=== PATIENT | male | born 2000 | race Caucasian/White ===

== ENCOUNTER 2019-11-21 21:40 | Emergency (ER) | payer OTHER ==
[~2019-11-21] VITALS: Ht 175.3 cm; Wt 68.5 kg
[~2019-11-21 21:40] MED LIST: ACET1TAB15 PO; VIVANCE PO; VYVA30CA5 PO
[2019-11-21] MEDS ORDERED: NALOXONE INJ 0.4MG/1ML VIAL (J2310 PER 1MG) IV STA (21:48)
[2019-11-21] MEDS ORDERED: NS 1,000 ML IV ONE (22:00)
[2019-11-21 22:07] LABS: BASO # 0.1 10^3/uL (0.0-0.2); BASO % 0.5 % (0.0-1.0); EOS # 0.2 10^3/uL (0.0-0.5); EOS % 1.4 % (0.0-3.0); HEMOGLOBIN 14.2 g/dl (13.5-17.5); LYMPH # 2.6 10^3/uL (1.5-5.0); LYMPH % 25.4 % (24.0-44.0); MEAN CORPUSCULAR HEMOGLOBIN 31.5 pg (27.0-33.0); MEAN CORPUSCULAR HGB CONC 34.6 g/dl (32.0-36.5); MEAN CORPUSCULAR VOLUME 90.9 fl (80.0-96.0); MONO # 0.8 10^3/uL (0.0-0.8); MONO % 8.1 % (0.0-5.0); NEUTROPHILS # 6.7 10^3/uL (1.5-8.5); NEUTROPHILS % 64.2 % (36.0-66.0); PLATELET COUNT, AUTOMATED 245 10^3/uL (150-450); RED BLOOD COUNT 4.51 10^6/uL (4.30-6.10); WHITE BLOOD COUNT 10.4 10^3/uL (4.0-10.0)
--- NOTE | 2019-11-21 22:08 | REPVR ---
PROCEDURE INFORMATION: Exam: CT Head Without Contrast Exam date and time: 11/21/2019 10:03 PM Age: 19 years old Clinical indication: Altered mental status/memory loss; Confusion or disorientation; Additional info: AMS TECHNIQUE: Imaging protocol: Computed tomography of the head without contrast. Radiation optimization: All CT scans at this facility use at least one of these dose optimization techniques: automated exposure control; mA and/or kV adjustment per patient size (includes targeted exams where dose is matched to clinical indication); or iterative reconstruction. COMPARISON: No relevant prior studies available. FINDINGS: Brain: No intracranial hemorrhage or extra-axial fluid collection. No evidence of mass effect or midline shift. Lawson-white matter differentiation is intact. Ventricles: No ventriculomegaly. Bones/joints: No acute osseus lesion or fracture. Sinuses: Unremarkable as visualized. Mastoid air cells: Unremarkable. Soft tissues: Unremarkable. IMPRESSION: No acute intracranial pathology. Electronically signed by: Max Biswas On 11/21/2019 22:08:18 PM
[2019-11-21] MEDS ORDERED: LORazepam 2 MG/ML VIAL IV STA (22:28)
[2019-11-21 22:45] LABS: ACETAMINOPHEN LEVEL < 2.0 UG/ML (10.0-30.0); ETHYL ALCOHOL (ETHANOL) < 0.003 % (0.000-0.010); FREE T4 1.02 NG/DL (0.76-1.46); SALICYLATE LEVEL < 1.7 MG/DL (5.0-30.0)
[2019-11-21 23:19] LABS: AMPHETAMINES LEVEL URINE NEGATIVE (NEGATIVE); BARBITURATES URINE NEGATIVE (NEGATIVE); BENZODIAZEPINES URINE NEGATIVE (NEGATIVE); CANNABINOIDS URINE POSITIVE (NEGATIVE); COCAINE METABOLITE URINE NEGATIVE (NEGATIVE); METHADONE URINE NEGATIVE (NEGATIVE); OPIATES URINE NEGATIVE (NEGATIVE); PHENCYCLIDINE URINE NEGATIVE (NEGATIVE)
[2019-11-22 04:15] VITALS: BP 109/57
--- NOTE | 2019-11-22 08:25 | REP ---
REASON: Altered mental status. FINDINGS: The technique utilized in obtaining the radiograph has magnified the cardiac silhouette and accentuated the interstitial markings. The superior mediastinal structures are midline. The cardiac silhouette is unremarkable in size, shape, and position. The diaphragmatic surfaces of the lungs are regular, and the costophrenic angles are clear. The pulmonary stewart are clear. The imaged osseous structures are intact. IMPRESSION: There is no acute cardiopulmonary disease. Electronically Signed by Margarito Adorno DO 11/22/2019 09:18 A
== END 2019-11-22 04:47 | disposition home or self-care (01) ==
LOC: M ED 21:40
DX: F12.121 Cannabis abuse with intoxication delirium (principal); E02 Subclinical iodine-deficiency hypothyroidism; F90.9 Attention-deficit hyperactivity disorder, unspecified type; F17.200 Nicotine dependence, unspecified, uncomplicated; Z78.1 Physical restraint status
CPT/HCPCS: 51701; 70450; 71045; 80047; 80307; 83605; 84439; 84443; 85025; 87040; 93041; 94760; 96374; 99285; G0480; J2310

== ENCOUNTER 2020-02-13 11:04 | Inpatient (IN) | payer OTHER ==
[~2020-02-13] VITALS: Ht 185.4 cm; Wt 67.0 kg
[2020-02-13] MEDS: NICOTINE 21MG/24HR 1 EA TRANSDERMAL TD SCH (09:00)
[2020-02-13 11:59] LABS: HEMATOCRIT 40.7 % (42.0-52.0); HEMOGLOBIN 13.6 g/dl (13.5-17.5); MEAN CORPUSCULAR HEMOGLOBIN 30.7 pg (27.0-33.0); MEAN CORPUSCULAR HGB CONC 33.4 g/dl (32.0-36.5); MEAN CORPUSCULAR VOLUME 91.9 fl (80.0-96.0); PLATELET COUNT, AUTOMATED 236 10^3/uL (150-450); RED BLOOD COUNT 4.43 10^6/uL (4.30-6.10); WHITE BLOOD COUNT 5.8 10^3/uL (4.0-10.0)
[2020-02-13 12:39] LABS: ACETAMINOPHEN LEVEL < 2.0 UG/ML (10.0-30.0); ALBUMIN 4.1 GM/DL (3.2-5.2); ALT/SGPT 16 U/L (12-78); BILIRUBIN,DIRECT 0.2 MG/DL (0.0-0.2); BLOOD UREA NITROGEN 11 MG/DL (7-18); CALCIUM LEVEL 9.1 MG/DL (8.5-10.1); CARBON DIOXIDE LEVEL 30 MEQ/L (21-32); CHLORIDE LEVEL 108 MEQ/L (98-107); CREATININE FOR GFR 0.78 MG/DL (0.70-1.30); ETHYL ALCOHOL (ETHANOL) 0.004 % (0.000-0.010); GLOMERULAR FILTRATION RATE > 60.0 (>60); GLUCOSE, FASTING 88 MG/DL (70-100); POTASSIUM SERUM 3.9 MEQ/L (3.5-5.1); SALICYLATE LEVEL < 1.7 MG/DL (5.0-30.0); SODIUM LEVEL 141 MEQ/L (136-145); TOTAL PROTEIN 7.2 GM/DL (6.4-8.2)
[2020-02-13] MEDS ORDERED: LORazepam 2 MG TAB PO STA (15:32)
[2020-02-13] MEDS ORDERED: haloperidoL 5 MG TAB PO STA (15:32)
[2020-02-13 17:35] LABS: AMPHETAMINES LEVEL URINE NEGATIVE (NEGATIVE); BARBITURATES URINE NEGATIVE (NEGATIVE); BENZODIAZEPINES URINE NEGATIVE (NEGATIVE); CANNABINOIDS URINE POSITIVE (NEGATIVE); COCAINE METABOLITE URINE NEGATIVE (NEGATIVE); METHADONE URINE NEGATIVE (NEGATIVE); OPIATES URINE NEGATIVE (NEGATIVE); PHENCYCLIDINE URINE NEGATIVE (NEGATIVE)
[2020-02-13] MEDS ORDERED: MAALOX 30 ML SUSP *UDC PO PRN (19:00)
[2020-02-13] MEDS ORDERED: MOM 30ML SUSPENSION UDC PO PRN (19:00)
[2020-02-13] MEDS ORDERED: ACETAMINOPHEN TAB 650MG DOSE (2X325MG) PO PRN (19:00)
[2020-02-13 20:45] VITALS: BP 133/69
[2020-02-13] MEDS: PALIPERIDONE 3 MG ER TAB (INVEGA) PO SCH (21:18)
[2020-02-13] MEDS: traZODone 50 MG TAB PO PRN (21:18)
[2020-02-13] MEDS: OLANZapine ORAL DISINTEGRATING TAB 5MG PO PRN (21:18)
[2020-02-14 06:54] VITALS: BP 108/54
[2020-02-14] MEDS ORDERED: INFLUENZA QUADRIVALENT PF VACCINE 0.5ML SYRINGE IM ONE (09:00)
[2020-02-14] MEDS: NICOTINE 21MG/24HR 1 EA TRANSDERMAL TD SCH ×2 (09:00→10:07)
[2020-02-14] MEDS: OLANZapine ORAL DISINTEGRATING TAB 5MG PO PRN (10:05)
--- NOTE | 2020-02-14 12:24 | MHHPEPDOC ---
General Date Of Admission: Feb 13, 2020 Legal Status: 9.39 Chief Complaint Patient is a 19 year old Single, Disabled, Domiciled, male who self- presented to [facility] ED with complaints of auditory and visual hallucinations "They won't leave me alone - I'm seeing shit and hearing shit". History of Present Illness HISTORY OF THE PRESENT ILLNESS: Patient is a 19 -year-old Single, Disabled, Domiciled, , male, who self-presented to [facility] with complaints of auditory and visual hallucinations. Per collateral report (mother) patient resides in a hotel and reported to his mother that he is going into other guests' rooms to warn them about "bad people." Mother reports that he has not been himself since September. Patient states that he is living at the [facility] and when he walks by a mirror he sees a person standing behind his reflection. "It's someone who is wearing my skin and I don't like it" The voices tell him "to give up, not give up, move forward, not move forward, that things don't make sense or that they do make sense. They don't leave me alone." He reports these voices since September or October. They are at times command silvestre ucinations telling him to hang himself. It was reported by the Emergency Department that the patient has been transient and settled down at the [facility] and has been living there for several months. Psychiatric Review of Systems Depression (2 or more weeks): depressed mood, anhedonia Gris (4 or more days of): denies Psychosis: auditory hallucination, visual hallucination, delusions, paranoia, disorganization PTSD: denies Anxiety: denies Past Psychiatric History Previous Psychiatric Diagnosis: According to chart history; ADHD, Bipolar, Suicidal Ideation, Psychosis, Suicide Attempts, Non-compliance Previous Psychiatric Admissions: This is the first admission, according to patient Suicide Attempts: History of 3, patient will not elaborate Psychiatric Follow-up: History of services at [facility] in 2018 Psychiatric medications: None Past Medical History Medical Problems History of Appendicitis Hyperthyroid Surgeries - denies Allergies - denies any allergies Head Injury: No Seizures: No Hospitalizations: No Surgeries: No Family Medical/Psychiatric HX Medical Problems Reports his father had cardiac history and ETOH Grandfather with ETOH history No reported completed suicides Psychiatric Disorders: No Addiction: Yes Suicide Attemps/Completions: No Addiction History nicotine, other (cannabis) Social History Childhood: Patient reports living with mom until he was an adult, has 2 step sisters, 2 brothers and 2 step brothers Abuse/Trauma: Denies Current Living Situation: Get SSI, lives at the [facility] Education: Went to the 12th grade but did not graduate Employment: Unemployed, is getting SSI Social Support: Mother Legal: Denies Marital: Single Mental Status Examination General Appearance: disheveled, hospital scubs/clothing Build: average Demeanor: mistrustful, withdrawn, preoccupied, guarded Eye Contact: avoidant Activity: slowed Behavior: withdrawn Speech: slow, low in volume, impoverished Mood: anxious, other (paranoid, suspicious) Affect: flat Thought Process: loose, slow Thought Content (Delusions): paranoia, delusions Thought Content (Other): preoccupied, guarded, internal-stimuli, appears paranoid Thought Content (Aggressive): none reported Perception (Hallucinations): auditory, visual Perception (Other): illusions Cognition (Impairment of): attention/concentration, ability to abstract Cognition(Intelligence Est.): borderline Oriented: Awake, Alert Insight: poor Judgment: Poor Psychosis: Psychotic Perceptions Diagnoses Unspecified Schizophrenia and Other Psychotic Disorders A-FIB/CHADSVASC A-FIB History Current/History of A-Fib/PAF?: No Current PO Anticoag Therapy: No Age/Risk Factor Scoring CHADSVASC: CHADSVASC Response (Comments) Value Age Risk Factor Age < 65 years old 0 Gender Risk Factor Male 0 Hx of CHF No 0 Hx of HTN No 0 Hx of Stroke/TIA/or VTE No 0 Hx of Diabetes No 0 Hx of Vascular Disease No 0 Total 0 Treatment Treatment ordered: NONE Assessment Patient is a 19 year old Single, Disabled Male well-developed, and under nourished young man, appearing to be his stated age. He is dressed in the hospital scrub pants and t-shirt and is calm and cooperative in the interview. He has left sided Ptosis. He displays psychomotor retardation in the interview. He avoided eye contact throughout the interview. Patient's speech was slow in daria, low in volume and was impoverished. He answered questions but had difficulty answering and there was a lag in time when he answered. It was difficult to engage the patient in answering questions. He reports auditory and visual hallucinations that started a few months ago, he denies any triggers. It was again difficult to determine thought content and process as he was limited in his answers and was quite guarded throughout. It is difficult to determine his insight and judgment as he was resistive to questions. we will treat patient for psychotic symptoms and determine if there are any complaints beyond his auditory and visual hallucinations. Initial Treatment Plan 1. Patient was admitted on a [9.39] status. 2. Complete history was obtained. 3. With patients permission, family will be contacted and database will be expanded. 4. Patients medication regimen will be reviewed and changed accordingly. 5. Patient will be provided with protected environment. 6. Patient will be treated with individual, group, and milieu therapies. 7. Patient will receive supportive psych-education. 8. Discharge planning will commence immediately. 9. Outpatient follow-up treatment will be strongly recommended. 10. The initial treatment plan will focus initially on: * Depression. * Risk for suicide. ESTIMATED LENGTH OF STAY: 5-7 DAYS. TIME SPENT COUNSELING AND COORDINATING INITIAL CARE: 30 minutes. Vital Signs Vital Signs Date Time Temp Pulse Resp B/P (MAP) Pulse Ox O2 Delivery O2 Flow Rate FiO2 02/14/20 06:54 97.3 57 16 108/54 (72) 98 Room Air Medications No Active Prescriptions or Reported Meds Allergies Coded Allergies: No Known Drug Allergies (Verified Allergy, Unknown, 11/21/19) ASHER REYNOLDS NP Feb 14, 2020 12:24
--- NOTE | 2020-02-14 15:02 | HPEPDOC ---
[facility] Medical History & Physical Date of Admission Feb 14, 2020 Date of Service: Feb 14, 2020 Attending Physician: AVRIL OJEDA MD History and Physical CHIEF COMPLAINT: Auditory and visual hallucinations. HISTORY OF PRESENT ILLNESS: Mr. Quiroz is a 19-year-old male with a history of hypothyroidism, ADHD, psychosis?, presents to [facility] behavioral health unit complaining of visual and artery hallucinations. States that he often sees people wearing his skin standing behind him. He can see them the reflection in the mirror. During the examination. She states several people in the room with us including people he knowns and people who are strangers. He states that he has a history of hyperthyroidism, but he has not taken medication for a long time. He states that he smokes a pack cigarettes daily but that he does not drink alcohol regularly. Last drink was over a month ago. He denies history of alcohol withdrawal. Reports a history of alcoholism in the family. At this time. Denies chest pain, sugars of breath, palpitations, nausea, vomiting, diarrhea or subjective chills. PAST MEDICAL HISTORY: Hypothyroidism ADHD Psychosis PAST SURGICAL HISTORY: Appendectomy SOCIAL HISTORY: regular smoker 1ppd, 5 pack year hx Last drink 1 mo ago, states infrequent use Patient denies illicit drug use FAMILY HISTORY: father- [place] age 45. DM2. Brother - seizure ALLERGIES: Please see below. REVIEW OF SYSTEMS: CONSTITUTIONAL: patient denies fevers, chills HEENT: patient denies blurred vision, loss of vision, headache,. CARDIOVASCULAR: patient denies chest pain, palpitations. RESPIRATORY: patient denies shortness of breath, cough, hemoptysis. GASTROINTESTINAL: patient denies abdominal pain, n/v/d, blood in stool. GENITOURINARY: patient denies dysuria, discharge. SKIN: patient denies rashes. MUSCULOSKELETAL: patient denies joint pain, neck pain. NEUROLOGICAL: patient denies focal weakness, numbness, seizures. PSYCHIATRIC: patient denies active suicidal ideation, reports low mood, anhedonia, reports visual and auditory hallucination ENDOCRINE: patient denies polyuria, heat intolerance, cold intolerance. HEMATOLOGIC/LYMPHATIC: patient denies easy bruising. HOME MEDICATIONS: Please see below. PHYSICAL EXAMINATION: VITAL SIGNS: please see below General: NAD, comfortable HEENT: PERRLA, EOMI, sclerae clear. L eyelid droop, states present since . Neck: supple, normal ROM, no JVD Respiratory: lungs CTAB, no wheeze, no rales, no crackles CVS: RRR, normal S1, S2, no murmurs Abdo: soft, no masses, no hepatosplenomegaly, BS+, no rebound tenderness Extremities: no edema, pulses 2+ MSK: no joint deformities, normal ROM Neuro: no focal neuro deficits, moving all 4 extremities, CN2-12 intact. Strength 5/5 in all 4 extremities. No nystagmus. Psych: calm, cooperative, AAO x 3 LABORATORY DATA: See below. MICROBIOLOGY: Please see below. ASSESSMENT: 19 year-old male with a history of hypothyroidism, admitted to [facility] for auditory and visual hallucinations, systems with psychosis. Hospitalist has been consulted for management of medical issues. . PLAN: #Psychosis: management per psychiatry. UDS positive for cannabinoids #Hypothyroidism: Vitals wnl, stable. TSH 11.3. Check FT4. Start low dose levothyroxine 25 mcg. F/o with PCP for repeat TFTs in 4-6 weeks. Thank you for involving me in the care of this patient. Please re-consult as needed. Vital Signs Vital Signs Date Time Temp Pulse Resp B/P (MAP) Pulse Ox O2 Delivery O2 Flow Rate FiO2 02/14/20 06:54 97.3 57 16 108/54 (72) 98 Room Air Home Medications No Active Prescriptions or Reported Meds Allergies Coded Allergies: No Known Drug Allergies (Verified Allergy, Unknown, 11/21/19) A-FIB/CHADSVASC A-FIB History Current/History of A-Fib/PAF?: No Current PO Anticoag Therapy: No AVRIL OJEDA MD Feb 14, 2020 15:02
[2020-02-14 15:28] LABS: FREE T4 0.88 NG/DL (0.76-1.46)
[2020-02-14 16:20] VITALS: BP 110/58
[2020-02-14] MEDS: LEVOTHYROXINE 25MCG TABLET (0.025MG) PO SCH (16:40)
[2020-02-14] MEDS: PALIPERIDONE 3 MG ER TAB (INVEGA) PO SCH (21:37)
[2020-02-14] MEDS: traZODone 50 MG TAB PO PRN (21:37)
[2020-02-15] MEDS: LEVOTHYROXINE 25MCG TABLET (0.025MG) PO SCH (06:12)
[2020-02-15 06:18] VITALS: BP 122/58
[2020-02-15] MEDS: NICOTINE 21MG/24HR 1 EA TRANSDERMAL TD SCH (09:00)
[2020-02-15 16:16] VITALS: BP 128/82
[2020-02-15] MEDS: OLANZapine ORAL DISINTEGRATING TAB 5MG PO PRN (16:52)
[2020-02-15] MEDS: traZODone 50 MG TAB PO PRN (20:17)
[2020-02-15] MEDS: PALIPERIDONE 3 MG ER TAB (INVEGA) PO SCH (20:17)
[2020-02-16] MEDS: LEVOTHYROXINE 25MCG TABLET (0.025MG) PO SCH (06:08)
[2020-02-16 06:28] VITALS: BP_SYST 120; BP_SYST 127; BP_DIAS 62; BP_DIAS 69
[2020-02-16] MEDS: NICOTINE 21MG/24HR 1 EA TRANSDERMAL TD SCH (09:26)
[2020-02-16] MEDS: OLANZapine ORAL DISINTEGRATING TAB 5MG PO PRN (09:26)
--- NOTE | 2020-02-16 10:30 | MHIPNPDOC ---
[facility] Progress Note Progress Note DATE OF SERVICE: 02/16/20 Subjective HPI: Patient is met with today. Reports that he is doing much better and that he's feeling much improved. He reports otherwise that he has been doing well and asked about leaving. Objective Affect: Somewhat flat. Thought Form: Linear and goal directed. Thought Content: No thoughts of self harm. No evidence of suicidal ideation. No evidence of aggressive or homicidal ideation. No evidence of delusions. Judgement: Improved. Insight: Improved. Assessment F42.9 Obsessive-compulsive disorder, unspecified Plan Discussed with him about meeting with his provider tomorrow. No acute complaints. Continue medication Vital Signs Vital Signs Date Time Temp Pulse Resp B/P (MAP) Pulse Ox O2 Delivery O2 Flow Rate FiO2 02/16/20 06:28 97.8 62 16 120/69 (86) Room Air 02/14/20 06:54 98 Current Medications Current Medications Medications (Trade) Dose Ordered Sig/Eris Route PRN Reason Start Time Stop Time Status Last Admin Dose Admin Acetaminophen (Tylenol Tab) 650 mg Q6HP PRN PO HEADACHE or DISCOMFORT 02/13/20 19:00 Al Hydrox/Mg Hydrox/Simethicone (Mylanta) 30 ml Q4HP PRN PO HEARTBURN/INDIGESTION 02/13/20 19:00 Haloperidol (Haldol) 5 mg STAT STAT PO 02/13/20 15:32 02/13/20 15:33 DC Home Med (Med Rec Complete!) ASDIRECTED XX 02/13/20 16:30 02/13/20 16:24 DC Levothyroxine Sodium (Synthroid) 25 mcg DAILY@06 PO 02/14/20 06:00 02/16/20 06:08 Lorazepam (Ativan) 2 mg STAT STAT PO 02/13/20 15:32 02/13/20 15:33 DC Magnesium Hydroxide (Milk Of Magnesia) 30 ml DAILYPRN PRN PO CONSTIPATION 02/13/20 19:00 Nicotine (Nicoderm Cq 21mg) 1 patch DAILY TD 02/13/20 09:00 02/16/20 09:26 Olanzapine (ZyPREXA ZYDIS) 5 mg Q6HP PRN PO ANXIETY/AGITATION 02/13/20 19:00 02/16/20 09:26 Paliperidone (Invega) 3 mg QHS PO 02/13/20 21:00 02/15/20 20:17 Trazodone HCl (Desyrel) 50 mg QHSP PRN PO INSOMNIA 02/13/20 19:00 02/15/20 20:17 Allergies Coded Allergies: No Known Drug Allergies (Verified Allergy, Unknown, 11/21/19) HEDY MOSER DO Feb 16, 2020 10:30
--- NOTE | 2020-02-16 10:30 | MHIPNPDOC ---
[facility] Progress Note Progress Note DATE OF SERVICE: 02/15/20 Subjective HPI: Matthew presents today for a follow upThe patient states that he is no longer having suicidal thoughts. He denies hearing voices and reports that hes feeling better. Objective Appearance: Appears to be stated age. Hygiene is fair. Affect: Flat. Little reactivity. Speech: Normal volume. Monotone. Normal rate. Spontaneous and Fluid. Thought Form: Focused on the discharge. Associations appear intact. Linear and goal directed. Judgement: Pure. Insight: Pure. Assessment F42.8 Other obsessive-compulsive disorder Plan Continue current medications. Defer to regular provider during the week. Vital Signs Vital Signs Date Time Temp Pulse Resp B/P (MAP) Pulse Ox O2 Delivery O2 Flow Rate FiO2 02/16/20 06:28 97.8 62 16 120/69 (86) Room Air 02/14/20 06:54 98 Current Medications Current Medications Medications (Trade) Dose Ordered Sig/Eris Route PRN Reason Start Time Stop Time Status Last Admin Dose Admin Acetaminophen (Tylenol Tab) 650 mg Q6HP PRN PO HEADACHE or DISCOMFORT 02/13/20 19:00 Al Hydrox/Mg Hydrox/Simethicone (Mylanta) 30 ml Q4HP PRN PO HEARTBURN/INDIGESTION 02/13/20 19:00 Haloperidol (Haldol) 5 mg STAT STAT PO 02/13/20 15:32 02/13/20 15:33 DC Home Med (Med Rec Complete!) ASDIRECTED XX 02/13/20 16:30 02/13/20 16:24 DC Levothyroxine Sodium (Synthroid) 25 mcg DAILY@06 PO 02/14/20 06:00 02/16/20 06:08 Lorazepam (Ativan) 2 mg STAT STAT PO 02/13/20 15:32 02/13/20 15:33 DC Magnesium Hydroxide (Milk Of Magnesia) 30 ml DAILYPRN PRN PO CONSTIPATION 02/13/20 19:00 Nicotine (Nicoderm Cq 21mg) 1 patch DAILY TD 02/13/20 09:00 02/16/20 09:26 Olanzapine (ZyPREXA ZYDIS) 5 mg Q6HP PRN PO ANXIETY/AGITATION 02/13/20 19:00 02/16/20 09:26 Paliperidone (Invega) 3 mg QHS PO 02/13/20 21:00 02/15/20 20:17 Trazodone HCl (Desyrel) 50 mg QHSP PRN PO INSOMNIA 02/13/20 19:00 02/15/20 20:17 Allergies Coded Allergies: No Known Drug Allergies (Verified Allergy, Unknown, 11/21/19) HEDY MOSER DO Feb 16, 2020 10:30
[2020-02-16 16:18] VITALS: BP 136/73
[2020-02-16] MEDS: traZODone 50 MG TAB PO PRN (20:36)
[2020-02-16] MEDS: PALIPERIDONE 3 MG ER TAB (INVEGA) PO SCH (20:36)
[2020-02-17] MEDS: LEVOTHYROXINE 25MCG TABLET (0.025MG) PO SCH (05:57)
[2020-02-17 06:36] VITALS: BP 116/56
[2020-02-17] MEDS: NICOTINE 21MG/24HR 1 EA TRANSDERMAL TD SCH (09:20)
[2020-02-17] MEDS ORDERED: LEVO25TA5 PO (11:16)
[2020-02-17] MEDS ORDERED: INVE234I IM (11:16)
[2020-02-17] MEDS ORDERED: BENZ0.5T23 PO (11:16)
[2020-02-17] MEDS ORDERED: PALI1TAB2 PO (11:16)
[2020-02-17] MEDS ORDERED: NICO21PAT TD (11:16)
--- NOTE | 2020-02-17 11:24 | MHDSPDOC ---
[facility] Discharge Summary Discharge Summary DATE OF ADMISSION: Feb 13, 2020 at 18:49 DATE OF DISCHARGE: February 17, 2020 at 1122 DISCHARGE DIAGNOSES: 1. Unspecified Schizophrenia and Other Psychotic Disorders REASON FOR ADMISSION: Patient self presented to the ED for reports of auditory and visual hallucinations. CONSULTANTS INVOLVED: See Medical H + P by Restaurant Shift Supervisor TREATMENT AND PROGRESS ON THE UNIT : Patient admitted to [facility] and afforded 1) Individual Therapy, 2) Group Therapy, 3) Medication Management, 4) Milieu Therapy, and 5) Safe Environment HOSPITAL COURSE: Patient was started on his antipsychotic medications Paliperidone 3 mg, in today's interview patient was requesting discharge. I reviewed with the patient that he started on Paliperidone and he was a candidate for a long acting injectable. I reviewed with patient indication, dose, time, route and frequency. Patient was agreeable to the Invega Sustenna 234 mg IM injection today with 12 day coverage of Paliperidone. DISCHARGE ASSESSMENT: Patient was evaluated today, he presents with brighter mood and affect, denying auditory and visual hallucinations. Per staff patient had a good weekend and was engaged with staff. He was close to his room, not s ocial with peers but was calm and cooperative on the unit. MENTAL STATUS EXAMINATION ON DISCHARGE: Patient is a 19-year old male, who is being discharged today. He was admitted for reports of auditory and visual hallucinations. He appears to be his stated age. His hygiene and grooming is fair. Eye contact is goo. Speech is spontaneous, fluid. Normal rate, tone and volume Language skills are fair Thought processes including: linear and goal oriented Thought content: denies phobia, psychosis, lex, depression, anxiety, delusions or a/v/t hallucinations Abstract reasoning, and computation: fair Description of associations: none noted Description of abnormal or psychotic thoughts: none voiced Judgment: fair Insight: fair Orientation to person, place, situation and time, Recent and remote memory: intact Attention span and concentration: fair Language: expansive Fund of knowledge: good Mood: bright "I feel better" Affect: congruent MEDICATIONS ON DISCHARGE: See Medication Reconciliation PLAN/FOLLOWUP ARRANGEMENTS: See Discharge Planners notes on patient's follow up appointments. Patient to follow up with PCP for repeat TFTs in 4-6 weeks. The amount of time spent in the coordination of care for this patient was approximately 20 minutes. Vital Signs/I&Os Vital Signs Date Time Temp Pulse Resp B/P (MAP) Pulse Ox O2 Delivery O2 Flow Rate FiO2 02/17/20 06:36 97.8 57 16 116/56 (76) 100 Room Air Medications Scheduled Levothyroxine Sodium (Levothyroxine Sodium) 25 Mcg Tablet, 25 MCG PO DAILY@06 for Thyroid, #7 Nicotine (Nicotine Patch) 21 Mg Patch.td24, 1 PATCH TD DAILY for Nicotine wirhdrawal , #7 Paliperidone (Paliperidone ER) 3 Mg Tab.er.24, 3 MG PO QHS for Antipsychotic, #12 Paliperidone Palmitate (Invega Sustenna) 234 Mg/1.5 Ml Syringe, 234 MG IM ONCE for Antipsychotic, #1 Scheduled PRN Benztropine Mesylate (Benztropine Mesylate) 0.5 Mg Tablet, 0.5 MG PO BID PRN for Extrapyrimidal Symptoms for 30 Days, #14 Allergies Coded Allergies: No Known Drug Allergies (Verified Allergy, Unknown, 11/21/19) ASHER REYNOLDS NP Feb 17, 2020 11:24
[2020-02-17] MEDS ORDERED: PALIPERIDONE PALMITATE 234MG/1.5ML INJ (INVEGA)(FREE PSY INPT ONLY) IM ONE (12:00)
== END 2020-02-17 15:05 | disposition home or self-care (01) | DRG 750 ==
LOC: M ED 11:04 → M ED INP 18:49 → M PSY 20:38
PROVIDERS: ADMIT Psychiatry & Neurology Psychiatry; ATTEND Psychiatry & Neurology Psychiatry
DX: F20.9 Schizophrenia, unspecified (principal); E03.9 Hypothyroidism, unspecified; F90.9 Attention-deficit hyperactivity disorder, unspecified type; F17.210 Nicotine dependence, cigarettes, uncomplicated; Z81.1 Family history of alcohol abuse and dependence; F42.8 Other obsessive-compulsive disorder

== ENCOUNTER 2020-03-10 17:28 | Inpatient (IN) | payer OTHER ==
[~2020-03-10] VITALS: Ht 188 cm; Wt 69.8 kg
[~2020-03-10 17:28] MED LIST changes: +BENZ0.5T23 PO; +INVE234I IM; +LEVO25TA5 PO; +NICO21PAT TD; +PALI1TAB2 PO
[2020-03-10 18:25] LABS: HEMATOCRIT 45.3 % (42.0-52.0); MEAN CORPUSCULAR HEMOGLOBIN 30.3 pg (27.0-33.0); MEAN CORPUSCULAR HGB CONC 33.1 g/dl (32.0-36.5); MEAN CORPUSCULAR VOLUME 91.5 fl (80.0-96.0); PLATELET COUNT, AUTOMATED 308 10^3/uL (150-450); RED BLOOD COUNT 4.95 10^6/uL (4.30-6.10); WHITE BLOOD COUNT 9.6 10^3/uL (4.0-10.0)
[2020-03-10 19:02] LABS: ACETAMINOPHEN LEVEL < 2.0 UG/ML (10.0-30.0); ALBUMIN 4.5 GM/DL (3.2-5.2); ALT/SGPT 14 U/L (12-78); BILIRUBIN,DIRECT 0.2 MG/DL (0.0-0.2); BILIRUBIN,TOTAL 0.8 MG/DL (0.2-1.0); BLOOD UREA NITROGEN 17 MG/DL (7-18); CARBON DIOXIDE LEVEL 27 MEQ/L (21-32); CHLORIDE LEVEL 106 MEQ/L (98-107); CREATININE FOR GFR 0.87 MG/DL (0.70-1.30); ETHYL ALCOHOL (ETHANOL) < 0.003 % (0.000-0.010); GLOMERULAR FILTRATION RATE > 60.0 (>60); GLUCOSE, FASTING 101 MG/DL (70-100); SALICYLATE LEVEL < 1.7 MG/DL (5.0-30.0); SODIUM LEVEL 139 MEQ/L (136-145); TOTAL PROTEIN 7.8 GM/DL (6.4-8.2)
[2020-03-10] MEDS ORDERED: NICO21DI31 TD (21:41)
[2020-03-10] MEDS ORDERED: INVE234I IM (21:41)
[2020-03-10] MEDS ORDERED: BENZ0.5T23 PO (21:41)
[2020-03-10] MEDS ORDERED: PALI1TAB2 PO (21:41)
[2020-03-10] MEDS ORDERED: SYNT50TA PO (21:41)
[2020-03-10 23:30] LABS: AMPHETAMINES LEVEL URINE NEGATIVE (NEGATIVE); BARBITURATES URINE NEGATIVE (NEGATIVE); BENZODIAZEPINES URINE NEGATIVE (NEGATIVE); CANNABINOIDS URINE POSITIVE (NEGATIVE); COCAINE METABOLITE URINE NEGATIVE (NEGATIVE); METHADONE URINE NEGATIVE (NEGATIVE); OPIATES URINE NEGATIVE (NEGATIVE); PHENCYCLIDINE URINE NEGATIVE (NEGATIVE)
[2020-03-11 05:03] LABS: CK-MB VALUE MASS < 1.0 NG/ML (<3.6); CPK CREATINE PHOSPHOKINASE 120 U/L (39-308); MB/CK RELATIVE INDEX 0.83 (< OR =4); TROPONIN I < 0.02 NG/ML (< 0.10)
[2020-03-11] MEDS ORDERED: NICOTINE 21MG/24HR 1 EA TRANSDERMAL TD ONE (07:30)
[2020-03-11] MEDS: LEVOTHYROXINE 50MCG TABLET (0.05MG) PO SCH (07:57)
[2020-03-11] MEDS: NICOTINE 21MG/24HR 1 EA TRANSDERMAL TD SCH (09:00)
[2020-03-11] MEDS ORDERED: MOM 30ML SUSPENSION UDC PO PRN (14:45)
[2020-03-11] MEDS ORDERED: OLANZapine ORAL DISINTEGRATING TAB 5MG PO PRN (14:45)
[2020-03-11] MEDS ORDERED: ACETAMINOPHEN TAB 650MG DOSE (2X325MG) PO PRN (14:45)
[2020-03-11] MEDS ORDERED: BENZTROPINE 0.5 MG TAB PO PRN (14:45)
[2020-03-11] MEDS ORDERED: MAALOX 30 ML SUSP *UDC PO PRN (14:45)
[2020-03-11 15:37] VITALS: BP 110/64
[2020-03-11] MEDS: traZODone 50 MG TAB PO PRN (21:22)
[2020-03-11] MEDS: PALIPERIDONE 3 MG ER TAB (INVEGA) PO SCH (21:22)
[2020-03-12] MEDS ORDERED: LEVOTHYROXINE 50MCG TABLET (0.05MG) PO SCH (06:00)
[2020-03-12 06:32] VITALS: BP 136/65
--- NOTE | 2020-03-12 07:57 | ECGEPIP ---
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
[2020-03-12] MEDS: NICOTINE 21MG/24HR 1 EA TRANSDERMAL TD SCH (09:13)
[2020-03-12] MEDS: PALIPERIDONE 3 MG ER TAB (INVEGA) PO SCH ×2 (09:13→21:32)
[2020-03-12 10:54] LABS: CHOLESTEROL RISK RATIO 3.45 (<5); FREE THYROXINE INDEX 2.4 % (1.4-3.8); THYROID STIMULATING HORMONE 15.3 uIU/ML (0.358-3.740); THYROXINE (T4) 7.6 UG/DL (4.5-12.0)
[2020-03-12 10:55] LABS: HEMOGLOBIN A1c 4.9 %
--- NOTE | 2020-03-12 11:12 | MHHPEPDOC ---
[facility] History & Physical History and Physical DATE OF ADMISSION: Mar 11, 2020 at 14:45 Subjective HPI: Matthew presents today for hearing voices and sees ghosts. He is very guarded about discussing. Patient appears to report that he has bipolar disorder and that he requested to go to long-term treatment. Matthew vaguely reports seeing ghosts but is unable to describe anything specific. He does not appear to be responding to internal stimuli nor demonstrating signs of acute psychosis. He claims to not have any previous admissions. MEDICATIONS: He reports that he has not taken any medication since he was last at the office and has not followed up since his last admission. Patient was placed on antipsychotic paliperidone injection. It appears that he did not get his second injection. MEDICAL HISTORY: He was admitted February 13, 2020 and was diagnosed with schizophrenia for which he has treated for some time. Matthew has a history of being treated in [facility] in 2018, diagnoses from ADHD to bipolar disorder. Allergies and surgical history were reviewed. FAMILY HISTORY: Patient reports having a family history of alcohol addiction. SOCIAL HISTORY - OCCUPATION: Matthew is unemployed at this time and is supported by mother primarily. SOCIAL HISTORY - LIVING SITUATION: Patient reports living with his mother until he is an adult; he has 2 stepsisters and 2 brothers. Currently, Patient lives in a hotel and is not . SOCIAL HISTORY - SUBSTANCE USE: He notes of having addiction to primarily alcohol. SOCIAL HISTORY - SMOKING: Matthew reports cannabis and nicotine use. Objective Behavior: Poor eye contact. Speech: Patient reports his bipolar needs to go to [place], otherwise does not scribe much. Pressured. Judgement: Poor. Insight: Poor. Assessment F29 Unspecified psychosis not due to a substance or known physiological condition Plan Diagnosis associations are unclear at this time. Treatment parameters are 1) altered thoughts; 2) non-compliance. Continue current 3 mg Invega BID. Stay 1-5 days for care at facility. Vital Signs Vital Signs Date Time Temp Pulse Resp B/P (MAP) Pulse Ox O2 Delivery O2 Flow Rate FiO2 03/12/20 06:32 98.3 72 14 136/65 (88) 97 Room Air Laboratory Data 24H Labs Laboratory Tests 2 03/12/20 09:49: Estimated Mean Plasma Glucose 94, Hemoglobin A1c 4.9, Triglycerides Level 84, Total Cholesterol 138, LDL Cholesterol 81, Non-HDL Cholesterol (LDL + VLDL) 98, Total HDL Cholesterol 40, Cholesterol/HDL Ratio 3.450, Thyroid Stimulating Hormone (TSH) 15.300H, Free Thyroxine Index 2.4, Thyroxine (T4) 7.6, Triiodothyronine (T3) Uptake 32L Medications Scheduled Levothyroxine Sodium (Synthroid) 50 Mcg Tablet, 50 MCG PO DAILY, (Reported) Nicotine (Nicotine Patch) 21 Mg Patch.td24, 21 MG TD DAILY, (Reported) Paliperidone (Paliperidone ER) 3 Mg Tab.er.24, 3 MG PO QHS, (Reported) Paliperidone Palmitate (Invega Sustenna) 234 Mg/1.5 Ml Syringe, 234 MG IM QMONTH, (Reported) Scheduled PRN Benztropine Mesylate (Benztropine Mesylate) 0.5 Mg Tablet, 0.5 MG PO BID PRN for EXTRAPYRIMIDAL SYMPTOMS, (Reported) Allergies Coded Allergies: No Known Drug Allergies (Verified Allergy, Unknown, 11/21/19) HEDY MOSER DO Mar 12, 2020 11:12
--- NOTE | 2020-03-12 14:31 | HPEPDOC ---
[facility] Medical History & Physical Date of Admission Mar 12, 2020 Date of Service: Mar 12, 2020 History and Physical CHIEF COMPLAINT: Routine Medical Exam. HISTORY OF PRESENT ILLNESS: 19-year-old male with hypothyroidism, chronic marijuana use, tobacco abuse 1 pack/day ADHD, psychosis, chronic left eye ptosis admitted to [facility] for psychosis. He denies fevers, chills, blurred vision, loss of vision, diplopia ,headache,chest pain, palpitations,shortness of breath, cough,dysphagia, odynophagia,hematemesis, brbpr, melena, hemoptysis,abdominal pain, n/v/d, blood in stool,dysuria, discharge,rashes,joint pain, neck pain,focal weakness, numbness, seizures,active suicidal ideation, reports low mood, anhedonia, reports visual and auditory hallucination,polyuria, heat intolerance, cold intolerance, easy bruising. Despite having high TSH, pt denies any constipation, increased fatigue, sleepiness, weight gain, and is compliant with his synthroid. 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 DM2. mother- age 40 with memory issues Brother - seizure ALLERGIES: Please see below. REVIEW OF SYSTEMS:per HPI , but 10point system otherwise negative HOME MEDICATIONS: Please see below. PHYSICAL EXAMINATION: VITAL SIGNS: please see below General: NAD, AAOx3 cooperative no distress HEENT: PERRLA, EOMI, sclerae clear. L upper eyelid ptosis, chronic Neck: supple,no rigidity normal ROM, no JVD Respiratory: AEBE lungs CTAB, no wheeze, no rales, no crackles CVS: RRR, normal S1, S2, no murmurs Abdo: soft,ND o bruits no masses, no hepatosplenomegaly, BS+, no rebound tenderness Extremities: no cyanosis, clubbing, or pitting edema, pulses 2+ LABORATORY DATA: See below. MICROBIOLOGY: Please see below. ASSESSMENT: 19 year-old male admitted to [facility] for psychosis PROBLEMS: Psychosis Hypothyroidism Cigarette and Marijuana abuse ADHD PLAN: repeat tsh in 1month, adjust meds if needed. psych meds per primary team. tobacco cessation counselling and nicotine replacement. outpt pcp fu within 1 wk of psychiatric discharge. Hospitalist will sign off. pls reconsult for any new medical issues. Vital Signs Vital Signs Date Time Temp Pulse Resp B/P (MAP) Pulse Ox O2 Delivery O2 Flow Rate FiO2 03/12/20 06:32 98.3 72 14 136/65 (88) 97 Room Air Laboratory Data Labs 24H Laboratory Tests 2 03/12/20 09:49: Estimated Mean Plasma Glucose 94, Hemoglobin A1c 4.9, Triglycerides Level 84, Total Cholesterol 138, LDL Cholesterol 81, Non-HDL Cholesterol (LDL + VLDL) 98, Total HDL Cholesterol 40, Cholesterol/HDL Ratio 3.450, Thyroid Stimulating Hormone (TSH) 15.300H, Free Thyroxine Index 2.4, Thyroxine (T4) 7.6, Tr iiodothyronine (T3) Uptake 32L Home Medications Scheduled Levothyroxine Sodium (Synthroid) 50 Mcg Tablet, 50 MCG PO DAILY Nicotine (Nicotine Patch) 21 Mg Patch.td24, 21 MG TD DAILY Paliperidone (Paliperidone ER) 3 Mg Tab.er.24, 3 MG PO QHS Paliperidone Palmitate (Invega Sustenna) 234 Mg/1.5 Ml Syringe, 234 MG IM QMONTH Scheduled PRN Benztropine Mesylate (Benztropine Mesylate) 0.5 Mg Tablet, 0.5 MG PO BID PRN for EXTRAPYRIMIDAL SYMPTOMS Allergies Coded Allergies: No Known Drug Allergies (Verified Allergy, Unknown, 11/21/19) A-FIB/CHADSVASC A-FIB History Current/History of A-Fib/PAF?: No Current PO Anticoag Therapy: No Age/Risk Factor Scoring CHADSVASC: CHADSVASC Response (Comments) Value Age Risk Factor Age < 65 years old 0 Gender Risk Factor Male 0 Hx of CHF No 0 Hx of HTN No 0 Hx of Stroke/TIA/or VTE No 0 Hx of Diabetes No 0 Hx of Vascular Disease No 0 Total 0 Treatment Treatment ordered: NONE Reason Anticoagulant not given: Not indicated/[id number] RASHARD MASON MD Mar 12, 2020 14:31
[2020-03-12 16:43] VITALS: BP 132/72
[2020-03-12] MEDS: traZODone 50 MG TAB PO PRN (21:32)
--- NOTE | 2020-03-12 22:54 | ECGEPIP ---
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 Electronically Signed on 03-12-2020 22:54:17 EDT by Ollie Khan
[2020-03-13] MEDS: LEVOTHYROXINE 75MCG TABLET (0.075MG) PO SCH (06:07)
[2020-03-13 06:51] VITALS: BP 132/75
[2020-03-13] MEDS: NICOTINE 21MG/24HR 1 EA TRANSDERMAL TD SCH (08:54)
[2020-03-13] MEDS: PALIPERIDONE 3 MG ER TAB (INVEGA) PO SCH (08:54)
--- NOTE | 2020-03-13 11:02 | MHIPNPDOC ---
[facility] Progress Note Progress Note DATE OF SERVICE: 03/13/20 Subjective HPI/Interval Hx: The patient is met with today, reports that he wants to go home, he's unusual and a little bit bizarre, he reports that he's feeling much better suddenly. He reports paliperidone is not as helpful. Otherwise he's perseverative on discharge. Objective General: fair hygiene Speech: fluid Thought processes: linear Thought content: perseverative Abstract reasoning, and computation: mildly impaired Description of associations: mildly impaired Description of abnormal or psychotic thoughts:. Denies SI Judgment: poor Insight: poor Orientation: [Alert and orientated 3] Recent and remote memory: [Intact] Attention span and concentration: [Intact] Fund of knowledge: [Adequate] Mood: ["okay"] Affect: flat Assessment unspecified psychotic disorder Plan Switch paliperidone to Zyprexa 5 mg BID will observe over weekend Vital Signs Vital Signs Date Time Temp Pulse Resp B/P (MAP) Pulse Ox O2 Delivery O2 Flow Rate FiO2 03/13/20 06:51 96.7 80 18 132/75 (94) 99 Room Air Current Medications Current Medications Medications (Trade) Dose Ordered Sig/Eris Route PRN Reason Start Time Stop Time Status Last Admin Dose Admin Acetaminophen (Tylenol Tab) 650 mg Q6HP PRN PO HEADACHE or DISCOMFORT 03/11/20 14:45 Al Hydrox/Mg Hydrox/Simethicone (Mylanta) 30 ml Q4HP PRN PO HEARTBURN/INDIGESTION 03/11/20 14:45 Benztropine Mesylate (Cogentin) 0.5 mg BID PRN PO EXTRAPYRIMIDAL SYMPTOMS 03/11/20 14:45 Home Med (Med Rec Complete!) ASDIRECTED XX 03/10/20 21:45 03/10/20 21:43 DC Levothyroxine Sodium (Synthroid) 50 mcg DAILY@06 PO 03/11/20 06:00 03/11/20 14:57 DC 03/11/20 07:57 Levothyroxine Sodium (Synthroid) 50 mcg DAILY@0600 PO 03/12/20 06:00 03/12/20 14:32 DC 03/12/20 06:22 Levothyroxine Sodium (Synthroid) 75 mcg DAILY@06 PO 03/13/20 06:00 03/13/20 06:07 Magnesium Hydroxide (Milk Of Magnesia) 30 ml DAILYPRN PRN PO CONSTIPATION 03/11/20 14:45 Nicotine (Nicoderm Cq 21mg) 1 patch DAILY TD 03/11/20 09:00 03/13/20 08:54 Olanzapine (ZyPREXA ZYDIS) 5 mg Q6HP PRN PO ANXIETY/AGITATION 03/11/20 14:45 Paliperidone (Invega) 3 mg BID PO 03/11/20 21:00 03/13/20 08:54 Trazodone HCl (Desyrel) 50 mg QHSP PRN PO INSOMNIA 03/11/20 14:45 03/12/20 21:32 Allergies Coded Allergies: No Known Drug Allergies (Verified Allergy, Unknown, 11/21/19) HEDY MOSER DO Mar 13, 2020 11:02
[2020-03-13 16:00] VITALS: BP 121/65
[2020-03-13] MEDS: traZODone 50 MG TAB PO PRN (21:03)
[2020-03-13] MEDS: OLANZapine ORAL DISINTEGRATING TAB 5MG PO SCH (21:03)
[2020-03-14] MEDS: LEVOTHYROXINE 75MCG TABLET (0.075MG) PO SCH (06:01)
[2020-03-14 06:41] VITALS: BP 126/62
[2020-03-14] MEDS: OLANZapine ORAL DISINTEGRATING TAB 5MG PO SCH ×2 (08:53→21:07)
[2020-03-14] MEDS: NICOTINE 21MG/24HR 1 EA TRANSDERMAL TD SCH (08:53)
--- NOTE | 2020-03-14 12:53 | MHIPNPDOC ---
[facility] Progress Note Progress Note DATE OF SERVICE: 03/14/20 Subjective HPI: Matthew presents today for a mental health examine. He is a little scattered in terms of thought process. However, he has been notably more active today. MEDICATIONS: He reports that he feels somewhat better on the Zyprexa. Objective Appearance: Appears to be stated age. Well nourished. Fair hygiene. Affect: Less flat. Thought Form: Associations better intact. More linear. More logical. Judgement: Mildly improved. Insight: Mildly improved. Assessment F28 Other psychotic disorder not due to a substance or known physiological condition Plan Continue Zyprexa, 5 mg BID. Appears to be helping patient more than Invega. Will observe, with potential discharge on Monday if he makes good improvement. Vital Signs Vital Signs Date Time Temp Pulse Resp B/P (MAP) Pulse Ox O2 Delivery O2 Flow Rate FiO2 03/14/20 06:41 97.7 54 14 126/62 (83) 95 Room Air Current Medications Current Medications Medications (Trade) Dose Ordered Sig/Eris Route PRN Reason Start Time Stop Time Status Last Admin Dose Admin Acetaminophen (Tylenol Tab) 650 mg Q6HP PRN PO HEADACHE or DISCOMFORT 03/11/20 14:45 Al Hydrox/Mg Hydrox/Simethicone (Mylanta) 30 ml Q4HP PRN PO HEARTBURN/INDIGESTION 03/11/20 14:45 Benztropine Mesylate (Cogentin) 0.5 mg BID PRN PO EXTRAPYRIMIDAL SYMPTOMS 03/11/20 14:45 Home Med (Med Rec Complete!) ASDIRECTED XX 03/10/20 21:45 03/10/20 21:43 DC Levothyroxine Sodium (Synthroid) 50 mcg DAILY@06 PO 03/11/20 06:00 03/11/20 14:57 DC 03/11/20 07:57 Levothyroxine Sodium (Synthroid) 50 mcg DAILY@0600 PO 03/12/20 06:00 03/12/20 14:32 DC 03/12/20 06:22 Levothyroxine Sodium (Synthroid) 75 mcg DAILY@06 PO 03/13/20 06:00 03/14/20 06:01 Magnesium Hydroxide (Milk Of Magnesia) 30 ml DAILYPRN PRN PO CONSTIPATION 03/11/20 14:45 Nicotine (Nicoderm Cq 21mg) 1 patch DAILY TD 03/11/20 09:00 03/14/20 08:53 Olanzapine (ZyPREXA ZYDIS) 5 mg BID PO 03/13/20 21:00 03/14/20 08:53 Olanzapine (ZyPREXA ZYDIS) 5 mg Q6HP PRN PO ANXIETY/AGITATION 03/11/20 14:45 Paliperidone (Invega) 3 mg BID PO 03/11/20 21:00 03/13/20 15:26 DC 03/13/20 08:54 Trazodone HCl (Desyrel) 50 mg QHSP PRN PO INSOMNIA 03/11/20 14:45 03/13/20 21:03 Allergies Coded Allergies: No Known Drug Allergies (Verified Allergy, Unknown, 11/21/19) HEDY MOSER DO Mar 14, 2020 12:52
[2020-03-14 16:20] VITALS: BP 126/64
[2020-03-14] MEDS: traZODone 50 MG TAB PO PRN (21:07)
[2020-03-15] MEDS: LEVOTHYROXINE 75MCG TABLET (0.075MG) PO SCH (06:07)
[2020-03-15 06:40] VITALS: BP 110/59
[2020-03-15] MEDS: OLANZapine ORAL DISINTEGRATING TAB 5MG PO SCH ×2 (09:29→21:00)
[2020-03-15] MEDS: NICOTINE 21MG/24HR 1 EA TRANSDERMAL TD SCH (09:29)
--- NOTE | 2020-03-15 15:00 | MHIPNPDOC ---
[facility] Progress Note Progress Note DATE OF SERVICE: 03/15/20 HPI: Matthew presents today for a mental health examine. He reports he is doing quite well. On observation, he is notably improved with a normal mental status exam. He is engaged and generally social with many others. Patient reports he is a little jittery as he really wants to smoke cigarettes and notes that the nicotine patches are not as helpful. MEDICATIONS: He reports otherwise that he feels like the Zyprexa was a great treatment option for him. Objective Appearance: Appears to be stated age. Well groomed. Well nourished. Behavior: Cooperative with good eye contact. Engaged. Pleasant. Affect: Full range. Appropriate to context. Mood: Generally good. Appropriately reactive. Euthymic. Speech: Normal rate. Spontaneous and Fluid. Normal volume. Motor: No gross motor abnormalities. Cognition: Alert, Attentive, and Oriented to person, place, time. Memory: No gross abnormalities of short or ferry terminal agent memory noted during interview. No formal testing. Thought Form: Linear and goal directed. Thought Content: No evidence of delusions. No thoughts of self harm. No evidence of aggressive or homicidal ideation. No evidence of suicidal ideation. Perception: No perceptual abnormalities noted. Judgement: Intact as evidenced by decision making in the recent past. Insight: Good insight into symptoms and treatment options. Assessment F29 Unspecified psychosis not due to a substance or known physiological condition Plan Continue Zyprexa five milligrams BID. Reminded patient that he has nicotine gum, which can help hold him over. Will likely be discharged tomorrow if he continues with improvement. He reports he has reconciled with his mother and can return home, which could create a safe discharge for him. Vital Signs Vital Signs Date Time Temp Pulse Resp B/P (MAP) Pulse Ox O2 Delivery O2 Flow Rate FiO2 03/15/20 06:40 99.3 72 18 110/59 (76) 97 Room Air Current Medications Current Medications Medications (Trade) Dose Ordered Sig/Eris Route PRN Reason Start Time Stop Time Status Last Admin Dose Admin Acetaminophen (Tylenol Tab) 650 mg Q6HP PRN PO HEADACHE or DISCOMFORT 03/11/20 14:45 Al Hydrox/Mg Hydrox/Simethicone (Mylanta) 30 ml Q4HP PRN PO HEARTBURN/INDIGESTION 03/11/20 14:45 Benztropine Mesylate (Cogentin) 0.5 mg BID PRN PO EXTRAPYRIMIDAL SYMPTOMS 03/11/20 14:45 Home Med (Med Rec Complete!) ASDIRECTED XX 03/10/20 21:45 03/10/20 21:43 DC Levothyroxine Sodium (Synthroid) 50 mcg DAILY@06 PO 03/11/20 06:00 03/11/20 14:57 DC 03/11/20 07:57 Levothyroxine Sodium (Synthroid) 50 mcg DAILY@0600 PO 03/12/20 06:00 03/12/20 14:32 DC 03/12/20 06:22 Levothyroxine Sodium (Synthroid) 75 mcg DAILY@06 PO 03/13/20 06:00 03/15/20 06:07 Magnesium Hydroxide (Milk Of Magnesia) 30 ml DAILYPRN PRN PO CONSTIPATION 03/11/20 14:45 Nicotine (Nicoderm Cq 21mg) 1 patch DAILY TD 03/11/20 09:00 03/15/20 09:29 Nicotine (Nicorette) 4 mg Q2HP PRN PO NICOTINE WITHDRAWAL 03/14/20 15:00 Olanzapine (ZyPREXA ZYDIS) 5 mg BID PO 03/13/20 21:00 03/15/20 09:29 Olanzapine (ZyPREXA ZYDIS) 5 mg Q6HP PRN PO ANXIETY/AGITATION 03/11/20 14:45 Paliperidone (Invega) 3 mg BID PO 03/11/20 21:00 03/13/20 15:26 DC 03/13/20 08:54 Trazodone HCl (Desyrel) 50 mg QHSP PRN PO INSOMNIA 03/11/20 14:45 03/14/20 21:07 Allergies Coded Allergies: No Known Drug Allergies (Verified Allergy, Unknown, 11/21/19) HEDY MOSER DO Mar 15, 2020 15:00
[2020-03-15 16:25] VITALS: BP 124/60
[2020-03-16] MEDS: LEVOTHYROXINE 75MCG TABLET (0.075MG) PO SCH (06:22)
[2020-03-16 06:39] VITALS: BP 123/71
[2020-03-16] MEDS: OLANZapine ORAL DISINTEGRATING TAB 5MG PO SCH ×2 (08:57→21:00)
[2020-03-16] MEDS: NICOTINE 21MG/24HR 1 EA TRANSDERMAL TD SCH (08:58)
--- NOTE | 2020-03-16 10:09 | MHDSPDOC ---
[facility] Discharge Summary Discharge Summary DATE OF ADMISSION: Mar 11, 2020 at 14:45 DATE OF DISCHARGE: DISCHARGE DIAGNOSES: 1. . 2. . REASON FOR ADMISSION: CONSULTANTS INVOLVED: TREATMENT AND PROGRESS ON THE UNIT : . HOSPITAL COURSE: DISCHARGE ASSESSMENT: MENTAL STATUS EXAMINATION ON DISCHARGE: Patient is a -year old male, who is . Speech is . Language skills are . Thought processes including: . Thought content: . Abstract reasoning, and computation: . Description of associations: . Description of abnormal or psychotic thoughts: . Judgment: . Insight: . Orientation to . Recent and remote memory: . Attention span and concentration: . Language: . Fund of knowledge: . Mood: . Affect: . MEDICATIONS ON DISCHARGE: - for . - for . - for . PLAN/FOLLOWUP ARRANGEMENTS: . The amount of time spent in the coordination of care for this patient was approximately minutes. Vital Signs/I&Os Vital Signs Date Time Temp Pulse Resp B/P (MAP) Pulse Ox O2 Delivery O2 Flow Rate FiO2 03/16/20 06:39 97.4 69 12 123/71 (88) Room Air 03/15/20 06:40 97 Medications Scheduled Levothyroxine Sodium (Synthroid) 50 Mcg Tablet, 50 MCG PO DAILY, (Reported) Nicotine (Nicotine Patch) 21 Mg Patch.td24, 21 MG TD DAILY, (Reported) Olanzapine (Olanzapine) 5 Mg Tablet, 1 TAB PO BID for thoughts for 7 Days, #14 Scheduled PRN Benztropine Mesylate (Benztropine Mesylate) 0.5 Mg Tablet, 0.5 MG PO BID PRN for EXTRAPYRIMIDAL SYMPTOMS, (Reported) Allergies Coded Allergies: No Known Drug Allergies (Verified Allergy, Unknown, 11/21/19) HEDY MOSER DO Mar 16, 2020 10:09
[2020-03-16] MEDS ORDERED: OLAN5TAB PO (10:28)
--- NOTE | 2020-03-16 11:53 | MHIPNPDOC ---
[facility] Progress Note Progress Note DATE OF SERVICE: 03/16/20 Subjective HPI: Matthew presents today for a checkup as his discharge did not occur today. He told the nurse the previous evening that his voices were worse and that these were causing him problems. When confronted about this, he denied it and had appeared somewhat unusual as he said he wanted to work in the . Objective Appearance: Well nourished. Well groomed. Appears to be stated age. Behavior: Circumstantial. Mildly strange. Linear at times. Affect: Somewhat flat. Thought Content: No evidence of aggressive or homicidal ideation. No evidence of suicidal ideation. No evidence of delusions. No thoughts of self harm. Judgement: Poor to fair. Insight: Poor to fair. Assessment F29 Unspecified psychosis not due to a substance or known physiological condition Plan Continue Zyprexa 5 mg. Observe overnight to determine if hell need an extended stay or whether it is more related to some mild disorganization. Vital Signs Vital Signs Date Time Temp Pulse Resp B/P (MAP) Pulse Ox O2 Delivery O2 Flow Rate FiO2 03/16/20 06:39 97.4 69 12 123/71 (88) Room Air 03/15/20 06:40 97 Current Medications Current Medications Medications (Trade) Dose Ordered Sig/Eris Route PRN Reason Start Time Stop Time Status Last Admin Dose Admin Acetaminophen (Tylenol Tab) 650 mg Q6HP PRN PO HEADACHE or DISCOMFORT 03/11/20 14:45 Al Hydrox/Mg Hydrox/Simethicone (Mylanta) 30 ml Q4HP PRN PO HEARTBURN/INDIGESTION 03/11/20 14:45 Benztropine Mesylate (Cogentin) 0.5 mg BID PRN PO EXTRAPYRIMIDAL SYMPTOMS 03/11/20 14:45 Home Med (Med Rec Complete!) ASDIRECTED XX 03/10/20 21:45 03/10/20 21:43 DC Levothyroxine Sodium (Synthroid) 50 mcg DAILY@06 PO 03/11/20 06:00 03/11/20 14:57 DC 03/11/20 07:57 Levothyroxine Sodium (Synthroid) 50 mcg DAILY@0600 PO 03/12/20 06:00 03/12/20 14:32 DC 03/12/20 06:22 Levothyroxine Sodium (Synthroid) 75 mcg DAILY@06 PO 03/13/20 06:00 03/16/20 06:22 Magnesium Hydroxide (Milk Of Magnesia) 30 ml DAILYPRN PRN PO CONSTIPATION 03/11/20 14:45 Nicotine (Nicoderm Cq 21mg) 1 patch DAILY TD 03/11/20 09:00 03/16/20 08:58 Nicotine (Nicorette) 4 mg Q2HP PRN PO NICOTINE WITHDRAWAL 03/14/20 15:00 Olanzapine (ZyPREXA ZYDIS) 5 mg BID PO 03/13/20 21:00 03/16/20 08:57 Olanzapine (ZyPREXA ZYDIS) 5 mg Q6HP PRN PO ANXIETY/AGITATION 03/11/20 14:45 Paliperidone (Invega) 3 mg BID PO 03/11/20 21:00 03/13/20 15:26 DC 03/13/20 08:54 Trazodone HCl (Desyrel) 50 mg QHSP PRN PO INSOMNIA 03/11/20 14:45 03/14/20 21:07 Allergies Coded Allergies: No Known Drug Allergies (Verified Allergy, Unknown, 11/21/19) HEDY MOSER DO Mar 16, 2020 11:53
[2020-03-16] MEDS: NICOTINE POLACRILEX 2 MG GUM PO PRN (16:27)
[2020-03-16 18:00] VITALS: BP 131/71
[2020-03-17] MEDS: LEVOTHYROXINE 75MCG TABLET (0.075MG) PO SCH (06:00)
[2020-03-17 06:46] VITALS: BP 132/74
[2020-03-17] MEDS: NICOTINE 21MG/24HR 1 EA TRANSDERMAL TD SCH (08:23)
[2020-03-17] MEDS: OLANZapine ORAL DISINTEGRATING TAB 5MG PO SCH ×2 (08:23→22:32)
[2020-03-17] MEDS: NICOTINE POLACRILEX 2 MG GUM PO PRN (08:25)
--- NOTE | 2020-03-17 10:22 | MHIPNPDOC ---
[facility] Progress Note Progress Note DATE OF SERVICE: 03/17/20 Subjective HPI: The patient has been met with today. He reports that he doesn't have any voices and even if he did he wouldn't listen to them. He generally reports that he is taking his medications and feels better. Still somewhat unusual on ideation, but generally engaged. He has been very interested in going home. He did not take his medications last night, but he described it as because he was too sleepy in order to do so. He reported that his sleeping has got the better of him and that he was not able to take his medications. He reports he will take his medications tonight. Objective Appearance: Well nourished. Well groomed. Appears to be stated age. Behavior: Circumstantial. Mildly strange. Linear at times. Affect: Somewhat flat. Thought Content: No evidence of aggressive or homicidal ideation. No evidence of suicidal ideation. No evidence of delusions. No thoughts of self harm. Judgement: Poor to fair. Insight: Poor to fair. Assessment F29 Unspecified psychosis not due to a substance or known physiological condition Plan Discuss with patient that he would need to take his medications in order to be discharged. Will continue to work on patients compliance. Vital Signs Vital Signs Date Time Temp Pulse Resp B/P (MAP) Pulse Ox O2 Delivery O2 Flow Rate FiO2 03/17/20 06:46 97.4 70 12 132/74 (93) Room Air 03/15/20 06:40 97 Current Medications Current Medications Medications (Trade) Dose Ordered Sig/Eris Route PRN Reason Start Time Stop Time Status Last Admin Dose Admin Acetaminophen (Tylenol Tab) 650 mg Q6HP PRN PO HEADACHE or DISCOMFORT 03/11/20 14:45 Al Hydrox/Mg Hydrox/Simethicone (Mylanta) 30 ml Q4HP PRN PO HEARTBURN/INDIGESTION 03/11/20 14:45 Benztropine Mesylate (Cogentin) 0.5 mg BID PRN PO EXTRAPYRIMIDAL SYMPTOMS 03/11/20 14:45 Home Med (Med Rec Complete!) ASDIRECTED XX 03/10/20 21:45 03/10/20 21:43 DC Levothyroxine Sodium (Synthroid) 50 mcg DAILY@06 PO 03/11/20 06:00 03/11/20 14:57 DC 03/11/20 07:57 Levothyroxine Sodium (Synthroid) 50 mcg DAILY@0600 PO 03/12/20 06:00 03/12/20 14:32 DC 03/12/20 06:22 Levothyroxine Sodium (Synthroid) 75 mcg DAILY@06 PO 03/13/20 06:00 03/16/20 06:22 Magnesium Hydroxide (Milk Of Magnesia) 30 ml DAILYPRN PRN PO CONSTIPATION 03/11/20 14:45 Nicotine (Nicoderm Cq 21mg) 1 patch DAILY TD 03/11/20 09:00 03/17/20 08:23 Nicotine (Nicorette) 4 mg Q2HP PRN PO NICOTINE WITHDRAWAL 03/14/20 15:00 03/17/20 08:25 Olanzapine (ZyPREXA ZYDIS) 5 mg BID PO 03/13/20 21:00 03/17/20 08:23 Olanzapine (ZyPREXA ZYDIS) 5 mg Q6HP PRN PO ANXIETY/AGITATION 03/11/20 14:45 Paliperidone (Invega) 3 mg BID PO 03/11/20 21:00 03/13/20 15:26 DC 03/13/20 08:54 Trazodone HCl (Desyrel) 50 mg QHSP PRN PO INSOMNIA 03/11/20 14:45 03/14/20 21:07 Allergies Coded Allergies: No Known Drug Allergies (Verified Allergy, Unknown, 11/21/19) HEDY MOSER DO Mar 17, 2020 10:22
[2020-03-17 17:52] VITALS: BP 140/73
[2020-03-18] MEDS: LEVOTHYROXINE 75MCG TABLET (0.075MG) PO SCH (06:27)
[2020-03-18 06:50] VITALS: BP 105/57
[2020-03-18] MEDS: NICOTINE 21MG/24HR 1 EA TRANSDERMAL TD SCH (09:26)
[2020-03-18] MEDS: OLANZapine ORAL DISINTEGRATING TAB 5MG PO SCH (09:26)
--- NOTE | 2020-03-18 10:40 | MHDSPDOC ---
[facility] Discharge Summary Discharge Summary DATE OF ADMISSION: Mar 11, 2020 at 14:45 DATE OF DISCHARGE: Mar 18, 2020 at 14:20 DISCHARGE DIAGNOSES: F29 Unspecified psychosis not due to a substance or known physiological condition CONSULTANTS INVOLVED:[ None (basic hospitalist screening)] REASON FOR ADMISSION & TREATMENT AND PROGRESS ON THE UNIT : Osmani presented to the inpatient mental health unit after having some unusual behaviors. There was an attempted discharge. However, his voices had come back. Patient had no major behavior problems, but was isolative throughout the report that his mother was open to taking him back.After some time of observation, he did make some improvements and returned to a reasonable mental status. MEDICATIONS: He has tried on Invega, which was ineffective. He was then tried on Zyprexa, increased to 5 mg with positive results. DISCHARGE ASSESSMENT[improved] Legal status considerations: The patient at the time of discharge did not meet criteria for involuntary admission/extension due to having a improved mental status exam, improved insight into the situation, They are engaged in the discharge process, as well as being friendly and amenable in behavioral control and havent been engaging in any observed concerning behavior or ideation recently. They decline voluntary extension/admission at this time and must be discharged in good cynthia, as Im unable to make a case for holding the patient against their will. They may have historical risk factors of admissions and other interactions with psychiatry however, those are not modifiable from a clinical perspective. The patient will need to be discharged in good cynthia. MENTAL STATUS EXAMINATION ON DISCHARGE: Affect: Full range. Mildly flat but improved. Speech: Spontaneous and Fluid. Normal rate. Normal volume. Thought Form: Linear and goal directed. Judgement: Intact as evidenced by decision making in the recent past. Improved. Insight: Good insight into symptoms and treatment options. Improved. PLAN/FOLLOWUP ARRANGEMENTS: Follow up appointments made (PCP and MH in 5 days of D/C date) and safety plan completed. Safety Planning aspects completed prior to discharge [Medication supplies limited to 7 days with 4 refills to prevent accumulation to OD] [RN reviewed crisis hotline information and other aspects to empower patient to access care in interim before next appointment.] The amount of time spent in the coordination of care for this patient was approximately 30 minutes. Vital Signs/I&Os Vital Signs Date Time Temp Pulse Resp B/P (MAP) Pulse Ox O2 Delivery O2 Flow Rate FiO2 03/18/20 06:50 99.3 66 14 105/57 (73) 96 Room Air Medications Scheduled Levothyroxine Sodium (Synthroid) 50 Mcg Tablet, 50 MCG PO DAILY, (Reported) Nicotine (Nicotine Patch) 21 Mg Patch.td24, 21 MG TD DAILY, (Reported) Olanzapine (Olanzapine) 5 Mg Tablet, 1 TAB PO BID for thoughts for 7 Days, #14 Scheduled PRN Benztropine Mesylate (Benztropine Mesylate) 0.5 Mg Tablet, 0.5 MG PO BID PRN for EXTRAPYRIMIDAL SYMPTOMS, (Reported) Allergies Coded Allergies: No Known Drug Allergies (Verified Allergy, Unknown, 11/21/19) HEDY MOSER DO Mar 18, 2020 10:40
== END 2020-03-18 14:20 | disposition home or self-care (01) | DRG 751 ==
LOC: M ED 17:28 → M ED INP 03-11 14:45 → M PSY 03-11 15:40
PROVIDERS: ADMIT Psychiatry & Neurology Psychiatry; ATTEND Psychiatry & Neurology Addiction Medicine
DX: F29 Unspecified psychosis not due to a substance or known physiological condition (principal); E03.9 Hypothyroidism, unspecified; F90.9 Attention-deficit hyperactivity disorder, unspecified type; H02.402 Unspecified ptosis of left eyelid; F17.210 Nicotine dependence, cigarettes, uncomplicated; F12.10 Cannabis abuse, uncomplicated; Z79.899 Other long term (current) drug therapy

== ENCOUNTER 2020-04-19 14:36 | Emergency (ER) | payer OTHER ==
[~2020-04-19] VITALS: Ht 180.3 cm; Wt 72.7 kg
[~2020-04-19 14:36] MED LIST changes: +NICO1DIS12 TD; +OLAN5TAB PO; +SYNT50TA PO
[2020-04-19 15:32] LABS: HEMOGLOBIN 15.5 g/dl (13.5-17.5); MEAN CORPUSCULAR HEMOGLOBIN 30.3 pg (27.0-33.0); MEAN CORPUSCULAR HGB CONC 33.7 g/dl (32.0-36.5); MEAN CORPUSCULAR VOLUME 89.8 fl (80.0-96.0); PLATELET COUNT, AUTOMATED 263 10^3/uL (150-450); RED BLOOD COUNT 5.12 10^6/uL (4.30-6.10); WHITE BLOOD COUNT 10.9 10^3/uL (4.0-10.0)
[2020-04-19 16:00] LABS: ACETAMINOPHEN LEVEL < 2.0 UG/ML (10.0-30.0); ALBUMIN 4.5 GM/DL (3.2-5.2); ALT/SGPT 15 U/L (12-78); BILIRUBIN,DIRECT 0.2 MG/DL (0.0-0.2); BILIRUBIN,TOTAL 0.9 MG/DL (0.2-1.0); BLOOD UREA NITROGEN 17 MG/DL (7-18); CALCIUM LEVEL 9.4 MG/DL (8.5-10.1); CARBON DIOXIDE LEVEL 26 MEQ/L (21-32); CHLORIDE LEVEL 107 MEQ/L (98-107); CREATININE FOR GFR 0.98 MG/DL (0.70-1.30); ETHYL ALCOHOL (ETHANOL) < 0.003 % (0.000-0.010); GLOMERULAR FILTRATION RATE > 60.0 (>60); GLUCOSE, FASTING 92 MG/DL (70-100); SALICYLATE LEVEL < 1.7 MG/DL (5.0-30.0); SODIUM LEVEL 139 MEQ/L (136-145); TOTAL PROTEIN 8.1 GM/DL (6.4-8.2)
[2020-04-19 16:31] LABS: AMPHETAMINES LEVEL URINE NEGATIVE (NEGATIVE); BARBITURATES URINE NEGATIVE (NEGATIVE); BENZODIAZEPINES URINE NEGATIVE (NEGATIVE); CANNABINOIDS URINE POSITIVE (NEGATIVE); COCAINE METABOLITE URINE NEGATIVE (NEGATIVE); METHADONE URINE NEGATIVE (NEGATIVE); OPIATES URINE NEGATIVE (NEGATIVE); PHENCYCLIDINE URINE NEGATIVE (NEGATIVE)
[2020-04-19 16:41] LABS: FREE T4 0.84 NG/DL (0.76-1.46)
--- NOTE | 2020-04-19 19:44 | ECGEPIP ---
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
[2020-04-19 20:44] VITALS: BP 124/71
== END 2020-04-19 20:48 ==
LOC: M ED 14:36
DX: F23 Brief psychotic disorder (principal); F90.9 Attention-deficit hyperactivity disorder, unspecified type; E07.9 Disorder of thyroid, unspecified; H02.402 Unspecified ptosis of left eyelid; F12.10 Cannabis abuse, uncomplicated; F17.200 Nicotine dependence, unspecified, uncomplicated; Z79.899 Other long term (current) drug therapy
CPT/HCPCS: 36415; 80048; 80076; 80307; 84439; 84443; 85027; 87631; 93005; 99285; G0480

== ENCOUNTER 2020-04-23 14:08 | Inpatient (IN) | payer OTHER ==
[~2020-04-23] VITALS: Ht 175.3 cm; Wt 74.6 kg
[2020-04-23] MEDS ORDERED: RISP-8 PO (14:16)
[2020-04-23] MEDS ORDERED: MIRTAZAPINE (14:16)
[2020-04-23 15:07] LABS: HEMATOCRIT 46.1 % (42.0-52.0); MEAN CORPUSCULAR HEMOGLOBIN 29.9 pg (27.0-33.0); MEAN CORPUSCULAR HGB CONC 32.5 g/dl (32.0-36.5); PLATELET COUNT, AUTOMATED 230 10^3/uL (150-450); RED BLOOD COUNT 5.01 10^6/uL (4.30-6.10); WHITE BLOOD COUNT 9.4 10^3/uL (4.0-10.0)
[2020-04-23 15:29] LABS: AMPHETAMINES LEVEL URINE NEGATIVE (NEGATIVE); BARBITURATES URINE NEGATIVE (NEGATIVE); BENZODIAZEPINES URINE NEGATIVE (NEGATIVE); CANNABINOIDS URINE NEGATIVE (NEGATIVE); COCAINE METABOLITE URINE NEGATIVE (NEGATIVE); METHADONE URINE NEGATIVE (NEGATIVE); OPIATES URINE NEGATIVE (NEGATIVE); PHENCYCLIDINE URINE NEGATIVE (NEGATIVE)
[2020-04-23 15:39] LABS: ALBUMIN 4.2 GM/DL (3.2-5.2); ALT/SGPT 21 U/L (12-78); BILIRUBIN,DIRECT 0.2 MG/DL (0.0-0.2); BLOOD UREA NITROGEN 12 MG/DL (7-18); CARBON DIOXIDE LEVEL 33 MEQ/L (21-32); CHLORIDE LEVEL 103 MEQ/L (98-107); CREATININE FOR GFR 0.94 MG/DL (0.70-1.30); ETHYL ALCOHOL (ETHANOL) < 0.003 % (0.000-0.010); GLOMERULAR FILTRATION RATE > 60.0 (>60); GLUCOSE, FASTING 93 MG/DL (70-100); POTASSIUM SERUM 3.7 MEQ/L (3.5-5.1); SALICYLATE LEVEL < 1.7 MG/DL (5.0-30.0); SODIUM LEVEL 139 MEQ/L (136-145); TOTAL PROTEIN 7.7 GM/DL (6.4-8.2)
[2020-04-23 15:40] LABS: ACETAMINOPHEN LEVEL < 2.0 UG/ML (10.0-30.0)
[2020-04-23] MEDS ORDERED: LEVO25TA5 PO (16:40)
[2020-04-23] MEDS ORDERED: OLAN5TAB PO (16:40)
[2020-04-23] MEDS ORDERED: MIRT-62 PO (16:40)
[2020-04-23 17:41] LABS: RSV AMPLIFICATION NEGATIVE (NEGATIVE)
[2020-04-23] MEDS ORDERED: ACETAMINOPHEN TAB 650MG DOSE (2X325MG) PO PRN (18:45)
[2020-04-23] MEDS ORDERED: OLANZapine ORAL DISINTEGRATING TAB 5MG PO PRN (18:45)
[2020-04-23] MEDS ORDERED: MOM 30ML SUSPENSION UDC PO PRN (18:45)
[2020-04-23] MEDS ORDERED: MAALOX 30 ML SUSP *UDC PO PRN (18:45)
[2020-04-23] MEDS: PALIPERIDONE 3 MG ER TAB (INVEGA) PO SCH (22:50)
[2020-04-23 23:08] VITALS: BP 141/67
[2020-04-24 06:31] VITALS: BP 115/55
[2020-04-24] MEDS: NICOTINE 14 MG/24 HR TRANSDERMAL TD SCH (09:00)
[2020-04-24] MEDS: PALIPERIDONE 3 MG ER TAB (INVEGA) PO SCH ×2 (09:09→22:36)
[2020-04-24 17:04] VITALS: BP 128/72
--- NOTE | 2020-04-24 20:06 | HPEPDOC ---
[facility] Medical History & Physical Date of Admission Apr 24, 2020 Date of Service: Apr 24, 2020 History and Physical CHIEF COMPLAINT: Auditory and visual hallucinations HISTORY OF PRESENT ILLNESS: 22-year-old male with history as described below, admitted for psychiatric disturbance, which included visual and auditory hallucinations. Patient history of psychosis. Had gone to his mother's house starting to kill himself. At this time he denies suicidal ideation. He denies chest pain, seizures of breath, fevers, chills, nausea, vomiting, diarrhea. Hospital services consulted for medicals screening. Of her history taking. He mentions that he was born "". PAST MEDICAL HISTORY: Hypothyroidism ADHD Psychosis Marijuana and tobacco use Chronic left eye ptosis PAST SURGICAL HISTORY: Appendectomy SOCIAL HISTORY: regular smoker 1ppd, 5 pack year hx Last drink 1 mo ago, states infrequent use Patient denies illicit drug use FAMILY HISTORY: father- [place] age 45. DM2. Brother - seizure ALLERGIES: Please see below. REVIEW OF SYSTEMS: CONSTITUTIONAL: patient denies fevers, chills HEENT: patient denies blurred vision, loss of vision, headache,. CARDIOVASCULAR: patient denies chest pain, palpitations. RESPIRATORY: patient denies shortness of breath, cough, hemoptysis. GASTROINTESTINAL: patient denies abdominal pain, n/v/d, blood in stool. GENITOURINARY: patient denies dysuria, discharge. SKIN: patient denies rashes. MUSCULOSKELETAL: patient denies joint pain, neck pain. NEUROLOGICAL: patient denies focal weakness, numbness, seizures. PSYCHIATRIC: patient denies active suicidal ideation, reports low mood, anhedonia, reports visual and auditory hallucination ENDOCRINE: patient denies polyuria, heat intolerance, cold intolerance. HEMATOLOGIC/LYMPHATIC: patient denies easy bruising. HOME MEDICATIONS: Please see below. PHYSICAL EXAMINATION: VITAL SIGNS: please see below General: NAD, comfortable HEENT: PERRLA, EOMI, sclerae clear. L eyelid droop, states present since . Neck: supple, normal ROM, no JVD Respiratory: lungs CTAB, no wheeze, no rales, no crackles CVS: RRR, normal S1, S2, no murmurs Abdo: soft, no masses, no hepatosplenomegaly, BS+, no rebound tenderness Extremities: no edema, pulses 2+ MSK: no joint deformities, normal ROM Neuro: no focal neuro deficits, moving all 4 extremities, CN2-12 intact. Strength 5/5 in all 4 extremities. No nystagmus. Psych: calm, cooperative, AAO x 3 LABORATORY DATA: See below. MICROBIOLOGY: Please see below. ASSESSMENT: 19 year-old male with a history of hypothyroidism, admitted to [facility] for auditory and visual hallucinations, systems with psychosis. Hospitalist has been consulted for management of medical issues. PLAN: #Psychosis: management per psychiatry. UDS positive for cannabinoids. Ensure outpatient psychiatric follow-up within 2 weeks of discharge #Hypothyroidism: Vitals wnl, stable. TSH 20. Resume levothyroxine 25 mcg. F/o with PCP for repeat TFTs in 4-6 weeks. #Smoker: Nicotine patch. Smoking cessation counseled provided Thank you for involving me in the care of this patient. Please re-consult as needed. Vital Signs Vital Signs Date Time Temp Pulse Resp B/P (MAP) Pulse Ox O2 Delivery O2 Flow Rate FiO2 04/24/20 17:04 98.8 74 16 128/72 (90) 98 Room Air Home Medications Scheduled Levothyroxine Sodium (Levothyroxine Sodium) 25 Mcg Tablet, 25 MCG PO QAM HAS NOT TAKEN SINCE FEBRUARY PER PT Mirtazapine (Remeron) 15 Mg Tablet, 15 MG PO QHS NEW MED, NOT PICKED UP FROM [facility] Olanzapine (Olanzapine) 5 Mg Tablet, 5 MG PO BID NEW MED, NOT PICKED UP FROM [facility] Risperidone (Risperidone) 1 Mg Tablet, 1 MG PO BID NEW MED, NOT PICKED UP FROM [facility] Allergies Coded Allergies: No Known Drug Allergies (Verified Allergy, Unknown, 11/21/19) A-FIB/CHADSVASC A-FIB History Current/History of A-Fib/PAF?: No Current PO Anticoag Therapy: No AVRIL OJEDA MD Apr 24, 2020 20:05
[2020-04-25 06:00] VITALS: BP 109/57
[2020-04-25] MEDS: LEVOTHYROXINE 25MCG TABLET (0.025MG) PO SCH (06:20)
[2020-04-25] MEDS: PALIPERIDONE 3 MG ER TAB (INVEGA) PO SCH ×2 (09:34→21:13)
[2020-04-25] MEDS: NICOTINE 14 MG/24 HR TRANSDERMAL TD SCH (09:34)
[2020-04-25 16:27] VITALS: BP 122/65
[2020-04-26 06:00] VITALS: BP 112/55
[2020-04-26] MEDS: LEVOTHYROXINE 25MCG TABLET (0.025MG) PO SCH (06:19)
[2020-04-26] MEDS: PALIPERIDONE 3 MG ER TAB (INVEGA) PO SCH ×2 (08:28→20:33)
[2020-04-26] MEDS: NICOTINE 14 MG/24 HR TRANSDERMAL TD SCH (08:29)
[2020-04-26 16:47] VITALS: BP 131/61
[2020-04-27] MEDS: LEVOTHYROXINE 25MCG TABLET (0.025MG) PO SCH (05:34)
[2020-04-27 06:30] VITALS: BP 110/55
--- NOTE | 2020-04-27 07:53 | MHIPN ---
[facility], LAT[facility] PROGRESS NOTE DATE: 04/25/2020 The patient today states "I am doing good." He says that he is hearing people, actually seeing people, but he is not able to describe them, but in the emergency room records it said that the patient was talking about the fact that the talk to him and they put bad thoughts in his head and that he has to act out. He says that he also hears voices and when I asked him what the voices were saying, he said "we aren't doing anything to you Osmani." The patient apparently was brought in by his mother who found the patient with a knife to his throat, but the patient denies this. MENTAL STATUS EXAMINATION: This patient is alert and oriented times three. Eye contact is fair. Psychomotor activity is normal. There is no formal thought disorder noted. He says his mood is "good." His affect is flat. He appears to be having hallucinations. He is denying being suicidal or homicidal today. Concentration is fair. Insight and judgment is poor. DIAGNOSES: Unspecified psychotic disorder. Rule out schizophrenia. TREATMENT PLAN: We will continue to monitor the patient for his ongoing psychotic symptoms and titrate the medications as indicated.
--- NOTE | 2020-04-27 08:08 | MHIPNPDOC ---
[facility] Progress Note Progress Note DATE OF SERVICE: 04/27/20 HISTORY: The patient is met with today, he reports that he wants to know if he has a psychotic disorder, he still started and appears to been readmitted mult iple times with bizarre ideation. 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 VITAL SIGNS: See below. NEW TEST RESULTS: None. CURRENT MEDICATIONS: See below. MENTAL STATUS EXAMINATION: General: Fair Speech: Answers questions Thought processes: Circumstantial Thought content: Reports paranoid ideation Abstract reasoning, and computation: Impaired Description of associations: Impaired Description of abnormal or psychotic thoughts: Reports auditory and visual hallucinations, but is vague Judgment: Poor Insight: poor Orientation: [Alert and orientated 3] Recent and remote memory: [Intact] Attention span and concentration: [Intact] Fund of knowledge: [Adequate] Mood: "Okay" Affect: Flat with a constricted range DIAGNOSES: 1. Schizophrenia. 2. Cannabis use disorder unspecified. ASSESSMENT: The patient's likely readmission appears to be in the pattern of fairly uncontrolled psychotic symptoms, he does appear that his long use of cannabis Raps provokes multiple psychotic episodes however even on previous admissions his psychosis doesn't usually fully resolve and it appears compliance is quite the issue for him. We'll try a new agent as he is tried Zyprexa, Abilify Haldol and most recently paliperidone MANAGEMENT PLAN: Start cariprazine 1.5 mg daily, discussed with patient various options, will continue to observe but he may even need long-term treatment as his multiple readmissions cannot cosmo well for his prognosis. TIME SPENT: 15 minutes. Vital Signs Vital Signs Date Time Temp Pulse Resp B/P (MAP) Pulse Ox O2 Delivery O2 Flow Rate FiO2 04/27/20 06:30 98.1 72 14 110/55 (73) 98 Room Air Current Medications Current Medications Medications (Trade) Dose Ordered Sig/Eris Route PRN Reason Start Time Stop Time Status Last Admin Dose Admin Acetaminophen (Tylenol Tab) 650 mg Q6HP PRN PO HEADACHE or DISCOMFORT 04/23/20 18:45 Al Hydrox/Mg Hydrox/Simethicone (Mylanta) 30 ml Q4HP PRN PO HEARTBURN/INDIGESTION 04/23/20 18:45 Home Med (Med Rec Complete!) ASDIRECTED XX 04/23/20 16:45 04/23/20 16:42 DC Levothyroxine Sodium (Synthroid) 25 mcg QAM@0600 PO 04/25/20 06:00 04/27/20 05:34 Magnesium Hydroxide (Milk Of Magnesia) 30 ml DAILYPRN PRN PO CONSTIPATION 04/23/20 18:45 Nicotine (Nicoderm Cq 14mg) 1 patch DAILY TD 04/24/20 09:00 04/26/20 08:29 Olanzapine (ZyPREXA ZYDIS) 5 mg Q6HP PRN PO ANXIETY/AGITATION 04/23/20 18:45 Paliperidone (Invega) 3 mg BID PO 04/23/20 21:00 04/26/20 20:33 Trazodone HCl (Desyrel) 50 mg QHSP PRN PO INSOMNIA 04/23/20 18:45 Allergies Coded Allergies: No Known Drug Allergies (Verified Allergy, Unknown, 11/21/19) HEDY MOSER DO Apr 27, 2020 08:08
--- NOTE | 2020-04-27 08:36 | MHIPN ---
[facility] PROGRESS NOTE DATE: 04/26/2020 The patient today states, "I am doing good," but when I asked him if he was still having visual and auditory hallucinations he tells me, "I think that they are getting worse." MENTAL STATUS EXAMINATION: This patient is alert and oriented times three. He is verbally spontaneous. Eye contact is fairly good. There is no formal thought disorder noted. His mood is "good." Affect appears to be appropriate to his mood. He continues to have auditory and visual hallucinations and he actually says that they are really irritating him today. He denies suicidal or homicidal ideation. Concentration is fair. Memory intact. Insight and judgment poor. DIAGNOSES: Unspecified psychotic disorder. Rule out schizophrenia. TREATMENT PLAN: At this point, the patient will continue to be monitored for his psychotic symptoms and we will titrate the medications as indicated.
[2020-04-27] MEDS: PALIPERIDONE 3 MG ER TAB (INVEGA) PO SCH (09:17)
[2020-04-27] MEDS: NICOTINE 14 MG/24 HR TRANSDERMAL TD SCH (09:18)
[2020-04-27] MEDS ORDERED: CARIPRAZINE 3MG CAPSULE (VRAYLAR) PO ONE (10:30)
[2020-04-27] MEDS ORDERED: CARIPRAZINE 1.5MG CAPSULE (VRAYLAR) PO ONE (13:00)
[2020-04-27 17:56] VITALS: BP 130/73
[2020-04-27] MEDS: NICOTINE POLACRILEX 2 MG GUM PO PRN (18:29)
[2020-04-27] MEDS: traZODone 50 MG TAB PO PRN (20:23)
[2020-04-28] MEDS: LEVOTHYROXINE 25MCG TABLET (0.025MG) PO SCH (05:52)
[2020-04-28 06:31] VITALS: BP 164/72
[2020-04-28] MEDS: CARIPRAZINE 1.5MG CAPSULE (VRAYLAR) PO SCH (08:35)
[2020-04-28] MEDS: NICOTINE 14 MG/24 HR TRANSDERMAL TD SCH (08:36)
--- NOTE | 2020-04-28 09:13 | MHIPNPDOC ---
[facility] Progress Note Progress Note DATE OF SERVICE: 04/28/20 HISTORY: The patient is met with today, he reports that he wants to go, he still somewhat bizarre and tangential from time to time, he does not engage much du ring the conversation stating that Vraylar is "ultra helpful" and appears to want to leave quite quickly. He does not describe anything specific as to what brought him in and appears very guarded about discussing anything in depth with me. VITAL SIGNS: See below. NEW TEST RESULTS: None. CURRENT MEDICATIONS: See below. MENTAL STATUS EXAMINATION: General: Fair Speech: Answers questions Thought processes: Circumstantial Thought content: Reports paranoid ideation Abstract reasoning, and computation: Impaired Description of associations: Impaired Description of abnormal or psychotic thoughts: Reports auditory and visual hallucinations, but is vague Judgment: Poor Insight: poor Orientation: [Alert and orientated 3] Recent and remote memory: [Intact] Attention span and concentration: [Intact] Fund of knowledge: [Adequate] Mood: "Okay" Affect: Flat with a constricted range DIAGNOSES: 1. Schizophrenia. 2. Cannabis use disorder unspecified. ASSESSMENT: Patient is still likely psychotic, will need to continue to titrate medications, his multiple readmissions suggest that his threshold for discharge should be higher and better resolution of his symptoms, as he does appear to have quite a bit of residual symptoms and is quite guarded about speaking about them MANAGEMENT PLAN: Continue Vraylar 1.5 mg daily TIME SPENT: 15 minutes. Vital Signs Vital Signs Date Time Temp Pulse Resp B/P (MAP) Pulse Ox O2 Delivery O2 Flow Rate FiO2 04/28/20 06:31 98.1 51 14 164/72 (102) 98 Room Air Current Medications Current Medications Medications (Trade) Dose Ordered Sig/Eris Route PRN Reason Start Time Stop Time Status Last Admin Dose Admin Acetaminophen (Tylenol Tab) 650 mg Q6HP PRN PO HEADACHE or DISCOMFORT 04/23/20 18:45 Al Hydrox/Mg Hydrox/Simethicone (Mylanta) 30 ml Q4HP PRN PO HEARTBURN/INDIGESTION 04/23/20 18:45 Cariprazine (Vraylar) 1.5 mg DAILY PO 04/28/20 09:00 04/28/20 08:35 Home Med (Med Rec Complete!) ASDIRECTED XX 04/23/20 16:45 04/23/20 16:42 DC Levothyroxine Sodium (Synthroid) 25 mcg QAM@0600 PO 04/25/20 06:00 04/28/20 05:52 Magnesium Hydroxide (Milk Of Magnesia) 30 ml DAILYPRN PRN PO CONSTIPATION 04/23/20 18:45 Nicotine (Nicoderm Cq 14mg) 1 patch DAILY TD 04/24/20 09:00 04/28/20 08:36 Nicotine (Nicorette) 4 mg Q4HP PRN PO NICOTINE WITHDRAWAL 04/27/20 15:15 04/27/20 18:29 Olanzapine (ZyPREXA ZYDIS) 5 mg Q6HP PRN PO ANXIETY/AGITATION 04/23/20 18:45 Paliperidone (Invega) 3 mg BID PO 04/23/20 21:00 04/27/20 10:27 DC 04/27/20 09:17 Trazodone HCl (Desyrel) 50 mg QHSP PRN PO INSOMNIA 04/23/20 18:45 04/27/20 20:23 Allergies Coded Allergies: No Known Drug Allergies (Verified Allergy, Unknown, 11/21/19) HEDY MOSER DO Apr 28, 2020 09:13
[2020-04-28 16:00] VITALS: BP 133/68
[2020-04-28] MEDS: NICOTINE POLACRILEX 2 MG GUM PO PRN (17:54)
[2020-04-28] MEDS: traZODone 50 MG TAB PO PRN (20:27)
[2020-04-29] MEDS: LEVOTHYROXINE 25MCG TABLET (0.025MG) PO SCH (05:44)
[2020-04-29 06:32] VITALS: BP 129/59
[2020-04-29] MEDS: NICOTINE 14 MG/24 HR TRANSDERMAL TD SCH (09:00)
[2020-04-29] MEDS: CARIPRAZINE 1.5MG CAPSULE (VRAYLAR) PO SCH (09:46)
[2020-04-29] MEDS: NICOTINE POLACRILEX 2 MG GUM PO PRN (09:47)
--- NOTE | 2020-04-29 11:13 | MHIPNPDOC ---
[facility] Progress Note Progress Note DATE OF SERVICE: 04/29/20 HISTORY: The patient has met with, he still somewhat bizarre and nursing staff report that he makes unusual comments from time to time, however he reports that the very large some "fine", he is laying his bed without much interaction. He remains isolative to his room, without much group attendance. He does discuss some things but otherwise is quite guarded VITAL SIGNS: See below. NEW TEST RESULTS: None. CURRENT MEDICATIONS: See below. MENTAL STATUS EXAMINATION: General: Fair Speech: Answers questions Thought processes: Circumstantial Thought content: Reports paranoid ideation Abstract reasoning, and computation: Impaired Description of associations: Impaired Description of abnormal or psychotic thoughts: Reports auditory and visual hallucinations, but is vague Judgment: Poor Insight: poor Orientation: [Alert and orientated 3] Recent and remote memory: [Intact] Attention span and concentration: [Intact] Fund of knowledge: [Adequate] Mood: "Okay" Affect: Flat with a constricted range DIAGNOSES: 1. Schizophrenia. 2. Cannabis use disorder unspecified. ASSESSMENT: We will continue to monitor, patient will need a longer period of time for treatment of his psychosis multiple readmissions suggest that his psychosis may be much more ingrained in in-depth than previously thought MANAGEMENT PLAN: Continue Vraylar 1.5 mg daily TIME SPENT: 15 minutes. Vital Signs Vital Signs Date Time Temp Pulse Resp B/P (MAP) Pulse Ox O2 Delivery O2 Flow Rate FiO2 04/29/20 06:32 98.8 57 16 129/59 (82) 96 Room Air Current Medications Current Medications Medications (Trade) Dose Ordered Sig/Eris Route PRN Reason Start Time Stop Time Status Last Admin Dose Admin Acetaminophen (Tylenol Tab) 650 mg Q6HP PRN PO HEADACHE or DISCOMFORT 04/23/20 18:45 Al Hydrox/Mg Hydrox/Simethicone (Mylanta) 30 ml Q4HP PRN PO HEARTBURN/INDIGESTION 04/23/20 18:45 Cariprazine (Vraylar) 1.5 mg DAILY PO 04/28/20 09:00 04/29/20 09:46 Home Med (Med Rec Complete!) ASDIRECTED XX 04/23/20 16:45 04/23/20 16:42 DC Levothyroxine Sodium (Synthroid) 25 mcg QAM@0600 PO 04/25/20 06:00 04/29/20 05:44 Magnesium Hydroxide (Milk Of Magnesia) 30 ml DAILYPRN PRN PO CONSTIPATION 04/23/20 18:45 Nicotine (Nicoderm Cq 14mg) 1 patch DAILY TD 04/24/20 09:00 04/28/20 08:36 Nicotine (Nicorette) 4 mg Q4HP PRN PO NICOTINE WITHDRAWAL 04/27/20 15:15 04/29/20 09:47 Olanzapine (ZyPREXA ZYDIS) 5 mg Q6HP PRN PO ANXIETY/AGITATION 04/23/20 18:45 Paliperidone (Invega) 3 mg BID PO 04/23/20 21:00 04/27/20 10:27 DC 04/27/20 09:17 Trazodone HCl (Desyrel) 50 mg QHSP PRN PO INSOMNIA 04/23/20 18:45 04/28/20 20:27 Allergies Coded Allergies: No Known Drug Allergies (Verified Allergy, Unknown, 11/21/19) HEDY MOSER DO Apr 29, 2020 11:13
[2020-04-29] MEDS: traZODone 50 MG TAB PO PRN (20:18)
[2020-04-30] MEDS: LEVOTHYROXINE 25MCG TABLET (0.025MG) PO SCH (06:24)
[2020-04-30 06:32] VITALS: BP 111/54
[2020-04-30] MEDS: CARIPRAZINE 1.5MG CAPSULE (VRAYLAR) PO SCH (08:49)
[2020-04-30] MEDS: NICOTINE 14 MG/24 HR TRANSDERMAL TD SCH (08:49)
[2020-04-30] MEDS ORDERED: CARIPRAZINE 1.5MG CAPSULE (VRAYLAR) PO ONE (12:00)
--- NOTE | 2020-04-30 14:26 | MHIPNPDOC ---
[facility] Progress Note Progress Note DATE OF SERVICE: 04/30/20 HISTORY: The patient is met with today, he reports that he is doing better and feeling that the voices are improved on the , he reports that it makes him feel improved on the cariprazine but otherwise does not elaborate much. He reports that he's gone to some groups and is interested in discharge, however he has still been quite guarded about his presentation, reporting an unclear discharge plan and reports that he otherwise doesn't have any other goals. The patient is somewhat bizarre and unusual during the discussion still quite guarded. VITAL SIGNS: See below. NEW TEST RESULTS: None. CURRENT MEDICATIONS: See below. MENTAL STATUS EXAMINATION: General: Fair Speech: Answers questions Thought processes: Circumstantial Thought content: Denies any paranoid ideation Abstract reasoning, and computation: Impaired Description of associations: Impaired Description of abnormal or psychotic thoughts: Denies SI HI and AVH Judgment: Poor Insight: poor Orientation: [Alert and orientated 3] Recent and remote memory: [Intact] Attention span and concentration: [Intact] Fund of knowledge: [Adequate] Mood: "Okay" Affect: More euthymic DIAGNOSES: 1. Schizophrenia. 2. Cannabis use disorder unspecified. ASSESSMENT: The patient appears to be improving, however he does not appear to be close to ready for discharge will likely increase medications to see if this might produce a better response, his multiple readmissions make me more apt to continue treatment rather than early truncation which could produce a readmission MANAGEMENT PLAN: Increase to Vraylar 3 mg daily TIME SPENT: 15 minutes. Vital Signs Vital Signs Date Time Temp Pulse Resp B/P (MAP) Pulse Ox O2 Delivery O2 Flow Rate FiO2 04/30/20 06:32 98.4 60 16 111/54 (73) 96 Room Air Current Medications Current Medications Medications (Trade) Dose Ordered Sig/Eris Route PRN Reason Start Time Stop Time Status Last Admin Dose Admin Acetaminophen (Tylenol Tab) 650 mg Q6HP PRN PO HEADACHE or DISCOMFORT 04/23/20 18:45 Al Hydrox/Mg Hydrox/Simethicone (Mylanta) 30 ml Q4HP PRN PO HEARTBURN/INDIGESTION 04/23/20 18:45 Cariprazine (Vraylar) 1.5 mg DAILY PO 04/28/20 09:00 04/30/20 11:56 DC 04/30/20 08:49 Cariprazine (Vraylar) 3 mg DAILY PO 05/01/20 09:00 Home Med (Med Rec Complete!) ASDIRECTED XX 04/23/20 16:45 04/23/20 16:42 DC Levothyroxine Sodium (Synthroid) 25 mcg QAM@0600 PO 04/25/20 06:00 04/30/20 06:24 Magnesium Hydroxide (Milk Of Magnesia) 30 ml DAILYPRN PRN PO CONSTIPATION 04/23/20 18:45 Nicotine (Nicoderm Cq 14mg) 1 patch DAILY TD 04/24/20 09:00 04/30/20 08:49 Nicotine (Nicorette) 4 mg Q4HP PRN PO NICOTINE WITHDRAWAL 04/27/20 15:15 04/29/20 09:47 Olanzapine (ZyPREXA ZYDIS) 5 mg Q6HP PRN PO ANXIETY/AGITATION 04/23/20 18:45 Paliperidone (Invega) 3 mg BID PO 04/23/20 21:00 04/27/20 10:27 DC 04/27/20 09:17 Trazodone HCl (Desyrel) 50 mg QHSP PRN PO INSOMNIA 04/23/20 18:45 04/29/20 20:18 Allergies Coded Allergies: No Known Drug Allergies (Verified Allergy, Unknown, 11/21/19) HEDY MOSER DO Apr 30, 2020 14:26
[2020-04-30 16:41] VITALS: BP_SYST 111; BP_SYST 130; BP_DIAS 54; BP_DIAS 73
[2020-04-30] MEDS: traZODone 50 MG TAB PO PRN (20:09)
[2020-05-01] MEDS: LEVOTHYROXINE 25MCG TABLET (0.025MG) PO SCH (06:29)
[2020-05-01 07:01] VITALS: BP 109/55
[2020-05-01] MEDS: NICOTINE POLACRILEX 2 MG GUM PO PRN (08:25)
[2020-05-01] MEDS: CARIPRAZINE 1.5MG CAPSULE (VRAYLAR) PO SCH (08:25)
[2020-05-01] MEDS: NICOTINE 14 MG/24 HR TRANSDERMAL TD SCH (08:27)
--- NOTE | 2020-05-01 12:15 | MHIPNPDOC ---
[facility] Progress Note Progress Note DATE OF SERVICE: 05/01/20 HISTORY: The patient is met with, he reports he is doing much better on the medication and much improved overall. He describes he has not had any of the auditory hallucinations and no suicidal thoughts. He describes no side effects and wants to know whether he would be able to go home Monday, he is generally amenable without any significant issues at this time VITAL SIGNS: See below. NEW TEST RESULTS: None. CURRENT MEDICATIONS: See below. MENTAL STATUS EXAMINATION: General: Fair Speech: Answers questions Thought processes: More focused Thought content: Denies any paranoid ideation Abstract reasoning, and computation: Improved Description of associations: Improved Description of abnormal or psychotic thoughts: Denies SI HI and AVH Judgment: Poor Insight: poor Orientation: Alert and orientated 3 Recent and remote memory: Intact Attention span and concentration: [Intact] Fund of knowledge: [Adequate] Mood: "Okay" Affect: More euthymic DIAGNOSES: 1. Schizophrenia. 2. Cannabis use disorder unspecified. ASSESSMENT: Observe over the weekend to determine if appropriate for discharge on Monday MANAGEMENT PLAN: continue at Vraylar 3 mg daily TIME SPENT: 15 minutes. Vital Signs Vital Signs Date Time Temp Pulse Resp B/P (MAP) Pulse Ox O2 Delivery O2 Flow Rate FiO2 05/01/20 07:01 98.4 58 14 109/55 (73) 96 Room Air Current Medications Current Medications Medications (Trade) Dose Ordered Sig/Eris Route PRN Reason Start Time Stop Time Status Last Admin Dose Admin Acetaminophen (Tylenol Tab) 650 mg Q6HP PRN PO HEADACHE or DISCOMFORT 04/23/20 18:45 Al Hydrox/Mg Hydrox/Simethicone (Mylanta) 30 ml Q4HP PRN PO HEARTBURN/INDIGESTION 04/23/20 18:45 Cariprazine (Vraylar) 1.5 mg DAILY PO 04/28/20 09:00 04/30/20 11:56 DC 04/30/20 08:49 Cariprazine (Vraylar) 3 mg DAILY PO 05/01/20 09:00 05/01/20 08:25 Home Med (Med Rec Complete!) ASDIRECTED XX 04/23/20 16:45 04/23/20 16:42 DC Levothyroxine Sodium (Synthroid) 25 mcg QAM@0600 PO 04/25/20 06:00 05/01/20 06:29 Magnesium Hydroxide (Milk Of Magnesia) 30 ml DAILYPRN PRN PO CONSTIPATION 04/23/20 18:45 Nicotine (Nicoderm Cq 14mg) 1 patch DAILY TD 04/24/20 09:00 04/30/20 08:49 Nicotine (Nicorette) 4 mg Q4HP PRN PO NICOTINE WITHDRAWAL 04/27/20 15:15 05/01/20 08:25 Olanzapine (ZyPREXA ZYDIS) 5 mg Q6HP PRN PO ANXIETY/AGITATION 04/23/20 18:45 Paliperidone (Invega) 3 mg BID PO 04/23/20 21:00 04/27/20 10:27 DC 04/27/20 09:17 Trazodone HCl (Desyrel) 50 mg QHSP PRN PO INSOMNIA 04/23/20 18:45 04/30/20 20:09 Allergies Coded Allergies: No Known Drug Allergies (Verified Allergy, Unknown, 11/21/19) HEDY MOSER DO May 01, 2020 12:15
[2020-05-01 18:00] VITALS: BP 150/72
[2020-05-01] MEDS: traZODone 50 MG TAB PO PRN (19:59)
[2020-05-02] MEDS: LEVOTHYROXINE 25MCG TABLET (0.025MG) PO SCH (05:57)
[2020-05-02 06:35] VITALS: BP 115/54
[2020-05-02] MEDS: NICOTINE 14 MG/24 HR TRANSDERMAL TD SCH (09:00)
[2020-05-02] MEDS: CARIPRAZINE 1.5MG CAPSULE (VRAYLAR) PO SCH (09:19)
[2020-05-03] MEDS: LEVOTHYROXINE 25MCG TABLET (0.025MG) PO SCH (06:12)
[2020-05-03 06:39] VITALS: BP 117/66
[2020-05-03] MEDS: NICOTINE 14 MG/24 HR TRANSDERMAL TD SCH (08:04)
[2020-05-03] MEDS: CARIPRAZINE 1.5MG CAPSULE (VRAYLAR) PO SCH (08:29)
[2020-05-03] MEDS: NICOTINE POLACRILEX 2 MG GUM PO PRN (08:30)
[2020-05-03 19:53] VITALS: BP 140/76
[2020-05-04] MEDS: LEVOTHYROXINE 25MCG TABLET (0.025MG) PO SCH (06:19)
[2020-05-04 06:24] VITALS: BP 118/53
[2020-05-04] MEDS: CARIPRAZINE 1.5MG CAPSULE (VRAYLAR) PO SCH (08:11)
[2020-05-04] MEDS: NICOTINE 14 MG/24 HR TRANSDERMAL TD SCH (08:11)
--- NOTE | 2020-05-04 10:01 | MHDSPDOC ---
[facility] Discharge Summary Discharge Summary DATE OF ADMISSION: Apr 23, 2020 at 18:32 DATE OF DISCHARGE: May 04, 2020 at 13:50 DISCHARGE DIAGNOSES: Schizophrenia Cannabis use disorder CONSULTANTS INVOLVED:[ None (basic hospitalist screening)] REASON FOR ADMISSION & TREATMENT AND PROGRESS ON THE UNIT : The patient was admitted to the inpatient mental health unit with some paranoid thoughts and he had made a unusual threat to cut his throat when his mom was present, he was discontinued on his Invega as it was not helpful. He was subsequently started on Vraylar increased to 3 mg he did very well improved greatly and generally engaged with treatment well. He was much more amenable and bizarre ideation appeared to resolve fairly well to the point that it was not present. He became social in the unit and engaged and improved better than we had seen him on even previous admissions. He reported that he liked the medications and it helped him improve and that he plan to continue it, he appeared to have much better insight than he had had on previous admissions and treatment planning was undertaken to refer him to [facility] as he was very much open and interested in going to [facility]. DISCHARGE ASSESSMENT[improved] Legal status considerations: The patient at the time of discharge did not meet criteria for involuntary admission/extension due to having a [normal] mental status exam, [fair] insight into the situation, They are engaged in the discharge process, as well as being friendly and amenable in behavioral control and havent been engaging in any observed concerning behavior or ideation recently. They decline voluntary extension/admission at this time and must be discharged in good cynthia, as Im unable to make a case for holding the patient against their will. They may have historical risk factors of admissions and other interactions with psychiatry however, those are not modifiable from a clinical perspective. The patient will need to be discharged in good cynthia. MENTAL STATUS EXAMINATION ON DISCHARGE: [General: Well dressed with good hygiene Speech: Spontaneous and fluid Thought processes: Linear and logical Thought content: Future orientated Abstract reasoning, and computation: Intact Description of associations: Intact Description of abnormal or psychotic thoughts:Denies any suicidal or homicidal ideation. Denies any auditory or visual hallucinations. Does not appear to be responding to internal stimuli. Does not appear to be endorsing any bizarre or paranoid ideation. Judgment: fair Insight: fair Orientation: Alert and orientated 3 Recent and remote memory: Intact Attention span and concentration: Intact Fund of knowledge: Adequate Mood: "okay" Affect: Euthymic with a full range] PLAN/FOLLOWUP ARRANGEMENTS: Follow up appointments made (PCP and MH in 5 days of D/C date) and safety plan completed. Safety Planning aspects completed prior to discharge [Medication supplies limited to 7 days with 4 refills to prevent accumulation to OD] [Family contact completed, educated on safe practices, instructed on removal and mitigation of dangerous means] [RN reviewed crisis hotline information and other aspects to empower patient to access care in interim before next appointment.] The amount of time spent in the coordination of care for this patient was approximately 30 minutes. Vital Signs/I&Os Vital Signs Date Time Temp Pulse Resp B/P (MAP) Pulse Ox O2 Delivery O2 Flow Rate FiO2 05/04/20 06:24 98.1 56 12 118/53 (74) Room Air 05/03/20 06:39 97 Medications Scheduled Cariprazine HCl (Vraylar) 3 Mg Capsule, 1 CAP PO DAILY for thoughts for 7 Days, #14 Levothyroxine Sodium (Levothyroxine Sodium) 25 Mcg Tablet, 25 MCG PO QAM, (Reported) HAS NOT TAKEN SINCE FEBRUARY PER PT Scheduled PRN Nicotine Polacrilex (Nicotine Gum) 2 Mg Gum, 4 MG PO Q4HP PRN for NICOTINE WITHDRAWAL for 30 Days, #30 Allergies Coded Allergies: No Known Drug Allergies (Verified Allergy, Unknown, 11/21/19) HEDY MOSER DO May 04, 2020 10:01
[2020-05-04] MEDS ORDERED: VRAY3CAP PO (11:25)
[2020-05-04] MEDS ORDERED: NICO2GUM PO (11:25)
== END 2020-05-04 13:50 | disposition home or self-care (01) | DRG 750 ==
LOC: M ED 14:08 → M ED INP 18:32 → M PSY 23:07
PROVIDERS: ADMIT Psychiatry & Neurology Psychiatry; ATTEND Psychiatry & Neurology Addiction Medicine
DX: F20.0 Paranoid schizophrenia (principal); E03.9 Hypothyroidism, unspecified; F12.90 Cannabis use, unspecified, uncomplicated; H02.402 Unspecified ptosis of left eyelid; F17.200 Nicotine dependence, unspecified, uncomplicated; Z79.899 Other long term (current) drug therapy

== ENCOUNTER 2020-05-16 16:08 | Emergency (ER) | payer OTHER ==
[~2020-05-16] VITALS: Ht 182.9 cm; Wt 71.4 kg
[~2020-05-16 16:08] MED LIST changes: +MIRT-62 PO; +MIRTAZAPINE; +NICO2GUM PO; +RISP-8 PO; +VRAY3CAP PO
[2020-05-16] MEDS ORDERED: NICOTINE 21MG/24HR 1 EA TRANSDERMAL TD ONE (16:45)
[2020-05-16] MEDS ORDERED: NICO4GUM41 PO (17:12)
[2020-05-16] MEDS ORDERED: VRAY3CAP PO (17:12)
[2020-05-16] MEDS ORDERED: RISP-8 PO (17:14)
[2020-05-16 17:56] LABS: AMPHETAMINES LEVEL URINE NEGATIVE (NEGATIVE); BARBITURATES URINE NEGATIVE (NEGATIVE); BENZODIAZEPINES URINE NEGATIVE (NEGATIVE); CANNABINOIDS URINE NEGATIVE (NEGATIVE); COCAINE METABOLITE URINE NEGATIVE (NEGATIVE); HEMATOCRIT 43.2 % (42.0-52.0); MEAN CORPUSCULAR HEMOGLOBIN 29.9 pg (27.0-33.0); MEAN CORPUSCULAR HGB CONC 32.4 g/dl (32.0-36.5); MEAN CORPUSCULAR VOLUME 92.3 fl (80.0-96.0); METHADONE URINE NEGATIVE (NEGATIVE); OPIATES URINE NEGATIVE (NEGATIVE); PHENCYCLIDINE URINE NEGATIVE (NEGATIVE); PLATELET COUNT, AUTOMATED 257 10^3/uL (150-450); RED BLOOD COUNT 4.68 10^6/uL (4.30-6.10); WHITE BLOOD COUNT 7.8 10^3/uL (4.0-10.0)
[2020-05-16 18:37] LABS: ACETAMINOPHEN LEVEL < 2.0 UG/ML (10.0-30.0); ALBUMIN 3.7 GM/DL (3.2-5.2); ALT/SGPT 17 U/L (12-78); BILIRUBIN,DIRECT 0.2 MG/DL (0.0-0.2); BILIRUBIN,TOTAL 0.8 MG/DL (0.2-1.0); BLOOD UREA NITROGEN 11 MG/DL (7-18); CALCIUM LEVEL 8.7 MG/DL (8.5-10.1); CARBON DIOXIDE LEVEL 29 MEQ/L (21-32); CHLORIDE LEVEL 105 MEQ/L (98-107); CREATININE FOR GFR 0.92 MG/DL (0.70-1.30); ETHYL ALCOHOL (ETHANOL) < 0.003 % (0.000-0.010); GLOMERULAR FILTRATION RATE > 60.0 (>60); GLUCOSE, FASTING 89 MG/DL (70-100); POTASSIUM SERUM 3.9 MEQ/L (3.5-5.1); SALICYLATE LEVEL < 1.7 MG/DL (5.0-30.0); SODIUM LEVEL 139 MEQ/L (136-145); TOTAL PROTEIN 6.9 GM/DL (6.4-8.2)
[2020-05-16 19:26] LABS: RSV AMPLIFICATION NEGATIVE (NEGATIVE)
[2020-05-17 01:53] VITALS: BP 134/69
--- NOTE | 2020-05-17 13:47 | ECGEPIP ---
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
== END 2020-05-17 01:57 | disposition short-term general hospital (02) ==
LOC: M ED 16:08
DX: F20.9 Schizophrenia, unspecified (principal); F90.9 Attention-deficit hyperactivity disorder, unspecified type; F17.200 Nicotine dependence, unspecified, uncomplicated; Z79.899 Other long term (current) drug therapy
CPT/HCPCS: 36415; 80048; 80076; 80307; 84443; 85027; 87631; 93005; 99284; G0480

== ENCOUNTER 2020-06-02 07:16 | Emergency (ER) | payer OTHER ==
[~2020-06-02] VITALS: Ht 182.9 cm; Wt 78.0 kg
[2020-06-02 07:16] VITALS: BP 139/73
[~2020-06-02 07:16] MED LIST changes: +NICO4GUM41 PO
--- OUTSIDE RECORDS SUMMARY | 2020-06-02 07:32 | CCD ---
Author Author [facility] Address Unknown Phone Unavailable Care Team Providers Care Emergency Room Specialist Name Role Phone DEREK RODRIGUEZ DOITOPE Unavailable Unavailable TURRIN, JOHN Unavailable Unavailable TURRIN, JOHN Unavailable Unavailable TURRIN, JOHN Unavailable Unavailable TURRIN, JOHN Unavailable Unavailable KT LOWERY MD Unavailable Unavailable KT LOWERY MD Unavailable Unavailable KT LOWERY MD Unavailable Unavailable KT LOWERY MD Unavailable Unavailable KT LOWERY MD Unavailable Unavailable KT LOWERY MD Unavailable Unavailable KT LOWERY MD Unavailable Unavailable KT LOWERY MD Unavailable Unavailable KT LOWERY MD Unavailable Unavailable KT LOWERY MD Unavailable Unavailable KT LOWERY MD Unavailable Unavailable KT LOWERY MD Unavailable Unavailable KT LOWERY MD Unavailable Unavailable KT LOWERY MD Unavailable Unavailable KT LOWERY MD Unavailable Unavailable TK LOWERY MD Unavailable Unavailable RAYANCHA, KT MD Unavailable Unavailable RAYANCHA, KT MD Unavailable Unavailable RAYANCHA, KT MD Unavailable Unavailable RAYANCHA, KT MD Unavailable Unavailable RAYANCHA, KT MD Unavailable Unavailable RAYANCHA, KT MD Unavailable Unavailable RAYANCHA, KT MD Unavailable Unavailable NO, PCP Unavailable Unavailable [place], Isrrael Solomon MD Unavailable Unavaila ble Sujatha, Isrrael Hoytuel MD Unavailable Unavaila ble Sujatha, Isrrael Juanito MD Unavailable Unavaila ble Sujatha, Isrrael Juanito MD Unavailable Unavaila ble [place], Isrrael Juanito MD Unavailable Unavaila ble Sujatha, Isrrael Juanito MD Unavailable Unavaila ble Sujatha, Isrrael Hoytuel MD Unavailable Unavaila ble [place], Isrrael Hoytuel MD Unavailable Unavaila ble [place], Isrrael Hoytuel MD Unavailable Unavaila ble Sujatha, Isrrael Hoytuel MD Unavailable Unavaila ble [place], Isrrael Solomon MD Unavailable Unavaila ble Re-disclosure Warning The records that you are about to access may contain information from federally-assisted alcohol or drug abuse programs. If such information is present, then the following federally mandated warning applies: This information has been disclosed to you from records protected by federal confidentiality rules (42 CFR part 2). The federal rules prohibit you from making any further disclosure of this information unless further disclosure is expressly permitted by the written consent of the person to whom it pertains or as otherwise permitted by 42 CFR part 2. A general authorization for the release of medical or other information is NOT sufficient for this purpose. The Federal rules restrict any use of the information to criminally investigate or prosecute any alcohol or drug abuse patient.The records that you are about to access may contain highly sensitive health information, the redisclosure of which is protected by Article 27-F of the [facility] Public Health law. If you continue you may have access to information: Regarding HIV / AIDS; Provided by facilities licensed or operated by the [facility] Office of Mental Health; or Provided by the [facility] Office for People With Developmental Disabilities. If such information is present, then the following [facility] mandated warning applies: This information has been disclosed to you from confidential records which are protected by state law. State law prohibits you from making any further disclosure of this information without the specific written consent of the person to whom it pertains, or as otherwise permitted by law. Any unauthorized further disclosure in violation of state law may result in a fine or skilled nursing sentence or both. A general authorization for the release of medical or other information is NOT sufficient authorization for further disc losure. Allergies and Adverse Reactions Type Description Substance Reaction Status Data Source(s ) Drug Class NO KNOWN ALLERGIES NO KNOWN ALLERGIES [facility] SYSTEMIC NO KNOWN ALLERGIES NO KNOWN ALLERGIES [facility] SYSTEMIC NO ALLERGIES ON FILE NO ALLERGIES ON FILE [facility] Encounters Encounter Providers Location Date Indications Data Source(s ) Outpatient 05/16/2020 07:55:00 PM EST Psychosis [facility] Psychosis IP PSYCH Attender: Juanito zaidi MDAttender: NASH JENNIFER DOAdmitter: KT LOWERY MD [id number] 04/19/2020 10:55:00 PM EST - 04/21/2020 12:17:00 PM EST [facility] Patient discharged. Outpatient 04/19/2020 05:05:00 PM EST [facility] schzophrenia Emergency Attender: JOHN Rodriguezsultant: PCP NO 12/09/2019 11:42:00 AM EDT - 12/09/2019 01:45:00 PM EDT [facility] Patient discharged. Medications Medication Brand Name Start Date Product Form Dose Route Admi nistrative Instructions Pharmacy Instructions Status Indications Reaction Description Data Source(s) 4 mg 05/04/2020 12:00:00 AM EST gum 110 CHEW ONE PIECE OF GUM EVERY 4 HOURS NEEDED FOR NICOTINE WITHDRAWAL CHEW ONE PIECE OF GUM EVERY 4 HOURS N EEDED FOR NICOTINE WITHDRAWAL SOLD: 05/05/2020 [facility] 15 mg 04/21/2020 12:00:00 AM EST tablet 30 TAKE 1 TABLET [15MG TOTAL] BY MOUTH EVERY NIGHT TAKE 1 TABLET [15MG TOTAL] BY MOUTH EVERY NIGHT SOLD: 05/05/2020 [facility] 1 mg 04/21/2020 12:00:00 AM EST tablet 60 TAKE 1 TABLET [1MG TOTAL] BY MOUTH TWO TIMES A DAY TAKE 1 TABLET [1MG TOTAL] BY MOUTH TWO TIMES A DAY [facility] Insurance Providers Payer name Policy type / Coverage type Policy ID Covered libertarian ID Covered libertarian's relationship to reyna Policy Reyna Plan Information DEV [id number] [facility] I [id number] Self [id number] DEV [id number] Self [id number] DEV [id number] SP [id number] PRIVATE [place]Y PO[place] LIND 18 COY LIND DEV [id number] SP [id number] UNHC COMMUNITY PLAN MCDHMO [id number] SP [id number] UNHC COMMUNITY PLAN MCDHMO [id number] SP [id number] Managed Care - Community Plan [facility] P [id number] S [id number] Medicaid S [id number] S [id number] UNHC COMMUNITY PLAN MCDO [id number] SP [id number] Managed Care - Community Plan [facility] P [id number] S [id number] Managed Care BCBS O [id number] S [id number] D Managed Care [facility] O [id number] S [id number] Medicaid S [id number] S [id number] [facility](MCAID) P [id number] C [id number] EXCELLUS BCBS P [id number] S [id number] Medicaid Dental O [id number] S [id number] BLUE CROSS PHILLIPS PLAN [id number] SP [id number] BLUE CROSS PHILLIPS PLAN [id number] SP [id number] MEDICAID [id number] SP [id number] Problems, Conditions, and Diagnoses Code Display Name Description Problem Type Effective Dates Data Source(s) Psychosis Psychosis Diagnosis 05/16/2020 07:55:00 PM [facility] R44.3 Hallucinations, unspecified Hallucinations, unspecifie d Diagnosis 04/19/2020 10:55:00 PM [facility] F29 Unspecified psychosis not du e to a substance or known physiological condition Unspecified psychosis not due to a subst ance or known physiological condition Diagnosis 04/19/2020 10:55:00 PM [facility] F32.9 Major depressive disorder, single episod e, unspecified Major depressive disorder, single episode, unspecified Diagnosis 04/19/2020 10:55:00 PM [facility] Psych Transfer Psych Transfer Diagnosis 04/19/2020 10:55: 00 PM [facility] ems other ems other Diagnosis 04/19/2020 10:55:00 PM [facility] schzophrenia schzophrenia Diagnosis 04/19/2020 05:05:00 P M [facility] [id number] Nicotine dependence, unspecified, uncomp licated Nicotine dependence, unspecified, uncomplicated Diagnosis 12/09/2019 11:42:00 AM EDT [facility] M940 Chondrocostal junction syndrome [Tietze] Chondrocostal junction syndrome [Tietze] Diagnosis 12/09/2019 11:42:00 AM EDT [facility] R079 Chest pain, unspecified Chest pain, unspecified Diagno sis 12/09/2019 11:42:00 AM EDT [facility] Results ID Date Data Source [id number] 05/16/2020 06:38:00 PM EST [facility] Name Value Range Interpretation Code Description Data Migdalia rce(s) Supporting Document(s) SARS coronavirus 2 RNA [Presence] in Res piratory specimen by HAYLEY with probe detection [facility] This lab was ordered by [facility] a nd reported by [facility]. ID Date Data Source [id number] 04/24/2020 11:45:31 AM EST [facility] Name Value Range Interpretation Code Description Data Migdalia rce(s) Supporting Document(s) Progress Notes [facility] HUMNWx6sKnSNPsIw56/RXBngYNZtd3UkHOzeAUu7ARqyYIWyX6KlWFA5eY8jAZT1WYjBEsNyRkMmAiJc lbm [file] ICAgICAgICAgICAgICAgICAgICAgICAgICAgICAgIC AgICAgICAgICAgICAgICAgICAgICAgICAgICAgICAgICANCiAgICAgICAgICAgICAgICAgICAgICAgIC AgICAgICAgICAgICAgICAgICAgICAgICAgICAgICAgICAgICAgICAgICAgICAgICAgICAgICAgICAgIC AgICAgICAgICAgICAgICANCiAgICAgICAgICAgICAg ICAgICAgICAgICAgICAgICAgICAgICAgICAgICAgICAgICAgICAgICAgICAgICAgICAgICAgICAgICAg ICAgICAgICAgICAgICAgICAgICAgICAgICANCiAgICAgICAgICAgICAgICAgICAgICAgICAgICAgICAg ICAgICAgICAgICAgICAgICAgICAgICAgICAgICAgIC AgICAgICAgICAgICAgICAgICAgICAgICAgICAgICAgICAgICANCiAgICAgICAgICAgICAgICAgICAgIC AgICAgICAgICAgICAgICAgICAgICAgICAgICAgICAgICAgICAgICAgICAgICAgICAgICAgICAgICAgIC AgICAgICAgICAgICAgICAgICANCiAgICAgICAgICAg ICAgICAgICAgICAgICAgICAgICAgICAgICAgICAgICAgICAgICAgICAgICAgICAgICAgICAgICAgICAg ICAgICAgICAgICAgICAgICAgICAgICAgICAgICANCiAgICAgICAgICAgICAgICAgICAgICAgICAgICAg ICAgICAgICAgICAgICAgICAgICAgICAgICAgICAgIC AgICAgICAgICAgICAgICAgICAgICAgICAgICAgICAgICAgICAgICANCiAgICAgICAgICAgICAgICAgIC AgICAgICAgICAgICAgICAgICAgICAgICAgICAgICAgICAgICAgICAgICAgICAgICAgICAgICAgICAgIC AgICAgICAgICAgICAgICAgICAgICANCiAgICAgICAg ICAgICAgICAgICAgICAgICAgICAgICAgICAgICAgICAgICAgICAgICAgICAgICAgICAgICAgICAgICAg ICAgICAgICAgICAgICAgICAgICAgICAgICAgICAgICANCiAgICAgICAgICAgICAgICAgICAgICAgICAg ICAgICAgICAgICAgICAgICAgICAgICAgICAgICAgIC AgICAgICAgICAgICAgICAgICAgICAgICAgICAgICAgICAgICAgICAgICANCjw/gOBgL1lxxJFkwtK8G6 exWs8TSt9XLA0rp6FuBAXpEQwurqSqSjjSAtNuLOTzXmhSXmj5KKqkUH4MhVOnI5NpE9YbSQviLV3USU PbEZEjrGKaKLYxBIZcEiX3TKNqCAleMX3BlBBpLHsg SMEvGQTaML5YRSNaO945tqGoDE8AQx3BDjXdGI2jpi0DRvHuJWXqJcgOBvz6FMrfDZ5JnNAxcMLmFzRn ZIFQJfJpW1hkh7KhKtMtFRIHRTphSE6Uu5JkeQCbAId+Kk3OEK4il1CaVNqzXhXtKL5xvb9ZQMvSJhUr D1EteFvpRIQlp5rbFVTnHG4pyHYvSCK3US7vxpufW8 jvlyMpOQVnYKQfLE6mBFPtSDRtXuL5COXIOW8RRYWkVJNuhRBhCROuKKSBVF2UPCstKOR1BaigwmDxiG WjGTyuDR3QIGSxnpWaKbLtYRISCWm+Uy5EYU8fb9WiXJhgNmLtOQ7jnr1OTLiBYiBtK4A7fIJzZ8J4XM ksFj5TEMEkOPVuOhWjCZBEMWevQZ8LXX0rkdY8LX9S iRIaMTLfGOZmmCSpIMh7V72mxZCkKXdzFP4FZUY+Emmanuelle+Fo7JSNQdMSVoAZCyQiKmNLXXSqWcG2MjW4KO w9OjF9FnXC84pHjmqhPpZQxpWJ6YKO2oCTJsGNNJEA9CqNObmR9gieUhVRFiXPEOEqFsR61klTEeSXFl HXQ8KOYfTh6TBUXuT8LxoaByoFpvkoYnZSKbHRUTXY 6CDCrtjkAtlEKexFhhZE90tNixOK3NUn1QKmUcWR2qmx1KdKVyEh4TNCLrYN1PBUNpWCUdVYWzLVB6DM ZnPeRmXLnbFBScKTEhJCC1NHYiXOHmFY2JIdYuJVScMtO6YXugPFKnFTNnqk6ECBQcADVkJaT0GxDnGH KuXAOaOIhcEZUoZNPqLHO7WUGrMKDkHK1LJfSkGZSy DFI7XwmpLKVnGVNohs5QGKXpASOjSxMmVGSgSNIlBCXqLWawAVQvIPOiMZz3ZPYdBZMtGR1OOkRsIEDb RZSbDBZmRWZcRHDtus1TCQSsBSEgJsR8QTKaXZQhLEEvDYjpYTNhSVX0KkK8SVZxEFMjGF5TQaTnLQJm DBS1CeRiQYGeCEDndp2XIVYdIXOuCWnmOnBeCJScWA BhCRphKVDcIIW2KFGlQBGsPNHcTY6EVzOoJJMeSLaaOuyrPBNgXPBzyb4RYLPeRWDbJqL5JaGeVCIvJS KzTAvmCXVwOMW6SCS0HTTxOFLbGZ5IReQhTONrJGe9OvDrNIBhRGJmhe9HCYMfPJBdXYlmEkNfEDSrPJ IgAWqvIKSiAHP1IVI4QOUbOAFwNP8MXgCxEEEiZFsc NIXaJYLoPHXqgu9OLCDmBIWnEVRnPoRyOGFuWMWaEYzlPZCqZLKwNSZfPCFtGCChPA9SXvOaJWPuMiT8 HJOcUCYmWVIscq2HDNEdUBMfGGZsLtEdBTMaPELaGUbiLVNcKYXiDOI1KPWcMFGiFG1GLmPuBDFrEwF3 KlOyFGGmKDImql8PBQPaZWCfZiF9CyGkNVLkPEZhDO e7tkHvhQGdVFu8BB1MC6LcmuOnMvjZJo7Ku665WMC2OFTvCl8LD9irQj2pDUWdRDDOCq2WDZq8H9I7Fq K2LJX4AOSfCFD4HuQ0AcI4SpN8EKXvXJI9HUH+URjyUKVgAnw9LNV5ObL7FpqoRvZ2KIVnVXXtMiZ0QE SeBg7nWICOPa3+BZjemGWdlHuxXFTNHpEbGXYzMHziANBSLv3Q ID Date Data Source [id number] 04/23/2020 04:33:00 PM EST [facility] Name Value Range Interpretation Code Description Data Migdalia rce(s) Supporting Document(s) SARS coronavirus 2 RNA [Presence] in Res piratory specimen by HAYLEY with probe detection [facility] This lab was ordered by [facility] a nd reported by [facility]. ID Date Data Source [id number] 04/22/2020 08:20:26 AM EST [facility] Name Value Range Interpretation Code Description Data Migdalia rce(s) Supporting Document(s) Progress Notes [facility] RBTKOv7mAySMSdUe38/EVXovAITsm9DuJEwxDQj4ZRtvQSAgW9IkOBC2tT0gWZJ3UCmELrNbHvLuEhC3 lbm [file] BuLOQtMRXhWMa8SancHQi2JEJ+PP0wRNu+Zc4Jy3PjhbY4tcFlYVotSoslQf0ZCPNSM0UMFz== ID Date Data Source [id number] 04/21/2020 11:59:48 AM EST [facility] Name Value Range Interpretation Code Description Data Migdalia rce(s) Supporting Document(s) Progress Notes [facility] XGIMDr3fIwDQMqCc57/WFRamEYZfw7OwVLjyPMs1SAmfNPMhI6NlBSK7jS5fPTG2GFtHJxIlBwUwEfK9 lbm [file] ZrfBVQZr+vsH48/Gog8zSb1azTBeBpvY/zI8/p [file] ICAgICAgICAgICAgICAgICAgICAgICAgICAgICAgIC AgICAgICAgICAgICAgICAgICAgICAgICAgICAgICAgICAgICAgICAgICAgICAgICAgICAgICAgICAgIC LdGNWlRD8GZWZaXDOkFSWpMLBiGEPpJSMgYXCpPOZkAANtEKPdWJWhUXZvDENoZGAnSSPwNYAdDKGwTX AgICAgICAgICAgICAgICAgICAgICAgICAgICAgICAg THAoPCXeYYScMSDwFYVqXC9OBXVnFCAfABYsMJTwFKHpSHGcJTEpMBZuWCTmLHHvGRRyZROjLOEkGYGv PCZqAAXmPHPkEXMpXQCpSWKsDHWiAVMnAQLaCJIiHTUrLBVbQFWzYXNcSCEoCXAgLTUlNGRvYZXvDI9R ICAgICAgICAgICAgICAgICAgICAgICAgICAgICAgIC AgICAgICAgICAgICAgICAgICAgICAgICAgICAgICAgICAgICAgICAgICAgICAgICAgICAgICAgICAgIC MgYNSyVBGnAA8WUCTsKYLsAYOnEMHbMJEdCOOjERTrSTMdTIPlMFNeTYAmFXWxFPKzDCNbIZTeBGEeDS AgICAgICAgICAgICAgICAgICAgICAgICAgICAgICAg SWNzZLJgUGLlWYExIILxQUJuAP9TNSDcZMQsCGLjECOyIHQfFIMkEDRlVOIeRSYjXBUhMIRwKIUpRPKx ICAgICAgICAgICAgICAgICAgICAgICAgICAgICAgICAgICAgICAgICAgICAgICAgICAgICAgICAgICAg UV0WROLyOCCzQFXgZPSwEBOjNGJzYWTrHWIvFKKlXD AgICAgICAgICAgICAgICAgICAgICAgICAgICAgICAgICAgICAgICAgICAgICAgICAgICAgICAgICAgIC KkJTNxOIKbIIFdNT6NMCPcAQNgQKAqASLaEMSrIHRfJBMtXBMuUYRsQHOgHBCwHSBqAJVgTTLhHTNxCD AgICAgICAgICAgICAgICAgICAgICAgICAgICAgICAg DBYhNHCuGZLfQDQlZKRgEKIxADEhNV6VRZZiACFmHYCmLSVwTTNkHFKlPOOsYRTpYRXgCAWxVVRgWSEo ICAgICAgICAgICAgICAgICAgICAgICAgICAgICAgICAgICAgICAgICAgICAgICAgICAgICAgICAgICAg FJXjGV3BPK80cMHmm3F4OESqXS3xfjp/Uo8KKAzmhv DzlLYsEK7OZhWyVQ1ueo3XSpKpPN3skm5QTFgURbNwE9L5mSVkCQDkZGFOFmYkV02sRBjvIk46ETztNY MpQaPzKId5Ts0WVgRyX1gxTDCiHeL2ALLyUxT7CHSgGhBoWRtlVE2Zr1VkdGIiHNo+Cd4HUK1lh9MwJK mgBxLqIE7wjg6BHYfSQmKvE7GnplB7OYA6ILRiYp9O JJSwWDYkqXReBACkBGKIFnTfH3GciQ76MYCSOv9+WZzhtlGaQkbAGoP2ARUee3OvGIk9RH2NJSLtQAf7 zSUqAVNsV5Ooh8WlUt60FKTrXtbwAzQoMRWnSJRKc5PsbC3gLXYcNLXwQT2cDFPaKYInCcZ7XTGENG9M STCoMWDeaBHcPLLpQBVUYH3LLNvnEHG4QwexpvBgmG ThZIgoWO7XWXAzokGfAumxWAYZMQp+Tj6BPF2zs2WlHDwrRMDeAH3qmw4YRWhEQsXqZ1T5qXNjA4J2BR gxLf5NEFXzWXIyIoCtGJEDQWpfNW4YMO1elbZ6XB0SpDFeGRQeKXXvlKUfDFo3C11fhNNsQObgCK1QJJ A+Emmanuelle+Yy6WATAhMPToXHYxXyEuUVAMGpWlT0GtZ0TU e7DeD0VuKH19qXhwydMlGSclQP3VXE5eVQRhIRJPDR6QbBXybE0mksJwYlMjRMHQDzYuX07jhUHpDNAe ZTD6GSHoZd4MZLRpC9NixeIsfBmbtbDsWVYuSTBJBS9DHUkzbmSobBQbrYlpYD35jPoyPG4XMg8HIgNu VO7pth2SsKZhCd1RNIVqDW8YFVNwFUBtFBLtFCX1FE OiAwGfMOtyHEVxVBHcQID4UOUkGSMuNE5JXuPrVPMzVnP0HOdkFLCkSCDigd9LXTLcQQTdMbE8JZSiZH EoVJEeNTinNDCiIVEgABN0CNDcOXRaHI6XWqJtOCXoAUNvVZMuGJWuQDVhhs1EPGMtTFHvJpYeBGOfJP KyYTLpLUkvWZNoKPVsGZN4VRNnCEIiWY6CPiPeTHGd LQWaTwgjTCYbOJZppj3ZWREtJRXgWFRtYkLrVWVxXHVlGYzsWELmNAK4YzI8GYFgRCLgBM0VDdBjTWEd KOB5JNTnCPTdSMNajb7MIJKkOBZvRPK5BUGaUWXyXRSgEPnzHXOvMIF2MizrHEAbXAIoCI3EUhJaNYRt EGI1JQMmMPLyOBFvwa8QIAWkJVDbESEoRiQxTJGiXK GgIWceGWGjZFG1KAY1BACcFNJbHY1HZfJxHZMsICm7EfdcSVSnFREcsl3QVJYeZVZdLYr8YNXpTMXyRP OtNRlpCAGuIDC6PVN5PSQrWVExEN9ZFtHgDDFgJmEcZFdlWJGbVNGftr0XWMUcQXObBOD2GGSyQMArPO YoYEybAYAcNFLxJSA5OTQsDNSiET7YZzSxBVVuInMe LzvhMNOsKQDyyc2IPMMcNRYiURI4JhRuUZVtRGFoCIdhRUGpLRPzFaB1QWLsCSNpOJ9NDcBwIICpVrLd MDgwHOWeRTFdtk9FZWLeRJPdVeKuPsTgZSGkIBObHRfmLGHkETBhKkq1PWKgNHPbQC2AQvNyMUPuLkD8 RJveIDBvMUMaex3JcVOtgLlpkk3UQLmQNx7QeOiiAQ QtAVwjVy0bbKKiRCDfWHUBHf5TziOsNYPtAXZOGKneAVIxKXD6PLwdYux9IVtcMfOiTfB9QLDpWdP2EC MyJAM0HiFkQeS6UKv8LlOtUDxxHYXvZSE5TVU4XIG7UFP8E6SoPSccOVL+RZ7hAWw+Yr9Cp8UjpkV6xi GmQFybBGE2Ma1AYCWOY5ASCv== ID Date Data Source [id number] 04/21/2020 11:58:58 AM EST [facility] Name Value Range Interpretation Code Description Data Migdalia rce(s) Supporting Document(s) Care Plan [facility] SNWJOb3yHjVEMdVd45/ESLfaPRRjf0MjDGybKMw4QMkaNYCbC3XhLMW6rY8oITC3CRsWNeIwJeYaOzW7 lbm [file] ICAgICAgICAgICAgICAgICAgICAgICAgICAgICAgIC AgICAgICAgICAgICAgICAgICAgICAgICAgICAgICAgICAgICAgICAgICAgICAgICAgICAgICAgICAgIC RiFU1JLYOgBNMuXYTbDLAgUBTsOXFiVEEsHMXqQIKoMFBjFBWmQOCfYOAuYULnBILtYJNpAXExIELdEN AgICAgICAgICAgICAgICAgICAgICAgICAgICAgICAg CHJzTVLoAEAuRVJiLZ8HGPHmUEHvHKEqVLVhVCSoVRXbIRHpVLDaVVYxHLRdMEIwMFYlJSTwWWKjBRPk MLEqQZFyFJNiCCIgPCFbDJAiAJQhXAMhAZDrYACySOUqBPVaYFMqDRCrPJRgFLFhDZKwBKCoKK3MKDNq ICAgICAgICAgICAgICAgICAgICAgICAgICAgICAgIC AgICAgICAgICAgICAgICAgICAgICAgICAgICAgICAgICAgICAgICAgICAgICAgICAgICAgICAgICAgIC NyCPDbES7UHEQkMPSnSRFcJJOjXMVxKAWkUNVbDUTuPTOoGWDjKLBpJJGfYGUjKQCbTDVcDEUjUSIlXL AgICAgICAgICAgICAgICAgICAgICAgICAgICAgICAg CTOgMJSoPRTwKMLjGDRbAC7KHJSlNJTbLGDpUCUxHESxARLjMJMbXAFaVQNkYZNxYAYzRIOwMCQpCGEg CZClDHCcWMKvXOOdQWTmWKDeISNyBDMbZTYlYWVnLDZfCCCrIMRpEEMnLCGqMNOgQHPkGEIhZWPkZK6F ICAgICAgICAgICAgICAgICAgICAgICAgICAgICAgIC AgICAgICAgICAgICAgICAgICAgICAgICAgICAgICAgICAgICAgICAgICAgICAgICAgICAgICAgICAgIC IlDULkWMSlGP2CDWHtKJEnMNDwARQpJMJnTYIrAQLuKOEaIHZiGPQnKHEpEAPqVUVpRYSaDBQgGEIaMW AgICAgICAgICAgICAgICAgICAgICAgICAgICAgICAg DJGgIQNfNWBwWGZoLEAwAHXqYT8MKNZvHIXlIZAhECGiCYSeXNIfNBYyDENdWRSuYFZvTYJvJZHtDYVx ICAgICAgICAgICAgICAgICAgICAgICAgICAgICAgICAgICAgICAgICAgICAgICAgICAgICAgICAgICAg HU2UIS33yXEsm4I7RMYcTD3oobm/Wu0YMIfkluIwgK VwKL9POuFnBO5vkt4PIaVwSU3vkw3YBOdZYpIlY6D6cNSiQEDwKVWVVbXkI44jMCbrDy13UAwjVHTrYy JaOWb8Un5UXrLnS6beZJQoDfR5IFBhEgY9YEMgFbMrZXozFH2Mw9AbzCCsJDu+Am8CTV7bg6AgXKweGr PtUR3wbi7BBYoHDdOkY2SqeqW5GLA6LWTlVl9GEJMo PXLbmYBdAKQzAMANOrWnX1JrdC97THKNMf4+LXdktqKjBkhJUhA3NXKcr3ChHSv0JF3PDINeVPn2jDUr T2OoOAIHdDDvYQE7BHZhONkvTMPqe9xdSTBPTuBblBCxFv69LbPjNlCrQJP9HWfcDM8eZOniVG1NVRG2 ZZaySGXmTXLyD4xBZiLfMXivFULcfPvdZL9JRwGdD3 BhcmVudCAyNyAwIFINCj4+UKoshdPwSzoPZwS2OFIif4TfOLf7EH7YJCCiXBasGF9NVUZfnY3uMNowKM 0BBeRnBJJgGNSSYdDbD76ldJKrEDp6U2FvSzZaVEIwIuliZBLgTNgeRsJtULHwMiMmRLdaJM0+ID4+DQ waXP8HGPdenrPhLWRfZo5PWIKyUIMrJI8wIWTdWCIv O2N9xUgnGPIFGrAoO3eucviuVR9uMWHbG361aYpiimDoUWC7KWCfFe5ABLGtELF2ZGAvxEKhItZoGPNC FQnbOB4YiFGnRBQ0vL3iUBxkAOXhFJKmX8dDYoFubPhxLV94yUcqwoJuuHPpOYb+Qw4XBK6qh1IbFGs9 teNgLPdbODLaNYwoOREaJBMzONYcAJY6GMJ8HENRZs PvJBJnSGOqNCanPQDuRFCtxv1JKGDvGNVcTdZ4TWEvQITcRFDbHPibGUKzVVI9BOQ6HGFxISMiFA7UWj FoGFAjWOMaLWbvATIiFJLjit5BHHNfBZAsNhZuKWQpFTRzTGHsTIdnQCToAJMqMvF6KYKaOUEiWO7PLd GmCVIkRNC4ETauDXDdUJKvft3TYEFlZEVkDAD4OEKg VSNkNYBqIMroICZxBMN3VMP7NLFfNGYvGD2YQsNiXQAvONHbYvGvRPXqPFNmpd6SXYWtZIRbSHKwAcYc PHFcXVQtXQcnPFZmNFD5MwJ9TIQxAVBjPR2KGjIgLXDgUKA3MsMdPSQuSLXkgl0PBBYbVPSpPyg5HzLi VGIyKSFiKKgsYKFvEAZ9UCt2QNOwDKGxWK2PXgEfLV BpMLw7LUUmVMSePEXbic2QOJSdCSMuGATeOROeQNDgFPWaCTifFYJnCQE5XTLvTALzGTCuQQ9ANyLaIE OtVtRoDWDlFANrYLAalv9GRCAkRQQjTYa6ERHgCIHsXCFoGZiwBLAcMZYiOWZ1QNBvFPQgPO4HVbLoWJ RmGvLkDpTcRDLbRZNibq5AEINmQHQhFfF8EZMmLFAc NRSoOZysPCKvIXFyKYO4NDFmSMYwXZ9UThZqLDQoXmW8SxUpZVIwYEQvle3UBGSkEGOfFnY2ETZiLOFp ABUtECuoDMSvICM6RFK2QUQwRXYgZT9GIqEgWNMgFlE1FLMgLGOjYKKfcp0KXEWuKZXrOAozKPEqNLNn XCUzIXi2kdNlmJEfZUk2TI6GT7WjbsBcJuJFXw4Or9 02KDZ0JFAfQf9ME7ozPu2qLJEgIOLQDa2RUFh0OaLeMkR6UYRdSUH6PiB0BDYbJHakAGY7XLtvZmP1DD M+ZYvoQ7Y6UQl1YAGnGuNdDmH3PeGlYKCeExEoVCK6KFVaUo3zXEQVVv6+CWdpeONfoWujYLVSTmS4HV M1QWwuAXMIOe5U ID Date Data Source [id number] 04/21/2020 10:54:51 AM EST [facility] Name Value Range Interpretation Code Description Data Migdalia rce(s) Supporting Document(s) Progress Notes [facility] GRXWPr7hDaRJZgFo15/TANuiACLvx5FeOYhdXOu4BDomKWHpP8UsWYP9rZ5tBWE0PFhTApBgQcWrXjP7 lbm [file] ICAgICAgICAgICAgICAgICAgICAgICAgICAgICAgIC AgICAgICAgICAgICAgICAgICAgICAgDQogICAgICAgICAgICAgICAgICAgICAgICAgICAgICAgICAgIC AgICAgICAgICAgICAgICAgICAgICAgICAgICAgICAgICAgICAgICAgICAgICAgICAgICAgICAgICAgIC AgICAgDQogICAgICAgICAgICAgICAgICAgICAgICAg ICAgICAgICAgICAgICAgICAgICAgICAgICAgICAgICAgICAgICAgICAgICAgICAgICAgICAgICAgICAg ICAgICAgICAgICAgICAgDQogICAgICAgICAgICAgICAgICAgICAgICAgICAgICAgICAgICAgICAgICAg ICAgICAgICAgICAgICAgICAgICAgICAgICAgICAgIC AgICAgICAgICAgICAgICAgICAgICAgICAgDQogICAgICAgICAgICAgICAgICAgICAgICAgICAgICAgIC AgICAgICAgICAgICAgICAgICAgICAgICAgICAgICAgICAgICAgICAgICAgICAgICAgICAgICAgICAgIC AgICAgICAgDQogICAgICAgICAgICAgICAgICAgICAg ICAgICAgICAgICAgICAgICAgICAgICAgICAgICAgICAgICAgICAgICAgICAgICAgICAgICAgICAgICAg ICAgICAgICAgICAgICAgICAgDQogICAgICAgICAgICAgICAgICAgICAgICAgICAgICAgICAgICAgICAg ICAgICAgICAgICAgICAgICAgICAgICAgICAgICAgIC AgICAgICAgICAgICAgICAgICAgICAgICAgICAgDQogICAgICAgICAgICAgICAgICAgICAgICAgICAgIC AgICAgICAgICAgICAgICAgICAgICAgICAgICAgICAgICAgICAgICAgICAgICAgICAgICAgICAgICAgIC AgICAgICAgICAgDQogICAgICAgICAgICAgICAgICAg ICAgICAgICAgICAgICAgICAgICAgICAgICAgICAgICAgICAgICAgICAgICAgICAgICAgICAgICAgICAg ICAgICAgICAgICAgICAgICAgICAgDQogICAgICAgICAgICAgICAgICAgICAgICAgICAgICAgICAgICAg ICAgICAgICAgICAgICAgICAgICAgICAgICAgICAgIC QrAYCnXLNjQGRnQHUoSTIpZXMzXQKjXOYqKADxQEClUNg2E5bqYWSeUXRiXW6vABs8Gc5+DQoNCmVuZH F2ufYenA1MAR1oh2ZyCRoqZDMhu4WyYIp5QI1AWNSrQWpvKZ7MQXvctj4TYVTiMLWgjLKRo0kpQqVgPL L3YKCuVwrqFW7TFSNhK4xoxnCqLZKrUNPSTZvfZYED MWucVOGXXU1BIfUzF1GjjQ60FFKZNq6+TDijjsVnNzoYGpX7ZSArp2FyLAf7WZ5GGXCkKiolb4QaAzxh JMYITVwmGR5IVYD0LFM0YUWiOi6XUWThL456kwSgSK3BYj0XLjIeHV2vub7ZWxviTMUpJumSDeq5OFli VO5NuAShZPfTpq1ftuPebtUJo1ZimkTezBXAr14xN9 DwZRD3LWJ6hcbciZMuvBclS3LcLGFoLVHoOS9fYUNsNIIgTqK2IUJSGV9MDACwECQsnKQwHRBjSEVVFA 9VGWhqSEB9YlsheyVcmVGdMMfeVO7PBOSqasFlNhOxUDNSBRt+Nc2MJZ9bw9QhXZwoZRQhCD2jvn2CVG xRXyOaU7R3wDPwD0I2FRidJp4ZJPQkKQNdZzRyUEVM KRmdQZ7BKY8txzI4XG2RnAIiJJTdXLJbyZCsCHn1M79txRVmVKyiQI8OJEN+Emmanuelle+Qm9IUBSfAEShDQVj XzYsFGDMBfUyG7OsD6TEu9HjY3KaPE32jXwebzJyOPvqBM2YPN9uTORlUJLCEJ9HyVBmfR6wnkYaSmFr NQSICkGtI20uxNUwPGKhZKE8UKSlSy3FXJNhU7Ltvn XssRouazIrQGToPRCWPB0TIWwutuMywWIfiMreVI60oLyxDV9VNh4XKeSdJL7cji1TfYRbBv6IGANkLJ 8QKXJhMBZpAFQvNSV4KTZbIsHmZLrzKLPfMKPzKUS4QTQtTQHaXT4YNcAcEUIvWoR1TlOjBTSzSSDrnj 7DONZrVEJvELWlAeHfIUQmPOAqTSmeKWUzDXXrQZQ8 QAVdNWPvRU9JJbKfMKCsTBSgBBIjOWAmNXQvwz2WMJRdNPWaRuPiZDRaKKNvTXPxEPqzXEAyYJA5Fsks RSIhYOLvYJ2BAlRoACBaQIN8UCYmJTTrVPXkzi6EYRQiBGWoGWK3ZeVlXAZaOKJpGWjhZNSqXTY1Heio DLSdRYBtZH8QXcZjGPXjDKPuZPxwARJcKHOshk4UEP HgIZLhWHW7MKWfXCOhPOVqLPasCXBhPNJfUgG0HBBxFBLfIL3ZOtIkJJSjWKC2KEbhYAXvCWGogp9WYH BkHSUqHGt7MfZxPSFnTLAqTXsqCJQuENHtBTs0DEKiRZVdTN9ZMtXkXRVgGwH5PlpfTVQzOEPhkh9YAL LtLPXrCSu2EANjHKVzSUPtJYysMYSiHOW0IRTuZYMg PJNzGP3ZLzPeFTHdAnDlIMZcIUCtBOIofe2GNDTsBUOtQJIpASAgHOPgFMAaBMxhGYJmKIQ9RnjkAKYg BVUnGN3ZWxViBAMdDxN0NcMqLLEuJULveq7LORByZPPmRbJ0MIMdKXYiYYOwDYrcEKEmIYU4BTR5JPZl VREjYN9OPtPfDJZhFze7FQBrYQNqWBZsya0UJTUzCN TvYAD5WvDkWWRmBYYkZPnhNKRoBGY1SgMlSVOyGISzEG5KAmVoKKsvNTQJCam8QTztB3e0IQDoBX2AS8 Dwa7QqQgrtJYYTWQjzUB0ehlXdQLVvQd5KV6tCYnxiHEZwFlDsRuYcRtV4BMKuGiK5R5P6ImF7S3OcRX DqVn1sXUSvEDN2QXOuFJN5BXtpCeV5SVw6Nes0Usqc MMJeLSAfJaTsWU5FLg5SMlD3KXP8dNLbZz9XDmf5VLWUVkAkDR0JJFf= ID Date Data Source [id number] 04/21/2020 10:03:34 AM EST [facility] Name Value Range Interpretation Code Description Data Migdalia rce(s) Supporting Document(s) Discharge Summary [facility] UMJOVn6cZqZRDrEy07/OIKuuVCTca7EoPSbgZVk5SFcbMXRoO3WpRTU0fV4oZPM3LPjTGqByQoPdBeQ0 lbm [file] 9GDQo= ID Date Data Source [id number] 04/21/2020 05:49:18 AM EST [facility] Name Value Range Interpretation Code Description Data Migdalia rce(s) Supporting Document(s) Nursing Note [facility] RDCURm3uLnCXQeNq34/EGPfhPYRwg3ZoVBweGVq4CMyiQLCpF8PqCUM8jB8dVWR2UFeBTmKrYqTrDxU2 lbm [file] Z9YNUsNRxkPlSzWCm2CBPzENS+ZT1zPEh+Lh8Yg7JacuD7paUnBNrmJXx7Fk2IMUYWR0ODQq== ID Date Data Source [id number] 04/21/2020 05:18:36 AM EST [facility] Name Value Range Interpretation Code Description Data Migdalia rce(s) Supporting Document(s) ED Provider Notes [facility] YASMMy8oVzQZVfXi87/FKXsmTRUnx2JaHTooDJz9IBxgECPbN6CiWKP6uS3iLVT8DUfHEcCdIuIeXvX7 lbm [file] db3pNhm468r7JNc1Vyz165WjxVZze6APsWF79XzZc8y8mxpq8nw+Cm4tC9F9+sole layer+ip+oI2wx6scpY/TP [file] IUP7FhluI4T+nstr9KVd/wsysr293aI7doXX2pQwP3f3biJ9AnSOe1Wx+Dk04SSNquv28G1uPjxg/dental mechanic [file] WhRuBcBGIgECIeBbEzYK1ZOr8DApT2SOT1iIBaOf6ZVyXaZyTAPhEdIQ8LPFq= ID Date Data Source [id number] 04/20/2020 10:36:26 PM EST [facility] Name Value Range Interpretation Code Description Data Migdalia rce(s) Supporting Document(s) Care Plan [facility] JLDXCs9vNwXXGoBc66/IVKzmGTTts8ZeLRcwMNf6BVgcQXXeM7XxBMM7uF0rKLS0PSlVLyMcBeSxAjE9 lbm [file] 5IMye48+3iG9njBFPvRn8a784RnMm8I9+f8FC03A0H OQ+op24e/P6ojrskJBqNg9p0a+exYdpNnP5Abd5LQO+e4bF7mCc1OZ9f3SI2Gx0d/D4QqWzNUzbi9S8x V3gYW4880vUYbiv2lrhqGhiaPPW8zQ34pb9I7iyZIJgflObMyliWg9PyU9iCuPbB3knKzJzrRricyusl I19pnxvuxIBSrrQfJE0uPA4njRNw8HICgRUajp0YYL z+dPxcF7RJRrEi0rX/d/gfCTur+rES8ue1l+0M0m1J6vNpcLj0CR5sP1J/4VqG6gEqmLoNB/5IejvoTN door maker+3EyJDcwMRWdB8bDQj2+33/9KYDmiZDCga9W313srMjjgD9gPKuE/cpJ0ysSd78+r0PN592wKc1sS [file] Cg== ID Date Data Source [id number] 04/20/2020 04:50:21 PM EST [facility] Name Value Range Interpretation Code Description Data Migdalia rce(s) Supporting Document(s) Progress Notes [facility] WBNNKq5gZjYGGyXi37/QXJpdBAJmf2XkAWpbCZq7BHpuUMBwO9VeJQP4mW4kJQM8URqUVyScGgElFwL8 lbm XpUsuBQhHtMZRyZuuHBiIyYDglQcdlnOYxFT3HoKR4SKVdR14sNCBhUDWhQ8ZlAIX6DVS+Wt3CMIAsbB HiKI0UVytN1U9rlbCZLW4vjz8e6U+A1CS7e+6V3KoJhSTAmpMAYWW+oTmNcmnQ1JaL1i43beqfZ9lddI 9fW9CSUbro8tsu2Xrm0LAW+edvdRgFWms1/7h6USql 5a6ww31Zd5qfSYyx/somkQVWxzoqF+S/pxloJRxPS2xZ/LnCOPl96pBcQltblTKEHDOOJW3Yn50Rg78o 8tsDi5GrgNUJkybTb8L29lT90Lqt0I7uxzOLell2r5iIPRwRUFvdz4XAf7DewpwNjEsexNwx1NPur0DB uChDFTcuXhvR8vw5vRg9hIrgnMKO3hYI3Y6QIQ/Erma [file] 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/1hLivqYYXfxt9Yl+ZnBMzqaMpFM5gfXKGNw4VzdagY+2KOXqvHGRdWiBdWJxgrwcW1XRzQCL9HoT [file] ID Date Data Source [id number] 04/20/2020 03:20:41 PM EST [facility] Name Value Range Interpretation Code Description Data Migdalia rce(s) Supporting Document(s) Progress Notes [facility] JWIVDo4rFpBGKeEa35/NKFyoDAFmv2NjKLtpLUg7TNeyNEDcJ7YsNXQ3vN5tISQ6BDxWQjNnZjTaAoM0 lbm [file] ID Date Data Source [id number] 04/20/2020 03:19:25 PM EST [facility] Name Value Range Interpretation Code Description Data Migdalia rce(s) Supporting Document(s) Progress Notes [facility] JDDFVz6fSwKRUxRw41/JPOahLPJlh0KqALhlXHl2SGyoGGLfP7AxPBT4jB4nTHO6YToPObXlPvNkJxF8 lbm [file] ICAgICAgICAgICAgICAgICAgICAgICAgICAgICAgICAgICAgICAgICAgICAgICAgICAgICAgICAgICAg ICAgICAgICAgICAgICAgICAgICAgICAgICAgICAgICAgICAgICAgDQogICAgICAgICAgICAgICAgICAg ICAgICAgICAgICAgICAgICAgICAgICAgICAgICAgIC AgICAgICAgICAgICAgICAgICAgICAgICAgICAgICAgICAgICAgICAgICAgICAgICAgDQogICAgICAgIC AgICAgICAgICAgICAgICAgICAgICAgICAgICAgICAgICAgICAgICAgICAgICAgICAgICAgICAgICAgIC AgICAgICAgICAgICAgICAgICAgICAgICAgICAgICAg DQogICAgICAgICAgICAgICAgICAgICAgICAgICAgICAgICAgICAgICAgICAgICAgICAgICAgICAgICAg ICAgICAgICAgICAgICAgICAgICAgICAgICAgICAgICAgICAgICAgICAgDQogICAgICAgICAgICAgICAg ICAgICAgICAgICAgICAgICAgICAgICAgICAgICAgIC AgICAgICAgICAgICAgICAgICAgICAgICAgICAgICAgICAgICAgICAgICAgICAgICAgICAgDQogICAgIC AgICAgICAgICAgICAgICAgICAgICAgICAgICAgICAgICAgICAgICAgICAgICAgICAgICAgICAgICAgIC AgICAgICAgICAgICAgICAgICAgICAgICAgICAgICAg ICAgDQogICAgICAgICAgICAgICAgICAgICAgICAgICAgICAgICAgICAgICAgICAgICAgICAgICAgICAg ICAgICAgICAgICAgICAgICAgICAgICAgICAgICAgICAgICAgICAgICAgICAgDQogICAgICAgICAgICAg ICAgICAgICAgICAgICAgICAgICAgICAgICAgICAgIC AgICAgICAgICAgICAgICAgICAgICAgICAgICAgICAgICAgICAgICAgICAgICAgICAgICAgICAgDQogIC AgICAgICAgICAgICAgICAgICAgICAgICAgICAgICAgICAgICAgICAgICAgICAgICAgICAgICAgICAgIC AgICAgICAgICAgICAgICAgICAgICAgICAgICAgICAg ICAgICAgDQogICAgICAgICAgICAgICAgICAgICAgICAgICAgICAgICAgICAgICAgICAgICAgICAgICAg EZQeWQCoLHDeCGOjIAVfEQVeZXUmHRGaTLRzMXBkSZYxHAPtZGZvRKRjSNOwGVWwTHu6A2ysMRDhBLTg BQ1qRZm7Zl4+GGmCCvWnUPA1wcWxhW0OYL0cw7WfTL jnVSPvi2IbOXd3OO0JUNDbYFwbIH3TJHknva3CXSKwKJKvaIHQw2fsMqRqPQE4ZIMpJcmrYV9RTAFoP9 ltdhFvUXKeRNNAGS0FRlWlX6RyxX42RZGBJz9+BBslytCgXdfIZiX0ECEun8EoIVs2HA9YUZBwEbidf7 PfJhVnMDIOMJdbUK4MARI1OWVzNFRgDh7CRODiN581 psYcFB0CNc2GChZrUV6dbs7IIhQsHTCoSybNQdz7LYujEC6YrGXiGRzGll1mdgGvllAVw2CnphGonWDF k83qH2YdSPQ4ASX6qfuceTGffFqrG7AtWYFvMCYmIv9vBNGtKTKuNsZ9BNSIBK9GIUChUOAudHVgBCPq NLKQYJ7OIRscWVA5WcdmvsQytFShMYnmIO6CBEFrvv QgMTkgMCBSDQo+Sb5SFP3pi4XyOGcjVMVgUC2dby3ZOWuCSlNdY8Q3mFOgB6B9XNyvIq8SQGSuZDOmHB kfBEKBVJidKO2FZU2freO8AU2EqRWlEYKvKJWgbBDoHKk5N36vpHIwSQlzPK7XVJF+Emmanuelle+Mr8HSAIdPV FbHFHnZdUsBHSIAdCfT1XcY7RDg9HeG2TbFD03sIlx zsYvCEspHC2XUF8gLCMvIUCBUM9KyDQayO8fuvSiHENoTTRYWvFoC91exACjHVJnTXH9VOMqAe4VCQVm O4EazvDnpIfprxTlYSLgQJVJQU8SXZtptgXsmKWioCldPF83sQpkYH7BGx8RRnVkVE6xna9MpDMgBf0M DBDxTf2PUGLkVSVcYKMfAOK7VKFkTwBrYEfsRNUqQF CtXVQ5FMNrDOXlPK8CNsTyTYVmJTa6FlInOLHlQLEvkk1KWZAuYYLpQQH9QANzMEXdSWIoMVsyAUZpDY XaCTG7SIFwSOZtXM6VStHrGJYoVTVkETZvIKNsULBgfw2VJTJzMZFwINB2FHBcKXDdAEEdJRsrSTJlHE OjTOX1BRWmBDHzSL5YUbCzAIEgJUO5OQaeLAXxUDAb cw3QTGCjJNKoEdueAiXdBQNeXOZeNOnyDFUqGJMxIORhWALtYEMtLO3OCaGkPKAmNOTvOWbuHDFdIVWy gj9CRANdRFDlGWP9RUWzPRDkPLTyLCsuVBQsCZH9OPcbUAQkAFNhOK2VCcAyGZTrNLH2MCIeUSIwGJUl gh6NAJYdRIElSwFpAOJpPQHaYZJfAXanESBgSKC2Pi E6KIIgQCLjMC6OJmUrROAqZIt0LEKcGEDuNSIvtu1HVAJvOPXtXvgdVZOnWDLrSCYbMTfdIVUkOCW4Aw Z9SRJaXOFsLN8LYjMxMGUeSXq0PPNqHDVyJSBxyo5DTOPkUPPzRSZ0UXZsGKRxVBCeUDj4ndVaxVVaSZ n8RX2OM8DttiBgUiMGTj9Oc811PYKyBGUaAk9KS7ho Ij0kUKDbBGVKSh9AQQu6QLhtAzzoZon0XzTaZFR3GYV1DNntFWidALCoRNOeVdJ+HSq9ImNaV2Q9JjEx WGB2LDc5EKslCzJ8DFT1J2XcUeQvFI8nURQKMb6+PXnzfWIffFxkWJGHRpI5PSB2SUuaLWQKXn1R ID Date Data Source [id number] 04/20/2020 01:09:52 PM EST [facility] Name Value Range Interpretation Code Description Data Migdalia rce(s) Supporting Document(s) Progress Notes [facility] IXWFSd0sBxCSMzNs75/IHAcoUVLyp1RhSRboTNa5YNhcFQYuD0KqPEM5dW4yJTR6PYyAHjBtAbExTpJ8 lbm [file] PVNqQqNfTK8RTo8NLoH5LLX2rCLgJr5OFKb6OSYLAvAdJU7XLMy= ID Date Data Source [id number] 04/20/2020 12:43:00 PM EST [facility] Name Value Range Interpretation Code Description Data Migdalia rce(s) Supporting Document(s) TSH 27.40 uIU/ml 0.36-3.74 Above high normal [facility] Concentrations of Biotin above 100 ng/mL can potentially result ininterference.The above 1 analytes [address] performed [address] [facility] [email or web address], ,[place] [address] ID Date Data Source [id number] 04/20/2020 12:43:00 PM EST [facility] Name Value Range Interpretation Code Description Data Migdalia rce(s) Supporting Document(s) T4, Free 0.84 ng/dl 0.59-1.61 Normal (applies to non-numeric resul ts) [facility] The above 1 analytes were performed by [facility] [email or web address] [facility], ,[place] [address] ID Date Data Source [id number] 04/20/2020 10:54:04 AM EST [facility] Name Value Range Interpretation Code Description Data Migdalia rce(s) Supporting Document(s) Progress Notes [facility] IYLDBk3bGvVMMbHa30/AWTnrPAJnx7WcHYhiMRb6BGpvCRUdW6VbSUY0yL5hFNP0KSzICwAhXdYbKiW1 [facility] ItOriKHwVoTPVaIahEFhRnDAhqKoqrwVLmOC9XiCW7PLMeK31yVZDsKDKfH6RaIBNgDDU+Bg6UGKUfzV JmOQ2CWscV0O7wundUEC1MfF3x8pJYecx9q3d1TQRd6JYqw+lPHt9mBwzTB9OoTiVJSFkr8ML0d2em92 HsJICgPF6GOMEM11TdTsGsUN6on/c64haLrXLYQ/1t DaTYIqIT50f/LU6fCqAU4vuJQCjtQCHC20C93raqM3eQ0JK05Tp+70SB5/lHKeHENaK6O2Un3Xyc03cl xI+zxoAMRR0f8VgLpKhagXYAW8ZF4cEnLSXvfYdZP2CbiI27+cGZ/LKX7b7qKuAUWsfEAhR2yURvLNJu 48QcjVTAV6H2rIrQpesocsfsd1+BUrAqr56x0ptI8T SFKvl7fHEi9t3oH4aIFQCWo5ZYnPKYrGo/7lAlp1TbTYLOrkPuYMtItjCoAdIHoqoI29JrIeMmdG5NKE M2qgOiwePmbOhLT0GCvdOYERdn5jKxVXfOb8uI1mCJQ8CWI4UWruDxs9Db4l5L+t5l4h1C7BKXful9oq wvUgZlDZOhG+yW5Mn8br5f5eCxxWyH5rO9963L2IqH uGEGR1jzr/Z93mXlmC5dYxE0RERDxJ1hW4ZFhhIu9l4sLw+VwnM0x8MDOE7RrBxsdDYApHz3oc35rMmg Ag8MgeD3//67EB/PAINT STRIPPER/8cRD7Xz3+gJJWYy5t9tCLVFNe7Rcyh/YMw2cFWlnuRmoJHhLO30Wi7dOwnOPwj [file] DQo= ID Date Data Source [id number] 04/20/2020 10:50:52 AM EST [facility] Name Value Range Interpretation Code Description Data Migdalia rce(s) Supporting Document(s) H&P [facility] MJRUEn3cBjROKqEw42/YVWthFPWpe3CgJUopZZw9MRekBCGkO0KkUJV5zT8qJEO6NGtEEyBpZpIzLtE9 lbm [file] AgICAgICAgICAgICAgICAgICAgICAgICAgICAgICAg ICAgICAgICAgICAgICAgICAgICAgICAgICAgICAgICAgICAgICAgICAgICAgDQogICAgICAgICAgICAg ICAgICAgICAgICAgICAgICAgICAgICAgICAgICAgICAgICAgICAgICAgICAgICAgICAgICAgICAgICAg ICAgICAgICAgICAgICAgICAgICAgICAgICAgDQogIC AgICAgICAgICAgICAgICAgICAgICAgICAgICAgICAgICAgICAgICAgICAgICAgICAgICAgICAgICAgIC AgICAgICAgICAgICAgICAgICAgICAgICAgICAgICAgICAgICAgDQogICAgICAgICAgICAgICAgICAgIC AgICAgICAgICAgICAgICAgICAgICAgICAgICAgICAg ICAgICAgICAgICAgICAgICAgICAgICAgICAgICAgICAgICAgICAgICAgICAgICAgDQogICAgICAgICAg ICAgICAgICAgICAgICAgICAgICAgICAgICAgICAgICAgICAgICAgICAgICAgICAgICAgICAgICAgICAg ICAgICAgICAgICAgICAgICAgICAgICAgICAgICAgDQ ogICAgICAgICAgICAgICAgICAgICAgICAgICAgICAgICAgICAgICAgICAgICAgICAgICAgICAgICAgIC AgICAgICAgICAgICAgICAgICAgICAgICAgICAgICAgICAgICAgICAgDQogICAgICAgICAgICAgICAgIC AgICAgICAgICAgICAgICAgICAgICAgICAgICAgICAg ICAgICAgICAgICAgICAgICAgICAgICAgICAgICAgICAgICAgICAgICAgICAgICAgICAgDQogICAgICAg ICAgICAgICAgICAgICAgICAgICAgICAgICAgICAgICAgICAgICAgICAgICAgICAgICAgICAgICAgICAg ICAgICAgICAgICAgICAgICAgICAgICAgICAgICAgIC AgDQogICAgICAgICAgICAgICAgICAgICAgICAgICAgICAgICAgICAgICAgICAgICAgICAgICAgICAgIC AgICAgICAgICAgICAgICAgICAgICAgICAgICAgICAgICAgICAgICAgICAgDQogICAgICAgICAgICAgIC AgICAgICAgICAgICAgICAgICAgICAgICAgICAgICAg SXJnBYZlLHAfYYAzCBZtHREoVXGyUUUkYSDyWPVlEBCwOJUuPBYrYPGiAVLzNEGwJTStSLAaVBs8T8ut USAtEKHiGC6xDFz6Ei7+ZJnJSpApNCR3uwPfoE2EDN9oo0NtQNmxDHKgh5GlJIb2HI9TCVYzPLzlJL6A VRcccf0XLPOfRZFmiIIBv7yyHlVhZXL3OECiZnwrSV 7HWYQvK6spyqDcFZTvEBFZPQ7BTmIvF8PrwR49RALRXy2+PEyvlfXeXnyZYdV5XZUht2UbPHs2DP9UKF CiEqlba3XkDUmbUIWQZHdmES9KANM5HYH0HLBcCg1JRFYeI193toItNA9ACb4FSqYoZM0evz2RIUbeLX FtBkvQLuv9YXokPW3DrLYjXBwUQbSmTaqgP8BtwBKw LHwic3Sfw3ShtFFcZXlkYQKpFFYbKQFhWh3iVQSgVPPkDoI0TBCTCH3JMTZmWFSaoKGjHEFpWPTYMR2N ACswBBA9UwegnhMuvMFcWErhYO9NZJDupxAsSJopAZTXOGa+Wb6ORD2zr9YsIVlxKHRpOW9bti9NIKkB EmGpH8Y1kAHkN6W9SMeuMw9GUQRhJZMwXEPnORPDBP ywFG7ZQX7uewL7ZV4DbJYdVFEnIYIenDLxDEn0D00veXJwRYayIC2XTRD+Emmanuelle+Im8HSPYrUASfAHYcCt SzDJGTOxYgM8UtQ5TXd0EyZ9VxWS91aEjgiePzDDgxEM8MGN8vYZLqDSFSAJ6YxLCyoK4uzoIcFuSpBO IKYbCmT31jmRLaVYPhZCL1USTbHv9TYMRiS1ZoxnNk kRrmzlXrFOXhEYWDAT2GSCestoEadLMcfNjxAE81sIyzWS1XPy6DHjDuUG9tyg3MvSXyGa5AVKAvTY9Y VNKuYQYdOMJkZNK4UDEeIdSgIVaoLPYiPJPxKSD4RZGfJFKbNT7PCiJyBRAsJIi6ELMoIVMiYBIusq9F TXLyBPGgJSM7KBHcCGKiZNXrFGfuHNDxLESsJUX6YJ DbVJMeMQ9ZZbPnJUAzFORyUMEqSYUiMAFcbe9VSNDvGEBxBuJdSUZbSORjFMWtGQakVZCqPBZ3KwY7XJ AcXIHlCY4KTwGmWJJcRPH5AKkkTXZoWZSfen6QGHPcFZCrZMx0CHPnQAIqZLPbLNfkYTWzBYU8MpLqWO TqGLJqQM1PDqLfENNkIZH1ZHHuCKKxGDBgus6BRDAo SCXdFhO0SdGkZZVoAWHaSRtjBCIwJUB4YAFoNXYwMFKfTN7YPgNsMPFjSSseVDMcUTNbSDKvol9QKCQr FLEjTlHfNpPiIRKqSUZrNFziYIGzUSO9FZS9VBZuSEFoRO0UYdBpKVDkKJnnRPZlQBNlJIMdhr8HGCHi NVGeXYI7QrDqKMTkOHLiPAprOUEhUDY0ONXrSBAqNG EeQF4CLmMiRMuyPIQLRpt6BWgyV7h7SXDsLV0XI8Tlk6IcCEnhTWJYBTuyVR8tfyXkUFGkHo9UK6zXEe dlRwEwMVIiZVA1BTvtQBIoKpJ5CIU7VVZqSDo3YvO9HK4oXTGzOqN9CFM3YVrxV8X1NgY0KND5AjM8UR G4OvQyALf8GtGlKU3AMh1GUjN1QDY5qXMoRt3GJOb3ZS9NQMDTH4GMFk== ID Date Data Source [id number] 04/20/2020 08:35:41 AM EST [facility] Name Value Range Interpretation Code Description Data Migdalia rce(s) Supporting Document(s) Care Plan [facility] DINERx5tZgOJZzOf71/RQQtmFRDke5SwJUhgKKg0PBypNAGxH6BuENJ1oR2vSJY6XCmRHiSoCbXoFtQ1 lbm [file] AgICAgICAgICAgICAgICAgICAgICAgICAgICAgICAg ICAgICAgICAgICAgICAgICAgICAgICAgICAgICAgICANCiAgICAgICAgICAgICAgICAgICAgICAgICAg ICAgICAgICAgICAgICAgICAgICAgICAgICAgICAgICAgICAgICAgICAgICAgICAgICAgICAgICAgICAg ICAgICAgICAgICAgICANCiAgICAgICAgICAgICAgIC AgICAgICAgICAgICAgICAgICAgICAgICAgICAgICAgICAgICAgICAgICAgICAgICAgICAgICAgICAgIC AgICAgICAgICAgICAgICAgICAgICAgICANCiAgICAgICAgICAgICAgICAgICAgICAgICAgICAgICAgIC AgICAgICAgICAgICAgICAgICAgICAgICAgICAgICAg ICAgICAgICAgICAgICAgICAgICAgICAgICAgICAgICAgICANCiAgICAgICAgICAgICAgICAgICAgICAg ICAgICAgICAgICAgICAgICAgICAgICAgICAgICAgICAgICAgICAgICAgICAgICAgICAgICAgICAgICAg ICAgICAgICAgICAgICAgICANCiAgICAgICAgICAgIC AgICAgICAgICAgICAgICAgICAgICAgICAgICAgICAgICAgICAgICAgICAgICAgICAgICAgICAgICAgIC AgICAgICAgICAgICAgICAgICAgICAgICAgICANCiAgICAgICAgICAgICAgICAgICAgICAgICAgICAgIC AgICAgICAgICAgICAgICAgICAgICAgICAgICAgICAg ICAgICAgICAgICAgICAgICAgICAgICAgICAgICAgICAgICAgICANCiAgICAgICAgICAgICAgICAgICAg ICAgICAgICAgICAgICAgICAgICAgICAgICAgICAgICAgICAgICAgICAgICAgICAgICAgICAgICAgICAg ICAgICAgICAgICAgICAgICAgICANCiAgICAgICAgIC AgICAgICAgICAgICAgICAgICAgICAgICAgICAgICAgICAgICAgICAgICAgICAgICAgICAgICAgICAgIC AgICAgICAgICAgICAgICAgICAgICAgICAgICAgICANCiAgICAgICAgICAgICAgICAgICAgICAgICAgIC AgICAgICAgICAgICAgICAgICAgICAgICAgICAgICAg ICAgICAgICAgICAgICAgICAgICAgICAgICAgICAgICAgICAgICAgICANCjw/tPXnR9wqjMVgdhO7R5gl Uc1DNj0HCN2pp9PlUOAlNAthieScGehZXkAwRYCkUtpNRmk9JCqdVR7WfOHqM9ZrV1BnBOinHL4DGEPy YMYnzSHrPVThBYVcHoY1SKMgRIxgZN1LeBLdARamOT SiLARdTY2CSGVlE710pwOpWE8OVi2GScQaQT0qix4UUzCxRDDzJvtTXfq7YQwuIV2MyPUhbSWlKtTpDN FKWkEoR1gmd6HtGoEgZTLIOCyoML1Te8XhrOJeJAq+Cn1LXZ4vc1LlEXzlWgNsDD5dxs6LSMrXWsEcP9 PsdGlrTQRnsySgEFwnhrXkaSROlH3oYFRfZuy5phrz pjOtITpaKs7hPWCaXMTiVf4oGQFqWFK6MxTwFWJHWU3SGLCfLQXijJGhBBIlISCKFM8LYIvvRWH9Udsm naEvmLJjSHuhIU3BRXZoqmTuAcFgLHWIEQf+Xz4ZKZ0id7ZxYIihRSWpYT7ikt7DCQjDAuLbV5U4vYYy J1W1EAsyOc2IRIYkEEIfIqAeNPRHKWomLB7LGI9kdb J2NY1PaTJoWZNyXUMqiOWiOEs7B83skBUoTQspMD0WXVL+Emmanuelle+Af0DLPOlPNCfFVCaLqXxGUYTYfAvD3 NsQ1DMf2RjE9CmUD27nXtigpDkGLokME5ZLR1kJCLhRZJDXX8HoOQulV1njvYiPpFfEWQUEzQvD05hpG XdFLWhXBCkLXJyIq6EXTUgT8EhyyGdwLfzkjUhYOSu VNABYE5XSXyvplXjiJPzkDrsBC15mWhsUL6OGq5DNjZhST7yih0WwIYqXw3UKZAgQI3XMARlWAOrHWYn MND0TBImYbLeWXyoSUEvQQNjVVD8RAHjEQWtFZ3JCgXwYINcHTi5AJHdLKHcOXCzcb9AKROhTSJmODB6 FOZqZMQrAZLpSZmyVDIoKMIkFNG0FCDeQAZqOJ1XXv GnOBAfKTG8CMdxVCVnDPObfo6LENVhDLOfBMR6OIAiJBCgFUUoWQatEYHxLCHbJjG4TZHqTVSnBE6RMa XuDVIiKBH3OALyOTOgVCPaas9ZSPRqOLUnIvZyAQOaOYLrWWAeUBhaVHIvOQIdIPf6RGPdQKUnTM3LEz QrRFYzWUAhRCXsQLWlRNMmhu0LAQYiXVHuAFM9OsLj BEJuSDWsIPoeOAImCVG7WeSmYNTwNDRmUE5LXmXmKIUcTBeeCthjKAKkYABqta7TRPUmXFVvKqY6FaNo CGBqBXGcSOqgBLRvLOH9CSr3BBRyHRPtPU6YDbCbEEMfOOz6QpCqCAMjAZCiak6IGYYzPUZaPOS7LREf TGQuZYBnVRvyWFPaNOD7OqQaOBQcENPnBY5VHgKjLM MwZQw3OfSjECFvUJEyuw4VNBBvZMVvYRK6NXOvNALbPUDrXObrOAZeYXTpBrf5MCRfCOCiKW5OQaHdJG JjLzM5XEbdVBTsGQStit0UYLKaWIKkBRXrPYKsIRKzLMZgZGm9fsYuvADcRLh5FF3PM5CmujBpPtSDKi 3Fr822KXX4HQUwCd8DT3azEx5qWIIuREEOZm7CRNq5 TMtpT2PbJWLqAOQpWHToWLueTGB2FEItFOX1ToSbRJE+BUh7ZQXoNKD4YCTlPmBgSND5R0TwMoO1OXTy NqynE3P3Ai9yGLWLSf5+LNxzyJZsuWuiHFEOVgDuEbP8IXqkPMTNYr9N ID Date Data Source [id number] 04/20/2020 09:45:00 AM EST [facility] Name Value Range Interpretation Code Description Data Migdalia rce(s) Supporting Document(s) AST 14 IU/L 15-37 Below low normal [facility] Sulfasalazine and sulfapyridine have the potential to falsely depressAspartate Aminotransferase results. Baseline values before medication administration are recommended. ALT 14 IU/L 16-61 Below low normal [facility] Sulfasalazine and sulfapyridine have the potential to falsely depressAlanine Aminotransferase results. Baseline values before medication administration are recommended. Alkaline Phosphatase 81 mIU/ml 50-136 Normal (applies to non-num ruth results) [facility] Total Bilirubin 0.90 mg/dl 0.20-1.00 Normal (applies to non-numeric results) [facility] Blood Urea Nitrogen 14 mg/dl 7-18 Normal (applies to non-nume stacey results) [facility] Creatinine 0.98 mg/dl 0.67-1.17 Normal (applies to non-numeric resul ts) [facility] N-Acetylcysteine (NAC) and Metamizole st ve the potential to falselydepress Creatinine results. Baseline values before medication adminstration are recommended. Patients undergoing treatment with phenindione will have falselydepressed results. Patients on phenindione therapy should be tested with an alternativeCREA method.Toxic levels of acetaminophen may lead to falsely depressed results forpatient samples. Glomerular Filtration Rate >90.00 mL/min/1.73m2 [facility] GFR Reference Ranges:Normal Function or Mild Renal Disease,if clinically at risk:>or= 60Moderately decreased:30 - 59Severely decreased:15 - 29Renal Failure:<15 Please note that the MDRD equation requires an additional adjustment forAfrican-Americans (multiply the GFR result by 1.210).Glomarular Filtration Rate (GFR) is estimated based on the MDRDequation, which assumes a steady state for creatinine (Anya Int Med 139/2 137-149, 2003), as recommended by the NationalKidney Disease Education Program in conjunction with the National Institutes of Health and the National KidneyFoundation. The Novi method used in calculating this result is traceable to IDMS standards. Glucose 86 mg/dl 70-110 Normal (applies to non-numeric resul ts) [facility] Sulfasalazine has the potential to false ly depress Glucose results. Sulfapyridine has the potential to falsely elevate Glucose results. Baseline values before medication administration are recommended. Calcium 9.4 mg/dl 8.5-10.1 Normal (applies to non-numeric resul ts) [facility] Total Protein 7.4 g/dl 6.4-8.2 Normal (applies to non-numeric re sults) [facility] Albumin 4.1 g/dl 3.4-5.0 Normal (applies to non-numeric resul ts) [facility] Sodium 141 mEq/L 136-145 Normal (applies to non-numeric resul ts) [facility] Potassium 4.5 mEq/L 3.5-5.1 Normal (applies to non-numeric resul ts) [facility] Chloride 106.0 mEq/L 98.0-107.0 Normal (applies to non-numeric resu lts) [facility] Anion Gap 12.5 [facility] Carbon Dioxide 27.0 mMol/L 21.0-32.0 Normal (applies to non-numeric results) [facility] The above 16 analytes were performed by [facility] [id number], ,[place] [address] ID Date Data Source [id number] 04/20/2020 09:25:00 AM EST [facility] Name Value Range Interpretation Code Description Data Migdalia rce(s) Supporting Document(s) Triglycerides 69 mg/dl 30-200 Normal (applies to non-numeric re sults) [facility] N-Acetylcysteine (NAC) and Metamizole st ve the potential to falselydepress Triglyceride results. Baseline values before medication adminstration are recommended. Cholesterol 145 mg/dl 0-200 Normal (applies to non-numeric resu lts) [facility] HDL Cholesterol 42 mg/dl 30-70 Normal (applies to non-numeric results) [facility] N-Acetylcysteine (NAC) and Metamizole st ve the potential to falselydepress HDL Cholesterol results. Baseline values before medication adminstration are recommended. LDL Cholesterol 89.2 mg/dl 0.0-100.0 Normal (applies to non-numeric results) [facility] Cholesterol/ HDL Ratio 3.5 0.0-5.0 Normal (applies to non-n umeric results) [facility] LDL/HDL Ratio 2.1 [facility] The above 6 analytes were performed by [facility] [id number], ,[place] [address] ID Date Data Source [id number] 04/20/2020 05:03:22 AM EST [facility] Name Value Range Interpretation Code Description Data Migdalia rce(s) Supporting Document(s) Nursing Note [facility] PZABMu8tQdSJQvQd60/YTKhaJEZup8UdDJlsGQl7NFinXQTvB5GoYKZ1yR0yWFB7MNxZMtRhRqQnNqZ2 lbm [file] 4Mm4DxtjK7jpGkVFiiKCb2WW4VYECMH5ORNa== ID Date Data Source [id number] 04/20/2020 01:35:30 AM EST [facility] Name Value Range Interpretation Code Description Data Migdalia rce(s) Supporting Document(s) Nursing Note [facility] IRJQIx5bQpAOLeXx37/NZSxqEBBpq0TdDZgxADn6JAscDZHoV7LqDVD6vE8zAOT4QLhTPfSrMnGsUzA1 lbm [file] hmIs3nK9LTzfDCWNezz/H6c1k3K8cQQlhz7WQ9fJflu+lFtdjox4lBMUpsCcLgyv0RGQDAdRUIGC/Josué ir7zlOnk76QimRfSR96GA3VE3MstFc+mSG1clFi1QN fxEh1Cru6pOjb6z1vG/CjP9xsj8peD2E1yEi1PLl9mOG3H76hUI/FQbls7PgyVT+VGt5uFiPAhp2GIOJ Ej3gn5ANGzomv/1bnWaPllUIW95dzAWLptqcqxMM88ZfDjmevtOglSXn1g2Yj74mKO2wcSDj+/8emK8H hb6FvY7VGlJ9zSj8pHREZrfr4n6oAgm0eUI8bPYqhx l00KWnJ8JtmFl1Sh5hyJ94rZG6dl3mz6NhlaCiyQ5hvCShGfLWRNN/Upd5kFCFtJ7RQ3oXc938yKI4jT FA0MjfeFRnG5tTyffrRjIm7lFQEU6fA4xOkyYfXjWhhFG94C6tVUyCt/3yB8vUcA3aErq4klRZlKRmv+ QWjGPWw6/LMBimt0ioXgA+1Zk22EI76sNJAhVcG49b 2mScqsmzFcI9OqAKY0XrZbXazECTriNdykuIUjpcEgtnqALW9rj68K7dy61iM9Q4WmFYX1Tti6qPQ+h3 5ZZw3eHeFtM7ZthlkJkgagLYqU7daNDSvoaDbbDccL2xKhW3qgqB7P33S26PH7hl0b4pLY5bq2el4WVU FwV7J7UO4qEfOGVRed3q24JjI5PE0jNf4qqqX7mUqn +4mBo781QcGzKH/SHwxFM0+JbwYheTo4jbgXv3lDBQBs4M6qQNklQW84qaZqOyZMj74nmluyZOBxMlcT 5PQJ01Az/danny/sZxQJNyLU0lrahIbAEsk7nPzQTM3DpkBpA2E7Jzp3sCMf0jzq4Jyh1Fvtqr4r49t6Hb [file] 0gDQo+Lm9Yc8RsnvD4dqAvPRwiDSp3ZM2MBTNQA0HUFn== ID Date Data Source [id number] 04/20/2020 12:47:44 AM EST [facility] Name Value Range Interpretation Code Description Data Migdalia rce(s) Supporting Document(s) Care Plan [facility] ZEBEVj5vLgLNGvBr97/XFXsfXPBhw4MaSYbrMBm4MDzyKVXvZ5MdKHP2yN5iBKQ5XOjSGiFiYuLlBkH2 lbm [file] TAAhSAM3YGblBQcrDsSfStXsZuZzVO5JEu3QHgU8YAD4mABfEd5PRfI7DPFXUhUmTI8VXWe= ID Date Data Source [id number] 04/19/2020 11:09:55 PM EST [facility] Name Value Range Interpretation Code Description Data Migdalia rce(s) Supporting Document(s) ED Triage Notes [facility] ZROTJi0aPbQJEnMf71/JHStnPNYry0SzUFunIKi8YWqfPDSsA0RpSZB5gG9tIYM4WLvCVvEpZbZpPcL9 lbm [file] YTU+SH2yTPf+Rk5Ok3IgkjB8pkNsEQe9UTDhCInwQPWAVe2H ID Date Data Source [id number] 04/19/2020 04:44:00 PM EST [facility] Name Value Range Interpretation Code Description Data Migdalia rce(s) Supporting Document(s) SARS coronavirus 2 RNA [Presence] in Res piratory specimen by HAYLEY with probe detection [facility] This lab was ordered by [facility] a nd reported by [facility]. ID Date Data Source [id number] 12/10/2019 08:56:00 [place] [address] PHONE: [phone] FAX: [phone] Name .................. : LELO Morales Acct Number.................. : [id number] ROOM. ................. : TR-03 Number ................... : [id number] Stay type ............. : E/R Discharge Date......... ... : 12/09/19 Admit Date ......... : 12/09/19 Admit Phys .................... : SUZY FRENCH Date of ....... : 2000 Family Phys ................... : NO PCP Phone .................. : [phone] Age ................................ : 19 Film# .................. .:[id number] Sex ................................. : M Unsigned transcriptions are preliminary reports and do not represent a medical or legal document CHEST PORTABLE [id number] COMPLETE:12/09/19 14:01 BEM 57590 Reason(s): Chest Pain PORTABLE CHEST X-RAY: COMPARISON: No prior examination available for comparison. INDICATION: Chest pain. FINDINGS: The cardiac and mediastinal silhouettes appear normal and the lungs are clear. The bones and soft tissues are normal. The upper abdomen is unremarkable. IMPRESSION: No acute disease identifiable. Examination dictated by MARIANA Funez. Examination was reviewed with Lexii Bermeo MD, radiologist at the time of this dictation. Electronically Reviewed and Signed By LEXII BERMEO MD , 12/10/19 08:56, [facility] Transcribe Initials: DONAL , Transcribe Date: 12/10/19 00:19, Dictation Date: Copy for: [place]ERGENC[place] DEPT via [facility] [place] Copy for: 710 MED REC DISCHARGED Page 1 of 1 Name Value Range Interpretation Code Description Data Migdalia rce(s) Supporting Document(s) ID Date Data Source [id number] 12/10/2019 01:46:[address] [facility] [address] [place] [address] RESPIRATORY CARE REPORT ==== ---------NAME------- NUMBER SEX AGE ADMIT DISC. XRAY# F/C VEENA Morales [id number] M 19 12/09/19 12/09/19 [id number] P E/R DATE OF : 2000 M/R# [id number] PH#: [phone] TR-03 LOCATION: EMERGENCY DEPT EKG [id number] COMP LETE:12/09/19 13:50 EWW [id number] PHYSICIAN: SUZY FRENCH Name Value Range Interpretation Code Description Data Migdalia rce(s) Supporting Document(s) ID Date Data Source [id number] 12/09/2019 11:42:00 AM EDT [facility] 1 OrderSheet [facility] Emergency Department [address] [place] [address] Phone #: ext- [phone] 12/09/2019 11:32 Patient: POLLY LIND Sex: M : 2000 Age: 19yWEIGHT:78.4 kg HEIGHT:74 inches BMI:22.2ALLERGIES: No Known Drug AllergyCHIEF COMPLAINT: chest painDIAGNOSIS: Chest wall pain, Costal chondritisLAB ORDERSOrder Description Priority Entered Acknowledged InitialedCBC w Diff STAT 12:12/09/2019 12:03 Suzy Rizzo Riccardo Amber M.D.;CMP STAT 12:12/09/2019 12:03 Suzy Rizzo Riccardo Amber M.D.;Lipase STAT 12:12/09/2019 12:03 Suzy Rizzo Riccardo Amber M.D.;PT/PTT STAT 12:12/09/2019 12:03 Suzy Rizzo Riccardo Amber M.D.;Troponin-T STAT 12:12/09/2019 12:03 Suzy Rizzo Riccardo Amber M.D.;DIAGNOSTIC STUDY ORDERSOrder Description Priority Entered Acknowledged InitialedChest Portable 1 STAT 12:00 12/09/2019 Ack'd: 12:03 12:11 So,View John Larson Amber Amber(Oxygen?(No)) Fito; Reason for Study: Chest Tristen nMEDICATION/IV/DRIP/FLUID ORDERSOrder Description Priority Entered Acknowledged InitialedToradol 15 mg IVP 12:01 12/09/2019 Ack'd: 12:03 12:12 So,X1 dose: 15 mg John Larson Amber Amber(NOW x1) Fito;Ativan PO 1 mg 12:12/09/2019 Ack'd: 12:03 12:11 Suzy Rizzo Riccardo Weaver, Amber Amber M.D.; 2 OrderSheet [facility] Emergency Department [address] [place] [address] Phone #: ext- [phone] 12/09/2019 11:32 Patient: POLLY LIND Sex: M : 2000 Age: 19yGENERAL ORDERSOrder Description Priority Entered Acknowledged InitialedBlood Pressure 12:00 12/09/2019 12:03 So,Monitor John Larson M.D.;Family Consultant 12:12/09/2019 12:03 So(continuous) John Larson M.D.;EKG 12:00 12/09/2019 12:03 Suzy Rizzo Riccardo Amber M.D.;NPO 12:00 12/09/2019 12:03 Suzy Rizzo Riccardo Amber M.D.;Obtain Old EKG 12:00 12/09/2019 Ack'd: 12:03 John Larson Amber M.D.;Obtain Old Records 12:00 12/09/2019 Ack'd: 12:03 John Larson Amber M.D.;Oxygen titrate to 12:00 12/09/2019 Ack'd: 12:03 12:50 So,92% John Larson Amber Amber M.D.;Pulse oximeter 12:00 12/09/2019 12:03 So,(Continuous) John Larson M.D.;Saline Lock 12:00 12/09/2019 12:03 Suzy Rizzo Riccardo Amber M.D.;Vitals 12:12/09/2019 12:03 Suzy Rizzo Riccardo Amber M.D.;[Electronically signed by Tamie Rizzo (13:49 12/09/2019)][Electronically signed by John Larson M.D. (14:58 12/09/2019)][Electronically locked by Tamie Rizzo (13:49 12/09/2019)] Name Value Range Interpretation Code Description Data Migdalia rce(s) Supporting Document(s) ID Date Data Source [id number] 12/09/2019 11:42:00 AM EDT [facility] 1 Medication Reconciliation Report [facility] Emergency Department [address] [place] [address] Phone #: ext- [phone] 12/09/2019 11:32 Patient: POLLY LIND Sex: M : 2000 Age: 19yWeight: 78.4 kgHeight/Length: 74 in.BMI: 22.2ALLERGIES: No Known Drug AllergyThe patient's Home Medications are listed below:NONE.The source(s) of the original Home Medication information:patientThe following Medications were given to the patient in the Emergency Department:Ativan [PO] PO 1 mg, administered: 12/09/2019 12:11:00 PMToradol [IVP] IVP 15 mg, administered: 12/09/2019 12:12:00 PMThe following Medications were prescribed to the patient:ibuprofen 600 mg tablet Take 1 tablet four times a day as needed for pain for 7 days -- Dispense 28tablet. Refills: 0. Substitution permitted.Pharmacy - [id number] - [id number] [place] [address]. FaxNumber: . -- John Larson M.D. Name Value Range Interpretation Code Description Data Migdalia e(s) Supporting Document(s) ID Date Data Source [id number] 12/09/2019 11:42:00 AM EDT [place] [address] Medication Administration Record [facility] Emergency Department [address] [place] [address] Phone #: [phone] ext- [phone] 12/09/2019 11:32 Patient: POLLY LIND Sex: M : 2000 Age: 19yWeight: 78.4 kgHeight/Length: 74 inBMI: 22.2ALLERGIES: No Known Drug Allergy Date/Time Medication Administered Medication OrderedGiven TORADOL [IVP] (KETOROLAC Toradol 15 mg IVP X1 dose: 15 mg12:12 12/09/2019 TROMETHAMINE) (NOW x1)Tamie Rizzo, Dose: 15 mg IVP Site: #1 left ACGiven ATIVAN [PO] (LORAZEPAM) Ativan PO 1 mg12:11 12/09/2019 Dose: 1 mg Tablets Tamie La, Name Value Range Interpretation Code Description Data Migdalia rce(s) Supporting Document(s) ID Date Data Source [id number] 12/09/2019 11:42:00 AM EDT [place] [address] General Instructions [facility] Emergency Department [address] [place] [address] Phone #: ext- [phone] 12/09/2019 11:32 Patient: POLLY LIND Sex: M : 2000 Age: 19yChest wall painCostochondritisINSTRUCTIONSAvoid stimulants (such as cigarettes, coffee, cold medicines, sinus medicines, street drugs). Follow a lowsalt diet. Do not smoke. No alcohol.Warnings: Further evaluation is necessary. It is very important to follow up with a healthcare provider.GENERAL WARNINGS: Return or contact your physician immediately if your condition worsens orchanges unexpectedly, if not improving as expected, or if other problems arise. SPECIFICALLY, return ifyou develop chest, neck, jaw, shoulder, arm, or back pain, difficulty breathing, a fluttering sensation in yourchest, lightheadedness, fainting, excessive fatigue, or sudden sweating.Your Current Medications: .No home medication.Prescription Medications:ibuprofen 600 mg tablet Take 1 tablet four times a day as needed for pain for 7 days -- Dispense 28tablet. Refills: 0. Substitution permitted.Pharmacy - [facility][id number] - [id number] [facility] ; [place] [address]. Phone: FaxNumber: .Follow-up:Return to the emergency department as needed. Follow up with your healthcare provider in two dayseven if well. Call for an appointment. Reason for referral: evaluation and treatment. Summary of careprovided to patient via paper.Understanding of the discharge instructions verbalized by patient. Expected course of illness, dischargeinstructions, activity level, diet, follow-up appointment and risks and benefits of treatment reviewed withpatient and understanding verbalized. Agrees to plan of care. ADDITIONAL INFORMATIONChest Wall Pain: Costochondritis 2 General Instructions [facility] Emergency Department [address] [place] [address] Phone #: ext- [phone] 12/09/2019 11:32 Patient: POLLY LIND Sex: M : 2000 Age: 19yThe chest pain that you have had today is caused by costochondritis. This condition is caused by aninflammation of the cartilage joining your ribs to your breastbone. It is not caused by heart or lungproblems. Your healthcare team has made sure that the chest pain you feel is not from a lifethreatening cause of chest pain such as heart attack, collapsed lung, blood clot in the lung, tear in theaorta, or esophageal rupture. The inflammation may have been brought on by a blow to the chest,lifting heavy objects, intense exercise, or an illness that made you cough and sneeze a lot. It oftenoccurs during times of emotional stress. It can be painful, but it is not dangerous. It usually goes awayin 1 to 2 weeks. But it may happen again. Rarely, a more serious condition may cause symptomssimilar to costochondritis. That's why it's important to watch for the warning signs listed below.Home careFollow these guidelines when caring for yourself at home: If you feel that emotional stress is a cause of your condition, try to figure out the sources of that stress. It may not be obvious. Learn ways to deal with the stress in your life. This can include regular exercise, muscle relaxation, meditation, or simply taking time out for yourself. You may use acetaminophen, ibuprofen, or naproxen to control pain, unless another pain medicine was prescribed. If you have liver or kidney disease or ever had a stomach ulcer, talk with your healthcare provider before using these medicines. You can also help ease pain by using a hot, wet compress or heating pad. Use this with or without a medicated skin cream that helps relieves pain. Do stretching exercise as advised by your provider. Take any prescribed medicines as directed. 3 General Instructions [facility] Emergency Department [address] [place] [address] Phone #: [phone] urp- [phone] 12/09/2019 11:32 Patient: POLLY LIND Sex: M : 2000 Age: 19yFollow-up careFollow up with your healthcare provider, or as advised, if you do not start to get better in the next 2days.When to seek medical adviceCall your healthcare provider right away if any of these occur: A change in the type of pain. Call if it feels different, becomes more serious, lasts longer, or spreads into your shoulder, arm, neck, jaw, or back. Shortness of breath or pain gets worse when you breathe Weakness, dizziness, or fainting Cough with dark-colored sputum (phlegm) or blood Abdominal pain Dark red or black stools Fever of 100.4F (38C) or higher, or as directed by your healthcare provider [phone] [employer] [place] [address]. All rights reserved. This information is not intended as asubstitute for professional medical care. Always follow your healthcare professional's instructions.Chest Wall Pain: Costochondritis 4 General Instructions [facility] Emergency Department [address] [place] [address] Phone #: ext- [phone] 12/09/2019 11:32 Patient: POLLY LIND Sex: M : 2000 Age: 19yThe chest pain that you have had today is caused by costochondritis. This condition is caused by aninflammation of the cartilage joining your ribs to your breastbone. It is not caused by heart or lungproblems. Your healthcare team has made sure that the chest pain you feel is not from a lifethreatening cause of chest pain such as heart attack, collapsed lung, blood clot in the lung, tear in theaorta, or esophageal rupture. The inflammation may have been brought on by a blow to the chest,lifting heavy objects, intense exercise, or an illness that made you cough and sneeze a lot. It oftenoccurs during times of emotional stress. It can be painful, but it is not dangerous. It usually goes awayin 1 to 2 weeks. But it may happen again. Rarely, a more serious condition may cause symptomssimilar to costochondritis. That's why it's important to watch for the warning signs listed below.Home careFollow these guidelines when caring for yourself at home: If you feel that emotional stress is a cause of your condition, try to figure out the sources of that stress. It may not be obvious. Learn ways to deal with the stress in your life. This can include regular exercise, muscle relaxation, meditation, or simply taking time out for yourself. You may use acetaminophen, ibuprofen, or naproxen to control pain, unless another pain medicine was prescribed. If you have liver or kidney disease or ever had a stomach ulcer, talk with your healthcare provider before using these medicines. You can also help ease pain by using a hot, wet compress or heating pad. Use this with or without a medicated skin cream that helps relieves pain. Do stretching exercise as advised by your provider. Take any prescribed medicines as directed.Follow-up careFollow up with your healthcare provider, or as advised, if you do not start to get better in the next 2days.When to seek medical adviceCall your healthcare provider right away if any of these occur: A change in the type of pain. Call if it feels different, becomes more serious, lasts longer, or spreads into your shoulder, arm, neck, jaw, or back. Shortness of breath or pain gets worse when you breathe Weakness, dizziness, or fainting Cough with dark-colored sputum (phlegm) or blood 5 General Instructions [facility] Emergency Department [address] [place] [address] Phone #: ext- [phone] 12/09/2019 11:32 Patient: POLLY LIND Sex: M : 2000 Age: 19y Abdominal pain Dark red or black stools Fever of 100.4F (38C) or higher, or as directed by your healthcare provider [phone] [employer]. [address] [place] [address]. All rights reserved. This information is not intended as asubstitute for professional medical care. Always follow your healthcare professional's instructions. You have been given the following additional information: Chest W all Pain, Costochondritis Chest Wall Pain, Costochondritis(Electronically signed by John Larson M.D. 12/09/2019 14:58) Name Value Range Interpretation Code Description Data Migdalia rce(s) Supporting Document(s) ID Date Data Source [id number] 12/09/2019 11:42:00 AM EDT [facility] 1 Clinical Report - Nurses [facility] Emergency Department [address] [place] [address] Phone #: ext- [phone] 12/09/2019 11:32 Patient: POLLY LIND Sex: M : 2000 Age: 19yTRIAGEArrived by EMS. Historian: patient. ( pt arrives via EMS with reports of chest pain. Pt appears anxious.Pt does not maintain eye contact. pt denies this has ever happened before. Pt reports he was working outand felt sudden onset left sided chest pain that started about 45 min ago. Pt reports SOB and that nothingimproves his discomfort in his chest.).Triage time: 11:33 12/09/2019. Acuity: LEVEL 2.Chief Complaint: CHEST PAIN and DISCOMFORT.Alert.This started just prior to arrival. ( pt refused IV from EMS but educated about POC and need forintravenous access. Pt agreeable with POC. Tech to bedside to start EKG. Pt placed on monitor.). Thepatient has had difficulty breathing. Reports experiencing sweating episodes. ( pt shaking all overintermittently and clenching muscles tightly. Pt has to be redirected throughout triage to answerquestions.). --11:39 12/09/19 Yana Leon R.N.11:33 12/09/19. BP: 130/81. HR: 73. RR: 16. O2 saturation: 100%. Temp: 97.6 F. Pain level now 09/21.--11:39 12/09/19 Yana Leon R.N.Weight: 78.4 kg. Height/Length: 74 inches. BMI: 22.2. --11:32 12/09/19 Yana Leon R.N.MedicationsNone. --11:36 12/09/19 Yana Leon R.N.AllergiesNo Known Drug Allergy. --11:36 12/09/19 Yana Leon R.N.PROBLEMS:Thyroid Disease.ADHD - Attention Deficit Hyperactivity Disorder. --11:37 12/09/19 Yana Leon R.N.Medication/allergy information source: the patient. --11:39 12/09/19 Yana Leon R.N.ADDITIONAL SURGERIES:no known surgeries.HistoryPAST MEDICAL HX: Immunizations: status is unknown. Last oral intake by patient was (last night).SOCIAL HX: Current every day smoker. No alcohol use or drug use. The patient was offered HIV testingbut declined and hepatitis C testing but declined. The patient has not traveled outside the [place]Infectious disease exposure: No infectious disease exposure. 2 Clinical Report - Nurses [facility] Emergency Department [address] [place] [address] Phone #: ext- [phone] 12/09/2019 11:32 Patient: POLLY LIND [facility]#: [id number] Sex: M : 2000 Age: 19y SELF HARM ASSESSMENT: Self harm assessment was performed. The patient answered "no" to the question(s) "Have you recently felt down, depressed, or hopeless?", "Do you have thoughts of harming or killing yourself?", "Do you have a plan for harming or killing yourself?", "Have you recently had thoughts about harming or killing others?", "Do you have any dangerous items in your possession?", "Have you noticed less interest or pleasu re in doing things?", "Are you here because you tried to hurt yourself?" and "Have you ever tried to hurt yourself before today?". ABUSE ASSESSMENT: Abuse assessment. No suspicion of abuse. No report of abuse. NUTRITIONAL RISK ASSESSMENT: The nutritional risk assessment revealed no deficiencies. FUNCTIONAL ASSESSMENT: Functional assessment: no impairments noted. LEARNING NEEDS ASSESSMENT: The learning needs assessment revealed no barriers. FALL RISK ASSESSMENT: Fall risk assessment completed per protocol. SKIN INTEGRITY ASSESSMENT: Skin integrity risk assessment completed. No skin integrity risk identified. --11:39 12/09/19 Yana Leon R.N. FAMILY HX: Negative. --12:05 12/09/19 John Larson M.D.PHYSICAL ASSESSMENTTo room via stretcher.GENERAL / NEURO / PSYCH: Alert. Oriented X 4. Appears in no acute distress.RESPIRATORY: Respirations not labored. Chest pain reproducible. Chest wall tenderness. Breathsounds within normal limits. No wheezes or crackles.GI / : No nausea noted. --11:48 12/09/19 Tamie Rizzo.NURSING PROGRESS NOTESThe plan of care for this patient has been created. Monitoring of patient in place. Patient gowned. Headof bed elevated. Reassurance given. Side rails up x 1. Bed placed in lowest position. Brakes of bedon. Patient ready for evaluation. --11:40 12/09/19 Lessley, Yana, R.N. Cardiac rhythm: sinus bradycardia; (59 ventricular rate). ( pt intermittently becoming bradycardic with HR in upper 50's). --11:41 12/09/19 Yana Leon R.N. 11:47 12/09/2019 Site #1 started via IV in the left antecubital space with an 20g angiocath, with aseptic technique and good blood return; one attempt. Blood drawn: blood bank tube. Labeled in the presence of the patient and sent to the lab. Saline lock flushed with 10 mL saline. --12:12 12/09/19 Tamie Rizzo 12:11 12/09/2019 Ativan (LORazepam) PO Tablets 1 mg given. Allergies verified and confirmed 5 rights. Information reviewed with patient including reason for taking this medication, signs of allergic reaction, 3 Clinical Report - Nurses [facility] Emergency Department [address] [place] [address] Phone #: ext- [phone] 12/09/2019 11:32 Patient: POLLY LIND Sex: M : 2000 Age: 19y precautions and sedative warning. Verbalizes understanding. --12:11 12/09/19 Tamie Rizzo 12:12/09/2019 Toradol (Ketorolac Tromethamine) IVP 15 mg given over 3 minute(s) via site #1. Allergies verified and confirmed 5 rights. IV pat ency established. IV site checked: no pain, redness, or swelling. IV flushed thoroughly pre- and post-medication administration. IVP given by RN. Information reviewed with patient including reason for taking this medication, signs of allergic reaction and precautions. Verbalizes understanding. --12:12 12/09/19 Tamie Rizzo 12:25 12/09/2019 Ativan PO Response: no adverse reaction. --12:25 12/09/19 Tamie Rizzo 12:26 12/09/2019 Toradol IVP Response: no adverse reaction. --12:26 12/09/19 Tamie Rizzo late entry - 12:40 12/09/19. The patient reports no complaints and he is calm and resting quietly. Overall patient status is improved- he states feels better. RESPIRATORY: No respiratory distress. CVS: Normal sinus rhythm noted. --13:08 12/09/19 Tamie Rizzo The patient reports no complaints and he is calm and resting quietly. RESPIRATORY: No respiratory distress. CVS: Denies chest pain. Patient waiting for disposition. --13:27 12/09/19 Tamie Rizzo.DISPOSITION / DISCHARGE 13:44 12/09/19. BP: 127/67. MAP: 87. HR: 70. RR: 14. O2 saturation: 100% on room air. Temp: 97.5 F (oral). Pain level now: 06/24. --13:46 12/09/19 Tamie Rizzo 13:44 12/09/2019 Site #1 removed upon discharge. Catheter intact. Bandaid applied. --13:49 12/09/19 Tamie Rizzo late entry - 13:45 12/09/19. Departure time: late entry - 13:45 12/09/2019. Condition at departure: improved. No learning barriers present. Discharge instructions provided and reviewed with the patient. Reviewed warnings. Reviewed medication(s) (IBUPROFEN). Reviewed referral to a primary care physician for followup. Patient verbalized understanding. Written instructions provided in Faroese. The patient was discharged by the physician. He was discharged home and unaccompanied at time of discharge. He left ambulatory and via private vehicle. --13:46 12/09/19 Tamie Rizzo.Locked/Released at 12/09/2019 13:49 by Tamie Rizzo, Name Value Range Interpretation Code Description Data Migdalia rce(s) Supporting Document(s) ID Date Data Source [id number] 12/09/2019 11:42:00 AM EDT [facility] 1 Clinical Report - Physicians/Mid Levels [facility] Emergency Department [address] [place] [address] Phone #: ext- [phone] 12/09/2019 11:32 Patient: POLLY LIND Sex: An : 2000 Age: 19y Time Seen: 11:35 12/09/2019; initial patient contact. Arrived- By ambulance. Historian- patient. Disposition decision: 13:28 12/09/2019.HISTORY OF PRESENT ILLNESS Chief Complaint: CHEST PAIN. It is described as located in the central chest area. No radiation. This started just prior to arrival and is still present but is improving. It was abrupt in onset and has been constant (while doing push ups). Onset during moderate exertion; doing push ups. At its maximum, severity described as severe. When seen in the E.D., severity described as moderate. Modifying factors- worsened by movement. Relieved by rest. No nausea, vomiting or diaphoresis. He has had mild difficulty breathing. Similar symptoms previously. None. Recent medical care: Not recently seen/assessed.REVIEW OF SYSTEMSNo fever, chills, cough, pedal edema or calf pain. No fainting episodes, headache, sore throat, blurredvision or abdominal pain. No black stools, difficulty with urination, skin rash, enlarged lymph nodes or jointpain. No bloody stools. All other systems reviewed and are negative.PAST HISTORYSee nurses notes. Problems: Thyroid Disease. ADHD - Attention Deficit Hyperactivity Disorder. Additional Surgeries: no known surgeries. Medications: None. Allergies: No Known Drug Allergy.SOCIAL HISTORYCurrent every day smoker. No alcohol use or drug use.FAMILY HISTORYNegative. 2 Clinical Report - Physicians/Mid Levels [facility] Emergency Department [address] [place] [address] Phone #: ext- [phone] 12/09/2019 11:32 Patient: POLLY LIND Sex: M : 2000 Age: 19yADDITIONAL NOTESThe nursing notes have been reviewed with agreement regarding the chief complaint, HPI, ROS, PMH andpatient medications and allergies.P HYSICAL EXAMVital Signs: 12/09/2019 11:33 BP: 130/81. MAP: 97. HR: 73. RR: 16. O2 saturation: 100%. Temp: 97.6 F.Have been reviewed. Oxygen saturation normal.Appearance: Alert. Oriented X3. No acute distress. Anxious.Eyes: Pupils equal, round and reactive to light. Eyes normal inspection.ENT: Ears normal. Nose normal. Pharynx normal.Neck: Normal inspection. Neck supple.CVS: Normal heart rhythm and rate. Heart sounds normal. Pulses normal.Respiratory: No respiratory distress. Chest pain reproducible with palpation of the sternum. Painlessinspiration. Breath sounds normal.Abdomen: Soft and nontender. Bowel sounds normal. No organomegaly. No mass. Femoral pulsesequal.Back: Normal external inspection.Skin: Skin warm and dry. Normal skin color. No rash. Normal skin turgor.Extremities: Extremities exhibit normal ROM. No lower extremity edema.Neuro: Oriented X 3. No motor deficit. No sensory deficit. Reflexes normal.LABS, X-RAYS, AND EKGEKG: No acute process. No acute ischemia. Normal EKG. Normal sinus rhythm. Rate: 66/min. PriorEKG unavailable. The study has been interpreted contemporaneously by me. The EKG appears to be agood tracing. Interpretation time: 11:41 12/09/2019.Chest X-ray: No acute disease. Views: AP (portable). The X-rays were interpreted by the radiologist.Interpretation time: 12:18 12/09/2019.Laboratory Tests: Laboratory tests have been ordered, with results reviewed and considered in themedical decision making process. CBC w Diff: (SHEA: 12/09/2019 11:43) ( MsgRcvd 12/09/2019 12:18) Final results Test Result Flag Units (Reference) CBC W/AUTOMATED DIFF COMPLETE BLOOD COUNT WBC 8.1 10/uL (4.2 - 11.0) RBC 4.79 10/uL (4.50 - 6.30) HEMOGLOBIN 14.9 g/dL (14.0 - 16.0) HEMATOCRIT 43.9 % (41.0 - 51.0) MCV 91.6 fL (80.0 - 94.0) MCH 31.1 pg (27.0 - 34.0) MCHC 33.9 g/dL (31.0 - 36.0) RDW 12.8 % (11.5 - 14.8) PLATELETS 272 10/uL (150 - 450) MPV 9.6 fL (7.4 - 10.4) NEUT 66.7 % (37.0 - 80.0) LYMPH 22.2 L % (25.0 - 40.0) MONO 9.0 H % (3.0 - 8.0) EOS 1.2 % (0.0 - 7.0) BASO 0.7 % (0.0 - 2.0) 3 Clinical Report - Physicians/Mid Levels [facility] Emergency Department [address] [place] [address] Phone #: ext- [phone] 12/09/2019 11:32 Patient: POLLY LIND Sex: M : 2000 Age: 19y %IG 0.2 H % (0.0 - 0.0) %NRBC 0.0 % (0.0 - 0.0) #NEUT 5.38 10/uL (2.00 - 6.90) #LYMPH 1.79 10/uL (0.60 - 3.40) #MONO 0.73 10/uL (0.00 - 0.90) #EOS 0.10 10/uL (0.00 - 0.70) #BASO 0.06 10/uL (0.00 - 0.20) #IG 0.02 10/uL (0.00 - 0.10) #NRBC 0.00 10/uL (0.00 - 0.00) MANUAL DIFF NOT INDICATED RBC MORPH NOT INDICATEDCMP: (SHEA: 12/09/2019 11:43) ( MsgRcvd 12/09/2019 12:27) Final results Test Result Flag Units (Reference) COMPREHENSIVE METABOLIC PANEL COMPREHENSIVE METABOLIC PANEL SODIUM 139 mEq/L (134 - 153) POTASSIUM 3.8 mEq/L (3.6 - 5.0) CHLORIDE 103 mEq/L (98 - 107) CO2 25 MEQ/L (22 - 30) GLUCOSE 109 MG/DL (65 - 110) BUN 13 MG/DL (7 - 21) CREATININE 0.7 MG/DL (0.7 - 1.5) BUN/CREAT 19 (8 - 27) TOTAL PROTEIN 7.4 G/DL (6.3 - 8.2) ALBUMIN 4.9 G/DL (3.9 - 5.0) GLOBULIN 2. 5 GM/DL (2.4 - 3.2) A/G RATIO 2.0 (0.8 - 2.0) CALCIUM 9.1 MG/DL (8.4 - 10.2) TOTAL BILI 1.0 MG/DL (0.2 - 1.3) ALKALINE PHOS 81 U/L (38 - 126) SGOT/AST 14 U/L (5 - 40) SGPT/ALT 8 U/L (7 - 56) ANION GAP 11.0 mmol/L (8.0 - 16.0) AGE 19 yrs NON-AA GFR >60 mL/min AFR AMER GFR > 60 mL/min Male GFR Interprentation 20-49 yrs >60 mL/min Uppbtl82-11 yrs >56 mL/min Normal 60-69 yrs >49 mL/min Normal 70-79yrs>42 mL/min Normal 80 and above >35 mL/min Normal Female GFRInterpretation 20-39 yrs >60 mL/min Normal 40-49 yrs >58 mL/minNormal 50-59 yrs >51 mL/min Normal 60-69 yrs >45 mL/min Emklzs55-21 yrs >39 mL/min Normal 80 and above >32 mL/min NormalLipase: (SHEA: 12/09/2019 11:43) ( MsgRcvd 12/09/2019 12:27) Final results Test Result Flag Units (Reference) LIPASE 27 U/L (13 - 60)PT/PTT: (SHEA: 12/09/2019 11:43) ( MsgRcvd 12/09/2019 12:26) Final results Test Result Flag Units (Reference) PROTIME 13.9 SECONDS (11.0 - 15.5) INR 1.06 (0.93 - 1.23) PTT 30.8 SECONDS (24.8 - 36.7) \\BLDo\\INR INTERPRETATION\\BLDx\\ Therapeutic range for Coumadin andrelated oral anticoagulants. -International Normalized Ratio (INR): 2.0 - 3.0 for VenousThrombosis, Pulmonary Embolus, Tissue heart valves, Acute GA Atrial Fibrillation, Valvular heart diseaseand recurrent Systemic Embolism. -International Normalized Ratio (INR): 2.5 - 3.5 for 4 Clinical Report - Physicians/Mid Levels [facility] Emergency Department [address] [place] [address] Phone #: [phone]- [phone] 12/09/2019 11:32 Patient: POLLY LIND Sex: M : 2000 Age: 19y Mechanical Prosthetic valve. Troponin-T: (SHEA: 12/09/2019 11:43) ( MsgRcvd 12/09/2019 12:27) Final results Test Result Flag Units (Reference) TROPONIN T <0.01 NG/ML (0.00 - 0.10) TROPONIN T0.1 ng/ml Recommended as the clinical threshold value Scot Ramos.PROGRESS AND PROCEDURESCourse of Care: 13:24 12/09/19. workup all in and nml; pt has costochondritis, reproducible chest wallpain; will d/c accordingly. Patient counseled in person regarding the patient's stable condition, test results, diagnosis and need for follow-up. Patient agrees with plan of care. Disposition: Condition: good and stable. Discharge decision based on the following: patient's condition is stable; patient's condition is improved; patient is ambulatory; patient is active; patient drinking fluids; patient's pain is controlled; patient's exam is improved; no abnormal test results; improving condition on multiple repeat evaluations; social support is good; transportation is available; follow-up is available; clinical impression is consistent with outpatient treatment.CLINICAL IMPRESSION Chest wall pain CostochondritisINSTRUCTIONS Avoid stimulants (such as cigarettes, coffee, cold medicines, sinus medicines, street drugs). Follow a low salt diet. Do not smoke. No alcohol. Warnings: Further evaluation is necessary. It is very important to follow up with a healthcare provider. GENERAL WARNINGS: Return or contact your physician immediately if your condition worsens or changes unexpectedly, if not improving as expected, or if other problems arise. SPECIFICALLY, return if you develop chest, neck, jaw, shoulder, arm, or back pain, difficulty breathing, a fluttering sensation in your chest, lightheadedness, fainting, excessive fatigue, or sudden sweating. Your Current Medications: . No home medication. 5 Clinical Report - Physicians/Mid Levels [facility] Emergency Department [address] [place] [address] Phone #: ext- [phone] 12/09/2019 11:32 Patient: POLLY LIND Sex: M : 2000 Age: 19y Prescription Medications: ibuprofen 600 mg tablet Take 1 tablet four times a day as needed for pain for 7 days -- Dispense 28 tablet. Refills: 0. Substitution permitted. Pharmacy - [id number] [id number] ; [place] [address]. . Follow-up: Return to the emergency department as needed. Follow up with your healthcare provider in two days even if well. Call for an appointment. Reason for referral: evaluation and treatment. Summary of care provided to patient via paper. Understanding of the discharge instructions verbalized by patient. Expected course of illness, discharge instructions, activity level, diet, follow-up appointment and risks and benefits of treatment reviewed with patient and understanding verbalized. Agrees to plan of care.(Electronically signed by John Larson M.D. 12/09/2019 14:58) Name Value Range Interpretation Code Description Data Migdalia rce(s) Supporting Document(s) ID Date Data Source [id number] 12/09/2019 12:27:00 PM EDT [facility] Name Value Range Interpretation Code Description Data Migdalia rce(s) Supporting Document(s) TROPONIN T <0.01 NG/ML 0.00 - 0.10 [facility] TROPONIN T0.1 ng/ml Recommended as the c linical threshold value forTroponin T. ID Date Data Source [id number] 12/09/2019 12:27:00 PM EDT [facility] Name Value Range Interpretation Code Description Data Migdalia rce(s) Supporting Document(s) Lipase [Enzymatic activity/volume] in Serum or Plasma 27 U/L 13 - 60 [facility] ID Date Data Source [id number] 12/09/2019 12:27:00 PM EDT [facility] Name Value Range Interpretation Code Description Data [facility] rce(s) Supporting Document(s) COMPREHENSIVE METABOLIC PANEL [facility] COMPREHENSIVE METABOLIC PANEL Sodium [Moles/volume] in Serum or Plasma 139 mEq/L 134 - 153 [facility] Potassium [Moles/volume] in Serum or Plasma 3.8 mEq/L 3.6 - 5.0 [facility] Chloride [Moles/volume] in Serum or Plasma 103 mEq/L 98 - 107 [facility] Carbon dioxide, total [Moles/volume] in Serum or Plasma 25 MEQ/L 22 - 30 [facility] Glucose [Mass/volume] in Serum or Plasma 109 MG/DL 65 - 110 [facility] BUN 13 MG[facility]DL 7 - [facility] Creat[facility] [Mass/volume] in Serum or Plasma 0.7 MG/DL 0.7 - 1.5 [facility] BUN/CREAT 19 8 - 27 [facility] al Protein [Mass/volume] in Serum or Plasma 7.4 G/DL 6.3 - 8.2 [facility] Albumin [Mass/volume] in Serum or Plasma 4.9 G/DL 3.9 - 5.0 [facility] Globulin [Mass/volume] in Serum by calculation 2.5 GM/DL 2.4 - 3.2 [facility] A/G RATIO 2.0 0.8 - 2.0 [facility] Calcium [Mass/volume] in Serum or Plasma 9.1 MG/DL 8.4 - 10.2 [facility] Bilirubin.total [Mass/volume] in Serum or Plasma 1.0 MG/DL 0.2 - 1.3 [facility] Alkaline phosphatase [Enzymatic activity/volume] in Serum or Plasma 81 U/L 38 - 126 [facility] Aspartate aminotransferase [Enzymatic activity/volume] in Serum or Plasma 14 U/L 5 - 40 [facility] Alanine aminotransferase [Enzymatic activity/volume] in Seru m or Plasma 8 U/L 7 - 56 [facility] Anion gap 3 in Serum or Plasma 11.0 mmol/L 8.0 - 16.0 [facility] AGE 19 yrs [facility] al NON-AA GFR >60 mL/min [facility] ital AFR AMER GFR >60 mL/min [facility] Male GFR In terprentation 20-49 yrs >60 mL/min Normal 50-59 yrs >56 mL/min Normal 60-69 yrs >49 mL/min Normal 70-79yrs >42 mL/min Normal 80 and above >35 mL/min Normal Female GFR Interpretation 20-39 yrs >60 mL/min Normal 40-49 yrs >58 mL/min Normal 50-59 yrs >51 mL/min Normal 60-69 yrs >45 mL/min Normal 70-79 yrs >39 mL/min Normal 80 and above >32 mL/min Normal ID Date Data Source [id number] 12/09/2019 12:26:00 PM EDT [facility] Name Value Range Interpretation Code Description Data Migdalia rce(s) Supporting Document(s) Prothrombin time (PT) 13.9 SECONDS 11.0 - 15.5 [facility] INR in Platelet poor plasma by Coagulation assay 1.06 0.93 - 1. 23 [facility] aPTT in Blood by Coagulation assay 30.8 SECONDS 24.8 - 36.7 [facility] \\BLDo\\INR INTERPRETATION\\BLDx\\ Therapeutic range for Coumadin and related oral anticoagulants. - International Normalized Ratio (INR): 2.0 - 3.0 for Venous Thrombosis, Pulmonary Embolus, Tissue heart valves, Acute GA Atrial Fibrillation, Valvular heart disease and recurrent Systemic Embolism. - International Normalized Ratio (INR): 2.5 - 3.5 for Mechanical Prosthetic valve. ID Date Data Source [id number] 12/09/2019 12:17:00 PM EDT [facility] Name Value Range Interpretation Code Description Data Migdalia rce(s) Supporting Document(s) CBC W/AUTOMATED DIFF [facility] COMPLETE BLOOD COUNT Leukocytes [#/volume] in Blood by Automated count 8.1 10^3/uL 4.2 - 1 1.0 [facility] Erythrocytes [#/volume] in Blood by Automated count 4.79 10^6/uL 4. 50 - 6.30 [facility] Hemoglobin [Mass/volume] in Blood 14.9 g/dL 14.0 - 16.0 [facility] Hematocrit [Volume Fraction] of Blood by Automated count 43.9 % 4 1.0 - 51.0 [facility] Erythrocyte mean corpuscular volume [Entitic volume] by Auto mated count 91.6 fL 80.0 - 94.0 [facility] Erythrocyte mean corpuscular hemoglobin [Entitic mass] by Automated count 31.1 pg 27.0 - 34.0 [facility] Erythrocyte mean corpuscular hemoglobin concentration [Mass/volume] by Automated count 33.9 g/dL 31.0 - 36.0 [facility] Erythrocyte distribution width [Ratio] by Automated count 12.8 % 11.5 - 14.8 [facility] Platelets [#/volume] in Blood by Automated count 272 10^3/uL 150 - 45 0 [facility] Platelet mean volume [Entitic volume] in Blood by Automated count 9.6 fL 7.4 - 10.4 [facility] Neutrophils/100 leukocytes in Blood by Automated count 66.7 % 37. 0 - 80.0 [facility] Lymphocytes/100 leukocytes in Blood by Manual count 22.2 % 25.0 - 40.0 L [facility] Monocytes/100 leukocytes in Blood by Automated count 9.0 % 3.0 - 8.0 H [facility] Eosinophils/100 leukocytes in Blood by Automated count 1.2 % 0.0 - 7.0 [facility] Basophils/100 leukocytes in Blood by Automated count 0.7 % 0.0 - 2.0 [facility] %IG 0.2 % 0.0 - 0.0 H [facility] %NRBC 0.0 % 0.0 - 0.0 [facility] Neutrophils [#/volume] in Blood by Automated count 5.38 10^3/uL 2.00 - 6.90 [facility] Lymphocytes [#/volume] in Blood by Automated count 1.79 10^3/uL 0.60 - 3.40 [facility] Monocytes [#/volume] in Blood by Automated count 0.73 10^3/uL 0.00 - 0.90 [facility] Eosinophils [#/volume] in Blood by Automated count 0.10 10^3/uL 0.00 - 0.70 [facility] Basophils [#/volume] in Blood by Automated count 0.06 10^3/uL 0.00 - 0.20 [facility] #IG 0.02 10^3/uL 0.00 - 0.10 [facility] #NRBC 0.00 10^3/uL 0.00 - 0.00 [facility] MANUAL DIFF NOT INDICATED [facility] RBC MORPH NOT INDICATED [facility] Procedure Vital Signs ID Date Data Source [id number] 05/16/2020 07:55:25 PM [facility] Name Value Range Interpretation Code Description Data Source(s) TRANSFER FROM [facility] ID Date Data Source [id number] 04/19/2020 05:05:24 PM [facility] Name Value Range Interpretation Code Description Data Source(s) TRANSFER FROM [facility]
--- OUTSIDE RECORDS SUMMARY | 2020-06-02 07:32 | CCD | Summary of Care ---
Author Author [facility] Organization [facility] Address Unknown Phone Unavailable Care Team Providers Care Vending Route Servicer Name Role Phone Tanisha Khanna [employer] HAND PCP Encounter Details Care Team Description Date Type Department 05/16/2020 [facility] TRANSFER CE NTER Encounter [address] [place] [address] Allergies No Known Allergiesdocumented as of this encounter (statuses as of 05/31/2020) Medications End Date Status Medication Sig Dispensed Refills Start Date Active TraZODone HCl (DESYREL Take by 0 PO) mouth. Active levothyroxine (SYNTHROID, Take one 30 tablet 2 LEVOTHROID) 112 MCG tablet by 6 tablet mouth daily. documented as of this encounter (statuses as of 05/31/2020) Active Problems Problem Noted Date Hypothyroidism 01/23/2014 Short stature Delayed puberty documented as of this encounter (statuses as of 05/31/2020) Social History Date Tobacco Use Types Packs/Day Years Used Passive Smoke Exposure - Never Smoker Drinks/Week oz/Week Comments Alcohol Use Not Asked Sex Assigned at Date Recorded Not on file Date Recorded COVID-19 Exposure Response 05/16/2020 7:55 PM EST In the last month, have you been in contact with No / Unsure someone who was confirmed or suspected to have Coronavirus / COVID-19? documented as of this encounter Last Filed Vital Signs Not on filedocumented in this encounter Plan of Treatment Health Maintenance Due Date Last Done Comments MMR Vaccines (1 of - 1999 Standard series) Varicella Vaccines (1 of 1999 2 - 2-dose childhood series) DTaP,Tdap,and Td Vaccines 2005 (1 - Tdap) HPV Vaccines (1 - Male 2009 2-dose series) HIV Screening 2011 Influenza Vaccine 02/13/2020 Pneumococcal Vaccine: 65+ 2063 Years (1 of 1 - PPSV23) HIB Vaccines Aged Out No longer eligible based on patient's age to complete this topic Hepatitis A Vaccines Aged Out No longer eligibl e based on patient's age to complete this topic Hepatitis B Vaccines Aged Out No longer eligibl e based on patient's age to complete this topic IPV Vaccines Aged Out No longer eligible based on patient's age to complete this topic Pneumococcal Vaccine: Aged Out No longer eligib le based on patient's age to Pediatrics (0 to 5 Years) complete this topic and At-Risk Patients (6 to 64 Years) documented as of this encounter Results Not on filedocumented in this encounter
[2020-06-02 08:22] LABS: HEMATOCRIT 47.3 % (42.0-52.0); HEMOGLOBIN 15.4 g/dl (13.5-17.5); MEAN CORPUSCULAR HEMOGLOBIN 29.9 pg (27.0-33.0); MEAN CORPUSCULAR HGB CONC 32.6 g/dl (32.0-36.5); MEAN CORPUSCULAR VOLUME 91.8 fl (80.0-96.0); PLATELET COUNT, AUTOMATED 274 10^3/uL (150-450); RED BLOOD COUNT 5.15 10^6/uL (4.30-6.10); WHITE BLOOD COUNT 7.4 10^3/uL (4.0-10.0)
--- NOTE | 2020-06-02 08:49 | REP ---
INDICATION: left scrotal swelling COMPARISON: None. TECHNIQUE: Lawson scale and color Doppler evaluation using linear and curved array transducer with color Doppler evaluation. FINDINGS: The testicles and epididymi are relatively normal in contour, size, echogenicity, vascularity and overall appearance. There is no evidence for intratesticular mass lesion, infectious/inflammatory process, or torsion. Small simple left hydrocele. No varicoceles identified. Right testicle measures 3.6 x 1.9 x 2.8 cm. Left testicle measures 4.7 x 2.0 x 2.6 cm. IMPRESSION: 1. Small left simple hydrocele is nonspecific. 2. No evidence for acute testicular/epididymal pathology. <Electronically signed by Andriy Smith > 06/02/20 [id number]
[2020-06-02 08:58] LABS: ACETAMINOPHEN LEVEL < 2.0 UG/ML (10.0-30.0); ALBUMIN 4.3 GM/DL (3.2-5.2); ALT/SGPT 19 U/L (12-78); BILIRUBIN,DIRECT 0.2 MG/DL (0.0-0.2); BILIRUBIN,TOTAL 1.1 MG/DL (0.2-1.0); BLOOD UREA NITROGEN 13 MG/DL (7-18); CALCIUM LEVEL 9.1 MG/DL (8.5-10.1); CARBON DIOXIDE LEVEL 30 MEQ/L (21-32); CHLORIDE LEVEL 105 MEQ/L (98-107); CREATININE FOR GFR 0.86 MG/DL (0.70-1.30); ETHYL ALCOHOL (ETHANOL) < 0.003 % (0.000-0.010); GLOMERULAR FILTRATION RATE > 60.0 (>60); GLUCOSE, FASTING 87 MG/DL (70-100); POTASSIUM SERUM 4.2 MEQ/L (3.5-5.1); SALICYLATE LEVEL < 1.7 MG/DL (5.0-30.0); SODIUM LEVEL 140 MEQ/L (136-145); TOTAL PROTEIN 7.7 GM/DL (6.4-8.2)
[2020-06-02 09:08] LABS: AMPHETAMINES LEVEL URINE NEGATIVE (NEGATIVE); BARBITURATES URINE NEGATIVE (NEGATIVE); BENZODIAZEPINES URINE NEGATIVE (NEGATIVE); CANNABINOIDS URINE POSITIVE (NEGATIVE); COCAINE METABOLITE URINE NEGATIVE (NEGATIVE); METHADONE URINE NEGATIVE (NEGATIVE); OPIATES URINE NEGATIVE (NEGATIVE); PHENCYCLIDINE URINE NEGATIVE (NEGATIVE)
[2020-06-02 09:13] LABS: APPEARANCE, URINE CLEAR (CLEAR); BACTERIA, URINE AUTO NEGATIVE (NEGATIVE); BILIRUBIN, URINE AUTO NEGATIVE (NEGATIVE); BLOOD, URINE BLOOD NEGATIVE (NEGATIVE); COLOR, URINE YELLOW (YELLOW); GLUCOSE, URINE (UA) AUTO NEGATIVE (NEGATIVE); KETONE, URINE AUTO NEGATIVE (NEGATIVE); LEUKOCYTE ESTERASE, URINE AUTO NEGATIVE (NEGATIVE); MUCUS, URINE SMALL (NEGATIVE); NITRITE, URINE AUTO NEGATIVE (NEGATIVE); PROTEIN, URINE AUTO NEGATIVE (NEGATIVE); RBC, URINE AUTO 1 /HPF (0-3); SPECIFIC GRAVITY URINE AUTO 1.017 (1.002-1.035); SQUAMOUS EPITHELIAL CELL UR AU 0 /HPF (0-6); UROBILINOGEN, URINE AUTO 0.2 mg/dL (0.0-2.0); WBC, URINE AUTO 2 /HPF (0-3)
--- OUTSIDE RECORDS SUMMARY | 2020-06-02 09:17 | CCD ---
Author Author [facility] Organization [facility] Address Unknown Phone Unavailable Care Team Providers Care Forestry Contractor Name Role Phone NASH RODRIGUEZ DO Unavailable Unavailable TURRIN, JOHN Unavailable Unavailable TURRIN, [...] Unavailable Unavailable KT LOWERY MD Unavailable Unavailable RAYANCHA, KT MD Unavailable Unavailable RAYANCHA, KT MD Unavailable Unavailable RAYANCHA, KT MD Unavailable Unavailable RAYANCHA, KT MD Unavailable Unavailable RAYANCHA, KT MD Unavailable Unavailable RAYANCHA, KT MD Unavailable Unavailable RAYANCHA, KT MD Unavailable Unavailable NO, PCP Unavailable Unavailable Hamlin, Isrrael Solomon MD Unavailable Unavaila ble Hamlin, Isrrael Juanito MD Unavailable Unavaila ble Hamlin, Isrrael Juanito MD Unavailable Unavaila ble Hamlin, Isrrael Juanito MD Unavailable Unavaila ble Sujatha, Isrrael Juanito MD Unavailable Unavaila ble Hamlin, Isrrael Juanito MD Unavailable Unavaila ble Hamlin, Isrrael Juanito MD Unavailable Unavaila ble Hamlin, Isrrael Juanito MD Unavailable Unavaila ble Sujatha, Isrrael Juanito MD Unavailable Unavaila ble Hamlin, Isrrael Hoytuel MD Unavailable Unavaila ble Hamlin, Isrrael Hoytuel MD Unavailable Unavaila ble Re-disclosure Warning The [...] is protected by Article 27-F of the [facility] Public Health law. If you continue you may have access to information: Regarding HIV / AIDS; Provided by facilities licensed or operated by the [facility] Office of Mental Health; or Provided by the [facility] Office for People With Developmental Disabilities. If such information is present, then the following [facility] mandated warning applies: This information has been [...] law may result in a fine or mcfp sentence or both. A general authorization for the release of medical or other information is NOT sufficient authorization for further disc losure. Allergies and Adverse Reactions Type Description Substance Reaction Status Data Source(s ) Drug Class NO KNOWN ALLERGIES NO KNOWN ALLERGIES [facility] SYSTEMIC NO KNOWN ALLERGIES NO KNOWN ALLERGIES [facility] SYSTEMIC NO ALLERGIES ON FILE NO ALLERGIES ON FILE [facility] Encounters Encounter Providers Location Date Indications Data Source(s ) Outpatient 05/16/2020 07:55:00 PM EST Psychosis [facility] Psychosis IP PSYCH Attender: Juanito zaidi MDAttender: NASH RODRIGUEZ DOAdmitter: KT LOWERY MD [id number] 04/19/2020 10:55:00 PM EST - 04/21/2020 12:17:00 PM EST [facility] Patient discharged. Outpatient 04/19/2020 05:05:00 PM EST [facility] schzophrenia Emergency Attender: JOHN Rodriguezsultant: PCP NO 12/09/2019 11:42:00 AM EDT - 12/09/2019 01:45:00 PM EDT [facility]. Medications Medication Brand Name Start [...] type / Coverage type Policy ID Covered constitution party ID Covered constitution party's relationship to reyna Policy Reyna Plan Information DEV [id number] [facility] I [id number] Self [id number] DEV [id number] Self [id number] 200 DEV [id number] SP [id number] PRIVATE PAY POLLY LIND 18 COY LIND DEV [id number] SP [id number] UNHC COMMUNITY PLAN MCDHMO [id number] SP [id number] UNHC COMMUNITY PLAN MCDHMO [id number] SP [id number] Managed Care - Community Plan [facility] P [id number] S [id number] Medicaid S [id number] S [id number] UNHC COMMUNITY PLAN MCDHMO [id number] SP [id number] Managed Care - Community Plan [facility] P [id number] S [id number] Managed Care BCBS O [id number] S [id number] D Managed Care [facility] O [id number] S [id number] Medicaid S [id number] S [id number] [facility] P [id number] C [id number] EXCELLUS BCBS P [id number] S [id number] Medicaid Dental O [id number] S [id number] [employer] PLAN [id number] SP [id number] BL[employer]OSS [employer] PLAN [id number] SP [id number] MEDICAID [id number] SP [id number] Problems, Conditions, and Diagnoses Code Display Name Description Problem Type Effective Dates Data Source(s) Psychosis Psychosis Diagnosis 05/16/2020 07:55:00 PM [facility] R44.3 Hallucinations, unspecified Hallucinations, unspecifie d Diagnosis 04/19/2020 10:55:00 PM [facility] F29 Unspecified psychosis not du e to a substance or known physiological condition Unspecified psychosis not due to a subst ance or known physiological condition Diagnosis 04/19/2020 10:55:00 PM [facility] F32.9 Major depressive disorder, single episod e, unspecified Major depressive disorder, single episode, unspecified Diagnosis 04/19/2020 10:55:00 PM [facility] Psych Transfer Psych Transfer Diagnosis 04/19/2020 10:55: 00 PM [facility] ems other ems other Diagnosis 04/19/2020 10:55:00 PM [facility] schzophrenia schzophrenia Diagnosis 04/19/2020 05:05:00 P M [facility] [id number] Nicotine dependence, unspecified, uncomp licated Nicotine dependence, unspecified, uncomplicated Diagnosis 12/09/2019 11:42:00 AM EDT [facility] M940 Chondrocostal junction syndrome [Tietze] Chondrocostal junction syndrome [Tietze] Diagnosis 12/09/2019 11:42:00 AM EDT [facility] R079 Chest pain, unspecified Chest pain, unspecified Diagno sis 12/09/2019 11:42:00 AM EDT [facility] Results ID Date Data Source [id number] 05/16/2020 06:38:00 PM EST [facility] Name Value Range Interpretation Code Description Data Migdalia rce(s) Supporting Document(s) SARS coronavirus 2 RNA [Presence] in Res piratory specimen by HAYLEY with probe detection [facility] This lab was ordered by [facility] a nd reported by [facility]. ID Date Data Source [id number] 04/24/2020 11:45:31 AM [facility] Name Value Range Interpretation Code Description Data Migdalia rce(s) Supporting Document(s) Progress Notes [facility] XAAKIw9gHmMQTnBm31/RKMnmTASwy9OkOSuyRNk8QQjdUVHpS1MnBFW9mI5zOCG6TViMVrRqEhGpWpFx lbm [file] ICAgICAgICAgICAgICAgICAgICAgICAgICAgICAgIC AgICAgICAgICAgICAgICAgICAgICAgICAgICAgICAgICANCiAgICAgICAgICAgICAgICAgICAgICAgIC AgICAgICAgICAgICAgICAgICAgICAgICAgICAgICAgICAgICAgICAgICAgICAgICAgICAgICAgICAgIC AgICAgICAgICAgICAgICANCiAgICAgICAgICAgICAg ICAgICAgICAgICAgICAgICAgICAgICAgICAgICAgICAgICAgICAgICAgICAgICAgICAgICAgICAgICAg ICAgICAgICAgICAgICAgICAgICAgICAgICANCiAgICAgICAgICAgICAgICAgICAgICAgICAgICAgICAg ICAgICAgICAgICAgICAgICAgICAgICAgICAgICAgIC AgICAgICAgICAgICAgICAgICAgICAgICAgICAgICAgICAgICANCiAgICAgICAgICAgICAgICAgICAgIC AgICAgICAgICAgICAgICAgICAgICAgICAgICAgICAgICAgICAgICAgICAgICAgICAgICAgICAgICAgIC AgICAgICAgICAgICAgICAgICANCiAgICAgICAgICAg ICAgICAgICAgICAgICAgICAgICAgICAgICAgICAgICAgICAgICAgICAgICAgICAgICAgICAgICAgICAg ICAgICAgICAgICAgICAgICAgICAgICAgICAgICANCiAgICAgICAgICAgICAgICAgICAgICAgICAgICAg ICAgICAgICAgICAgICAgICAgICAgICAgICAgICAgIC AgICAgICAgICAgICAgICAgICAgICAgICAgICAgICAgICAgICAgICANCiAgICAgICAgICAgICAgICAgIC AgICAgICAgICAgICAgICAgICAgICAgICAgICAgICAgICAgICAgICAgICAgICAgICAgICAgICAgICAgIC AgICAgICAgICAgICAgICAgICAgICANCiAgICAgICAg ICAgICAgICAgICAgICAgICAgICAgICAgICAgICAgICAgICAgICAgICAgICAgICAgICAgICAgICAgICAg ICAgICAgICAgICAgICAgICAgICAgICAgICAgICAgICANCiAgICAgICAgICAgICAgICAgICAgICAgICAg ICAgICAgICAgICAgICAgICAgICAgICAgICAgICAgIC AgICAgICAgICAgICAgICAgICAgICAgICAgICAgICAgICAgICAgICAgICANCjw/wKFmJ1flxAUtrpY2H5 ayNz4RKy8RLN7ik0CeQAXlOLfhfwMdUrsPWhTiQGDdCtfCPdy7ZCwsRA3VqBSjZ1ShL2VwWQhxKE2PKQ YzPWQiiXEuINSnFSRjUrR1FXGuMDluMV2VeYSmMQjh YLHdAETyZX7HYTLiW779xkQmJI9TVl1MIaNhOE4eqf0OImVtAHYhBqpGUmb6QNmeWH4IxRWkuHBiHtPx NKHXTmErO8bei3ChZyEiWCNIHXxnIB9Tq9KebKPwTKb+Na6NVB2kj1BrLHikEwRmFW3hrp4TNJuKHhAv M0EcsGviVIQty0nzJXFmPP3xvGBiBUI6AD2vvnqjY6 qluaKoXJOiBKWbLQ1mDYEpIPJmSbO1NUCEPE6UFJVuRRDcwSHtTCPuIPPPVI2OBLuoUTZ8MwvisvJigI SnTBxpTR4CEFSyjkJrSzHfRVVKKWe+Ch0VUM5fz8BoVLrcSpJzTL5pkz5NCLqXHfRnY1W3yKWfD8C1GP wzLl6WSMKgLKIzLmXvPGQNJDzdMS8DJM2oxjO9EG3O iVGoUNVgQGOhbOLlTXn5C05ljYLxOCurXP9TQKS+Emmanuelle+Ls3IHIRwWKAzGKSlZwGnGFQISqOcR8GqS8QW x4BdI8NoLS90rZgbzgYeSCiyQD6CLF1oVATgYFFMFO5LnWHzkM7qhpOvPKGvNJTFQfNkU48rqMUsYNAm BUM7UAKuTf6LFXHjG5UaqxYzfBxhriWrRADzHRTZBE 6ZSMbyinQxwFEhkOwyWN75lPkfNI2AYb0GEjIyRK0aei8QiECpTv9WUCQmGN5MVAUaCWXiKUDmWMI9ZO JjUlRxJFluUZVvVSXuLWQ4WBUjRZUlXS1YPjOnCLTdJqZ2XJlsGDXvWWKyao5JAEVmPWKeJiU4CiUjKR IuBKZxYMwtDPOnNAEgPVJ4NQSaYZRjTS6CWwGlLRCd VNW6SlqcETFrNSUrqh1FEONwMGPfUyXyXLLlMSVcMOYbBEwkHBLkZXQmEJq8UPCfKRNnJP0ZLyJbNWEo TTOgUOIiNKDdTLWxht3JGEHyIULwGwP0PSDpPAGkVRItZOthVBTwFZA5DfI5WNZjUWHnDW1NKbGvFJTo PVN0LlZmAJOuMPJklj6OCPYmHHWqWGqvJsAcLRZySE TyTAbkSVQzHKH7PDCmJAHfZECuUZ7XUeXqZPKtWFzhPfrqMHZyBBQgpm9OKMWhVUElDbY0AbAbZSKwQS IzVNsaVSCkLFQ5KZF9GIHcOPPpRU8CRtDyWURmTUe2VpJhDMKiUIBixo7ZKSEdXHArGIbzTgTkDPKpYO PfHAxaIJUfWJU5IVD1JPVrOUFtZI7WSyUtRWOlWXmo CLHmQRNtVKYfqf3LPJBbKDVsABMiGvXtJTHdZUQiEPceJGOvFLGvNAKhARNkAIKaLV2XGkLyXAVsCvV7 VQHxKAAbMPMnnh6PDUIiIRCyXCGqXiFcSSJhESPkKHbrPRPxASXiAMD6ZJVqMAKlKI3RFrEcGIFmMyK5 QrJpDDQgSAHehs7LYHLeJCGhVcI0LeZoDJHbLXPiVW w1pcHigBJgRRr5TH5RN5XmrsJyPyuWAc7Mb464XGR1KGFhRx2SY7yrSu8iAWMcRLQQMt2UFHu7A4Q9Jf O3MDD5TJAxLKV1YjX0TcX7MrU8HIYbWSK2TGE+GRiqQMCvBlw5FEA6TqP6PtrkZcH7JCUdBBQhByY2ZX PaJg3rESNUMe4+KKapaVGptVedRYMENxNxBAAoZRoxZYMFVg5S ID Date Data Source [id number] 04/23/2020 04:33:00 PM EST [facility] Name Value Range Interpretation Code Description Data Migdalia rce(s) Supporting Document(s) SARS coronavirus 2 RNA [Presence] in Res piratory specimen by HAYLEY with probe detection [facility] This lab was ordered by [facility] a nd reported by [facility]. ID Date Data Source [id number] 04/22/2020 08:20:26 AM EST [facility] Name Value Range Interpretation Code Description Data Migdalia rce(s) Supporting Document(s) Progress Notes [facility] BKPQYs5dDoQBLxKk06/SIWhzHPHcu4BbAVkzJUm9JZnxSHClD0QjUUM8rQ0aCFY0VEwLSeDkHeWbRgX7 lbm [file] BnLLVcSMYhBHn3VtlkPVb9ATJ+IQ9gVGo+Ea4Et2VbxxL3fiJgTAgnXbapMj9MRENMD9UWSg== ID Date Data Source [id number] 04/21/2020 11:59:48 AM EST [facility] Name Value Range Interpretation Code Description Data Migdalia rce(s) Supporting Document(s) Progress Notes [facility] IXJUQs1eNkMODhYi08/YWBeqMWYgg8MaMJmwLEu3SPxgROAaF9ZrSRU5wC3vVXU0QBkKVvZfUqFaGtU4 lbm [file] ZrfBVQZr+vsH48/Ykc3dFw6kkZFhRsaD/zI8/p [file] ICAgICAgICAgICAgICAgICAgICAgICAgICAgICAgIC AgICAgICAgICAgICAgICAgICAgICAgICAgICAgICAgICAgICAgICAgICAgICAgICAgICAgICAgICAgIC NpVYZcJM2PISGgCKJrLYOtQIZxBJTlGSRxGUDkIZSeNOBsQTTbFXXjBWQjZZTiQUJzMGKjWLXnNGDgFD AgICAgICAgICAgICAgICAgICAgICAgICAgICAgICAg VNKuFKCtUGGsEXWcZNXcJJ2DYFOnBVUxCLDlBMTeSRDwVAOqAAPaJZJsMNSkLNKwCADgKSAmUUDzZJAz ENWeDWYfUHMcFFVlGAZzBVWhAAYqQBZxWCWfBBCwEJIeUCBzAAEgGOHxWZMaXCGbNMZhPLLaJBHhRE6I ICAgICAgICAgICAgICAgICAgICAgICAgICAgICAgIC AgICAgICAgICAgICAgICAgICAgICAgICAgICAgICAgICAgICAgICAgICAgICAgICAgICAgICAgICAgIC QbGOQaHFBqII2DYLJmETUwZEYoMCZoWIJiNONoGLFqSQUvQFHcGYFpGSKsAEOaORZpWBSlRZPmQBGwMI AgICAgICAgICAgICAgICAgICAgICAgICAgICAgICAg CMNqQRTiCWGbKXIeQJQePSShNM0IVAMaPEFhOCZsZIEbMDBeESOnRPJlLJDuVFLlMLMgETIxMPKmLYMn ICAgICAgICAgICAgICAgICAgICAgICAgICAgICAgICAgICAgICAgICAgICAgICAgICAgICAgICAgICAg ZW8XIMCrKIZiXTEvWISfLRTfWOBaDXHkQXJhPVMpCJ AgICAgICAgICAgICAgICAgICAgICAgICAgICAgICAgICAgICAgICAgICAgICAgICAgICAgICAgICAgIC YnKNYvQMUxNNWyLI9QNCUtQYCeZZNaPJZwTIYkFNQcDNYcUEHbALPcBUSeMYGvWUXrYLAcBRRsLTNkFV AgICAgICAgICAgICAgICAgICAgICAgICAgICAgICAg RKBiRWVqUFUbLZEmLBFmJBZlZYXyCN7MODKaQGWlJSSbDDQnJGYrGOLyEODfXIWmTBMmWHPtPQLoETTo ICAgICAgICAgICAgICAgICAgICAgICAgICAgICAgICAgICAgICAgICAgICAgICAgICAgICAgICAgICAg IRVlVP2WWA57uCNgp4A7MBYnJR3fxhz/Xe7PAEjeit TllUHbDJ0TQtZjUE2ycp7WSsItNQ9rkz1AXNnDAvGkS9L3eQCmCBZkRSOOZiHcA34vZQmvEi85JEbwAL XwIqZuYNu1Ku0LRrRbI2nhMHWqThU1NVXnJjY4GBSnDjQoFPebAE1Xu1TioBInVQj+Vh2MAV1mx1LsBP zsRdPmGE3fop8CVNsCKjIxV9CpihY9MOS3NAFuAc6R RUWiYYCymZKbUUXoOGVRNoQnZ6RcyY81HWBJLv0+WFutyuEdTaePHcF8BDLcd5UgSUz1IO1FSQHkDEd6 lPHeGFJzQ0Kpf5JsNg01YZLlJmjmOlQkLFOkABQPj2QbsQ2aRYJjCOEnOC7tOZShZKCzIjO1AVFLTP5T MGKhRZKzrIDjDKZqDKZNOH2RMEcoJEM0YylbbpIngS SkWCybOC6DLBLbucMbJvxqKCIWWAy+Eb3CBF8mn8FnJIcsZHZpWC4fix8ILWnKOxNrT5A2sHKrN8Q0QQ laUd9VEBTqTDQlXfCuHBJBHNbuPK6TQZ3udmT8WY3PgNGrLAIaMIPitPHbCJm6G94kgQLhDMyuAP4XYQ A+Emmanuelle+Kg5RLPLnHVKjQCIjZuYaFJALSdHfA0SuX4UA n8CiQ5LtLZ34rIpxgdImSBsmGP6UGR5uPKVgWOAPNW7MbYDiaN6ryeDfQuLsMGLJEhVpF36diQYeGPKf CDV4OQXkUe2KKXJpL1TxbaKggMauoqZnGNKxJNCQIC9TZImfxpExnJZfnFjeJE04uIwjLY6UXk5BLrWi EE6luc1RxBRnYa7WSQQdUQ0YAUOtIWYhHIUrSXM9VR CkUjKjEJyiWYHaCGIiMMS9VADyFASoGD0YCbVaPMJqLoV0MYmcGXOyGYJtvy6HGKSbOETxCcG7FTYyJE RnYLLuOStyHYLmSXYoJXJ3JKSqLJCcTT8YPhVsVPWlTDOtDVPgXMWaTKXqud7NLLRlDTHhKzEbRUPnXD SuRJMiESnqNBFyAPNiLMB7QCJuKGJcOT1GYhRkMKBw PEXjMsbmBOMtQFEpug6EYTYwRMZeVVMvZwXkZLPwICWlKArxAIFpQUB3FwM2EKQuPYEcDR2WXsWqPNJl WIC9IKNzBQUuHKIjes4ODOUrZKYhFIS4EBAkADDrYSRbQWikATDaOSQ9IronJFGrGARsFL6VUwYnVCIe XHB3GFYlWWLgQDLjvo9XTRDeSQFfITAfCfQuSHUzAR AyRPizUJAnLTW4WRM0ZGBuEEAoNQ6ETmYrOGNaRPm4JolhSNKgHSSbqr5AHRByMTCaCWd3QCWbHIXyMH DbIQelQZKqHWL7WJW9DZEjFAPvPG7YAtOfTVMlLvVnXQzxJEJtCNZoqz9AASZiFTWuAXE6RMJdHCJiIW DcGDrrAKXsFOUaIPJ4YGAtYNJpFI0DQzIqUGVsJeXx UgaiEPMpKGOtde1SZONwCXOyZBS3PtGqLCNnXYPhMXenZHUiGDBaNaV9YWEiVORtPO6PEoVxRUArEcLd JHbnLYGkRZPdwv0SCFDxVKBvKhGuVbOnWRTsWOUvVDsiJCCiUAOfPst6QAOoRPEdHY5YZbYgJRZpKyQ3 JKwjATGmSLTdjz1FfBLijCevab9OZHcUVh3QwDtpSC MkHQglOl3mxTNgLRGrXHRVNl5VxeDoORMrQPPQGQhuOFKgCCV8NLnaGsz1KOhyIoDgBcT0JWXjDsK8SS WbMCX4FqXoBlY0GNo4FsUiFUykZPGlSUT4MAE9CAH4ZKI0Q1MaBEggZVT+UG0qYBx+Bw1It7GequX8bj EaFThrCKF1Ar9XKHILB6QHSp== ID Date Data Source [id number] 04/21/2020 11:58:58 AM EST [facility] Name Value Range Interpretation Code Description Data Migdalia rce(s) Supporting Document(s) Care Plan [facility] EYZGEe9iEpIPWxHp79/MXMszAJHtp6ZmFDnvYNz8MWjbVHNwD5VsYOB7bH4oSAH8KTnGWcJiEfSjYaP0 lbm [file] O1LWcyXUMLIf0L ID Date Data Source [id number] 04/21/2020 10:54:51 AM EST [facility] Name Value Range Interpretation Code Description Data Migdalia rce(s) Supporting Document(s) Progress Notes [facility] IDVCMy3oPgHHLuLb74/SWDbxJCOid2OlUDhqXVf9ZAxfQPWnG3GiXEO1eF1bRXT3FImLYoOzQfIwAeE6 lbm [file] ICAgICAgICAgICAgICAgICAgICAgICAgICAgICAgIC AgICAgICAgICAgICAgICAgICAgICAgDQogICAgICAgICAgICAgICAgICAgICAgICAgICAgICAgICAgIC AgICAgICAgICAgICAgICAgICAgICAgICAgICAgICAgICAgICAgICAgICAgICAgICAgICAgICAgICAgIC AgICAgDQogICAgICAgICAgICAgICAgICAgICAgICAg ICAgICAgICAgICAgICAgICAgICAgICAgICAgICAgICAgICAgICAgICAgICAgICAgICAgICAgICAgICAg ICAgICAgICAgICAgICAgDQogICAgICAgICAgICAgICAgICAgICAgICAgICAgICAgICAgICAgICAgICAg ICAgICAgICAgICAgICAgICAgICAgICAgICAgICAgIC AgICAgICAgICAgICAgICAgICAgICAgICAgDQogICAgICAgICAgICAgICAgICAgICAgICAgICAgICAgIC AgICAgICAgICAgICAgICAgICAgICAgICAgICAgICAgICAgICAgICAgICAgICAgICAgICAgICAgICAgIC AgICAgICAgDQogICAgICAgICAgICAgICAgICAgICAg ICAgICAgICAgICAgICAgICAgICAgICAgICAgICAgICAgICAgICAgICAgICAgICAgICAgICAgICAgICAg ICAgICAgICAgICAgICAgICAgDQogICAgICAgICAgICAgICAgICAgICAgICAgICAgICAgICAgICAgICAg ICAgICAgICAgICAgICAgICAgICAgICAgICAgICAgIC AgICAgICAgICAgICAgICAgICAgICAgICAgICAgDQogICAgICAgICAgICAgICAgICAgICAgICAgICAgIC AgICAgICAgICAgICAgICAgICAgICAgICAgICAgICAgICAgICAgICAgICAgICAgICAgICAgICAgICAgIC AgICAgICAgICAgDQogICAgICAgICAgICAgICAgICAg ICAgICAgICAgICAgICAgICAgICAgICAgICAgICAgICAgICAgICAgICAgICAgICAgICAgICAgICAgICAg ICAgICAgICAgICAgICAgICAgICAgDQogICAgICAgICAgICAgICAgICAgICAgICAgICAgICAgICAgICAg ICAgICAgICAgICAgICAgICAgICAgICAgICAgICAgIC TuKMNwYSAcODKxIXQhHDZuBFHuURPtUFLaTGHaGTLpMFf7F1bxVYMcQKHnYL7eRUp1Go3+DQoNCmVuZH S2phEfeF8KFF5po1HkMLplWUPww3TzSLa3BV7PMTUgRVwoQG5PPVknjq0LUHOjURXmmRYXt1zdOjJqDA X9YCIbQbjsGG1KZCElI3aevaUqXNBsZBOGMFdgCUJD KDkqLCURUO5IWnRiA7RgxZ27JITDEs1+GYzriyKdPxpOPfS8VGTha4GhMSo7GF8QSCBlRmvft9AdPoww EGCWJIpbHP2AJCZ6MRM5NDThOr7EQPDfB961mkUmMO1OZn9MYjJkOP6owy2VHvblHGOoWwoWLpk2PEno LV3OoGLyHZlYme4bggTvshQSx0UndtZtnFCBy13bP4 UsZVW2DCT7dvscbPDzrWzoV1BnYEXoMTTpVX1pAAZzLHRwReB9ZSDBMF4RJPVzEDUhqSKqKUWsCDETUQ 6VKOnqEGD6YssbkwSucQSaEDxpEL1PXWWwruQxFcYfXXEXTKq+On7VCA5jp0GdOMqhGCZoFN1kkr8CHX gCNwWiI2C5jIDoK6W3IHvcUk4AVWBhPMUoReXyUHFL XQqcWT5FNV0lmpH0SL2HgNZzAAIvOKNbrWOpHQd5E75fgUZwAAbqZX3CGGM+Emmanuelle+Mf2IAVVaXYYfZTIp IcUrQAKPPfIeO5TpO5MWd4BjY7YqWR81pVbhqoThYOevRN2JNE8eSVQvWTNNFX0WfQMuhS0ktgCbHyYb FRTIFcPxV38bpCDhJVQdUTN0CXSbHr1RFEJyT5Ppju UolTxuerEnQMXhOKQGLQ4MBCmxpnKesTCqwStbIN36eAciJS1OOa9ETzWiIK2szl7QyQFqIq3PPGKlSX 5MWUGpENZkHZOmKZX0PFOnLfZmQArsYJJnNZBkQHF2NOQyQFVkRS4NCyUvPRFoQpR5XcSkFXJzVFJyqb 4ITBByMGWsGPZrIeTtNPTpTHPqBBgaXOQiBQBiAWZ1 OYEaYWSqVY9DOaKzXPRpZZCmAOEnZAKeDMVxts7TDMBpGTKgZsHjCVKeIBVrWDKfHSqmLCMqZHO5Imoh KRSiYXVvED3SGnKoUAMjVMD3OJRcYWDkERIhsz5EUIGvSMAgPHF3CeYgXNLuNYFmFJpxEEHsPOG0Wfyq TTQsWEZjEB1CCcGvLALkNEZiQPivRGQsHSPshz7PHI QbUATzPWR7OUDmCWNmYNOmIWluNYVlKPZeViS7NMRqUXHlUO1WOhYsECCjSYX6ZCfcRMAfSFHnha0DEO KhZJFvYFz1BoMaSQGpNZXnHZabMNEdUWXpQUb8BFEfMOFxTU7VZvNoMNYuVlF2ToqaNTNpBDZvxj5LYA WkURTuHOp8RLUaKFSbSQPhXCjrSMZqNJZ0POIpUAQa GAMcGM1YHiAbMXJxCqLcEDGmKSGvRYPxyy1LHVGjYKPyFRKtBVJlHZDjRGGuZWbuNIIhAVI1AnzxUJCe QJWeIA6QDdKyDVDeUxR3VwLdJZMyZHBors3OLPLsWJBdGsW2OVOgJJWpXLYrBQfvRKLiZHG3PHU9YXAf UHPgKU7KIkXvTYNlNxk8KMXiEVSvDLYtbk7NSUOoQM VhHEB5PzYyMXKwSNFlQRvqWYCeZAF9LvOzSNWxBZFiTZ7ENgOyLRwkWREJZsi3ACmpL8a1TGAfLN8EE2 Sez6TsTfjkMPOIURfmKT7gnxEeBCBcLd9SU7yZNzypVCRnKfTmMnEyZsE9AGIyHcJ5J9Y7GzU6X1MoVW KrLn3vXAFrMRF2HLUvXMC2RWhmRfK6NQv5Plm7Euxn ZWXxQXRmLmEkVR5PUs8JSrW9OXT0pOGlUg7AXmo6HKRNKcYbKE7VQMp= ID Date Data Source [id number] 04/21/2020 10:03:34 AM EST [facility] Name Value Range Interpretation Code Description Data Migdalia rce(s) Supporting Document(s) Discharge Summary [facility] PZELSd2fGcXRKlNc74/NKVaaSPBld5SpOLciFGg4VZdaLVDwQ4UvFUO8tU8rSDE4DOpUXgEjWcVcWwY9 lbm [file] 9GDQo= ID Date Data Source [id number] 04/21/2020 05:49:18 AM EST [facility] Name Value Range Interpretation Code Description Data Migdalia rce(s) Supporting Document(s) Nursing Note [facility] TDBVBc6gUdOZRfXs79/XYLxjAADib0YtTWbqCKu8KZomHDFrS1DwCMB2wF8hITH3LUiFCzAcJsYqJrX4 lbm [file] E6YGBySKeaPlXcCXx4KSOdQBD+FV4vWYz+Bd2Rt0MzmdN2ygOhUFfsDGi5Oi3ORLVYW7EVGv== ID Date Data Source [id number] 04/21/2020 05:18:36 AM EST [facility] Name Value Range Interpretation Code Description Data Migdalia rce(s) Supporting Document(s) ED Provider Notes [facility] TSWZDv9pNiDTXtQq40/MHFrdKXUeg2ZeVHfuBIt3OKjxPFQwQ6EoWBJ5wK2iGOT5VCtTDdVlNlIgEhH5 lbm [file] th2iFau964b2ESs4Uac099PvoXKqa0LSvYA90HaUm0o4xjlz7zm+Sg6oC9J4+unpaid intern+ip+eR3fh9mgsO/TP [file] OWI6OhmbQ7T+rhfv5JMm/hxqtx803eG1uzEW2rZkF3b5ogD5BiONx5Ww+Iy30CDUylf44V1nCmcb/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 [file] AcTzIpIMPhTIGjUhNgOA6YCh4IDzT8QLE3mSVpSo8GPnWbDhQJJkFzYI7QPGe= ID Date Data Source [id number] 04/20/2020 10:36:26 PM EST [facility] Name Value Range Interpretation Code Description Data Migdalia rce(s) Supporting Document(s) Care Plan [facility] INVDZx4fNzYCMsJa73/UBZydNGLhl4RrVSdpRNx6SPsxLQNjK1PjHVJ6rA4yCFX1ICzCZuJqOxXuYjR9 lbm [file] 5URfr11+8nA0fyABEqHp8t361FdIi9U7+j0XO30Y6L OQ+op24e/T1exsxdKMtNk6v1m+tpChgBbW7Glb0UWK+q4qN8cMl1JH9y1TL5Va0d/I2FjFoBYhva2X3d W6eIK0642bLDhwy5hpcpHhjhGEY8vG96bm7R4riIFYtztTgAteaLl1GuL5fDyApC7dxVaQupGceuauaj M73ibjzzvJUGynCmJT3kNM4xiICn8XCIdIMizc8ITT z+lQncR2MVNmOb8dI/d/gfCTur+nPW4az5a+6A5j0H8bUuwKc8CM3iX7U/8EfZ4oOfzNbOP/5IejvoTN 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+7VbWAneIKPnS7kNAi2+33/4ZVChqDIOeg7H541hbFafeZ5gNVeW/nwE7rdSn86+h0DS385lUy2mI [file] Cg== ID Date Data Source [id number] 04/20/2020 04:50:21 PM EST [facility] Name Value Range Interpretation Code Description Data Migdalia rce(s) Supporting Document(s) Progress Notes [facility] BAGMKz8fZgFTJxWt34/TEHkxYGQzx5YqHRswADk7SLclHPLvZ2XmXSO9oG9yOQI7IHePToLkQePhHzJ7 lbm AaGcyRKbTiSZBlAmzZGmJvZAihXmimzCNhHN4VbYB7WEHvN59mHYFgQHIhJ1YxHOA2GWA+Jo6ALYBntP ZnPY1NWrgS0N1vqeZZDC9zth6f4J+A1CS7e+6S7LbVgUHClnXGTXZ+wNiZstiM3SoO2n11ghnjW6qswJ 9zZ6AJYtub7eyf3Epn8DJW+edvdRgFWms1/9e5EOlv 8y6ve01Fg1coRIlh/somkQVWxzoqF+S/kwwvUVwSD1hP/QlZZHk26hUbIfbcnAOKCHTDRI9Ci37Hw08f 4kkRu1MevNQWtioMd4A85vQ60Ppa4N4kjbIZgsv1k8aVWPyRMUceo7KGf2YzvsoOyDzvvAne2HFde5IP tRgNEFicKitU4ts0pNc6lIxqrZYG7mMY6O7WNK/Emra [file] centrifugal separator/2zNrhmDEYuka2Wi+JdSIrebJqBR2fzTOGMu6EfwmaB+0ONPeyJJPgDqCiQNzppuuZ2FLlREV1DjK [file] ID Date Data Source [id number] 04/20/2020 03:20:41 PM EST [facility] Name Value Range Interpretation Code Description Data Migdalia rce(s) Supporting Document(s) Progress Notes [facility] LOOAKy7xVyORFeFu70/RBUqiWCFzt8HbGJvqAFg2JMujGDTtI1QdNPL8zG7nLDM2YWiROyMhRgKxNnW5 lbm [file] ID Date Data Source [id number] 04/20/2020 03:19:25 PM EST [facility] Name Value Range Interpretation Code Description Data Migdalia rce(s) Supporting Document(s) Progress Notes [facility] UGMSLo2dClEIXfWp90/ACJieLTZlg7RzHFqtWEn6JCmxMLTdX3ZhBCH3eP7wJDE5NEbNDdIxPeCjDoO9 lbm [file] ICAgICAgICAgICAgICAgICAgICAgICAgICAgICAgICAgICAgICAgICAgICAgICAgICAgICAgICAgICAg ICAgICAgICAgICAgICAgICAgICAgICAgICAgICAgICAgICAgICAgDQogICAgICAgICAgICAgICAgICAg ICAgICAgICAgICAgICAgICAgICAgICAgICAgICAgIC AgICAgICAgICAgICAgICAgICAgICAgICAgICAgICAgICAgICAgICAgICAgICAgICAgDQogICAgICAgIC AgICAgICAgICAgICAgICAgICAgICAgICAgICAgICAgICAgICAgICAgICAgICAgICAgICAgICAgICAgIC AgICAgICAgICAgICAgICAgICAgICAgICAgICAgICAg DQogICAgICAgICAgICAgICAgICAgICAgICAgICAgICAgICAgICAgICAgICAgICAgICAgICAgICAgICAg ICAgICAgICAgICAgICAgICAgICAgICAgICAgICAgICAgICAgICAgICAgDQogICAgICAgICAgICAgICAg ICAgICAgICAgICAgICAgICAgICAgICAgICAgICAgIC AgICAgICAgICAgICAgICAgICAgICAgICAgICAgICAgICAgICAgICAgICAgICAgICAgICAgDQogICAgIC AgICAgICAgICAgICAgICAgICAgICAgICAgICAgICAgICAgICAgICAgICAgICAgICAgICAgICAgICAgIC AgICAgICAgICAgICAgICAgICAgICAgICAgICAgICAg ICAgDQogICAgICAgICAgICAgICAgICAgICAgICAgICAgICAgICAgICAgICAgICAgICAgICAgICAgICAg ICAgICAgICAgICAgICAgICAgICAgICAgICAgICAgICAgICAgICAgICAgICAgDQogICAgICAgICAgICAg ICAgICAgICAgICAgICAgICAgICAgICAgICAgICAgIC AgICAgICAgICAgICAgICAgICAgICAgICAgICAgICAgICAgICAgICAgICAgICAgICAgICAgICAgDQogIC AgICAgICAgICAgICAgICAgICAgICAgICAgICAgICAgICAgICAgICAgICAgICAgICAgICAgICAgICAgIC AgICAgICAgICAgICAgICAgICAgICAgICAgICAgICAg ICAgICAgDQogICAgICAgICAgICAgICAgICAgICAgICAgICAgICAgICAgICAgICAgICAgICAgICAgICAg SZSyZUVvPDTqSCPeIHWqDGLePSDpVNExGEWrWFPrLIKtFTWuGWVnYOWnCLIiBVYfYDf0J0hkLWPtCUHa ZV9yDSw5Rq6+ODaIKcMuDTR4crKroS9NRL0uj2SyIO ybZBWbe0MzOIg1TD3XEHNdQXeqUZ1LBFwlwf9GTDGeHKNfiKKCu0kmQcOkFXQ2NPZsOemmNK2CMZDpR5 yytaNwCOCnZCRLLZ2RXrDcU6WfeL72ISRAXa9+SLtdltUcBtjQOjM5CSEnr4EmSLz9FM7KDGLfAtbzk1 KkJsZoAKTLMBnrKH2NDBP9OJYvCMIgZx8KOKHjJ372 anDwPY5QAm7VOxFqKE8tur7QNxMeIPCzXqdXEhj8MYbaVA3IfFQkDMyMlu7smdXgdaKEc6MvneHohZYA m07aU0JqAIV1OZM6nuneoZPtuIirP3OjMJBbIYYcGp5wTIToKBCeMcP1QLWATY1HKYNsCVUbwGFqBIVe UQZVUS5JESvtCPR5ZghwanImfQVhMAduAS1PSVEfvi QgMTkgMCBSDQo+Kp3ZBE8ap5DrITxqBMHvYZ8heq6GBXdPZsWiR9O1qANdR8F5TEjvHt2JXIGiGABnVI kaSOZSJQhnSR6KOE6tnyB2BV3PiQTuDRZgIDWhdAFdZVk5A49tzSSqKAlpBS7MGRX+Emmanuelle+Oq0TYURoVE XoVRLbWxFvVOKLJkUxJ7YxZ7DDb2ObE2RnKF95fSvc dzAwBHtmWW3SRV7nFBPwCCQLRX9AgTVqaT1tziHrUZQyVDTOTcSrP59kuIZdHFIhPEN7FZYxOy4RIICq Z7DcvnYdkEpczoGrVXKkPURFXU4FLWekvePwsCUzfKfxTQ05hQnuRR3YYl7NRrPyMZ5dtb8CrZTzYn9O BTJzVh4BAXAiEMQzWPZzCIB0QDZwWbWnBIfzVCCuKA SfQDN8IYWkYYZfKK3OLiTbGAYmKAf7XaFbRTJqJKJkcr6YSOYiHSBnUOK7STZsQCGbKKScHXtbGTPnFV OyNPL7ZUXgKTRwEE8XVjMoFODsQQKdJSZiICOfBDYnyh2QKYPcBHIsHFR3CVFkDJGnWEJuMNqfFMVhKE QjXAI5WAJaYWJxLQ6DDwRhLRToNGV6MVrnYQMvPOFw qg2PFDGaPCCbKhmwDfHuZXUbBLLsRFatPLEgAMToCOPyQQGrUMNpBU9VOtBmQWDaYSIqNYnuPTGyENTi re2TQYIxYEZeYVA3BMAcPPMsNCJdYSieUZAkXNG1KJikQOWyNWGnYD5ZNzWwRRDiJXM1FEDeGHZbWNRf ey1FXUIkZHBnAiZoOVUnYSAcIPAhWEgcYPRvCQG7Pt Z2VDJfUNZaSO5GEpXdUPTvKPc3VGZiHGFsCIHghw2ZXLNjKIYbBomnHNTuFQVuXOEmAFsjDEUbPML5Vm Y1TREqIHQySU9IVbYfLMAyRAi3RSQhAAJdCNYtgn0WHQMrLYIpLPS6RDOmSEJmSUKwPSg7lpOkiOAoQR j3TO5CI3DsvnOgQjVTEl0Yr341QYBeKKYpVg9PZ4gc Wi6dCMVdUXDJWe1QTHh1ZLjaCqmfHan0BxZzYGV9IOT7YCvaIBblPXUlUYOpPqM+NGf9FhKuR6I1BtNy QYD0GFd9NHrqXsR2QWV3P7RqSnIvLL0iCSZBRp3+HRjrkJJrcEpdMAIOMeG5BJE8OKktHJBBGm5K ID Date Data Source [id number] 04/20/2020 01:09:52 PM EST [facility] Name Value Range Interpretation Code Description Data Migdalia rce(s) Supporting Document(s) Progress Notes [facility] System WLTXMm2gWyMEJmTe16/KQPduYBEpx1NjOMerNJr5BNgaXHDhT5OxCQQ8pB1oEFO4PBpQPoPgBnRwEpM9 lbm [file] ECKfYaXpHS4ZWi7FLvD2YOT0vJCnEx0AXOr1KWQBHnEsHR6KEBf= ID Date Data Source [id number] 04/20/2020 12:43:00 PM EST [facility] Name Value Range Interpretation Code Description Data Migdalia rce(s) Supporting Document(s) TSH 27.40 uIU/ml 0.36-3.74 Above high normal [facility] Concentrations of Biotin above 100 ng/mL can potentially result ininterference.The above [address] [facility] [id number], ,[place] [address] ID Date Data Source [id number] 04/20/2020 12:43:00 PM EST [facility] Name Value Range Interpretation Code Description Data Migdalia rce(s) Supporting Document(s) T4, Free 0.84 ng/dl 0.59-1.61 Normal (applies to non-numeric resul ts) [facility] The above 1 analytes were performed by [facility] [id number] [facility], ,[place] [address] ID Date Data Source [id number] 04/20/2020 10:54:04 AM EST [facility] Name Value Range Interpretation Code Description Data Migdalia rce(s) Supporting Document(s) Progress Notes [facility] YJRCYx1nWvZIGsMt60/ULTjmQULju3XtLBqjTJq5ZHqrSURwG3JoWUT4iM4kQOD7RAaBZsAxSmLfSlN6 [facility] BmAkxOTaXuKAYxInnNNdUuPYrfCwbftSZvLS8PeOG8TFXoF88oXWLsGTKjK9ClJEDhQAH+Vv8EKDUznR HoSD0KHspG5V2zdgwPNT0QaQ6s8dVIlhu8j8b8HQHu5GSou+gYBf4yIhfAS3SiPtGMZEoe7UF2m7jf29 JtMWAyIG1CHGOF67GiSmLeZM2gl/v39xzXhWYPU/1t HwVAIuXK13u/SF3gDhZN4ghBBOedZABE69O44yglV6pI2YG00Yh+70SB5/jDPnHURaH0S2Hy9Fav74of xI+kdmSBBU1q7WlLeQgfrXDOK1NO7yUdUQVnxCxRC8NkfA59+cGZ/RUE2p0ePrTLSetHVeO7fBFaLRLq 34TjgDWHJ9C2bHkBndbrrauqe6+TKfIix40f6chT3O NEFhe9gGOr3l3mA1vIXWJKb0EVrOKPqBi/4eHcl8BjCYICudMoKTaLvxYaIkICyfiI76MsUwIhbN5DVR B5fdUsvxAewPcOU0RYtqIDVItc7tDqPYrDb2uD3sHYB0MYA3MXztHmx5Lx3z8Q+y8v1x4L9CJFtom9ew wvUgZlDZOhG+tG2Kb1xz9c4oDqdZyU0hF9472U7YcQ tFJEA0qcy/J01oWovQ3uOlI0CSDIaE7kN1MYyeXh6e0zXt+RewN7t2KMGG6OvVgdiWPHuBp5ha02kPzh Ht1DmtY9//67EB/RETORT KILN BURNER/7kAE0Lo6+lHCHXt8b5pSQASNx6Gcke/DAo7gYXekpNieFZsJH97Od6nAnyFZre [file] DQo= ID Date Data Source [id number] 04/20/2020 10:50:52 AM EST [facility] Name Value Range Interpretation Code Description Data Migdalia rce(s) Supporting Document(s) H&P [facility] UHGENf4sJeRTFfQl17/YOZfgWEPtj9LlYQkkWHu2ZZgnIJPmG7IfSKV8dU4wINR9YBiEVtMtMhXsWmA0 lbm [file] AgICAgICAgICAgICAgICAgICAgICAgICAgICAgICAg ICAgICAgICAgICAgICAgICAgICAgICAgICAgICAgICAgICAgICAgICAgICAgDQogICAgICAgICAgICAg ICAgICAgICAgICAgICAgICAgICAgICAgICAgICAgICAgICAgICAgICAgICAgICAgICAgICAgICAgICAg ICAgICAgICAgICAgICAgICAgICAgICAgICAgDQogIC AgICAgICAgICAgICAgICAgICAgICAgICAgICAgICAgICAgICAgICAgICAgICAgICAgICAgICAgICAgIC AgICAgICAgICAgICAgICAgICAgICAgICAgICAgICAgICAgICAgDQogICAgICAgICAgICAgICAgICAgIC AgICAgICAgICAgICAgICAgICAgICAgICAgICAgICAg ICAgICAgICAgICAgICAgICAgICAgICAgICAgICAgICAgICAgICAgICAgICAgICAgDQogICAgICAgICAg ICAgICAgICAgICAgICAgICAgICAgICAgICAgICAgICAgICAgICAgICAgICAgICAgICAgICAgICAgICAg ICAgICAgICAgICAgICAgICAgICAgICAgICAgICAgDQ ogICAgICAgICAgICAgICAgICAgICAgICAgICAgICAgICAgICAgICAgICAgICAgICAgICAgICAgICAgIC AgICAgICAgICAgICAgICAgICAgICAgICAgICAgICAgICAgICAgICAgDQogICAgICAgICAgICAgICAgIC AgICAgICAgICAgICAgICAgICAgICAgICAgICAgICAg ICAgICAgICAgICAgICAgICAgICAgICAgICAgICAgICAgICAgICAgICAgICAgICAgICAgDQogICAgICAg ICAgICAgICAgICAgICAgICAgICAgICAgICAgICAgICAgICAgICAgICAgICAgICAgICAgICAgICAgICAg ICAgICAgICAgICAgICAgICAgICAgICAgICAgICAgIC AgDQogICAgICAgICAgICAgICAgICAgICAgICAgICAgICAgICAgICAgICAgICAgICAgICAgICAgICAgIC AgICAgICAgICAgICAgICAgICAgICAgICAgICAgICAgICAgICAgICAgICAgDQogICAgICAgICAgICAgIC AgICAgICAgICAgICAgICAgICAgICAgICAgICAgICAg RBXnKJRaQVGaYKMpEDJkLFWmJGBzUJUhXIPkAVSnXNYuJROeSUTlMDViIJSrIAKhCZKcENTtSKn1B5ab QPBpJCAlZY0oBBl7Lv0+FBtCQgCjVGG8meEzjS0ZUE0gc2XsQOnzTHEah4LdAEh3UL4FZRIpBLvtZF6H GHuywt7NFRUuATBqsNLDt5syGyJsGXT6RMRgFzjjVB 7YXZIaG7ynwoFtJKIkWIWDEB9ZPoLnV0SbrK74NHMPGl8+WOtgdiQtZaeDEfK0RZZoz5NiOKo9BH3OOM WfGodyw9QxEXgvVHKFOPtmHM5KIMH7ZYH8HBGhTq3GWLKbJ956pkBpHH7PTc4IJsYjIO8ewt1YLQmlPL GiKyoWJji2LGqyCP4HbRGjBMxPSdMmKutbR2BaxAKb FWlmt5Jua0ZqpZPbOZmrIOWcTTSeHDEfTa5mESWfFLDwJcV5BQFUJM3YOBAeTULqdGHxFXYeXUWOCV3Z NTvrWVZ6ZdzwfeOjpPYpGVugFP3ANKOjcjTuNWpcENZEGYf+Ue5JAP2mi0NcEQqmNZCcTH9xtz6WZSyC XmObB8N9rRFzY6D9TQmwLx5CRHGhZLAjJSRsAELOMI xnBE9UXG9fijA3ZU0YoHLhAUViAYLcyMPgVSh8Y39obZXmQZfoGG5OWGF+Emmanuelle+Fd0RPKOdDTGtSVVfWb HeFIHHYaAkJ8YkC0RFl1CjJ2IxLX38pDdahtVeUUuzTD3PAX2yJGUsUYNJXI5ZaFAdfK6hltNfViFfWM TUFgSmO95tdCItJDCuPCM0QUHmPv5PVJWiT5OqfoRc lShugbRfXZEqETCZGH5HUYvzdwPvzIYagHwjVF24gFgaYR1LJw6PAySdVF5bib5PsCLcEx1NLVWjZC5Q GWGwNTDfXPLfFUQ9SDBdNjEeRBktCLBiDMVeZSC6SVOzCXTqJL5BYaZeUPXoEBd7SJErKIUlUNNvqm7O BDQuXTWhKCT7MHHdRAPfRNGoIGdkGWMdCGBtEGM1RI ZaOAEfEV4AChSwRRArRUWkCUWdJMQgCLSejk0HIRGqYEAnLpPcMNHkWFEqUVDrMIjfEMQrMSM4EsO7YY FlSAOfVV1RSmYxKJBgFDL9TUebQWClNPZbdb7FOTOvNAXcOHs6CNDeKCYhQAKfUSnhBLPkZZS5NlXsFT HySASbCQ4FKySwTHEfUMQ9PGLoUGCnVWMdsi9FTZPx ESJxHfO1YdNjNKPvBPBzNStpLCTaRBK7NZHaMRCjUJVoFE3FKcGiKNFdOYjrTWJnVSXgHRZuqs5FTWLa OMIbRaXlStOzSOPxVAKgFFfrCTZpRUE6QVE1RZPwFOFzGW9SKiLcTDJoRUhaENSiCCZsFFEjwi1YILPe WURqCDE4JcRzLDPmIMHoPLthLHGcQUT4DSVcCHVjNY JdNU4SJnZsEAhaVAPHPfj0PQqcA0b2ZQBwGW5FH2Obo6VkGKdwXBYRJZxkUD9cebCnOBRqTo6TF2iZPw doHpUlZUNsJGH6SWumVBDuSeL3ZCL0ANHbGFf7AsW6MO3gXOTiNgE8KCA6HXysV3V4HwO6SSR9SzW9ER B3SdKuDTl9NsSnVZ5ZTa2TOfH4UZW0ySNvKw8OSXq2KN0QHVZGE6JPVu== ID Date Data Source [id number] 04/20/2020 08:35:41 AM EST [facility] Name Value Range Interpretation Code Description Data Migdalia rce(s) Supporting Document(s) Care Plan [facility] FFTCUs9sIcSMLjSg70/SQCypJUNmk0DtBOvoPOi4WGazNAVrP8DeHDR1jV0bFGG4QRgXHqLxTpRcWvF8 lbm [file] AgICAgICAgICAgICAgICAgICAgICAgICAgICAgICAg ICAgICAgICAgICAgICAgICAgICAgICAgICAgICAgICANCiAgICAgICAgICAgICAgICAgICAgICAgICAg ICAgICAgICAgICAgICAgICAgICAgICAgICAgICAgICAgICAgICAgICAgICAgICAgICAgICAgICAgICAg ICAgICAgICAgICAgICANCiAgICAgICAgICAgICAgIC AgICAgICAgICAgICAgICAgICAgICAgICAgICAgICAgICAgICAgICAgICAgICAgICAgICAgICAgICAgIC AgICAgICAgICAgICAgICAgICAgICAgICANCiAgICAgICAgICAgICAgICAgICAgICAgICAgICAgICAgIC AgICAgICAgICAgICAgICAgICAgICAgICAgICAgICAg ICAgICAgICAgICAgICAgICAgICAgICAgICAgICAgICAgICANCiAgICAgICAgICAgICAgICAgICAgICAg ICAgICAgICAgICAgICAgICAgICAgICAgICAgICAgICAgICAgICAgICAgICAgICAgICAgICAgICAgICAg ICAgICAgICAgICAgICAgICANCiAgICAgICAgICAgIC AgICAgICAgICAgICAgICAgICAgICAgICAgICAgICAgICAgICAgICAgICAgICAgICAgICAgICAgICAgIC AgICAgICAgICAgICAgICAgICAgICAgICAgICANCiAgICAgICAgICAgICAgICAgICAgICAgICAgICAgIC AgICAgICAgICAgICAgICAgICAgICAgICAgICAgICAg ICAgICAgICAgICAgICAgICAgICAgICAgICAgICAgICAgICAgICANCiAgICAgICAgICAgICAgICAgICAg ICAgICAgICAgICAgICAgICAgICAgICAgICAgICAgICAgICAgICAgICAgICAgICAgICAgICAgICAgICAg ICAgICAgICAgICAgICAgICAgICANCiAgICAgICAgIC AgICAgICAgICAgICAgICAgICAgICAgICAgICAgICAgICAgICAgICAgICAgICAgICAgICAgICAgICAgIC AgICAgICAgICAgICAgICAgICAgICAgICAgICAgICANCiAgICAgICAgICAgICAgICAgICAgICAgICAgIC AgICAgICAgICAgICAgICAgICAgICAgICAgICAgICAg ICAgICAgICAgICAgICAgICAgICAgICAgICAgICAgICAgICAgICAgICANCjw/yWJqI7urgBJmtjA7B3sj Gn4JRy0RSA8jl2XdYVFcFNwlihFlOgdIItRbDIOfUwfNSbv8WYqwKA2JqUQfP4YdD4GfKDlzGI3ZHBMb AFAxuMWkZJFfPHLoKnM0ZRDiEKorGV8HaGYcRVwaZG NvPADyWZ6LWTAaT751byTaOJ3QBl8EUfDzKE0cbg8YTdIvVWSqTxqNFhc7MZjpXH0RtPQomHPiTkApII SDBeZzX3rje7AtCoPuTGDXTMrxSM3Ic4JfoJVqGDr+Lr9QRE7ur8IjHVpxVlTsGH1kfw0GNTlMMiQtP5 TfwAqrYBQupoLgIEtnykOhcVGKtN7qOTCvDyx8sgyv fdIdFOfmIu3eKMEvFXIqBb9uSAUfXRO2BxIqNJHZLS4OPJYfUEDexDHvESMzIXASBT5ABJbaRUJ9Ikpz bhSlvZRyNGriOQ3JPZSpmvCwGiAkRAJNNQy+Hl4MAX8et1LvJRheGGLtZK5pbz9EKJmMWoFgZ4Y4lUQl L2L8FVzjYi6DXBAoETUpNhKjWGYCYVzoKR9ELM0xcn V3CC6JpFIiBFXbXTAfmAHdMIf2M99xnWEoBAjkWN1OTDL+Emmanuelle+Bt1NCQDlJBSdNDBqCuYhXKBBJsFyG2 UqS1ZBf6JyX5DdWX84rPwfgfLdFStlTG0GNP1mINGoRIVBPF2QpKKegQ5mttGeVdEfXSAEOwZfY71kjU ZzWLAuVPKvRAZtJp1NBOEeE8CaiyJojWolepJaCCOc TFSZSO0TPXtvcvMkiRYdxRciPO99sRzxUT2HYo8OFqVkDB2krd0PzMGqCt0CXJFiBU3RAOFwXJHaYBNk STU1QIJgCeMlHIhhFSAvHBIpBDN2MVSlIKPaNR7MYcBgAFWaKWv2EUEfLVXcMZZiza3OPVUfACPfULE1 SNMuJPJnOPLyBXukMEMdLVYwCLY6IFSlKFVfIJ8OUo ViGAMgSMC3WYxrWYMqOKDxnp7NCOZhGYZpLYV9VBSaRNLgMNXxJAtjEJHkOGUjCiI9YLDqFVCoKW8GHu GiMIEmQDO0ZHHwMUPoHUBpro6XQUKaXIOhNdNuWZZpNYLnFXBdECjnWJRuORXpDGn9GFAhWJCmDA6XYh YqIFKcBDRoPWKwLYAtZFExzt8EWFKgIZKfHJJ0PsGc HGKmUYUpZDudDXEnKBP8HzDoHLVjBTRgFC4KLwQhZAAmWHejJydeGHPaKPLhgw3WPXSxONJbUeN6VkHa UVApWTMaUQvyHKEyLAA1SPf4LOWfEEIgQL4PDzHoZKIvFKt3GnSiPFIxFQPsdd3DVOZnAIYaSCS5ZNTz FNMlIFFeOWxtGHMaTKN2PuWpHPUyNHXgBK3KOxVoCN RxQIx1HgPvZKGtNLVanu1FDXUeTSSkNWP0TNWkGKGnCLEhVFsbQZEbCCDvJzc8PXWtQYLeSK4PKfCfIV ZbGoU5GEfjFHTbNBOjxg1FSGUtHGDqQDYqIQCnXBIpJSByWEt4ezKyoRFrPGs9WD2ZS8IzbjXoPqQNMz 2Fc925YWC8ISQrVo9CY6tnLp5vYKInCBAJZr6MRHp4 PIjkG6ElLRWnHLIdVSKnBNbrIUY0LKKnWEM7CsZsZRE+JEo7YRSvAPW3AOEwMdNvXMN5J6DdXuE8JJDi OjjhI7Y9La2rXPKXKw2+XPvnxQFgnFuuXLMAXzRbHoS7PAzlDFMFXk2M ID Date Data Source [id number] 04/20/2020 09:45:00 AM EST [facility] Name Value Range Interpretation Code Description Data Migdalia rce(s) Supporting Document(s) AST 14 IU/L 15-37 Below low normal [facility] Sulfasalazine and sulfapyridine have the potential to falsely depressAspartate Aminotransferase results. Baseline values before medication administration are recommended. ALT 14 IU/L 16-61 Below low normal [facility] Sulfasalazine and sulfapyridine have the potential to falsely depressAlanine Aminotransferase results. Baseline values before medication administration are recommended. Alkaline Phosphatase 81 mIU/ml 50-136 Normal (applies to non-num ruth results) [facility] Total Bilirubin 0.90 mg/dl 0.20-1.00 Normal (applies to non-numeric results) [facility] Blood Urea Nitrogen 14 mg/dl 7-18 Normal (applies to non-nume stacey results) [facility] Creatinine 0.98 mg/dl 0.67-1.17 Normal (applies to non-numeric resul ts) [facility] N-Acetylcysteine (NAC) and Metamizole st ve the potential to falselydepress Creatinine results. Baseline values before medication adminstration are recommended. Patients undergoing treatment with phenindione will have falselydepressed results. Patients on phenindione therapy should be tested with an alternativeCREA method.Toxic levels of acetaminophen may lead to falsely depressed results forpatient samples. Glomerular Filtration Rate >90.00 mL/min/1.73m2 [facility] GFR Reference Ranges:Normal Function or Mild Renal [...] of Health and the National KidneyFoundation. The Newton method used in calculating this result is traceable to IDMS standards. Glucose 86 mg/dl 70-110 Normal (applies to non-numeric resul ts) [facility] Sulfasalazine has the potential to false ly depress Glucose results. Sulfapyridine has the potential to falsely elevate Glucose results. Baseline values before medication administration are recommended. Calcium 9.4 mg/dl 8.5-10.1 Normal (applies to non-numeric resul ts) [facility] Total Protein 7.4 g/dl 6.4-8.2 Normal (applies to non-numeric re sults) [facility] Albumin 4.1 g/dl 3.4-5.0 Normal (applies to non-numeric resul ts) [facility] Sodium 141 mEq/L 136-145 Normal (applies to non-numeric resul ts) [facility] Potassium 4.5 mEq/L 3.5-5.1 Normal (applies to non-numeric resul ts) [facility] Chloride 106.0 mEq/L 98.0-107.0 Normal (applies to non-numeric resu lts) [facility] Anion Gap 12.5 [facility] Carbon Dioxide 27.0 mMol/L 21.0-32.0 Normal (applies to non-numeric results) [facility] The above 16 analytes were performed by [facility] [id number], ,[place] [address] ID Date Data Source [id number] 04/20/2020 09:25:00 AM EST [facility] Name Value Range Interpretation Code Description Data Migdalia rce(s) Supporting Document(s) Triglycerides 69 mg/dl 30-200 Normal (applies to non-numeric re sults) [facility] N-Acetylcysteine (NAC) and Metamizole st ve the potential to falselydepress Triglyceride results. Baseline values before medication adminstration are recommended. Cholesterol 145 mg/dl 0-200 Normal (applies to non-numeric resu lts) [facility] HDL Cholesterol 42 mg/dl 30-70 Normal (applies to non-numeric results) [facility] N-Acetylcysteine (NAC) and Metamizole st ve the potential to falselydepress HDL Cholesterol results. Baseline values before medication adminstration are recommended. LDL Cholesterol 89.2 mg/dl 0.0-100.0 Normal (applies to non-numeric results) [facility] Cholesterol/ HDL Ratio 3.5 0.0-5.0 Normal (applies to non-n umeric results) [facility] LDL/HDL Ratio 2.1 [facility] The above 6 analytes were performed by [facility] [id number], ,[place] [address] ID Date Data Source [id number] 04/20/2020 05:03:22 AM EST [facility] Name Value Range Interpretation Code Description Data Migdalia rce(s) Supporting Document(s) Nursing Note [facility] MPRIIs2lNoPBCwUn32/IFAjaGEPny3VoDItrFSy8AEclPFYpF1YgBDP5cW3kMDQ5NKtGHkKjAhZgMcB5 lbm [file] 9Zw3QklkT0pfQnOVqlIJb6HM2HNJFXG1JXKo== ID Date Data Source [id number] 04/20/2020 01:35:30 AM EST [facility] Name Value Range Interpretation Code Description Data Migdalia rce(s) Supporting Document(s) Nursing Note [facility] TNWUUw3dPuHPMtTy77/ZWVxpHFWhd5BuPXjyZCu1XOljCZWyD3MyFMS6aZ3zBLN2DTbSArUeEjTeZhT1 lbm [file] njOf1pM1ISjmJRFXyqr/G5x6q5P6uPKlby8YG4kImqv+pFkxiey6tHYNbrMzTncl7CLVSHzVNBTJ/Josué eh7daDuj50KvjHrSO50OF3DA5ZazCg+aRE3xfNi9RV apLv5Yqr2oDib1x3rQ/LjI3gjz7jbE6K3eVb0GFn9oBP1O30yKQ/UDzvs5IcpNA+KEt2nFeYDyl7NGNT Yp1pc4UNAdnzx/1okPlIwvYDG45wwGPAsbbqrcTT46GdUbvcqaMmlAMl2x6Qk12eXP3zsQEd+/8emK8H zl7DmW5XXsA5rBo9vGSLYgae4o3tCjz5kAJ1sVUqzv e17BPhC9AsmBp4Yv2yqG64cEW2td0ir1MhlsZulJ3peTFxKsVJSFO/Zck5bGDHwN9XR4jHm216xWN5lK JZ3OuzaCEoD3dCdbmbWlNc3fPQRG9rV6bMaaDeQzOgpIJ74T7mVNqTp/1cR4aArC9aLye0ycWVoFYkj+ QWjGPWw6/PTDpai5raMfO+4Eu58CG25rZTRoWyU94n 1gUyukdcLuM0KkOBZ3JdUcCwrYHDgeRykcnISpszPajzlJAN3nw37J3us12cU9L7YpJYR2Pra3bRK+h3 7FLm1gRrNoT5JsxcaAyucwUFoH0lePOBgfaYqzPglX1mSsT7pelF8U59A80XT3gx6x8kCJ3xh8xa0NGQ EvW3M5JQ8hFyDRNSaz1e77EsG8KU8kBz5pzdK3xJjg +6nTg122QdTiOM/SHwxFM0+ShbInlZo5xxfEg4aEUPRj9R1nKWkeMZ73lkIjIfMAb29eptkwRTGoQanM 2RQN08Jc/danny/tIrHHWyAN5mahaZtYGhu0bYmYHP8OegEkA8C5Ooj3wNKh6goj7Hsn2Npijp7l11n3Px [file] 0gDQo+Ks4Oa5VcszU4zcHnSHqgTQu2LK0MGQXBI9WWHj== ID Date Data Source [id number] 04/20/2020 12:47:44 AM EST [facility] Name Value Range Interpretation Code Description Data Migdalia rce(s) Supporting Document(s) Care Plan [facility] SANJRg5qXxRAZdVo67/CHLggOKIyq3JrATshVEu9FJhwKKQlC0HsAFF4zA9nNKU8WCcIIqIxAsPuJjI7 lbm [file] SAScGMX2TNsiFGpgAaUhOpSnBeWdSI7UGz9GXbK6YPW3pVOiFf3GIbN0KSETAjZyZG6EKGp= ID Date Data Source [id number] 04/19/2020 11:09:55 PM EST [facility] Name Value Range Interpretation Code Description Data Migdalia rce(s) Supporting Document(s) ED Triage Notes [facility] VBDJQm2yXiVXQrQq60/VGRjjAVBvz5NxUYgfARw3XBhbAVTwS3LjJRE9hV2vGKK6DGyGWeTdZkOuYxT9 lbm [file] YTU+QP9zXZd+Qw5Du8WsgtR9xrAuVVr3QEJmESrdSCUPDa8R ID Date Data Source [id number] 04/19/2020 04:44:00 PM EST [facility] Name Value Range Interpretation Code Description Data Migdalia rce(s) Supporting Document(s) SARS coronavirus 2 RNA [Presence] in Res piratory specimen by HAYLEY with probe detection [facility] This lab was ordered by [facility] a nd reported by [facility]. ID Date Data Source [id number] 12/10/2019 08:56:00 [place] [address] PHONE: [phone] FAX: [phone] Name .................. : LELO KELLEYUA Carmen Acct Number.................. : [id number] ROOM. ................. : TR-03 MR Number ................... : [id number] Stay type ............. : E/R Discharge Date......... ... : 12/09/19 Admit Date ......... : 12/09/19 Admit Phys .................... : SUZY FRENCH Date of ....... : 2000 Family Phys ................... : NO PCP Phone .................. : [phone] Age ................................ : 19 Film# .................. .:[id number] Sex ................................. : M Unsigned transcriptions are preliminary reports and do not represent a medical or legal document CHEST PORTABLE [id number] COMPLETE:12/09/19 14:01 BEM 89655 Reason(s): Chest Pain PORTABLE CHEST X-RAY: COMPARISON: [...] By LEXII BERMEO MD , 12/10/19 08:56, [facility] Transcribe Initials: DONAL , Transcribe Date: 12/10/19 00:19, Dictation Date: Copy for: EMERGENCY DEPT via [email or web address] Copy for: 710 MED REC DISCHARGED Page 1 of 1 Name Value Range Interpretation Code Description Data Migdalia rce(s) Supporting Document(s) ID Date Data Source [id number] 12/10/2019 01:46:00 AM EDT [address] [address] RESPIRATORY CARE REPORT ==== ---------NAME------- NUMBER SEX AGE ADMIT DISC. XRAY# F/C TYPELELO Morales [id number] M 19 12/09/19 12/09/19 [id number] P E/R DATE OF : 2000 M/R# [id number] PH#: [phone] TR-03 LOCATION: EMERGENCY DEPT EKG [id number] COMP LETE:12/09/19 13:50 EWW [id number] PHYSICIAN: SUZY FRENCH Name Value Range Interpretation Code Description Data Migdalia rce(s) Supporting Document(s) ID Date Data Source [id number] 12/09/2019 11:42:00 AM EDT [facility] 1 OrderSheet [facility] Emergency Department [address] [place] [address] Phone #: ext- [phone] 12/09/2019 11:32 Patient: [...] Priority Entered Acknowledged InitialedToradol 15 mg IVP 12:12/09/2019 Ack'd: 12:03 12:12 So,Chiquita dose: 15 mg John Larson Amber Amber(NOW x1) Fito;Ativan PO 1 mg 12:12/09/2019 Ack'd: 12:03 12:11 Suzy Rizzo Riccardo Weaver, Amber Amber M.D.; 2 OrderSheet [facility] Emergency Department [address] [place] [address] Phone #: ext- [phone] 12/09/2019 11:32 Patient: POLLY LIND Sex: M : 2000 Age: 19yGENERAL ORDERSOrder Description Priority Entered Acknowledged InitialedBlood Pressure 12:00 12/09/2019 12:03 So,Monitor John Larson M.D.;Buck Swamper 12:12/09/2019 12:03 So(continuous) John Larson M.D.;EKG 12:12/09/2019 12:03 Suzy Rizzo Riccardo Amber M.D.;NPO 12:00 [...] rce(s) Supporting Document(s) ID Date Data Source [id number] 12/09/2019 11:42:00 AM EDT [facility] 1 Medication Reconciliation Report [facility] Emergency Department [address] [place] [address] Phone #: ext- [phone] 12/09/2019 11:32 Patient: [...] Dispense 28tablet. Refills: 0. Substitution permitted.Pharmacy - [email or web address] [phone] [place] [address]. FaxNumber: . -- John Larson M.D. Name Value Range Interpretation Code Description Data Migdalia e(s) Supporting Document(s) ID Date Data Source [id number] 12/09/2019 11:42:00 AM EDT [facility] 1 Medication Administration Record [facility] Emergency Department [address] [place] [address] Phone #: ext- [phone] 12/09/2019 11:32 Patient: POLLY LIND Sex: M [...] rce(s) Supporting Document(s) ID Date Data Source [id number] 12/09/2019 11:42:00 AM EDT [facility] 1 General Instructions [facility] Emergency Department [address] [place] [address] Phone #: ext- [phone] 12/09/2019 11:32 Patient: POLLY LIND Sex: M [...] Dispense 28tablet. Refills: 0. Substitution permitted.Pharmacy - [phone] - [phone] [facility] ; [place] [address]. Phone: FaxNumber: .Follow-up:Return to the emergency department [...] INFORMATIONChest Wall Pain: Costochondritis 2 General Instructions [facility] Emergency Department [address] [place] [address] Phone #: ext- [phone] 12/09/2019 11:32 Patient: [...] prescribed medicines as directed. 3 General Instructions [facility] Emergency Department [address] [place] [address] Phone #: [phone]- [phone] 12/09/2019 11:32 Patient: POLLY LIND Sex: M [...] or as directed by your healthcare provider [phone] [employer]. [address] [place] [address]. All rights reserved. This information is not intended as asubstitute for professional medical care. Always follow your healthcare professional's instructions.Chest Wall Pain: Costochondritis 4 General Instructions [facility] Emergency Department [address] [place] [address] Phone #: ext- [phone] 12/09/2019 11:32 Patient: POLLY LIND Sex: M [...] sputum (phlegm) or blood 5 General Instructions [facility] Emergency Department [address] [place] [address] Phone #: ext- [phone] 12/09/2019 11:32 Patient: POLLY LIND Sex: M : 2000 Age: 19y Abdominal pain Dark red or black stools Fever of 100.4F (38C) or higher, or as directed by your healthcare provider [phone] [employer]. [address] [place] [address]. All rights reserved. This information is not intended as asubstitute for professional medical care. Always follow your healthcare professional's instructions. You have been given the following additional information: Chest W all Pain, Costochondritis Chest Wall Pain, Costochondritis(Electronically signed by John Larson M.D. 12/09/2019 14:58) Name Value Range Interpretation Code Description Data Migdalia rce(s) Supporting Document(s) ID Date Data Source [id number] 12/09/2019 11:42:00 AM EDT [facility] 1 Clinical Report - Nurses [facility] Emergency Department [address] [place] [address] Phone #: ext- [phone] 12/09/2019 11:32 Patient: POLLY LIND Sex: M [...] 100%. Temp: 97.6 F. Pain level now 510.--11:39 12/09/19 Yana Leon R.N.Weight: 78.4 kg. Height/Length: [...] disease exposure. 2 Clinical Report - Nurses [facility] Emergency Department [address] [place] [address] Phone #: [phone]- [phone] 12/09/2019 11:32 [id number] Sex: M : 2000 Age: 19y SELF [...] bedon. Patient ready for evaluation. --11:40 12/09/19 Yana Leon R.N. Cardiac rhythm: sinus bradycardia; (59 ventricular [...] allergic reaction, 3 Clinical Report - Nurses [facility] Emergency Department [address] [place] [address] Phone #: ext- [phone] 12/09/2019 11:32 Patient: [...] 12/09/2019 Ativan PO Response: no adverse reaction. --12:12/09/19 Tamie Rizzo 12:26 12/09/2019 Toradol IVP Response: [...] Patient verbalized understanding. Written instructions provided in Occitan. The patient was discharged by the physician. He was discharged home and unaccompanied at time of discharge. He left ambulatory and via private vehicle. --13:46 12/09/19 Tamie Rizzo.Locked/Released at 12/09/2019 13:49 by Tamie Rizzo, Name Value Range Interpretation Code Description Data Migdalia rce(s) Supporting Document(s) ID Date Data Source [id number] 12/09/2019 11:42:00 AM EDT [facility] 1 Clinical Report - Physicians/Mid Levels [facility] Emergency Department [address] [place] [address] Phone #: ext- [phone] 12/09/2019 11:32 Patient: POLLY LIND Sex: An [...] HISTORYNegative. 2 Clinical Report - Physicians/Mid Levels [facility] Emergency Department [address] [place] [address] Phone #: ext- [phone] 12/09/2019 11:32 Patient: [...] 2.0) 3 Clinical Report - Physicians/Mid Levels [facility] Emergency Department [address] [place] [address] Phone #: ext- [phone] 12/09/2019 11:32 Patient: [...] Male GFR Interprentation 20-49 yrs >60 mL/min Jkrvim15-41 yrs >56 mL/min Normal 60-69 yrs >49 mL/min Normal 70-79yrs>42 mL/min Normal 80 and above >35 mL/min Normal Female GFRInterpretation 20-39 yrs >60 mL/min Normal 40-49 yrs >58 mL/minNormal 50-59 yrs >51 mL/min Normal 60-69 yrs >45 mL/min [id number] yrs >39 mL/min Normal 80 and above [...] VenousThrombosis, Pulmonary Embolus, Tissue heart valves, Acute RI Atrial Fibrillation, Valvular heart diseaseand recurrent Systemic Embolism. -International Normalized Ratio (INR): 2.5 - 3.5 for 4 Clinical Report - Physicians/[facility] Emergency Department [address] [place] [address] Phone #: ext- [phone] 12/09/2019 11:32 Patient: [...] home medication. 5 Clinical Report - Physicians/[facility] [facility] [address] [place] [address] Phone #: [phone] 12/09/2019 11:32 Patient: POLLY LIND Sex: M : 2000 Age: 19y Prescription Medications: ibuprofen 600 mg tablet Take 1 tablet four times a day as needed for pain for 7 days -- Dispense 28 tablet. Refills: 0. Substitution permitted. Pharmacy - [id number] - [id number] [facility] ; [place] [address]. . Follow-up: Return to the emergency department [...] rce(s) Supporting Document(s) ID Date Data Source [id number] 12/09/2019 12:27:00 PM EDT [facility] Name Value Range Interpretation Code Description Data Migdalia rce(s) Supporting Document(s) TROPONIN T <0.01 NG/ML 0.00 - 0.10 [facility] ospital TROPONIN T0.1 ng/ml Recommended as the c linical threshold value forTroponin T. ID Date Data Source [id number] 12/09/2019 12:27:00 PM EDT [facility] Name Value Range Interpretation Code Description Data Migdalia rce(s) Supporting Document(s) Lipase [Enzymatic activity/volume] in Serum or Plasma 27 U/L 13 - 60 [facility] ID Date Data Source [id number] 12/09/2019 12:27:00 PM EDT [facility] Name Value Range Interpretation Code Description Data [facility] rce(s) Supporting Document(s) COMPREHENSIVE METABOLIC PANEL [facility] COMPREHENSIVE METABOLIC PANEL Sodium [Moles/volume] in Serum or Plasma 139 mEq/L 134 - 153 [facility] Potassium [Moles/volume] in Serum or Plasma 3.8 mEq/L 3.6 - 5.0 [facility] Chloride [Moles/volume] in Serum or Plasma 103 mEq/L 98 - 107 [facility] Carbon dioxide, total [Moles/volume] in Serum or Plasma 25 MEQ/L 22 - 30 [facility] Glucose [Mass/volume] in Serum or Plasma 109 MG/DL 65 - 110 [facility] BUN 13 MG/DL 7 - 21 [facility] Creatinine [Mass/volume] in Serum or Plasma 0.7 MG/DL 0.7 - 1.5 [facility] BUN/CREAT 19 8 - 27 [facility] Protein [Mass/volume] in Serum or Plasma 7.4 G/DL 6.3 - 8.2 [facility] Albumin [Mass/volume] in Serum or Plasma 4.9 G/DL 3.9 - 5.0 [facility] Globulin [Mass/volume] in Serum by calculation 2.5 GM/DL 2.4 - 3.2 [facility] A/G RATIO 2.0 0.8 - 2.0 [facility] Calcium [Mass/volume] in Serum or Plasma 9.1 MG/DL 8.4 - 10.2 [facility] Bilirubin.total [Mass/volume] in Serum or Plasma 1.0 MG/DL 0.2 - 1.3 [facility] Alkaline phosphatase [Enzymatic activity/volume] in Serum or Plasma 81 U/L 38 - 126 [facility] Aspartate aminotransferase [Enzymatic activity/volume] in Serum or Plasma 14 U/L 5 - 40 [facility] Alanine aminotransferase [Enzymatic activity/volume] in Seru m or Plasma 8 U/L 7 - 56 [facility] Anion gap 3 in Serum or Plasma 11.0 mmol/L 8.0 - 16.0 [facility] AGE 19 yrs [facility] al NON-AA GFR >60 mL/min [facility] ital AFR AMER GFR >60 mL/min [facility] Ho spital Male GFR In terprentation [...] >32 mL/min Normal ID Date Data Source [id number] 12/09/2019 12:26:00 PM EDT [facility] Name Value Range Interpretation Code Description Data Migdalia rce(s) Supporting Document(s) Prothrombin time (PT) 13.9 SECONDS 11.0 - 15.5 [facility] INR in Platelet poor plasma by Coagulation assay 1.06 0.93 - 1. 23 [facility] aPTT in Blood by Coagulation assay 30.8 SECONDS 24.8 - 36.7 [facility] \\BLDo\\INR INTERPRETATION\\BLDx\\ Therapeutic range for Coumadin and related oral anticoagulants. - International Normalized Ratio (INR): 2.0 - 3.0 for Venous Thrombosis, Pulmonary Embolus, Tissue heart valves, Acute RI Atrial Fibrillation, Valvular heart disease and recurrent Systemic Embolism. - International Normalized Ratio (INR): 2.5 - 3.5 for Mechanical Prosthetic valve. ID Date Data Source [id number] 12/09/2019 12:17:00 PM EDT [facility] Name Value Range Interpretation Code Description Data Migdalia rce(s) Supporting Document(s) CBC W/AUTOMATED DIFF [facility] COMPLETE BLOOD COUNT Leukocytes [#/volume] in Blood by Automated count 8.1 10^3/uL 4.2 - 1 1.0 [facility] Erythrocytes [#/volume] in Blood by Automated count 4.79 10^6/uL 4. 50 - 6.30 [facility] Hemoglobin [Mass/volume] in Blood 14.9 g/dL 14.0 - 16.0 [facility] Hematocrit [Volume Fraction] of Blood by Automated count 43.9 % 4 1.0 - 51.0 [facility] Erythrocyte mean corpuscular volume [Entitic volume] by Auto mated count 91.6 fL 80.0 - 94.0 [facility] Erythrocyte mean corpuscular hemoglobin [Entitic mass] by Automated count 31.1 pg 27.0 - 34.0 [facility] Erythrocyte mean corpuscular hemoglobin concentration [Mass/volume] by Automated count 33.9 g/dL 31.0 - 36.0 [facility] Erythrocyte distribution width [Ratio] by Automated count 12.8 % 11.5 - 14.8 [facility] Platelets [#/volume] in Blood by Automated count 272 10^3/uL 150 - 45 0 [facility] Platelet mean volume [Entitic volume] in Blood by Automated count 9.6 fL 7.4 - 10.4 [facility] Neutrophils/100 leukocytes in Blood by Automated count 66.7 % 37. 0 - 80.0 [facility] Lymphocytes/100 leukocytes in Blood by Manual count 22.2 % 25.0 - 40.0 L [facility] Monocytes/100 leukocytes in Blood by Automated count 9.0 % 3.0 - 8.0 H [facility] Eosinophils/100 leukocytes in Blood by Automated count 1.2 % 0.0 - 7.0 [facility] Basophils/100 leukocytes in Blood by Automated count 0.7 % 0.0 - 2.0 [facility] %IG 0.2 % 0.0 - 0.0 H [facility] al %NRBC 0.0 % 0.0 - 0.0 [facility] Neutrophils [#/volume] in Blood by Automated count 5.38 10^3/uL 2.00 - 6.90 [facility] Lymphocytes [#/volume] in Blood by Automated count 1.79 10^3/uL 0.60 - 3.40 [facility] Monocytes [#/volume] in Blood by Automated count 0.73 10^3/uL 0.00 - 0.90 [facility] Eosinophils [#/volume] in Blood by Automated count 0.10 10^3/uL 0.00 - 0.70 [facility] Basophils [#/volume] in Blood by Automated count 0.06 10^3/uL 0.00 - 0.20 [facility] #IG 0.02 10^3/uL 0.00 - 0.10 [facility] ospital #NRBC 0.00 10^3/uL 0.00 - 0.00 [facility] ospital MANUAL DIFF NOT INDICATED [facility] RBC MORPH NOT INDICATED [facility] sp[facility] Procedure Vital Signs ID Date Data Source [id number] 05/16/2020 07:55:25 PM [facility] Name Value Range Interpretation Code Description Data Source(s) TRANSFER FROM [facility] ID Date Data Source [id number] 04/19/2020 05:05:24 PM [facility] Name Value Range Interpretation Code Description Data Source(s) TRANSFER FROM [facility]
[2020-06-02] MEDS ORDERED: ARIPiprazole 10 MG TAB PO ONE (11:00)
== END 2020-06-02 11:37 | disposition home or self-care (01) ==
LOC: M ED 07:16
DX: F20.9 Schizophrenia, unspecified (principal); E03.9 Hypothyroidism, unspecified; N43.3 Hydrocele, unspecified; F17.200 Nicotine dependence, unspecified, uncomplicated; Z79.899 Other long term (current) drug therapy
CPT/HCPCS: 36415; 76870; 80048; 80076; 80307; 81001; 84443; 85027; 93976; 99284; G0480

== ENCOUNTER 2020-08-13 14:21 | Inpatient (IN) | payer OTHER ==
[~2020-08-13] VITALS: Ht 180.3 cm; Wt 78.5 kg
[2020-08-13 16:05] LABS: HEMATOCRIT 47.7 % (42.0-52.0); HEMOGLOBIN 15.6 g/dl (13.5-17.5); MEAN CORPUSCULAR HEMOGLOBIN 30.8 pg (27.0-33.0); MEAN CORPUSCULAR HGB CONC 32.7 g/dl (32.0-36.5); MEAN CORPUSCULAR VOLUME 94.1 fl (80.0-96.0); PLATELET COUNT, AUTOMATED 275 10^3/uL (150-450); RED BLOOD COUNT 5.07 10^6/uL (4.30-6.10); WHITE BLOOD COUNT 10.5 10^3/uL (4.0-10.0)
[2020-08-13 16:33] LABS: ACETAMINOPHEN LEVEL < 2.0 UG/ML (10.0-30.0); ALBUMIN 4.2 GM/DL (3.2-5.2); ALT/SGPT 20 U/L (12-78); AMPHETAMINES LEVEL URINE NEGATIVE (NEGATIVE); BARBITURATES URINE NEGATIVE (NEGATIVE); BENZODIAZEPINES URINE NEGATIVE (NEGATIVE); BILIRUBIN,DIRECT 0.2 MG/DL (0.0-0.2); BILIRUBIN,TOTAL 0.8 MG/DL (0.2-1.0); BLOOD UREA NITROGEN 14 MG/DL (7-18); CALCIUM LEVEL 8.7 MG/DL (8.5-10.1); CANNABINOIDS URINE POSITIVE (NEGATIVE); CARBON DIOXIDE LEVEL 32 MEQ/L (21-32); CHLORIDE LEVEL 106 MEQ/L (98-107); COCAINE METABOLITE URINE NEGATIVE (NEGATIVE); CREATININE FOR GFR 0.87 MG/DL (0.70-1.30); ETHYL ALCOHOL (ETHANOL) < 0.003 % (0.000-0.010); GLOMERULAR FILTRATION RATE > 60.0 (>60); GLUCOSE, FASTING 93 MG/DL (70-100); METHADONE URINE NEGATIVE (NEGATIVE); OPIATES URINE NEGATIVE (NEGATIVE); PHENCYCLIDINE URINE NEGATIVE (NEGATIVE); POTASSIUM SERUM 4.1 MEQ/L (3.5-5.1); SALICYLATE LEVEL < 1.7 MG/DL (5.0-30.0); SODIUM LEVEL 138 MEQ/L (136-145); TOTAL PROTEIN 7.6 GM/DL (6.4-8.2)
[2020-08-13] MEDS ORDERED: MOM 30ML SUSPENSION UDC PO PRN (17:30)
[2020-08-13] MEDS ORDERED: MAALOX 30 ML SUSP *UDC PO PRN (17:30)
[2020-08-13] MEDS ORDERED: LEVO-88 PO (17:45)
[2020-08-13 18:52] LABS: RSV AMPLIFICATION NEGATIVE (NEGATIVE)
[2020-08-13 22:16] VITALS: BP 119/57
[2020-08-13] MEDS: traZODone 50 MG TAB PO PRN (22:23)
[2020-08-13] MEDS: ACETAMINOPHEN TAB 650MG DOSE (2X325MG) PO PRN (22:24)
[2020-08-14 06:00] VITALS: BP 130/70
[2020-08-14] MEDS: FLUoxetine 10 MG CAP PO SCH (09:34)
--- NOTE | 2020-08-14 10:45 | MHHPE ---
[facility] HISTORY AND PHYSICAL DATE OF ADMISSION: 08/13/2020 IDENTIFYING DATA: He is a 20-year-old male, single, living in his own apartment provided by [employer] ([facility]), unemployed, was admitted because of suicidal thoughts. CHIEF COMPLAINT: "I wanted to kill myself." HISTORY OF PRESENT ILLNESS: Patient was brought by the police. He reportedly told the police that he has been increasingly getting depressed and he did not know what to do, felt like hurting himself by hanging. He also reported to the police that about two weeks ago, he tried to hang himself in a motel by tying two shirts together and around his neck, reported that it did not hold. He told the police that he probably would jump off something to ensure that he did not fail. The patient reportedly has been noncompliant with his medications, as he reported that the insurance is not paying for those medications. He also reported that he does not have a nurse case management and he has been diagnosed with schizophrenia. Current stressors: Financial, unemployment and access inability to mental health. He reports his sleep is good. His appetite is good, but he has lost interest in things he used to be interested in, like watching television. During my evaluation, patient was behaving a little odd. He thinks that people can play on his mind and he can actually control somebody's thoughts sometimes. Patient has history of auditory and visual hallucinations. He reports sometimes he hears voices. They tell him to hurt himself or hurt others, but he does not act on it. Patient does not have any symptoms of lex currently. PAST PSYCHIATRIC HISTORY: In the last one year, he has had about 5-6 psychiatric hospitalizations. He was on risperidone and Vraylar. According to the patient, only Vraylar helped him to some extent. SUBSTANCE ABUSE HISTORY: Patient uses cannabis every day from age 10. The last time he used it was two days ago. MEDICAL HISTORY: Patient reports he has history of hypothyroidism. FAMILY HISTORY: Denies family history of schizophrenia. PERSONAL HISTORY: He was raised by his father until he was 12, then until 16, his mother raised him. He has four brothers and four sisters. Dropped out of school in 12th grade. 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 MENTAL STATUS EXAMINATION: He is casually dressed. Behavior is somewhat odd, but cooperative. He believes in mind control. Mood is elated. Psychomotor activity is increased. Speech: Rate, rhythm and volume are good. Thought process: Linear, sometimes circumstantial. Thought content: Complains of some suicidal thoughts without plans. Complaints of auditory and visual hallucinations. Insight and judgment are poor. Memory: Immediate, remote, recent are good. VITAL SIGNS: Temperature 98.4, pulse 70, blood pressure 130/70, respirations 20, pulse oximetry 97. DIAGNOSES: 1. 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 2. Schizophrenia spectrum disorder. 3. Cannabis use disorder. ASSESSMENT AND PLAN: 1. Patient currently having some thoughts of hurting himself. 2. I would like to admit him to inpatient psychiatry. 3. He will be followed up by globe changer for medical needs. 4. He will be kept on suicide precautions. 5. Patient will be followed by health care social worker, case management. 6. Patient will attend activities. He will receive individual, group and milieu therapy. MEDICATIONS: I will place him on: - Zyprexa 5 mg at night - Prozac 10 mg in the morning - continue trazodone at bedtime for sleep ESTIMATED LENGTH OF STAY: Five to six days. TIME SPENT: One hour.
[2020-08-14 16:12] VITALS: BP 140/76
--- NOTE | 2020-08-14 19:12 | HPEPDOC ---
General Date of Admission Aug 13, 2020 at 17:26 Date of Service: Aug 14, 2020 Chief Complaint The patient is a 20-year-old male admitted with a reason for visit of Unspecified Depressive Disorder. Source: Patient Exam Limitations: No limitations History of Present Illness Patient is 20 years old male with past history of hypothyroidism, substance abuse presented hospital with suicidal ideation.Patient was brought by the police. He reportedly told the police that he has been increasingly getting depressed and he did not know what to do, felt like hurting himself by hanging. During my interview patient denied fever, chills, chest pain, palpitations, nausea, vomiting, dysuria Home Medications Scheduled Levothyroxine Sodium (Levo-T) 88 Mcg Tablet, 88 MCG PO DAILY, (Reported) Allergies Coded Allergies: No Known Drug Allergies (Verified Allergy, Unknown, 11/21/19) Past Medical History Medical History 1. 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 2. Schizophrenia spectrum disorder. 3. Cannabis use disorder Family History Mother has diabetes Social History * Smoker: current smoker Alcohol: Denies Drugs: marijuana A-FIB/CHADSVASC A-FIB History Current/History of A-Fib/PAF?: No Current PO Anticoag Therapy: No Review of Systems Constitutional: Denies: Chills Eyes: Denies: Pain ENT: Denies: Head Aches Skin: Denies: Rash Pulmonary: Denies: Dyspnea Cardiovascular: Denies: Chest Pain, Palpitations Gastrointestinal: Denies: Nausea, Vomiting Genitourinary: Denies: Dysuria Hematologic: Denies: Bruising, Bleeding Excessively Endocrine: Denies: Polydipsia Musculoskeletal: Denies: Neck Pain Neurological: Denies: Weakness Psych: Reports: Depression Physical Examination General Exam: Positive: Alert, Cooperative Eye Exam: Positive: PERRLA ENT Exam: Positive: Atraumatic Neck Exam: Positive: Supple; Negative: JVD Chest Exam: Positive: Clear to auscultation Heart Exam: Positive: Rate Normal Telemetry: Positive: No significant arrhythmia Abdomen Exam: Positive: Normal bowel sounds Extremity Exam: Negative: Clubbing Skin Exam: Positive: Nl turgor and temperature Neuro Exam: Positive: Normal Gait Psych Exam: Positive: Oriented x 3 Vital Signs Vital Signs Date Time Temp Pulse Resp B/P (MAP) Pulse Ox O2 Delivery O2 Flow Rate FiO2 08/14/20 16:12 98.1 93 18 140/76 (97) 08/14/20 06:00 97 08/13/20 21:25 Room Air Assessment/Plan Patient is 20 years old male with past history of hypothyroidism, substance abuse presented hospital with suicidal ideation.Patient was brought by the police. He reportedly told the police that he has been increasingly getting depressed and he did not know what to do, felt like hurting himself by hanging. During my interview patient denied fever, chills, chest pain, palpitations, nausea, vomiting, dysuria Problems (1) Schizophrenia Status: Acute Problem Text: Patient developed psychosis Defer treatment to psych team (2) Hypothyroidism Status: Chronic Problem Text: Most likely patient noncompliant to treatment TSH significantly elevated over 52 Will continue levothyroxine Plan / VTE VTE Prophylaxis Ordered?: No VTE Exclusion Mechanical Proph: Low Risk for VTE LIAM REDD DO Aug 14, 2020 19:12
[2020-08-14] MEDS: OLANZapine 5 MG TAB PO SCH (20:57)
[2020-08-15] MEDS: LEVOTHYROXINE 88MCG TABLET (0.088 MG) PO SCH (06:03)
[2020-08-15 06:26] VITALS: BP 119/62
[2020-08-15] MEDS: FLUoxetine 10 MG CAP PO SCH (09:49)
[2020-08-15 16:18] VITALS: BP 136/81
[2020-08-15] MEDS: OLANZapine 5 MG TAB PO SCH (22:28)
[2020-08-16 06:20] VITALS: BP_SYST 121; BP_SYST 132; BP_DIAS 60; BP_DIAS 67
[2020-08-16] MEDS: LEVOTHYROXINE 88MCG TABLET (0.088 MG) PO SCH (06:40)
[2020-08-16] MEDS: FLUoxetine 10 MG CAP PO SCH (09:35)
--- NOTE | 2020-08-16 09:40 | MHIPN ---
[facility] PROGRESS NOTE DATE: 08/15/2020 VITAL SIGNS: Blood pressure 136/81, pulse 80, temperature 98.6. This is a video assessment, it is being made due to the pandemic, and the patient is seen in the presence of staff. CHIEF COMPLAINT: Says feels okay. SUBJECTIVE: Seen for followup, indicates feels okay, but does not say much after that, says his moods have been okay, sleeps well, appetite is good, answers questions briefly, logically. MENTAL STATUS EXAMINATION: He is guarded, somewhat superficially cooperative, no abnormal movements noted, no agitation, no psychomotor retardation. Answers questions briefly and coherently, mostly one word answers. Affect restricted in range. Does not at present appear internally preoccupied. Denies any suicidal thoughts or intents. No homicidal ideas or intents. No overt delusions elicited. Insight and judgment are poor. Cognition intact. ASSESSMENT: Schizophrenia spectrum disorder (psychotic disorder not otherwise specified). Cannabis use disorder. The patient may well be minimizing his difficulties, or internally preoccupied. PLAN: May continue with current care, observations, he is on Zyprexa at 5 mg at night, Prozac 10 mg in the morning. Further recommendations will be made depending on the clinical picture presented.
[2020-08-16 16:24] VITALS: BP 140/65
[2020-08-16] MEDS: OLANZapine 5 MG TAB PO SCH (21:53)
[2020-08-16] MEDS: traZODone 50 MG TAB PO PRN (23:28)
[2020-08-17] MEDS: LEVOTHYROXINE 88MCG TABLET (0.088 MG) PO SCH (05:42)
[2020-08-17 06:00] VITALS: BP 111/55
[2020-08-17] MEDS: FLUoxetine 10 MG CAP PO SCH (09:16)
[2020-08-17 18:50] VITALS: BP 126/63
[2020-08-17] MEDS ORDERED: OLANZapine 10 MG TAB PO SCH (21:00)
[2020-08-18] MEDS: LEVOTHYROXINE 88MCG TABLET (0.088 MG) PO SCH (06:14)
[2020-08-18 07:17] VITALS: BP 122/64
--- NOTE | 2020-08-18 09:02 | MHIPN ---
[facility] PROGRESS NOTE DATE: 08/16/2020 Vital signs: Blood pressure 140/65, pulse 64, temperature 98.1. This is a video assessment. He is seen in the presence of staff. CHIEF COMPLAINT: Says he is okay. SUBJECTIVE: Seen for followup. Indicates he is okay, and that he slept well, and that his moods are good, as is appetite. MENTAL STATUS EXAMINATION: Remains guarded, but superficially cooperative, no agitation, no psychomotor retardation, gives one word answers. Affect remains restricted in range. Does not appear internally preoccupied. Denies any suicidal thoughts or intents. No homicidal ideas or intents. No overt delusions elicited. Insight and judgment remain poor, cognition is intact. ASSESSMENT: Schizophrenia spectrum disorder (psychotic disorder not otherwise specified). Cannabis use disorder. PLAN: Continue current care, observations, I would suggest attempting to obtain collateral information. He is to continue with the Zyprexa at 5 mg at night, Prozac 20 mg in the morning. He is to see the clinicians assigned to him tomorrow, and further recommendations will be made.
--- NOTE | 2020-08-18 09:17 | MHIPN ---
[facility] PROGRESS NOTE DATE: 08/13/2020 CHIEF COMPLAINT: "I feel better but I still have some visual hallucinations. I see things and hear things but I don't want to kill myself." SUBJECTIVE: He is a 20-year-old male, single, who lives in an apartment provided by [facility], was admitted because he called the police as he was getting increasingly depressed and had suicidal thoughts with plans. He has been diagnosed with schizophrenia, noncompliant with his medications. Currently, attending groups but still has some psychotic symptoms. MENTAL STATUS EXAMINATION: Casually dressed, cooperative. His behavior sometimes is odd. He believes in mind control. Psychomotor activity is normal. Speech, rate, rhythm and volume are good. Thought content: Denied any suicidal or homicidal thoughts Complains of auditory and visual hallucinations. Insight and judgment are poor. Memory for recent and remote is good. Vital signs: Temperature 97.9, pulse 68, respiratory rate is 20, blood pressure is 111/55, pulse oximetry is 95%. LABORATORY DATA: His CBC and CMP are within normal limits. However, his TSH was high. He is on levothyroxine. His toxicology was positive for cannabis. DIAGNOSIS: 1. Psychotic disorder, unspecified. 2. Rule out schizophrenia spectrum disorder. 3. Cannabis use disorder. PLAN: Increase his Zyprexa to 10 mg at night. Continue the rest of the medications.
[2020-08-18] MEDS: FLUoxetine 10 MG CAP PO SCH (09:29)
--- NOTE | 2020-08-18 14:24 | MHIPNPDOC ---
[facility] Progress Note Progress Note DATE OF SERVICE: 08/18/20 SUBJECTIVE: " I still have some visual hallucinations. I see things and hear things but I don't want to kill myself." OBJECTIVE: He is a 20-year-old male, single, who lives in an apartment provided by [facility], was admitted because he called the police as he was getting increasingly depressed and had suicidal thoughts with plans. He has been diagnosed with schizophrenia, noncompliant with his medications. Currently, attending groups but still has some psychotic symptoms. Pt showing some frustration. But ants to comply with treatment recommendations. MENTAL STATUS EXAMINATION: Casually dressed, cooperative. His behavior sometimes is odd. He believes in mind control. Psychomotor activity is normal. Speech, rate, rhythm and volume are good. Thought content: Denied any suicidal or homicidal thoughts Complains of auditory and visual hallucinations. Insight and judgment are poor. Memory for recent and remote is good. Vital signs: Temperature 97.9, pulse 68, respiratory rate is 20, blood pressure is 111/55, pulse oximetry is 95%. LABORATORY DATA: His CBC and CMP are within normal limits. However, his TSH was high. He is on levothyroxine. His toxicology was positive for cannabis. DIAGNOSIS: 1. Psychotic disorder, unspecified. 2. Rule out schizophrenia spectrum disorder. 3. Cannabis use disorder. PLAN: Increase his Zyprexa to 15 mg at night. Add depakote 250 mg twice daily VITAL SIGNS: See below. Vital Signs Vital Signs Date Time Temp Pulse Resp B/P (MAP) Pulse Ox O2 Delivery O2 Flow Rate FiO2 08/18/20 07:17 97.7 50 14 122/64 (83) 95 Room Air Current Medications Current Medications Medications (Trade) Dose Ordered Sig/Eris Route PRN Reason Start Time Stop Time Status Last Admin Dose Admin Acetaminophen (Tylenol Tab) 650 mg Q6HP PRN PO HEADACHE or DISCOMFORT 08/13/20 17:30 08/13/20 22:24 Al Hydrox/Mg Hydrox/Simethicone (Mylanta) 30 ml Q4HP PRN PO HEARTBURN/INDIGESTION 08/13/20 17:30 Divalproex Sodium (Depakote) 250 mg BID PO 08/18/20 21:00 Fluoxetine HCl (PROzac) 10 mg QAM PO 08/14/20 09:00 08/18/20 09:29 Home Med (Med Rec Complete!) ASDIRECTED XX 08/13/20 17:45 08/13/20 17:47 DC Levothyroxine Sodium (Synthroid) 88 mcg DAILY@0600 PO 08/15/20 06:00 08/18/20 06:14 Magnesium Hydroxide (Milk Of Magnesia) 30 ml DAILYPRN PRN PO CONSTIPATION 08/13/20 17:30 Olanzapine (ZyPREXA) 5 mg QHS PO 08/14/20 21:00 08/17/20 14:54 DC 08/16/20 21:53 Olanzapine (ZyPREXA) 10 mg QHS PO 08/17/20 21:00 08/18/20 14:08 DC 08/17/20 21:36 Olanzapine (ZyPREXA) 15 mg QHS PO 08/18/20 21:00 Trazodone HCl (Desyrel) 50 mg QHSP PRN PO INSOMNIA 08/13/20 17:30 08/16/20 23:28 Allergies Coded Allergies: No Known Drug Allergies (Verified Allergy, Unknown, 11/21/19) LYNN TROY MD Aug 18, 2020 14:23
[2020-08-18 18:01] VITALS: BP 135/65
[2020-08-18] MEDS ORDERED: OLANZapine 5 MG TAB PO SCH (21:00)
[2020-08-18] MEDS: traZODone 50 MG TAB PO PRN (21:34)
[2020-08-18] MEDS: DIVALPROEX 250 MG TAB PO SCH (21:34)
[2020-08-19 06:00] VITALS: BP 133/60
[2020-08-19] MEDS: LEVOTHYROXINE 88MCG TABLET (0.088 MG) PO SCH (06:12)
[2020-08-19] MEDS: FLUoxetine 10 MG CAP PO SCH (09:23)
[2020-08-19] MEDS: DIVALPROEX 250 MG TAB PO SCH ×3 (09:23→21:05)
--- NOTE | 2020-08-19 10:32 | MHIPNPDOC ---
[facility] Progress Note Progress Note DATE OF SERVICE: 08/19/20 SUBJECTIVE: " I still have some visual hallucinations. I see things and hear things but I don't want to kill myself." denies any side effects of medications OBJECTIVE: He is a 20-year-old male, single, who lives in an apartment provided by [facility], was admitted because he called the police as he was getting increasingly depressed and had suicidal thoughts with plans. He has been diagnosed with schizophrenia, noncompliant with his medications. Currently, attending groups but still has some psychotic symptoms. Pt showing some frustration. But ants to comply with treatment recommendations.Continues to have AH and VH Reportedly started after drug use. MENTAL STATUS EXAMINATION: Casually dressed, cooperative. His behavior sometimes is odd. He believes in mind control. Psychomotor activity is normal. Speech, rate, rhythm and volume are good. Thought content: Denied any suicidal or homicidal thoughts Complains of auditory and visual hallucinations. Insight and judgment are poor. Memory for recent and remote is good. . LABORATORY DATA: His CBC and CMP are within normal limits. However, his TSH was high. He is on levothyroxine. His toxicology was positive for cannabis. DIAGNOSIS: 1. Psychotic disorder, unspecified. 2. Rule out schizophrenia spectrum disorder. 3. Cannabis use disorder. PLAN: Increase his Zyprexa to 20 mg at night. increase depakote 250 mg tid TIME SPENT: 25 minutes. Vital Signs Vital Signs Date Time Temp Pulse Resp B/P (MAP) Pulse Ox O2 Delivery O2 Flow Rate FiO2 08/19/20 06:00 97.8 92 16 133/60 (84) 100 08/18/20 07:17 Room Air Current Medications Current Medications Medications (Trade) Dose Ordered Sig/Eris Route PRN Reason Start Time Stop Time Status Last Admin Dose Admin Acetaminophen (Tylenol Tab) 650 mg Q6HP PRN PO HEADACHE or DISCOMFORT 08/13/20 17:30 08/13/20 22:24 Al Hydrox/Mg Hydrox/Simethicone (Mylanta) 30 ml Q4HP PRN PO HEARTBURN/INDIGESTION 08/13/20 17:30 Divalproex Sodium (Depakote) 250 mg BID PO 08/18/20 21:00 08/19/20 10:27 DC 08/19/20 09:23 Divalproex Sodium (Depakote) 250 mg TID PO 08/19/20 16:00 UNV Fluoxetine HCl (PROzac) 10 mg QAM PO 08/14/20 09:00 08/19/20 09:23 Home Med (Med Rec Complete!) ASDIRECTED XX 08/13/20 17:45 08/13/20 17:47 DC Levothyroxine Sodium (Synthroid) 88 mcg DAILY@0600 PO 08/15/20 06:00 08/19/20 06:12 Magnesium Hydroxide (Milk Of Magnesia) 30 ml DAILYPRN PRN PO CONSTIPATION 08/13/20 17:30 Olanzapine (ZyPREXA) 5 mg QHS PO 08/14/20 21:00 08/17/20 14:54 DC 08/16/20 21:53 Olanzapine (ZyPREXA) 10 mg QHS PO 08/17/20 21:00 08/18/20 14:08 DC 08/17/20 21:36 Olanzapine (ZyPREXA) 15 mg QHS PO 08/18/20 21:00 08/19/20 10:27 DC 08/18/20 21:34 Trazodone HCl (Desyrel) 50 mg QHSP PRN PO INSOMNIA 08/13/20 17:30 08/18/20 21:34 Allergies Coded Allergies: No Known Drug Allergies (Verified Allergy, Unknown, 11/21/19) LYNN TROY MD Aug 19, 2020 10:32
[2020-08-19 17:54] VITALS: BP 162/85
[2020-08-19] MEDS: PRAZOSIN 1 MG CAP PO SCH (21:03)
[2020-08-19] MEDS: OLANZapine 10 MG TAB PO SCH (21:03)
[2020-08-19] MEDS ORDERED: LORazepam 2 MG TAB PO ONE (22:50)
[2020-08-19] MEDS ORDERED: diphenhydrAMINE 50MG CAP PO ONE (22:50)
[2020-08-20] MEDS: LEVOTHYROXINE 88MCG TABLET (0.088 MG) PO SCH (06:39)
[2020-08-20] MEDS: FLUoxetine 10 MG CAP PO SCH (10:14)
[2020-08-20] MEDS: DIVALPROEX 250 MG TAB PO SCH ×3 (10:14→21:32)
--- NOTE | 2020-08-20 15:11 | MHIPNPDOC ---
[facility] Progress Note Progress Note DATE OF SERVICE: 08/20/20 DATE OF SERVICE: 08/19/20 SUBJECTIVE: " I still have some visual hallucinations. I see things and hear things but I don't want to kill myself." denies any side effects of medications. I am slightly better.PT sleeping a lot OBJECTIVE: He is a 20-year-old male, single, who lives in an apartment provided by [facility], was admitted because he called the police as he was getting increasingly depressed and had suicidal thoughts with plans. He has been diagnosed with schizophrenia, noncompliant with his medications. Currently, attending groups but still has some psychotic symptoms. Pt showing some frustration. But ants to comply with treatment recommendations.Continues to have AH and VH Reportedly started after drug use.Increased sedation probably due to medications. MENTAL STATUS EXAMINATION: Casually dressed, cooperative. His behavior sometimes is odd. He believes in mind control. Psychomotor activity is normal. Speech, rate, rhythm and volume are good. Thought content: Denied any suicidal or homicidal thoughts Complains of auditory and visual hallucinations. Insight and judgment are poor. Memory for recent and remote is good. . LABORATORY DATA: His CBC and CMP are within normal limits. However, his TSH was high. He is on levothyroxine. His toxicology was positive for cannabis. DIAGNOSIS: 1. Psychotic disorder, unspecified. 2. Rule out schizophrenia spectrum disorder. 3. Cannabis use disorder. PLAN: Increase his Zyprexa to 20 mg at night. increase depakote 250 mg tid TIME SPENT: 25 minutes. Vital Signs Vital Signs Date Time Temp Pulse Resp B/P (MAP) Pulse Ox O2 Delivery O2 Flow Rate FiO2 08/19/20 21:03 150/68 08/19/20 17:54 98.0 63 16 95 08/18/20 07:17 Room Air Current Medications Current Medications Medications (Trade) Dose Ordered Sig/Eris Route PRN Reason Start Time Stop Time Status Last Admin Dose Admin Acetaminophen (Tylenol Tab) 650 mg Q6HP PRN PO HEADACHE or DISCOMFORT 08/13/20 17:30 08/13/20 22:24 Al Hydrox/Mg Hydrox/Simethicone (Mylanta) 30 ml Q4HP PRN PO HEARTBURN/INDIGESTION 08/13/20 17:30 Divalproex Sodium (Depakote) 250 mg BID PO 08/18/20 21:00 08/19/20 10:27 DC 08/19/20 09:23 Divalproex Sodium (Depakote) 250 mg TID PO 08/19/20 16:00 08/20/20 10:14 Fluoxetine HCl (PROzac) 10 mg QAM PO 08/14/20 09:00 08/20/20 10:14 Home Med (Med Rec Complete!) ASDIRECTED XX 08/13/20 17:45 08/13/20 17:47 DC Levothyroxine Sodium (Synthroid) 88 mcg DAILY@0600 PO 08/15/20 06:00 08/20/20 06:39 Magnesium Hydroxide (Milk Of Magnesia) 30 ml DAILYPRN PRN PO CONSTIPATION 08/13/20 17:30 Olanzapine (ZyPREXA) 5 mg QHS PO 08/14/20 21:00 08/17/20 14:54 DC 08/16/20 21:53 Olanzapine (ZyPREXA) 10 mg QHS PO 08/17/20 21:00 08/18/20 14:08 DC 08/17/20 21:36 Olanzapine (ZyPREXA) 15 mg QHS PO 08/18/20 21:00 08/19/20 10:27 DC 08/18/20 21:34 Olanzapine (ZyPREXA) 20 mg QHS PO 08/19/20 21:00 08/19/20 21:03 Prazosin HCl (Minipress) 1 mg QHS PO 08/19/20 21:00 08/19/20 21:03 Trazodone HCl (Desyrel) 50 mg QHSP PRN PO INSOMNIA 08/13/20 17:30 08/18/20 21:34 Allergies Coded Allergies: No Known Drug Allergies (Verified Allergy, Unknown, 11/21/19) LYNN TROY MD Aug 20, 2020 15:11
[2020-08-20 16:00] VITALS: BP_SYST 115; BP_SYST 148; BP_DIAS 65
[2020-08-20] MEDS: OLANZapine 10 MG TAB PO SCH (21:35)
[2020-08-20] MEDS: PRAZOSIN 1 MG CAP PO SCH (21:35)
[2020-08-20] MEDS: traZODone 50 MG TAB PO PRN (21:35)
[2020-08-21] MEDS: LEVOTHYROXINE 88MCG TABLET (0.088 MG) PO SCH (06:26)
[2020-08-21 06:39] VITALS: BP 99/51
[2020-08-21] MEDS: FLUoxetine 10 MG CAP PO SCH (09:04)
[2020-08-21] MEDS: DIVALPROEX 250 MG TAB PO SCH ×3 (09:04→20:15)
[2020-08-21] MEDS: risperiDONE 2 MG TAB PO SCH ×2 (12:56→20:14)
[2020-08-21] MEDS: BENZTROPINE 0.5 MG TAB PO SCH ×2 (12:56→20:15)
--- NOTE | 2020-08-21 14:27 | MHIPNPDOC ---
[facility] Progress Note Progress Note DATE OF SERVICE: 08/21/20 SUBJECTIVE: " I still have some visual hallucinations. I see things " denies any side effects of medications. I am slightly better.PT sleeping a lot OBJECTIVE: He is a 20-year-old male, single, who lives in an apartment provided by [facility], was admitted because he called the police as he was getting increasingly depressed and had suicidal thoughts with plans. He has been diagnosed with schizophrenia, noncompliant with his medications. Currently, attending groups but still has some psychotic symptoms. Pt showing some frustration. But ants to comply with treatment recommendations.Continues to have AH and VH Reportedly started after drug use.Increased sedation probably due to medications.Reports medications not helping him He has sexual pre occupation. MENTAL STATUS EXAMINATION: Casually dressed, cooperative. His behavior sometimes is odd. He believes in mind control. Psychomotor activity is normal. Speech, rate, rhythm and volume are good. Thought content: Denied any suicidal or homicidal thoughts Complains of auditory and visual hallucinations. Insight and judgment are poor. Memory for recent and remote is good. . LABORATORY DATA: His CBC and CMP are within normal limits. However, his TSH was high. He is on levothyroxine. His toxicology was positive for cannabis. DIAGNOSIS: 1. Psychotic disorder, unspecified. 2. Rule out schizophrenia spectrum disorder. 3. Cannabis use disorder. PLAN: . Decrease zyprexa 5 mg hs and add risperdal 2mg bid which might help him with sexual preoccupation. also. TIME SPENT: 25 minutes. Vital Signs Vital Signs Date Time Temp Pulse Resp B/P (MAP) Pulse Ox O2 Delivery O2 Flow Rate FiO2 08/21/20 06:39 98.2 52 16 99/51 (67) 98 Room Air Current Medications Current Medications Medications (Trade) Dose Ordered Sig/Eris Route PRN Reason Start Time Stop Time Status Last Admin Dose Admin Acetaminophen (Tylenol Tab) 650 mg Q6HP PRN PO HEADACHE or DISCOMFORT 08/13/20 17:30 08/13/20 22:24 Al Hydrox/Mg Hydrox/Simethicone (Mylanta) 30 ml Q4HP PRN PO HEARTBURN/INDIGESTION 08/13/20 17:30 Benztropine Mesylate (Cogentin) 0.5 mg BID PO 08/21/20 09:00 08/21/20 12:56 Divalproex Sodium (Depakote) 250 mg BID PO 08/18/20 21:00 08/19/20 10:27 DC 08/19/20 09:23 Divalproex Sodium (Depakote) 250 mg TID PO 08/19/20 16:00 08/21/20 09:04 Fluoxetine HCl (PROzac) 10 mg QAM PO 08/14/20 09:00 08/21/20 09:04 Home Med (Med Rec Complete!) ASDIRECTED XX 08/13/20 17:45 08/13/20 17:47 DC Levothyroxine Sodium (Synthroid) 88 mcg DAILY@0600 PO 08/15/20 06:00 08/21/20 06:26 Magnesium Hydroxide (Milk Of Magnesia) 30 ml DAILYPRN PRN PO CONSTIPATION 08/13/20 17:30 Olanzapine (ZyPREXA) 5 mg QHS PO 08/14/20 21:00 08/17/20 14:54 DC 08/16/20 21:53 Olanzapine (ZyPREXA) 5 mg QHS PO 08/21/20 21:00 Olanzapine (ZyPREXA) 10 mg QHS PO 08/17/20 21:00 08/18/20 14:08 DC 08/17/20 21:36 Olanzapine (ZyPREXA) 15 mg QHS PO 08/18/20 21:00 08/19/20 10:27 DC 08/18/20 21:34 Olanzapine (ZyPREXA) 20 mg QHS PO 08/19/20 21:00 08/21/20 11:45 DC 08/20/20 21:35 Prazosin HCl (Minipress) 1 mg QHS PO 08/19/20 21:00 08/20/20 21:35 Risperidone (RisperDAL) 2 mg BID PO 08/21/20 09:00 08/21/20 12:56 Trazodone HCl (Desyrel) 50 mg QHSP PRN PO INSOMNIA 08/13/20 17:30 08/20/20 21:35 Allergies Coded Allergies: No Known Drug Allergies (Verified Allergy, Unknown, 11/21/19) LYNN TROY MD Aug 21, 2020 14:27
[2020-08-21] MEDS ORDERED: LORazepam 1 MG TAB PO ONE (15:00)
[2020-08-21] MEDS ORDERED: risperiDONE 1 MG TAB PO ONE (15:00)
[2020-08-21 19:49] VITALS: BP 122/77
[2020-08-21] MEDS: PRAZOSIN 1 MG CAP PO SCH (20:14)
[2020-08-21] MEDS: OLANZapine 10 MG TAB PO SCH (20:15)
[2020-08-22] MEDS: LEVOTHYROXINE 88MCG TABLET (0.088 MG) PO SCH (06:09)
[2020-08-22 08:09] VITALS: BP 114/57
[2020-08-22] MEDS: FLUoxetine 10 MG CAP PO SCH (09:17)
[2020-08-22] MEDS: BENZTROPINE 0.5 MG TAB PO SCH ×2 (09:17→21:02)
[2020-08-22] MEDS: risperiDONE 2 MG TAB PO SCH ×2 (09:17→21:02)
[2020-08-22] MEDS: DIVALPROEX 250 MG TAB PO SCH ×3 (09:18→21:02)
[2020-08-22 16:49] VITALS: BP 142/63
[2020-08-22] MEDS: traZODone 50 MG TAB PO PRN (21:02)
[2020-08-22] MEDS: PRAZOSIN 1 MG CAP PO SCH (21:02)
[2020-08-22] MEDS: OLANZapine 10 MG TAB PO SCH (21:02)
[2020-08-23 06:00] VITALS: BP 115/57
[2020-08-23] MEDS: LEVOTHYROXINE 88MCG TABLET (0.088 MG) PO SCH (06:19)
[2020-08-23] MEDS: FLUoxetine 10 MG CAP PO SCH (09:02)
[2020-08-23] MEDS: DIVALPROEX 250 MG TAB PO SCH ×3 (09:02→20:23)
[2020-08-23] MEDS: BENZTROPINE 0.5 MG TAB PO SCH ×2 (09:02→20:22)
[2020-08-23] MEDS: risperiDONE 2 MG TAB PO SCH ×2 (09:02→21:11)
[2020-08-23] MEDS: ACETAMINOPHEN TAB 650MG DOSE (2X325MG) PO PRN (11:43)
[2020-08-23 19:15] VITALS: BP 141/78
[2020-08-23] MEDS: PRAZOSIN 1 MG CAP PO SCH (20:22)
[2020-08-23] MEDS: OLANZapine 10 MG TAB PO SCH (20:22)
[2020-08-23] MEDS: traZODone 50 MG TAB PO PRN (20:22)
[2020-08-24] MEDS: LEVOTHYROXINE 88MCG TABLET (0.088 MG) PO SCH (06:01)
[2020-08-24 06:33] VITALS: BP 120/59
[2020-08-24] MEDS: DIVALPROEX 250 MG TAB PO SCH ×3 (09:30→20:19)
[2020-08-24] MEDS: BENZTROPINE 0.5 MG TAB PO SCH ×2 (09:30→20:19)
[2020-08-24] MEDS: FLUoxetine 10 MG CAP PO SCH (09:30)
[2020-08-24] MEDS: risperiDONE 2 MG TAB PO SCH (09:31)
--- NOTE | 2020-08-24 14:40 | MHIPNPDOC ---
[facility] Progress Note Progress Note DATE OF SERVICE: 08/24/20 SUBJECTIVE: " I still have some visual hallucinations. I see things " My sexual preoccupation is less. denies any side effects of medications. I am slightly better.PT sleeping a lot OBJECTIVE: He is a 20-year-old male, single, who lives in an apartment provided by [facility], was admitted because he called the police as he was getting increasingly depressed and had suicidal thoughts with plans. He has been diagnosed with schizophrenia, noncompliant with his medications. Currently, attending groups but still has some psychotic symptoms. Pt showing some frustration. But wants to comply with treatment recommendations.Thoughts of sexual nature is less.c/o AH which are less. MENTAL STATUS EXAMINATION: Casually dressed, cooperative. His behavior sometimes is odd. He believes in mind control. Psychomotor activity is normal. Speech, rate, rhythm and volume are good. Thought content: Denied any suicidal or homicidal thoughts Complains of auditory and visual hallucinations. Insight and judgment are poor. Memory for recent and remote is good. . LABORATORY DATA: His CBC and CMP are within normal limits. However, his TSH was high. He is on levothyroxine. His toxicology was positive for cannabis. DIAGNOSIS: 1. Psychotic disorder, unspecified. 2. Rule out schizophrenia spectrum disorder. 3. Cannabis use disorder. PLAN: Change Risperdal to 2 mg am and 3 mg hs TIME SPENT: 25 minutes. Vital Signs Vital Signs Date Time Temp Pulse Resp B/P (MAP) Pulse Ox O2 Delivery O2 Flow Rate FiO2 08/24/20 06:33 97.5 69 12 120/59 (79) 100 Room Air Current Medications Current Medications Medications (Trade) Dose Ordered Sig/Eris Route PRN Reason Start Time Stop Time Status Last Admin Dose Admin Acetaminophen (Tylenol Tab) 650 mg Q6HP PRN PO HEADACHE or DISCOMFORT 08/13/20 17:30 08/23/20 11:43 Al Hydrox/Mg Hydrox/Simethicone (Mylanta) 30 ml Q4HP PRN PO HEARTBURN/INDIGESTION 08/13/20 17:30 Benztropine Mesylate (Cogentin) 0.5 mg BID PO 08/21/20 09:00 08/24/20 09:30 Divalproex Sodium (Depakote) 250 mg BID PO 08/18/20 21:00 08/19/20 10:27 DC 08/19/20 09:23 Divalproex Sodium (Depakote) 250 mg TID PO 08/19/20 16:00 08/24/20 09:30 Fluoxetine HCl (PROzac) 10 mg QAM PO 08/14/20 09:00 08/24/20 09:30 Home Med (Med Rec Complete!) ASDIRECTED XX 08/13/20 17:45 08/13/20 17:47 DC Levothyroxine Sodium (Synthroid) 88 mcg DAILY@0600 PO 08/15/20 06:00 08/24/20 06:01 Magnesium Hydroxide (Milk Of Magnesia) 30 ml DAILYPRN PRN PO CONSTIPATION 08/13/20 17:30 Olanzapine (ZyPREXA) 5 mg QHS PO 08/14/20 21:00 08/17/20 14:54 DC 08/16/20 21:53 Olanzapine (ZyPREXA) 5 mg QHS PO 08/21/20 21:00 08/23/20 20:22 Olanzapine (ZyPREXA) 10 mg QHS PO 08/17/20 21:00 08/18/20 14:08 DC 08/17/20 21:36 Olanzapine (ZyPREXA) 15 mg QHS PO 08/18/20 21:00 08/19/20 10:27 DC 08/18/20 21:34 Olanzapine (ZyPREXA) 20 mg QHS PO 08/19/20 21:00 08/21/20 11:45 DC 08/20/20 21:35 Prazosin HCl (Minipress) 1 mg QHS PO 08/19/20 21:00 08/23/20 20:22 Risperidone (RisperDAL) 2 mg BID PO 08/21/20 09:00 08/24/20 14:26 DC 08/24/20 09:31 Risperidone (RisperDAL) 2 mg QAM PO 08/25/20 09:00 UNV Risperidone (RisperDAL) 3 mg QHS PO 08/24/20 21:00 UNV Trazodone HCl (Desyrel) 50 mg QHSP PRN PO INSOMNIA 08/13/20 17:30 08/23/20 20:22 Allergies Coded Allergies: No Known Drug Allergies (Verified Allergy, Unknown, 11/21/19) LYNN TROY MD Aug 24, 2020 14:40
[2020-08-24 16:00] VITALS: BP 140/74
[2020-08-24] MEDS: OLANZapine 10 MG TAB PO SCH (20:19)
[2020-08-24] MEDS: traZODone 50 MG TAB PO PRN (20:19)
[2020-08-24] MEDS: PRAZOSIN 1 MG CAP PO SCH (20:19)
[2020-08-24] MEDS: risperiDONE 3 MG TAB PO SCH (20:19)
[2020-08-25] MEDS: LEVOTHYROXINE 88MCG TABLET (0.088 MG) PO SCH (05:52)
[2020-08-25 06:50] VITALS: BP 111/51
[2020-08-25] MEDS: risperiDONE 2 MG TAB PO SCH (09:01)
[2020-08-25] MEDS: DIVALPROEX 250 MG TAB PO SCH ×3 (09:02→20:44)
[2020-08-25] MEDS: FLUoxetine 10 MG CAP PO SCH (09:02)
[2020-08-25] MEDS: BENZTROPINE 0.5 MG TAB PO SCH ×2 (09:02→20:44)
--- NOTE | 2020-08-25 16:14 | MHIPNPDOC ---
[facility] Progress Note Progress Note DATE OF SERVICE: 08/25/20 SUBJECTIVE: " I still have some visual hallucinations. I see things " My sexual preoccupation is less.Those hallucinations have not gone away, but I ignore them". denies any side effects of medications. OBJECTIVE: He is a 20-year-old male, single, who lives in an apartment provided by [facility], was admitted because he called the police as he was getting increasingly depressed and had suicidal thoughts with plans. He has been diagnosed with schizophrenia, noncompliant with his medications. Currently, attending groups but still has some psychotic symptoms. Pt showing some frustration. But wants to comply with treatment recommendations.Thoughts of sexual nature is less.Reports AH which are less. MENTAL STATUS EXAMINATION: Casually dressed, cooperative. His behavior sometimes is odd. He believes in mind control. Psychomotor activity is normal. Speech, rate, rhythm and volume are good. Thought content: Denied any suicidal or homicidal thoughts Complains of auditory and visual hallucinations. Insight and judgment are poor. Memory for recent and remote is good. . LABORATORY DATA: His CBC and CMP are within normal limits. However, his TSH was high. He is on levothyroxine. His toxicology was positive for cannabis. DIAGNOSIS: 1. Psychotic disorder, unspecified. 2. Rule out schizophrenia spectrum disorder. 3. Cannabis use disorder. PLAN: Change Risperdal to 2 mg am and 3 mg hs TIME SPENT: 25 minutes. Vital Signs Vital Signs Date Time Temp Pulse Resp B/P (MAP) Pulse Ox O2 Delivery O2 Flow Rate FiO2 08/25/20 06:50 98.7 57 16 111/51 (71) 96 Room Air Current Medications Current Medications Medications (Trade) Dose Ordered Sig/Eris Route PRN Reason Start Time Stop Time Status Last Admin Dose Admin Acetaminophen (Tylenol Tab) 650 mg Q6HP PRN PO HEADACHE or DISCOMFORT 08/13/20 17:30 08/23/20 11:43 Al Hydrox/Mg Hydrox/Simethicone (Mylanta) 30 ml Q4HP PRN PO HEARTBURN/INDIGESTION 08/13/20 17:30 Benztropine Mesylate (Cogentin) 0.5 mg BID PO 08/21/20 09:00 08/25/20 09:02 Divalproex Sodium (Depakote) 250 mg BID PO 08/18/20 21:00 08/19/20 10:27 DC 08/19/20 09:23 Divalproex Sodium (Depakote) 250 mg TID PO 08/19/20 16:00 08/25/20 15:28 Fluoxetine HCl (PROzac) 10 mg QAM PO 08/14/20 09:00 08/25/20 09:02 Home Med (Med Rec Complete!) ASDIRECTED XX 08/13/20 17:45 08/13/20 17:47 DC Levothyroxine Sodium (Synthroid) 88 mcg DAILY@0600 PO 08/15/20 06:00 08/25/20 05:52 Magnesium Hydroxide (Milk Of Magnesia) 30 ml DAILYPRN PRN PO CONSTIPATION 08/13/20 17:30 Olanzapine (ZyPREXA) 5 mg QHS PO 08/14/20 21:00 08/17/20 14:54 DC 08/16/20 21:53 Olanzapine (ZyPREXA) 5 mg QHS PO 08/21/20 21:00 08/24/20 20:19 Olanzapine (ZyPREXA) 10 mg QHS PO 08/17/20 21:00 08/18/20 14:08 DC 08/17/20 21:36 Olanzapine (ZyPREXA) 15 mg QHS PO 08/18/20 21:00 08/19/20 10:27 DC 08/18/20 21:34 Olanzapine (ZyPREXA) 20 mg QHS PO 08/19/20 21:00 08/21/20 11:45 DC 08/20/20 21:35 Prazosin HCl (Minipress) 1 mg QHS PO 08/19/20 21:00 08/24/20 20:19 Risperidone (RisperDAL) 2 mg BID PO 08/21/20 09:00 08/24/20 14:26 DC 08/24/20 09:31 Risperidone (RisperDAL) 2 mg QAM PO 08/25/20 09:00 08/25/20 09:01 Risperidone (RisperDAL) 3 mg QHS PO 08/24/20 21:00 08/24/20 20:19 Trazodone HCl (Desyrel) 50 mg QHSP PRN PO INSOMNIA 08/13/20 17:30 08/24/20 20:19 Allergies Coded Allergies: No Known Drug Allergies (Verified Allergy, Unknown, 11/21/19) LYNN TROY MD Aug 25, 2020 16:14
[2020-08-25 16:23] VITALS: BP 132/60
[2020-08-25] MEDS: OLANZapine 10 MG TAB PO SCH (20:44)
[2020-08-25] MEDS: traZODone 50 MG TAB PO PRN (20:44)
[2020-08-25] MEDS: risperiDONE 3 MG TAB PO SCH (20:44)
[2020-08-25] MEDS: PRAZOSIN 1 MG CAP PO SCH (20:44)
[2020-08-26] MEDS: LEVOTHYROXINE 88MCG TABLET (0.088 MG) PO SCH (05:45)
[2020-08-26 06:07] VITALS: BP 114/61
[2020-08-26] MEDS: DIVALPROEX 250 MG TAB PO SCH ×3 (08:37→20:54)
[2020-08-26] MEDS: risperiDONE 2 MG TAB PO SCH (08:37)
[2020-08-26] MEDS: BENZTROPINE 0.5 MG TAB PO SCH ×2 (08:37→20:54)
[2020-08-26] MEDS: FLUoxetine 10 MG CAP PO SCH (08:37)
--- NOTE | 2020-08-26 10:51 | MHIPNPDOC ---
[facility] Progress Note Progress Note DATE OF SERVICE: 08/26/20 SUBJECTIVE: " I still have some visual hallucinations. I see things " My sexual preoccupation is less.Those hallucinations have not gone away, but I ignore them". denies any side effects of medications. OBJECTIVE: He is a 20-year-old male, single, who lives in an apartment provided by [facility], was admitted because he called the police as he was getting increasingly depressed and had suicidal thoughts with plans. He has been diagnosed with schizophrenia, noncompliant with his medications. Currently, attending groups but still has some psychotic symptoms. Pt showing some frustration. But wants to comply with treatment recommendations.Thoughts of sexual nature is less.Reports AH which are less. He reports his hallucinations are less and they do not bother him. MENTAL STATUS EXAMINATION: Casually dressed, cooperative. His behavior sometimes is odd. He believes in mind control. Psychomotor activity is normal. Speech, rate, rhythm and volume are good. Thought content: Denied any suicidal or homicidal thoughts Complains of auditory and visual hallucinations. Insight and judgment are poor. Memory for recent and remote is good. . LABORATORY DATA: His CBC and CMP are within normal limits. However, his TSH was high. He is on levothyroxine. His toxicology was positive for cannabis. DIAGNOSIS: 1. Psychotic disorder, unspecified. 2. Rule out schizophrenia spectrum disorder. 3. Cannabis use disorder. PLAN: Change Risperdal to 2 mg am and 3 mg hs consider discharging him tomorrow. TIME SPENT: 25 minutes. Vital Signs Vital Signs Date Time Temp Pulse Resp B/P (MAP) Pulse Ox O2 Delivery O2 Flow Rate FiO2 08/26/20 08:12 Room Air 08/26/20 06:07 98.7 52 16 114/61 (76) 96 Current Medications Current Medications Medications (Trade) Dose Ordered Sig/Eris Route PRN Reason Start Time Stop Time Status Last Admin Dose Admin Acetaminophen (Tylenol Tab) 650 mg Q6HP PRN PO HEADACHE or DISCOMFORT 08/13/20 17:30 08/23/20 11:43 Al Hydrox/Mg Hydrox/Simethicone (Mylanta) 30 ml Q4HP PRN PO HEARTBURN/INDIGESTION 08/13/20 17:30 Benztropine Mesylate (Cogentin) 0.5 mg BID PO 08/21/20 09:00 08/26/20 08:37 Divalproex Sodium (Depakote) 250 mg BID PO 08/18/20 21:00 08/19/20 10:27 DC 08/19/20 09:23 Divalproex Sodium (Depakote) 250 mg TID PO 08/19/20 16:00 08/26/20 08:37 Fluoxetine HCl (PROzac) 10 mg QAM PO 08/14/20 09:00 08/26/20 08:37 Home Med (Med Rec Complete!) ASDIRECTED XX 08/13/20 17:45 08/13/20 17:47 DC Levothyroxine Sodium (Synthroid) 88 mcg DAILY@0600 PO 08/15/20 06:00 08/26/20 05:45 Magnesium Hydroxide (Milk Of Magnesia) 30 ml DAILYPRN PRN PO CONSTIPATION 08/13/20 17:30 Olanzapine (ZyPREXA) 5 mg QHS PO 08/14/20 21:00 08/17/20 14:54 DC 08/16/20 21:53 Olanzapine (ZyPREXA) 5 mg QHS PO 08/21/20 21:00 08/25/20 20:44 Olanzapine (ZyPREXA) 10 mg QHS PO 08/17/20 21:00 08/18/20 14:08 DC 08/17/20 21:36 Olanzapine (ZyPREXA) 15 mg QHS PO 08/18/20 21:00 08/19/20 10:27 DC 08/18/20 21:34 Olanzapine (ZyPREXA) 20 mg QHS PO 08/19/20 21:00 08/21/20 11:45 DC 08/20/20 21:35 Prazosin HCl (Minipress) 1 mg QHS PO 08/19/20 21:00 08/25/20 20:44 Risperidone (RisperDAL) 2 mg BID PO 08/21/20 09:00 08/24/20 14:26 DC 08/24/20 09:31 Risperidone (RisperDAL) 2 mg QAM PO 08/25/20 09:00 08/26/20 08:37 Risperidone (RisperDAL) 3 mg QHS PO 08/24/20 21:00 08/25/20 20:44 Trazodone HCl (Desyrel) 50 mg QHSP PRN PO INSOMNIA 08/13/20 17:30 08/25/20 20:44 Allergies Coded Allergies: No Known Drug Allergies (Verified Allergy, Unknown, 11/21/19) LYNN TROY MD Aug 26, 2020 10:51
[2020-08-26 16:29] VITALS: BP 144/68
[2020-08-26] MEDS: OLANZapine 10 MG TAB PO SCH (20:52)
[2020-08-26] MEDS: traZODone 50 MG TAB PO PRN (20:54)
[2020-08-26] MEDS: risperiDONE 3 MG TAB PO SCH (20:54)
[2020-08-26 20:55] VITALS: BP 139/78
[2020-08-26] MEDS: PRAZOSIN 1 MG CAP PO SCH (20:55)
[2020-08-27] MEDS: LEVOTHYROXINE 88MCG TABLET (0.088 MG) PO SCH (06:20)
[2020-08-27 06:25] VITALS: BP 134/60
[2020-08-27] MEDS: BENZTROPINE 0.5 MG TAB PO SCH (08:14)
[2020-08-27] MEDS: risperiDONE 2 MG TAB PO SCH (08:14)
[2020-08-27] MEDS: DIVALPROEX 250 MG TAB PO SCH (08:14)
[2020-08-27] MEDS: FLUoxetine 10 MG CAP PO SCH (08:14)
[2020-08-27] MEDS ORDERED: DEPA250T32 PO (09:22)
[2020-08-27] MEDS ORDERED: BENZ0.5T23 PO (09:22)
[2020-08-27] MEDS ORDERED: RISP-10 PO (09:22)
[2020-08-27] MEDS ORDERED: FLUO10CA16 PO (09:22)
[2020-08-27] MEDS ORDERED: RISP-9 PO (09:22)
[2020-08-27] MEDS ORDERED: SYNT88TA2 PO (09:22)
[2020-08-27] MEDS ORDERED: MINI1CAP PO (09:22)
--- NOTE | 2020-08-27 10:58 | MHDS ---
DISCHARGE SUMMARY DATE OF ADMISSION: 08/13/2020 DATE OF DISCHARGE: 08/27/2020 DIAGNOSES: 1. Schizophrenia spectrum disorder; rule out schizophrenia. 2. Cannabis use disorder. IDENTIFYING DATA: This is a 20-year-old male, single living in his own apartment provided by [facility] currently unemployed, who was admitted because of suicidal thoughts. The patient reportedly tried to commit suicide and called the police. He had multiple psychiatric hospitalizations. For details of HPI, past psychiatric history, and substance abuse history, please refer to the initial evaluation. HOSPITAL COURSE: The patient initially was depressed. He had auditory and visual hallucinations and bizarre delusions. He was on Zyprexa, continued to have the symptoms, and also he started having sexual preoccupation. His medication was changed to risperidone, which was titrated upward. The patient also received individual, group, and milieu therapy. He made gradual recovery. His sexual preoccupation resolved, but the residual hallucinations were still there, but the patient reported that it is minimum and he does not listen to them. His sleep improved. There were no behavioral issues on the unit. He denied any side effects from the medication. He was stable at the time of discharge. MENTAL STATUS EXAMINATION: Neatly dressed and cooperative male with good eye contact. Speech rate, rhythm, and volume are good. Psychomotor activity is normal. Thought process linear and goal directed. Thought content denied any suicidal or homicidal ideas. Perception auditory and visual hallucinations are minimal. Insight and judgment are fair to good. Memory immediate, remote, and recent are good. VITAL SIGNS: Temperature 99.4, pulse 73, respiratory rate 16, blood pressure 134/60, pulse oximetry 97%. LABORATORY DATA: CBC within normal limits. CMP within normal limits. His TSH was high and he is currently on levothyroxine. His toxicology was positive for cannabis. DISPOSITION: The patient will be discharged to home. [facility]. The patient will be given follow-up with medical providers also. DISCHARGE MEDICATIONS: 1. Risperidone 2 mg in the a.m. and 3 mg at night. 2. Benztropine 0.5 mg b.i.d. 3. Prazosin 1 mg at night. 4. Depakote 250 mg t.i.d. 5. Levothyroxine 88 mcg daily. 6. Fluoxetine 10 mg once daily. Time spent on discharge less than 30 minutes. MTDD
== END 2020-08-27 11:23 | disposition home or self-care (01) | DRG 751 ==
LOC: M ED 14:21 → M ED INP 17:26 → M PSY 21:18
PROVIDERS: ADMIT Psychiatry & Neurology Psychiatry; ATTEND Psychiatry & Neurology Psychiatry
DX: F29 Unspecified psychosis not due to a substance or known physiological condition (principal); F20.9 Schizophrenia, unspecified; E03.9 Hypothyroidism, unspecified; Z91.14 Patient's other noncompliance with medication regimen; F12.10 Cannabis abuse, uncomplicated; F17.210 Nicotine dependence, cigarettes, uncomplicated; Z56.0 Unemployment, unspecified; Z91.5 Personal history of self-harm; Z79.899 Other long term (current) drug therapy; Z20.822 Contact with and (suspected) exposure to COVID-19

== ENCOUNTER 2020-10-02 13:11 | Emergency (ER) | payer OTHER ==
[~2020-10-02] VITALS: Ht 180.3 cm; Wt 81.7 kg
[~2020-10-02 13:11] MED LIST changes: +DEPA250T32 PO; +FLUO10CA16 PO; +LEVO-88 PO; +MINI1CAP PO; +RISP-10 PO; +RISP-9 PO; +SYNT88TA2 PO
[2020-10-02 14:08] LABS: HEMATOCRIT 45.6 % (42.0-52.0); HEMOGLOBIN 14.9 g/dl (13.5-17.5); MEAN CORPUSCULAR HEMOGLOBIN 31.1 pg (27.0-33.0); MEAN CORPUSCULAR HGB CONC 32.7 g/dl (32.0-36.5); MEAN CORPUSCULAR VOLUME 95.2 fl (80.0-96.0); PLATELET COUNT, AUTOMATED 264 10^3/uL (150-450); RED BLOOD COUNT 4.79 10^6/uL (4.30-6.10); WHITE BLOOD COUNT 8.9 10^3/uL (4.0-10.0)
[2020-10-02 14:34] LABS: AMPHETAMINES LEVEL URINE NEGATIVE (NEGATIVE); BARBITURATES URINE NEGATIVE (NEGATIVE); BENZODIAZEPINES URINE NEGATIVE (NEGATIVE); CANNABINOIDS URINE NEGATIVE (NEGATIVE); COCAINE METABOLITE URINE NEGATIVE (NEGATIVE); METHADONE URINE NEGATIVE (NEGATIVE); OPIATES URINE NEGATIVE (NEGATIVE); PHENCYCLIDINE URINE NEGATIVE (NEGATIVE)
[2020-10-02 14:45] LABS: ACETAMINOPHEN LEVEL < 2.0 UG/ML (10.0-30.0); ALT/SGPT 17 U/L (12-78); BILIRUBIN,DIRECT 0.3 MG/DL (0.0-0.2); BILIRUBIN,TOTAL 1.2 MG/DL (0.2-1.0); BLOOD UREA NITROGEN 9 MG/DL (7-18); CALCIUM LEVEL 8.4 MG/DL (8.5-10.1); CARBON DIOXIDE LEVEL 30 MEQ/L (21-32); CHLORIDE LEVEL 107 MEQ/L (98-107); CREATININE FOR GFR 0.78 MG/DL (0.70-1.30); ETHYL ALCOHOL (ETHANOL) < 0.003 % (0.000-0.010); GLOMERULAR FILTRATION RATE > 60.0 (>60); GLUCOSE, FASTING 90 MG/DL (70-100); SALICYLATE LEVEL < 1.7 MG/DL (5.0-30.0); SODIUM LEVEL 141 MEQ/L (136-145); TOTAL PROTEIN 7.4 GM/DL (6.4-8.2); VALPROIC ACID (DEPAKOTE) < 3.0 UG/ML (50.0-100.0)
[2020-10-02 21:50] LABS: RSV AMPLIFICATION NEGATIVE (NEGATIVE)
[2020-10-02] MEDS ORDERED: BENZTROPINE 0.5 MG TAB PO ONE (22:00)
[2020-10-02] MEDS ORDERED: risperiDONE 3 MG TAB PO ONE (22:00)
[2020-10-02] MEDS ORDERED: PRAZOSIN 1 MG CAP PO SCH (22:00)
[2020-10-02] MEDS ORDERED: DIVALPROEX 250 MG TAB PO ONE (22:00)
[2020-10-03] MEDS ORDERED: METAL LOCK LOOP XX ONE (02:52)
--- NOTE | 2020-10-03 05:33 | ECGEPIP ---
[facility] - ED Test Date: 2020-10-02 Pat Name: POLLY LIND Department: Room: - Gender: Male Director Of [employer]: BALDO : 2000 Requested By: CRISTOPHER Rizzo Order Number: [id number] Reading MD: Cliff Klein Measurements Intervals [place] Rate: 51 P: 24 [place]: 144 QRS: 64 QRSD: 96 T: 54 QT: 370 QTc: 341 Interpretive Statements Sinus bradycardia BENIGN EARLY REPOLARIZATION SIMILAR TO 05/16/20 Electronically Signed on 10-03-2020 5:33:33 EDT by Cliff Klein
[2020-10-03 06:05] VITALS: BP 127/66
== END 2020-10-03 07:07 ==
LOC: M ED 13:11
DX: F20.9 Schizophrenia, unspecified (principal); F17.200 Nicotine dependence, unspecified, uncomplicated

== ENCOUNTER 2021-02-22 22:08 | Emergency (ER) | payer OTHER ==
[~2021-02-22] VITALS: Ht 177.8 cm; Wt 77.3 kg
[~2021-02-22 22:08] MED LIST changes: +DIVA250T67 PO; +LEVO88TA3 PO; +OLAN1TAB16 PO; -OLAN5TAB PO; +PRAZ1CAP PO
[2021-02-23 00:51] LABS: HEMATOCRIT 46.1 % (42.0-52.0); HEMOGLOBIN 15.5 g/dl (13.5-17.5); MEAN CORPUSCULAR HEMOGLOBIN 31.4 pg (27.0-33.0); MEAN CORPUSCULAR HGB CONC 33.6 g/dl (32.0-36.5); MEAN CORPUSCULAR VOLUME 93.3 fl (80.0-96.0); PLATELET COUNT, AUTOMATED 304 10^3/uL (150-450); RED BLOOD COUNT 4.94 10^6/uL (4.30-6.10); WHITE BLOOD COUNT 9.5 10^3/uL (4.0-10.0)
[2021-02-23 01:25] LABS: AMPHETAMINES LEVEL URINE NEGATIVE (NEGATIVE); BARBITURATES URINE NEGATIVE (NEGATIVE); BENZODIAZEPINES URINE NEGATIVE (NEGATIVE); CANNABINOIDS URINE NEGATIVE (NEGATIVE); COCAINE METABOLITE URINE NEGATIVE (NEGATIVE); METHADONE URINE NEGATIVE (NEGATIVE); OPIATES URINE NEGATIVE (NEGATIVE); PHENCYCLIDINE URINE NEGATIVE (NEGATIVE)
[2021-02-23 01:58] LABS: ACETAMINOPHEN LEVEL < 2.0 UG/ML (10.0-30.0); ALBUMIN 4.2 GM/DL (3.2-5.2); ALT/SGPT 17 U/L (12-78); BILIRUBIN,DIRECT 0.2 MG/DL (0.0-0.2); BILIRUBIN,TOTAL 0.7 MG/DL (0.2-1.0); BLOOD UREA NITROGEN 11 MG/DL (7-18); CARBON DIOXIDE LEVEL 23 MEQ/L (21-32); CHLORIDE LEVEL 106 MEQ/L (98-107); ETHYL ALCOHOL (ETHANOL) < 0.003 % (0.000-0.010); GLOMERULAR FILTRATION RATE > 60.0 (>60); GLUCOSE, FASTING 77 MG/DL (70-100); POTASSIUM SERUM 4.1 MEQ/L (3.5-5.1); SALICYLATE LEVEL < 1.7 MG/DL (5.0-30.0); SODIUM LEVEL 139 MEQ/L (136-145); TOTAL PROTEIN 7.6 GM/DL (6.4-8.2)
[2021-02-23 08:49] LABS: FREE T4 0.98 NG/DL (0.76-1.46)
[2021-02-23 19:43] LABS: RSV AMPLIFICATION NEGATIVE (NEGATIVE)
--- NOTE | 2021-02-23 21:44 | ECGEPIP ---
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
[2021-02-23 23:00] VITALS: BP 118/64
== END 2021-02-23 23:02 ==
LOC: M ED 22:08
DX: F20.9 Schizophrenia, unspecified (principal); E07.9 Disorder of thyroid, unspecified; F90.9 Attention-deficit hyperactivity disorder, unspecified type; Z79.899 Other long term (current) drug therapy; F17.210 Nicotine dependence, cigarettes, uncomplicated

== ENCOUNTER 2021-03-05 15:52 | Inpatient (IN) | payer BC, MEDICAID, OTHER ==
[~2021-03-05] VITALS: Ht 177.8 cm; Wt 74.5 kg
--- OUTSIDE RECORDS SUMMARY | 2021-03-05 15:57 | CCD | Continuity of Care Document ---
Author Author Matthew Oreilly Organization Unknown Address Unknown Phone [phone] Care Team Providers Care Cardiopulmonary Physical Therapist Name Role Phone MARVIN MUNSON AUTM [phone] Social History Type Date Description Comments Sex Unknown Results Test Acquired Date Facility Test Result H/L Range Note Complete Blood Count 10/23/[address] [address] [phone] White Blood Count 11.7 10 High 4.0-10.0 Red Blood Count 4.91 10 Normal 4.30-6.10 Hemoglobin 15.1 g/dL Normal 13.5-17.5 Hematocrit 44.8 % Normal 42.0-52.0 Mean Corpuscular Volume 91.2 fl Normal 80.0-96.0 Mean Corpuscular Hemoglobin 30.8 pg Normal 27.0-33.0 Mean Corpuscular HGB Conc 33.7 g/dL Normal 32.0-36.5 Red Cell Distribution Width 12.7 % Normal 11.5-14.5 Platelet Count, Automated 305 10 Normal 150-450 Nucleated Red Blood Cell % 0.0 % Normal 0-0 Drug Eval Toxicology ED Only 10/23/[address] [id number] [phone] Amphetamines Level Urine NEGATIVE Normal Negativ e Barbiturates Urine NEGATIVE Normal Negative Benzodiazepines Urine NEGATIVE Normal Negative Cannabinoids Urine NEGATIVE Normal Negative Cocaine Metabolite Urine NEGATIVE Normal Negative Methadone Urine NEGATIVE Normal Negative Opiates Urine NEGATIVE Normal Negative Phencyclidine Urine NEGATIVE Normal Negative 1 Liver Profile 10/23/2020 [id number] [place] [address] [phone] Ast/Sgot 9 U/L Normal 7-37 Alt/SGPT 16 U/L Normal 12-78 Alkaline Phosphatase 71 U/L Normal 45-117 Bilirubin,Total 0.8 mg/dL Normal 0.2-1.0 Bilirubin,Direct 0.2 mg/dL Normal 0.0-0.2 Total Protein 7.2 GM/DL Normal 6.4-8.2 Albumin 3.9 GM/DL Normal 3.2-5.2 Albumin/Globulin Ratio 1.2 Normal Basic Metabolic Profile 10/23/2020 [place] [address] [id number] [phone] Glucose, Fasting 80 mg/dL Normal 70-100 Blood Urea Nitrogen 14 mg/dL Normal 7-18 Creatinine For GFR 0.84 mg/dL Normal 0.70-1.30 Glomerular Filtration Rate > 60.0 Normal >60 2 Sodium Level 138 mEq/L Normal 136-145 Potassium Serum 4.0 mEq/L Normal 3.5-5.1 Chloride Level 104 mEq/L Normal 98-107 Carbon Dioxide Level 30 mEq/L Normal 21-32 Anion Gap 4 mEq/L Low 8-16 Calcium Level 8.5 mg/dL Normal 8.5-10.1 Laboratory test finding 10/23/[address] [address] [phone] Ethyl Alcohol (Ethanol) < 0.003 % Normal 0.000-0. 010 Salicylate Level < 1.7 mg/dL Low 5.0-30.0 Acetaminophen Level < 2.0 UG/ML Low 10.0-30.0 Thyroid Stimulating Hormone 33.200 uIU/ML High 0.358-3.740 1 ALL PRESUMPTIVE POSITIVE FINDINGS ARE UNCONFIRMED THRESHOLD IN NG/ML AMPHETAMINES/METHAMPHET 1000 BARBITURATES 200 BENZODIAZEPINES 200 CANNABINOIDS (THC) 50 COCAINE METABOLITE 300 METHADONE 300 OPIATES 300 PHENCYCLIDINE 25 RESULTS ARE FOR MEDICAL PURPOSES ONLY. ALL URINE SPECIMENS WILL BE SAVED FOR 3 DAYS. IF CONFIRMATION OF A PRESUMPTIVE POSITIVE SCREEN RESULT IS DESIRED, CALL CHEMISTRY ([phone]) AND REQUEST URINE TO BE SENT TO REFERENCE LAB. FOR A LIST OF CLOSELY RELATED COMPOUNDS PLEASE CALL THE LAB. 2 Units are mL/min/1.73 m2 Chronic Kidney Disease Staging per NKF: Stage I & II GFR >=60 Normal to Mildly Decreased Stage III GFR 30-59 Moderately Decreased Stage IV GFR 15-29 Severely Decreased Stage V GFR <15 Very Little GFR Left ESRD GFR <15 on BUSINESS APPLICATIONS ANALYST Procedures Date Code Description Status 09/04/2020 22502 Office/Outpatient Established Anastasia w MDM 20-29 Min Completed Encounters Type Date Location Provider Dx Diagnosis Office Visit 09/04/2020 11:30a [facility] MARIANA Church E03.9 Hypothyroidism, unspecified F41.9 Anxiety disorder, unspecifie d F31.9 Bipolar disorder, unspecifie d Assessments Date Code Description Provider 09/04/2020 E03.9 Hypothyroidism, unspecified MARIANA Burnett 09/04/2020 F41.9 Anxiety disorder, unspecified MARIANA Pearson 09/04/2020 F31.9 Bipolar disorder, unspecified MARIANA Pearson
[2021-03-05] MEDS ORDERED: invega IM (16:27)
[2021-03-05 17:03] LABS: HEMATOCRIT 42.6 % (42.0-52.0); HEMOGLOBIN 14.1 g/dl (13.5-17.5); MEAN CORPUSCULAR HEMOGLOBIN 31.1 pg (27.0-33.0); MEAN CORPUSCULAR HGB CONC 33.1 g/dl (32.0-36.5); MEAN CORPUSCULAR VOLUME 93.8 fl (80.0-96.0); PLATELET COUNT, AUTOMATED 249 10^3/uL (150-450); RED BLOOD COUNT 4.54 10^6/uL (4.30-6.10); WHITE BLOOD COUNT 8.3 10^3/uL (4.0-10.0)
[2021-03-05 17:29] LABS: ACETAMINOPHEN LEVEL < 2.0 UG/ML (10.0-30.0); ALBUMIN 3.8 GM/DL (3.2-5.2); ALT/SGPT 18 U/L (12-78); BILIRUBIN,DIRECT 0.1 MG/DL (0.0-0.2); BILIRUBIN,TOTAL 0.5 MG/DL (0.2-1.0); BLOOD UREA NITROGEN 9 MG/DL (7-18); CALCIUM LEVEL 8.5 MG/DL (8.5-10.1); CARBON DIOXIDE LEVEL 28 MEQ/L (21-32); CHLORIDE LEVEL 110 MEQ/L (98-107); CREATININE FOR GFR 0.75 MG/DL (0.70-1.30); ETHYL ALCOHOL (ETHANOL) < 0.003 % (0.000-0.010); GLOMERULAR FILTRATION RATE > 60.0 (>60); GLUCOSE, FASTING 92 MG/DL (70-100); POTASSIUM SERUM 4.3 MEQ/L (3.5-5.1); SALICYLATE LEVEL < 1.7 MG/DL (5.0-30.0); SODIUM LEVEL 141 MEQ/L (136-145)
[2021-03-05 20:07] LABS: AMPHETAMINES LEVEL URINE NEGATIVE (NEGATIVE); BARBITURATES URINE NEGATIVE (NEGATIVE); BENZODIAZEPINES URINE NEGATIVE (NEGATIVE); CANNABINOIDS URINE NEGATIVE (NEGATIVE); COCAINE METABOLITE URINE NEGATIVE (NEGATIVE); METHADONE URINE NEGATIVE (NEGATIVE); OPIATES URINE NEGATIVE (NEGATIVE); PHENCYCLIDINE URINE NEGATIVE (NEGATIVE)
[2021-03-05] MEDS ORDERED: PRAZOSIN 1 MG CAP PO ONE (20:25)
[2021-03-05] MEDS ORDERED: D31000TA2 PO (23:59)
[2021-03-05] MEDS ORDERED: MED REC COMMENT (23:59)
[2021-03-05] MEDS ORDERED: RISP-10 PO (23:59)
[2021-03-06] MEDS ORDERED: HOME MED LIST COMPLETE! XX SCH (00:05)
[2021-03-06 00:16] LABS: FREE T4 0.75 NG/DL (0.76-1.46)
[2021-03-06] MEDS: LEVOTHYROXINE 88MCG TABLET (0.088 MG) PO SCH (06:54)
[2021-03-06] MEDS ORDERED: LORazepam 2 MG TAB PO STA (15:38)
[2021-03-06] MEDS ORDERED: OLANZapine ORAL DISINTEGRATING TAB 5MG PO ONE (15:40)
[2021-03-06 17:57] LABS: RSV AMPLIFICATION NEGATIVE (NEGATIVE)
[2021-03-06] MEDS ORDERED: PRAZOSIN 1 MG CAP PO SCH (21:00)
[2021-03-06] MEDS ORDERED: risperiDONE 3 MG TAB PO ONE (21:00)
[2021-03-06] MEDS ORDERED: DIVALPROEX 250 MG TAB PO ONE (21:00)
[2021-03-07] MEDS: LEVOTHYROXINE 88MCG TABLET (0.088 MG) PO SCH (06:23)
[2021-03-07] MEDS ORDERED: ACETAMINOPHEN TAB 650MG DOSE (2X325MG) PO PRN (07:05)
[2021-03-07] MEDS ORDERED: MOM 30ML SUSPENSION UDC PO PRN (07:05)
[2021-03-07] MEDS ORDERED: OLANZapine 5 MG TAB PO PRN (07:05)
[2021-03-07] MEDS ORDERED: MAALOX 30 ML SUSP *UDC PO PRN (07:05)
--- NOTE | 2021-03-07 07:51 | ECGEPIP ---
[facility] - ED Test Date: 2021-03-06 Pat Name: POLLY LIND Department: Room: - Gender: Male Runner Man: MIGUEL : 2000 Requested By: Marjorie Morales Order Number: [id number] Reading MD: Marjorie Morales Measurements Intervals [place] Rate: 63 P: 43 UT: 176 QRS: 62 QRSD: 94 T: 56 QT: 360 QTc: 368 Interpretive Statements Normal sinus rhythm early repolarization increased rate 02/23/21 Electronically Signed on 03-07-2021 7:51:20 EDT by Marjorie Morales
[2021-03-07 08:40] VITALS: BP 178/65
[2021-03-07] MEDS: DIVALPROEX 250 MG TAB PO SCH ×3 (09:57→21:39)
[2021-03-07] MEDS: VITAMIN D 1,000 INTERNATIONAL UNITS TABLET PO SCH (09:57)
[2021-03-07] MEDS: FLUoxetine 10 MG CAP PO SCH (09:57)
[2021-03-07 10:40] VITALS: BP 148/64
[2021-03-07 18:17] VITALS: BP 140/80
[2021-03-07] MEDS: BENZTROPINE 0.5 MG TAB PO SCH (21:39)
[2021-03-07] MEDS: risperiDONE 3 MG TAB PO SCH (21:39)
[2021-03-07] MEDS: PRAZOSIN 1 MG CAP PO SCH (21:39)
[2021-03-07] MEDS: traZODone 50 MG TAB PO PRN (21:39)
[2021-03-08] MEDS: LEVOTHYROXINE 88MCG TABLET (0.088 MG) PO SCH (06:04)
[2021-03-08] MEDS: FLUoxetine 10 MG CAP PO SCH (09:23)
[2021-03-08] MEDS: VITAMIN D 1,000 INTERNATIONAL UNITS TABLET PO SCH (09:24)
[2021-03-08] MEDS: DIVALPROEX 250 MG TAB PO SCH ×3 (09:24→20:07)
[2021-03-08] MEDS: BENZTROPINE 0.5 MG TAB PO SCH ×2 (09:24→20:07)
[2021-03-08 13:49] LABS: FREE T4 0.96 NG/DL (0.76-1.46); THYROID STIMULATING HORMONE 31.5 uIU/ML (0.358-3.740)
--- NOTE | 2021-03-08 13:59 | HPEPDOC ---
[facility] [place] & Physical Date of Admission Mar 07, 2021 Date of Service: Mar 08, 2021 History and Physical Chief complaint: Presents to the ER with hallucinations History of present illness: Patient is a 20-year-old male who presented to the ER with reported hallucinations. Patient was admitted to inpatient mental health unit under the care of psychiatry. Hospitalist service was consulted for medical screening evaluation. Patient denies any headache, nausea, vomiting, chest pain, shortness breath, palpitations, abdominal pain consultation, diarrhea, or urinary discomfort. Denies any recent fevers or chills. Patient reports his appetite is fairly normal and denies any changes in his weight Past Medical History: Hypothyroidism ADHD Schizophrenia / Psychosis Chronic left eye ptosis Past Surgical History: Appendectomy Allergies: See below Medications: See below Family History: - Father with a history of DM2 and a heart attack at the age of 45 - Brother with a history of seizures Social History: - Denies the use of alcohol; patient was that he uses marijuana. Patient reports that he is an active smoker - Denies recent travel or sick contacts - Lives alone - Occupation; currently on disability Review of Systems: 10 point review of systems complete, all negative otherwise stated in HPI Physical exam: - Vitals: BP [142/76], HR [100], RR [18], Sat [98%RA], Temp [98.1F] - General: Lying in bed, No acute distress, Speaking in full sentences, AAOx3 - HEENT: NC, AT, PERRLA - CVS: RRR, +S1S2, - Murmurs / rubs / gallops - Lungs: Fair air entry bilaterally, No appreciable wheezing / rales / rhonchi - Abdomen: Soft, Non-distended, Non-tender - Extremities: No lower extremity edema, No calf tenderness - Neuro: No focal motor or sensory deficit - Skin: No visible rashes Labs: See below Imaging: See below EKG: See below Assessment and Plan: Reported hallucinations - Hx of Schizophrenia / Psychosis - Admitted to the inpatient mental health unit under the care of psychiatry - Currently being managed by psychiatry Hypothyroidism - Patient has a significantly elevated TSH, however repeat T4 is appropriate - Patient has reported noncompliance with medications at home - Will continue with levothyroxine at current dose and have repeat thyroid function completed as an outpatient ADHD - Currently not on any medications Chronic left eye ptosis DVT prophylaxis - Will continue with early ambulation Thank you for this consultation. Hospitalist service will now sign off; please reconsult as needed. Vital Signs Vital Signs Date Time Temp Pulse Resp B/P (MAP) Pulse Ox O2 Delivery O2 Flow Rate FiO2 03/07/21 21:39 142/76 03/07/21 18:17 98.1 100 18 03/07/21 08:40 98 Room Air Laboratory Data Labs 24H Laboratory Tests 2 03/08/21 12:57: Thyroid Stimulating Hormone (TSH) 31.500H, Free Thyroxine 0.96, Total Triiodothyronine 118.0 Home Medications Scheduled Cholecalciferol (Vitamin D3) (Vitamin D3) 1,000 Unit Tablet, 1,000 MG PO DAILY Divalproex Sodium (Divalproex Sodium) 250 Mg Tablet.dr, 250 MG PO TID Fluoxetine Hcl (Fluoxetine HCl) 10 Mg Capsule, 10 MG PO DAILY Levothyroxine Sodium (Levothyroxine Sodium) 88 Mcg Tablet, 88 MCG PO DAILY Prazosin Hcl (Prazosin HCl) 1 Mg Capsule, 1 MG PO QHS Risperidone (Risperidone) 3 Mg Tablet, 3 MG PO QHS Miscellaneous Medications [Med Rec Comment] USED EXTERNAL PT POOR HISTORIAN Allergies Coded Allergies: No Known Drug Allergies (Verified Allergy, Unknown, 11/21/19) GISELA TUBBS MD Mar 08, 2021 13:59
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
[2021-03-08 17:36] VITALS: BP 136/76
[2021-03-08 20:07] VITALS: BP 142/70
[2021-03-08] MEDS: PRAZOSIN 1 MG CAP PO SCH (20:07)
[2021-03-08] MEDS: risperiDONE 3 MG TAB PO SCH (20:07)
[2021-03-08] MEDS: traZODone 50 MG TAB PO PRN (20:07)
[2021-03-09] MEDS: LEVOTHYROXINE 88MCG TABLET (0.088 MG) PO SCH (05:42)
[2021-03-09 06:06] VITALS: BP 148/98
[2021-03-09] MEDS: BENZTROPINE 0.5 MG TAB PO SCH (08:30)
[2021-03-09] MEDS: FLUoxetine 10 MG CAP PO SCH (08:30)
[2021-03-09] MEDS: VITAMIN D 1,000 INTERNATIONAL UNITS TABLET PO SCH (08:30)
[2021-03-09] MEDS: DIVALPROEX 250 MG TAB PO SCH (08:30)
[2021-03-09] MEDS ORDERED: BENZ0.5T23 PO (08:56)
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
== END 2021-03-09 11:04 | disposition home or self-care (01) | DRG 750 ==
LOC: M ED 15:52 → M ED INP 03-07 07:01 → M PSY 03-07 08:51
PROVIDERS: ADMIT Psychiatry & Neurology Psychiatry; ATTEND Psychiatry & Neurology Psychiatry
DX: F20.9 Schizophrenia, unspecified (principal); Z91.14 Patient's other noncompliance with medication regimen; E03.9 Hypothyroidism, unspecified; F12.10 Cannabis abuse, uncomplicated; F17.200 Nicotine dependence, unspecified, uncomplicated; H02.402 Unspecified ptosis of left eyelid; Z79.899 Other long term (current) drug therapy; Z91.19 Patient's noncompliance with other medical treatment and regimen; Z65.3 Problems related to other legal circumstances

== ENCOUNTER 2021-03-26 19:33 | Emergency (ER) | payer OTHER, MEDICAID, BC ==
[~2021-03-26 19:33] MED LIST changes: +D31000TA2 PO; +MED REC COMMENT; +invega IM
[2021-03-26] MEDS ORDERED: HOME MED LIST COMPLETE! XX SCH (21:25)
[2021-03-27 02:42] LABS: HEMATOCRIT 48.7 % (42.0-52.0); HEMOGLOBIN 16.2 g/dl (13.5-17.5); MEAN CORPUSCULAR HEMOGLOBIN 30.8 pg (27.0-33.0); MEAN CORPUSCULAR HGB CONC 33.3 g/dl (32.0-36.5); MEAN CORPUSCULAR VOLUME 92.6 fl (80.0-96.0); PLATELET COUNT, AUTOMATED 291 10^3/uL (150-450); RED BLOOD COUNT 5.26 10^6/uL (4.30-6.10); WHITE BLOOD COUNT 8.2 10^3/uL (4.0-10.0)
[2021-03-27 03:29] LABS: AMPHETAMINES LEVEL URINE NEGATIVE (NEGATIVE); BARBITURATES URINE NEGATIVE (NEGATIVE); BENZODIAZEPINES URINE NEGATIVE (NEGATIVE); CANNABINOIDS URINE NEGATIVE (NEGATIVE); COCAINE METABOLITE URINE NEGATIVE (NEGATIVE); METHADONE URINE NEGATIVE (NEGATIVE); OPIATES URINE NEGATIVE (NEGATIVE); PHENCYCLIDINE URINE NEGATIVE (NEGATIVE)
[2021-03-27 03:38] LABS: ACETAMINOPHEN LEVEL < 2.0 UG/ML (10.0-30.0); ALBUMIN 3.9 GM/DL (3.2-5.2); ALT/SGPT 19 U/L (12-78); BILIRUBIN,DIRECT 0.1 MG/DL (0.0-0.2); BILIRUBIN,TOTAL 0.6 MG/DL (0.2-1.0); BLOOD UREA NITROGEN 14 MG/DL (7-18); CALCIUM LEVEL 9.1 MG/DL (8.5-10.1); CARBON DIOXIDE LEVEL 27 MEQ/L (21-32); CHLORIDE LEVEL 108 MEQ/L (98-107); CREATININE FOR GFR 0.89 MG/DL (0.70-1.30); ETHYL ALCOHOL (ETHANOL) < 0.003 % (0.000-0.010); GLOMERULAR FILTRATION RATE > 60.0 (>60); GLUCOSE, FASTING 103 MG/DL (70-100); POTASSIUM SERUM 4.6 MEQ/L (3.5-5.1); SALICYLATE LEVEL < 1.7 MG/DL (5.0-30.0); SODIUM LEVEL 141 MEQ/L (136-145); TOTAL PROTEIN 7.4 GM/DL (6.4-8.2)
[2021-03-27 05:56] VITALS: BP 123/72
== END 2021-03-27 05:01 | disposition home or self-care (01) ==
LOC: M ED 19:33
DX: F43.20 Adjustment disorder, unspecified (principal); E03.9 Hypothyroidism, unspecified; F20.9 Schizophrenia, unspecified; F33.9 Major depressive disorder, recurrent, unspecified; Z79.899 Other long term (current) drug therapy; Z79.890 Hormone replacement therapy; F17.210 Nicotine dependence, cigarettes, uncomplicated

== ENCOUNTER 2021-04-11 16:52 | Emergency (ER) | payer OTHER, MEDICAID, BC ==
[~2021-04-11] VITALS: Ht 182.9 cm; Wt 81.8 kg
[2021-04-11 16:52] VITALS: BP 134/59
[~2021-04-11 16:52] MED LIST changes: -FLUO10CA16 PO; +FLUO10CA18 PO
== END 2021-04-11 20:49 | disposition left against medical advice (07) ==
LOC: M ED 16:52
DX: Z53.29 Procedure and treatment not carried out because of patient's decision for other reasons (principal)

== ENCOUNTER 2021-10-18 16:49 | Emergency (ER) | payer BC, MEDICAID, OTHER ==
[~2021-10-18] VITALS: Ht 182.9 cm; Wt 77.3 kg
[~2021-10-18 16:49] MED LIST changes: -D31000TA2 PO; +VITA100093 PO
[2021-10-18 16:50] VITALS: BP 129/67
[2021-10-18] MEDS ORDERED: AMOX875T2 PO (21:49)
== END 2021-10-18 21:59 | disposition left against medical advice (07) ==
LOC: M ED 16:49
DX: Z53.9 Procedure and treatment not carried out, unspecified reason (principal); S60.511A Abrasion of right hand, initial encounter; S50.811A Abrasion of right forearm, initial encounter; W55.03XA Scratched by cat, initial encounter; Y92.9 Unspecified place or not applicable; Y93.9 Activity, unspecified; Y99.9 Unspecified external cause status; F17.200 Nicotine dependence, unspecified, uncomplicated; F41.9 Anxiety disorder, unspecified; F32.A Depression, unspecified; F20.9 Schizophrenia, unspecified; Z79.899 Other long term (current) drug therapy

== ENCOUNTER 2021-12-29 12:11 | Emergency (ER) | payer OTHER ==
[~2021-12-29] VITALS: Ht 180.3 cm; Wt 64.4 kg
[~2021-12-29 12:11] MED LIST changes: +AMOX875T2 PO
[2021-12-29 13:40] LABS: HEMATOCRIT 42.1 % (42.0-52.0); HEMOGLOBIN 14.1 g/dl (13.5-17.5); MEAN CORPUSCULAR HEMOGLOBIN 30.6 pg (27.0-33.0); MEAN CORPUSCULAR HGB CONC 33.5 g/dl (32.0-36.5); MEAN CORPUSCULAR VOLUME 91.3 fl (80.0-96.0); PLATELET COUNT, AUTOMATED 255 10^3/uL (150-450); RED BLOOD COUNT 4.61 10^6/uL (4.30-6.10)
[2021-12-29 14:17] LABS: ACETAMINOPHEN LEVEL < 2.0 UG/ML (10.0-30.0); ALT/SGPT 22 U/L (12-78); BILIRUBIN,DIRECT 0.3 MG/DL (0.0-0.2); BILIRUBIN,TOTAL 1.6 MG/DL (0.2-1.0); BLOOD UREA NITROGEN 16 MG/DL (7-18); CALCIUM LEVEL 9.1 MG/DL (8.5-10.1); CARBON DIOXIDE LEVEL 28 MEQ/L (21-32); CHLORIDE LEVEL 106 MEQ/L (98-107); CREATININE FOR GFR 0.84 MG/DL (0.70-1.30); ETHYL ALCOHOL (ETHANOL) < 0.003 % (0.000-0.010); GLOMERULAR FILTRATION RATE > 60.0 (>60); GLUCOSE, FASTING 87 MG/DL (70-100); SALICYLATE LEVEL < 1.7 MG/DL (5.0-30.0); SODIUM LEVEL 139 MEQ/L (136-145)
[2021-12-29 14:47] LABS: RSV AMPLIFICATION NEGATIVE (NEGATIVE)
[2021-12-29 16:11] VITALS: BP 117/74
== END 2021-12-29 16:14 | disposition home or self-care (01) ==
LOC: M ED 12:11
DX: F20.9 Schizophrenia, unspecified (principal); F32.A Depression, unspecified; F17.210 Nicotine dependence, cigarettes, uncomplicated

== ENCOUNTER 2022-01-09 15:33 | Inpatient (IN) | payer OTHER ==
[~2022-01-09] VITALS: Ht 185.4 cm; Wt 69.0 kg
[2022-01-09 17:26] LABS: HEMATOCRIT 44.3 % (42.0-52.0); HEMOGLOBIN 14.9 g/dl (13.5-17.5); MEAN CORPUSCULAR HEMOGLOBIN 30.9 pg (27.0-33.0); MEAN CORPUSCULAR HGB CONC 33.6 g/dl (32.0-36.5); MEAN CORPUSCULAR VOLUME 91.9 fl (80.0-96.0); PLATELET COUNT, AUTOMATED 261 10^3/uL (150-450); RED BLOOD COUNT 4.82 10^6/uL (4.30-6.10)
[2022-01-09 17:48] LABS: RSV AMPLIFICATION NEGATIVE (NEGATIVE)
[2022-01-09 18:02] LABS: ACETAMINOPHEN LEVEL < 2.0 UG/ML (10.0-30.0); ALBUMIN 4.3 GM/DL (3.2-5.2); ALT/SGPT 26 U/L (12-78); BILIRUBIN,DIRECT 0.3 MG/DL (0.0-0.2); BILIRUBIN,TOTAL 1.1 MG/DL (0.2-1.0); BLOOD UREA NITROGEN 14 MG/DL (7-18); CALCIUM LEVEL 9.1 MG/DL (8.5-10.1); CARBON DIOXIDE LEVEL 29 MEQ/L (21-32); CHLORIDE LEVEL 107 MEQ/L (98-107); CREATININE FOR GFR 0.79 MG/DL (0.70-1.30); ETHYL ALCOHOL (ETHANOL) < 0.003 % (0.000-0.010); GLOMERULAR FILTRATION RATE > 60.0 (>60); GLUCOSE, FASTING 88 MG/DL (70-100); POTASSIUM SERUM 4.3 MEQ/L (3.5-5.1); SALICYLATE LEVEL < 1.7 MG/DL (5.0-30.0); SODIUM LEVEL 140 MEQ/L (136-145); TOTAL PROTEIN 7.5 GM/DL (6.4-8.2)
[2022-01-09] MEDS ORDERED: HOME MED LIST COMPLETE! XX SCH (19:00)
[2022-01-09] MEDS ORDERED: OLANZapine 10 MG TAB PO ONE (21:25)
[2022-01-10 15:10] LABS: AMPHETAMINES LEVEL URINE NEGATIVE (NEGATIVE); BARBITURATES URINE NEGATIVE (NEGATIVE); BENZODIAZEPINES URINE NEGATIVE (NEGATIVE); CANNABINOIDS URINE NEGATIVE (NEGATIVE); COCAINE METABOLITE URINE NEGATIVE (NEGATIVE); METHADONE URINE NEGATIVE (NEGATIVE); OPIATES URINE NEGATIVE (NEGATIVE); PHENCYCLIDINE URINE NEGATIVE (NEGATIVE)
[2022-01-10] MEDS ORDERED: LORazepam 2 MG TAB PO ONE (22:00)
[2022-01-12] MEDS ORDERED: OLANZapine ORAL DISINTEGRATING TAB 5MG PO ONE (06:40)
[2022-01-12] MEDS ORDERED: IBUPROFEN 400MG TAB PO PRN (13:10)
[2022-01-12] MEDS ORDERED: MAALOX 30 ML SUSP *UDC PO PRN (13:10)
[2022-01-12] MEDS ORDERED: MOM 30ML SUSPENSION UDC PO PRN (13:10)
[2022-01-12 14:19] LABS: RSV AMPLIFICATION NEGATIVE (NEGATIVE)
[2022-01-12] MEDS: PALIPERIDONE 6 MG ER TAB (INVEGA) PO SCH (17:31)
[2022-01-12] MEDS: DIVALPROEX 250MG *ER* TAB PO SCH (17:32)
[2022-01-12 18:05] VITALS: BP 140/65
[2022-01-13] MEDS: LORazepam 1 MG TAB PO PRN (00:48)
[2022-01-13 07:11] VITALS: BP 135/68
[2022-01-13 09:50] LABS: FREE T4 0.67 NG/DL (0.76-1.46)
[2022-01-13] MEDS: PALIPERIDONE 6 MG ER TAB (INVEGA) PO SCH (10:07)
[2022-01-13] MEDS: LEVOTHYROXINE 88MCG TABLET (0.088 MG) PO SCH (10:07)
[2022-01-13] MEDS: DIVALPROEX 250MG *ER* TAB PO SCH (10:08)
[2022-01-13 18:30] VITALS: BP 131/62
[2022-01-14] MEDS: LEVOTHYROXINE 88MCG TABLET (0.088 MG) PO SCH (05:41)
[2022-01-14 06:36] VITALS: BP 97/52
[2022-01-14 07:38] LABS: CHOLESTEROL RISK RATIO 2.86 (<5)
[2022-01-14] MEDS: PALIPERIDONE 6 MG ER TAB (INVEGA) PO SCH (08:37)
[2022-01-14] MEDS: DIVALPROEX 250MG *ER* TAB PO SCH (08:37)
[2022-01-14] MEDS: BENZTROPINE 1 MG TAB PO SCH ×2 (11:21→22:03)
[2022-01-14 16:31] VITALS: BP 112/60
[2022-01-15] MEDS: LEVOTHYROXINE 88MCG TABLET (0.088 MG) PO SCH (05:48)
[2022-01-15] MEDS: BENZTROPINE 1 MG TAB PO SCH ×2 (09:15→21:44)
[2022-01-15] MEDS: DIVALPROEX 250MG *ER* TAB PO SCH (09:15)
[2022-01-15] MEDS: PALIPERIDONE 3 MG ER TAB (INVEGA) PO SCH (09:15)
[2022-01-15 16:20] VITALS: BP 134/66
[2022-01-16] MEDS: LEVOTHYROXINE 88MCG TABLET (0.088 MG) PO SCH (06:11)
[2022-01-16] MEDS: PALIPERIDONE 3 MG ER TAB (INVEGA) PO SCH (08:50)
[2022-01-16] MEDS: BENZTROPINE 1 MG TAB PO SCH ×2 (08:50→21:33)
[2022-01-16] MEDS: DIVALPROEX 250MG *ER* TAB PO SCH (08:50)
[2022-01-16 16:23] VITALS: BP 110/54
[2022-01-16] MEDS: traZODone 50 MG TAB PO PRN (21:33)
[2022-01-17] MEDS: LEVOTHYROXINE 88MCG TABLET (0.088 MG) PO SCH (05:27)
[2022-01-17 06:08] VITALS: BP 101/51
[2022-01-17] MEDS: PALIPERIDONE 3 MG ER TAB (INVEGA) PO SCH (09:52)
[2022-01-17] MEDS: BENZTROPINE 1 MG TAB PO SCH ×2 (09:52→20:58)
[2022-01-17] MEDS: DIVALPROEX 250MG *ER* TAB PO SCH (09:52)
[2022-01-17 18:24] VITALS: BP 118/66
[2022-01-18] MEDS: LORazepam 1 MG TAB PO PRN (02:53)
[2022-01-18] MEDS: LEVOTHYROXINE 88MCG TABLET (0.088 MG) PO SCH (05:35)
[2022-01-18] MEDS: BENZTROPINE 1 MG TAB PO SCH ×2 (09:59→21:29)
[2022-01-18] MEDS: PALIPERIDONE 3 MG ER TAB (INVEGA) PO SCH (09:59)
[2022-01-18] MEDS: DIVALPROEX 250MG *ER* TAB PO SCH (10:00)
[2022-01-18 17:53] VITALS: BP 135/64
[2022-01-19] MEDS: LEVOTHYROXINE 88MCG TABLET (0.088 MG) PO SCH (05:44)
[2022-01-19 06:14] VITALS: BP 93/54
[2022-01-19] MEDS: DIVALPROEX 250MG *ER* TAB PO SCH (10:02)
[2022-01-19] MEDS: BENZTROPINE 1 MG TAB PO SCH ×2 (10:02→20:52)
[2022-01-19] MEDS ORDERED: PILL CUTTER 1 EACH XX PRN (13:25)
[2022-01-19 19:25] VITALS: BP 118/55
[2022-01-19] MEDS: QUEtiapine FUMARATE 50MG TAB PO SCH (20:52)
[2022-01-20] MEDS: LEVOTHYROXINE 88MCG TABLET (0.088 MG) PO SCH (06:07)
[2022-01-20] MEDS: DIVALPROEX 250MG *ER* TAB PO SCH (09:36)
[2022-01-20] MEDS: BENZTROPINE 1 MG TAB PO SCH ×2 (09:37→21:20)
[2022-01-20] MEDS: QUEtiapine FUMARATE 50MG TAB PO SCH (21:20)
[2022-01-21] MEDS: LEVOTHYROXINE 88MCG TABLET (0.088 MG) PO SCH (06:13)
[2022-01-21] MEDS ORDERED: DIVALPROEX 250MG *ER* TAB PO SCH (09:00)
[2022-01-21] MEDS: BENZTROPINE 1 MG TAB PO SCH ×2 (09:54→21:26)
[2022-01-21] MEDS ORDERED: HALOPERIDOL DECANOATE 100 MG/ML VIAL (J1631) IM ONE (13:00)
[2022-01-21 17:00] VITALS: BP 129/67
[2022-01-21] MEDS: QUEtiapine FUMARATE 50MG TAB PO SCH (21:26)
[2022-01-22] MEDS: LEVOTHYROXINE 88MCG TABLET (0.088 MG) PO SCH (05:32)
[2022-01-22] MEDS: BENZTROPINE 1 MG TAB PO SCH ×2 (09:44→21:03)
[2022-01-22 18:24] VITALS: BP 118/67
[2022-01-22] MEDS: QUEtiapine FUMARATE 50MG TAB PO SCH (21:03)
[2022-01-22] MEDS: LORazepam 1 MG TAB PO PRN (21:03)
[2022-01-23] MEDS: LEVOTHYROXINE 88MCG TABLET (0.088 MG) PO SCH (05:28)
[2022-01-23] MEDS: BENZTROPINE 1 MG TAB PO SCH ×2 (09:01→20:00)
[2022-01-23] MEDS: LORazepam 1 MG TAB PO PRN (14:20)
[2022-01-23 17:49] VITALS: BP 138/69
[2022-01-23] MEDS: QUEtiapine FUMARATE 50MG TAB PO SCH (20:00)
[2022-01-24] MEDS: LEVOTHYROXINE 88MCG TABLET (0.088 MG) PO SCH (06:48)
[2022-01-24 08:34] VITALS: BP 120/60
[2022-01-24] MEDS: BENZTROPINE 1 MG TAB PO SCH ×2 (09:26→20:12)
[2022-01-24 16:30] VITALS: BP 124/58
[2022-01-24] MEDS: QUEtiapine FUMARATE 50MG TAB PO SCH (20:12)
[2022-01-25] MEDS: LEVOTHYROXINE 88MCG TABLET (0.088 MG) PO SCH (06:23)
[2022-01-25] MEDS: BENZTROPINE 1 MG TAB PO SCH ×2 (09:20→20:32)
[2022-01-25] MEDS ORDERED: HALOPERIDOL DECANOATE 100 MG/ML VIAL (J1631) IM ONE (11:05)
[2022-01-25 16:21] VITALS: BP 133/60
[2022-01-25] MEDS: QUEtiapine FUMARATE 50MG TAB PO SCH (20:32)
[2022-01-26] MEDS: LEVOTHYROXINE 88MCG TABLET (0.088 MG) PO SCH (05:56)
[2022-01-26] MEDS: BENZTROPINE 1 MG TAB PO SCH ×2 (09:15→21:51)
[2022-01-26 15:44] VITALS: BP 124/64
[2022-01-26] MEDS: QUEtiapine FUMARATE 50MG TAB PO SCH (21:51)
[2022-01-27] MEDS: LEVOTHYROXINE 88MCG TABLET (0.088 MG) PO SCH (05:33)
[2022-01-27 06:23] VITALS: BP 102/54
[2022-01-27] MEDS: BENZTROPINE 1 MG TAB PO SCH ×2 (10:48→22:10)
[2022-01-27] MEDS ORDERED: TUBERCULIN PPD 5 UNITS/0.1 ML ID ONE (12:00)
[2022-01-27 18:22] VITALS: BP 128/61
[2022-01-27] MEDS: traZODone 50 MG TAB PO PRN (22:10)
[2022-01-27] MEDS: QUEtiapine FUMARATE 50MG TAB PO SCH (22:10)
[2022-01-28] MEDS: LEVOTHYROXINE 88MCG TABLET (0.088 MG) PO SCH (05:38)
[2022-01-28 06:26] VITALS: BP 109/53
[2022-01-28] MEDS: BENZTROPINE 1 MG TAB PO SCH ×2 (10:12→21:12)
[2022-01-28 16:11] VITALS: BP 123/58
[2022-01-28 17:03] VITALS: BP 134/82
[2022-01-28] MEDS: QUEtiapine FUMARATE 50MG TAB PO SCH (21:11)
[2022-01-28] MEDS: traZODone 50 MG TAB PO PRN (21:11)
[2022-01-29] MEDS: LEVOTHYROXINE 88MCG TABLET (0.088 MG) PO SCH (05:36)
[2022-01-29] MEDS: BENZTROPINE 1 MG TAB PO SCH ×2 (08:55→21:46)
[2022-01-29] MEDS ORDERED: PPD DOCUMENTATION ENTRY MISC XX ONE (12:00)
[2022-01-29] MEDS: QUEtiapine FUMARATE 50MG TAB PO SCH (21:45)
[2022-01-29] MEDS: traZODone 50 MG TAB PO PRN (21:46)
[2022-01-30] MEDS: LEVOTHYROXINE 88MCG TABLET (0.088 MG) PO SCH (05:46)
[2022-01-30] MEDS: BENZTROPINE 1 MG TAB PO SCH ×2 (08:42→20:24)
[2022-01-30] MEDS: traZODone 50 MG TAB PO PRN (20:24)
[2022-01-30] MEDS: QUEtiapine FUMARATE 50MG TAB PO SCH (20:24)
[2022-01-31] MEDS: LEVOTHYROXINE 88MCG TABLET (0.088 MG) PO SCH (05:48)
[2022-01-31] MEDS: BENZTROPINE 1 MG TAB PO SCH ×2 (08:59→20:46)
[2022-01-31] MEDS: SERTRALINE HCL 25 MG TABLET PO SCH (10:08)
[2022-01-31] MEDS: QUEtiapine FUMARATE 50MG TAB PO SCH (20:46)
[2022-02-01] MEDS: LEVOTHYROXINE 88MCG TABLET (0.088 MG) PO SCH (05:40)
[2022-02-01] MEDS: SERTRALINE HCL 25 MG TABLET PO SCH (09:49)
[2022-02-01] MEDS: BENZTROPINE 1 MG TAB PO SCH ×2 (09:49→20:42)
[2022-02-01] MEDS: QUEtiapine FUMARATE 50MG TAB PO SCH (20:42)
[2022-02-02] MEDS: LEVOTHYROXINE 88MCG TABLET (0.088 MG) PO SCH (05:56)
[2022-02-02] MEDS: SERTRALINE HCL 25 MG TABLET PO SCH (08:54)
[2022-02-02] MEDS: BENZTROPINE 1 MG TAB PO SCH (08:54)
[2022-02-02] MEDS ORDERED: BENZ-52 PO (09:49)
[2022-02-02] MEDS ORDERED: SYNT88TA2 PO (09:49)
[2022-02-02] MEDS ORDERED: SERT25TA21 PO (09:49)
[2022-02-02] MEDS ORDERED: HALO5TAB33 PO ×2 (09:49)
[2022-02-02] MEDS ORDERED: QUET50TA4 PO (09:49)
[2022-02-02] MEDS ORDERED: HALD50IN4 IM (09:51)
[2022-02-02] MEDS ORDERED: HALD100I2 IM (09:51)
== END 2022-02-02 11:35 | disposition home or self-care (01) | DRG 750 ==
LOC: M ED 15:33 → M ED INP 01-12 13:08 → M PSY 01-12 16:40
PROVIDERS: ADMIT Psychiatry & Neurology Psychiatry; ATTEND Student in an Organized Health Care Education/Training Program
DX: F20.9 Schizophrenia, unspecified (principal); Z91.14 Patient's other noncompliance with medication regimen; H02.402 Unspecified ptosis of left eyelid; E03.9 Hypothyroidism, unspecified; Z79.890 Hormone replacement therapy; Z20.822 Contact with and (suspected) exposure to COVID-19

== ENCOUNTER 2022-02-04 08:59 | Emergency (ER) | payer OTHER ==
[~2022-02-04] VITALS: Ht 182.9 cm; Wt 68.2 kg
[~2022-02-04 08:59] MED LIST changes: +BENZ-52 PO; +HALD100I2 IM; +HALD50IN4 IM; +HALO5TAB33 PO; +QUET50TA4 PO; +SERT25TA21 PO
[2022-02-04 10:41] LABS: HEMOGLOBIN 15.3 g/dl (13.5-17.5); MEAN CORPUSCULAR HEMOGLOBIN 30.7 pg (27.0-33.0); MEAN CORPUSCULAR VOLUME 90.4 fl (80.0-96.0); PLATELET COUNT, AUTOMATED 285 10^3/uL (150-450); RED BLOOD COUNT 4.98 10^6/uL (4.30-6.10); WHITE BLOOD COUNT 7.9 10^3/uL (4.0-10.0)
[2022-02-04 11:09] LABS: RSV AMPLIFICATION NEGATIVE (NEGATIVE)
[2022-02-04 11:26] LABS: ACETAMINOPHEN LEVEL < 2.0 UG/ML (10.0-30.0); ALBUMIN 4.3 GM/DL (3.2-5.2); ALT/SGPT 26 U/L (12-78); BILIRUBIN,DIRECT 0.3 MG/DL (0.0-0.2); BILIRUBIN,TOTAL 1.2 MG/DL (0.2-1.0); BLOOD UREA NITROGEN 17 MG/DL (7-18); CALCIUM LEVEL 9.5 MG/DL (8.5-10.1); CARBON DIOXIDE LEVEL 29 MEQ/L (21-32); CHLORIDE LEVEL 103 MEQ/L (98-107); CREATININE FOR GFR 0.86 MG/DL (0.70-1.30); ETHYL ALCOHOL (ETHANOL) 0.005 % (0.000-0.010); GLOMERULAR FILTRATION RATE > 60.0 (>60); GLUCOSE, FASTING 88 MG/DL (70-100); POTASSIUM SERUM 4.2 MEQ/L (3.5-5.1); SALICYLATE LEVEL < 1.7 MG/DL (5.0-30.0); SODIUM LEVEL 135 MEQ/L (136-145); TOTAL PROTEIN 7.6 GM/DL (6.4-8.2)
[2022-02-04] MEDS ORDERED: HALD100I2 IM (13:23)
[2022-02-04] MEDS ORDERED: HALD50IN4 IM (13:23)
[2022-02-04] MEDS ORDERED: LEVO88TA3 PO (13:23)
[2022-02-04] MEDS ORDERED: HALO5TAB33 PO ×2 (13:23)
[2022-02-04] MEDS ORDERED: QUET50TA4 PO (13:23)
[2022-02-04] MEDS ORDERED: BENZ-52 PO (13:23)
[2022-02-04] MEDS ORDERED: PATIENT COMMENT (13:23)
[2022-02-04] MEDS ORDERED: SERT25TA21 PO (13:23)
[2022-02-04] MEDS ORDERED: HOME MED LIST COMPLETE! XX SCH (13:25)
[2022-02-04 13:32] LABS: AMPHETAMINES LEVEL URINE NEGATIVE (NEGATIVE); BARBITURATES URINE NEGATIVE (NEGATIVE); BENZODIAZEPINES URINE NEGATIVE (NEGATIVE); CANNABINOIDS URINE NEGATIVE (NEGATIVE); COCAINE METABOLITE URINE NEGATIVE (NEGATIVE); METHADONE URINE NEGATIVE (NEGATIVE); OPIATES URINE NEGATIVE (NEGATIVE); PHENCYCLIDINE URINE NEGATIVE (NEGATIVE)
[2022-02-04] MEDS ORDERED: HALOPERIDOL DECANOATE 100 MG/ML VIAL (J1631) IM ONE (20:35)
[2022-02-06] MEDS ORDERED: BENZTROPINE 1 MG TAB PO ONE (09:00)
[2022-02-06] MEDS: SERTRALINE HCL 25 MG TABLET PO SCH (12:50)
[2022-02-06] MEDS: BENZTROPINE 1 MG TAB PO SCH (20:50)
[2022-02-06] MEDS ORDERED: QUEtiapine FUMARATE 50MG TAB PO SCH (21:00)
[2022-02-07] MEDS ORDERED: LEVOTHYROXINE 88MCG TABLET (0.088 MG) PO SCH (06:00)
[2022-02-07] MEDS: SERTRALINE HCL 25 MG TABLET PO SCH (09:00)
[2022-02-07] MEDS: BENZTROPINE 1 MG TAB PO SCH (09:22)
[2022-02-07 16:30] VITALS: BP 110/56
== END 2022-02-07 16:36 | disposition home or self-care (01) ==
LOC: M ED 08:59
DX: F20.9 Schizophrenia, unspecified (principal); R21 Rash and other nonspecific skin eruption; F90.9 Attention-deficit hyperactivity disorder, unspecified type; E03.9 Hypothyroidism, unspecified; Z90.89 Acquired absence of other organs; Z79.899 Other long term (current) drug therapy
CPT/HCPCS: 36415; 80048; 80076; 80143; 80307; 82077; 84443; 85027; 87631; 93005; 96372; 99284; J1631

== ENCOUNTER 2022-02-18 07:35 | Emergency (ER) | payer OTHER ==
[~2022-02-18] VITALS: Ht 182.9 cm; Wt 77.2 kg
[~2022-02-18 07:35] MED LIST changes: +PATIENT COMMENT
[2022-02-18 08:44] LABS: HEMATOCRIT 45.4 % (42.0-52.0); HEMOGLOBIN 15.3 g/dl (13.5-17.5); MEAN CORPUSCULAR HEMOGLOBIN 30.9 pg (27.0-33.0); MEAN CORPUSCULAR HGB CONC 33.7 g/dl (32.0-36.5); MEAN CORPUSCULAR VOLUME 91.7 fl (80.0-96.0); PLATELET COUNT, AUTOMATED 282 10^3/uL (150-450); RED BLOOD COUNT 4.95 10^6/uL (4.30-6.10); WHITE BLOOD COUNT 13.1 10^3/uL (4.0-10.0)
[2022-02-18 09:15] LABS: RSV AMPLIFICATION NEGATIVE (NEGATIVE)
[2022-02-18 09:23] LABS: AMPHETAMINES LEVEL URINE POSITIVE (NEGATIVE); BARBITURATES URINE NEGATIVE (NEGATIVE); BENZODIAZEPINES URINE NEGATIVE (NEGATIVE); CANNABINOIDS URINE POSITIVE (NEGATIVE); COCAINE METABOLITE URINE NEGATIVE (NEGATIVE); METHADONE URINE NEGATIVE (NEGATIVE); OPIATES URINE NEGATIVE (NEGATIVE); PHENCYCLIDINE URINE NEGATIVE (NEGATIVE)
[2022-02-18 09:32] LABS: ACETAMINOPHEN LEVEL < 2.0 UG/ML (10.0-30.0); ALBUMIN 4.6 GM/DL (3.2-5.2); ALT/SGPT 21 U/L (12-78); BILIRUBIN,DIRECT 0.4 MG/DL (0.0-0.2); BILIRUBIN,TOTAL 1.5 MG/DL (0.2-1.0); BLOOD UREA NITROGEN 23 MG/DL (7-18); CALCIUM LEVEL 9.6 MG/DL (8.5-10.1); CARBON DIOXIDE LEVEL 28 MEQ/L (21-32); CHLORIDE LEVEL 100 MEQ/L (98-107); CREATININE FOR GFR 0.88 MG/DL (0.70-1.30); ETHYL ALCOHOL (ETHANOL) < 0.003 % (0.000-0.010); FREE T4 0.98 NG/DL (0.76-1.46); GLOMERULAR FILTRATION RATE > 60.0 (>60); GLUCOSE, FASTING 77 MG/DL (70-100); POTASSIUM SERUM 3.7 MEQ/L (3.5-5.1); SALICYLATE LEVEL < 1.7 MG/DL (5.0-30.0); SODIUM LEVEL 136 MEQ/L (136-145); TOTAL PROTEIN 8.1 GM/DL (6.4-8.2)
[2022-02-18] MEDS ORDERED: LEVOTHYROXINE 88MCG TABLET (0.088 MG) PO ONE (10:10)
[2022-02-18 13:45] VITALS: BP 122/72
== END 2022-02-18 15:07 | disposition home or self-care (01) ==
LOC: EDBD 07:35 → M ED 07:35
DX: F20.9 Schizophrenia, unspecified (principal); F15.10 Other stimulant abuse, uncomplicated

== ENCOUNTER 2022-05-27 20:16 | Inpatient (IN) | payer OTHER ==
[~2022-05-27] VITALS: Ht 182.9 cm; Wt 69.9 kg
[2022-05-27 22:30] LABS: AMPHETAMINES LEVEL URINE NEGATIVE (NEGATIVE); BENZODIAZEPINES URINE NEGATIVE (NEGATIVE); PHENCYCLIDINE URINE NEGATIVE (NEGATIVE)
[2022-05-27 22:31] LABS: BARBITURATES URINE NEGATIVE (NEGATIVE); COCAINE METABOLITE URINE NEGATIVE (NEGATIVE); METHADONE URINE NEGATIVE (NEGATIVE); OPIATES URINE NEGATIVE (NEGATIVE)
[2022-05-27 22:54] LABS: HEMATOCRIT 42.5 % (42.0-52.0); HEMOGLOBIN 14.4 g/dl (13.5-17.5); MEAN CORPUSCULAR HEMOGLOBIN 31.6 pg (27.0-33.0); MEAN CORPUSCULAR HGB CONC 33.9 g/dl (32.0-36.5); MEAN CORPUSCULAR VOLUME 93.4 fl (80.0-96.0); PLATELET COUNT, AUTOMATED 243 10^3/uL (150-450); RED BLOOD COUNT 4.55 10^6/uL (4.30-6.10); WHITE BLOOD COUNT 9.6 10^3/uL (4.0-10.0)
[2022-05-27 23:12] LABS: CANNABINOIDS URINE NEGATIVE (NEGATIVE)
[2022-05-27 23:20] LABS: ETHYL ALCOHOL (ETHANOL) 0.003 % (0.000-0.010)
[2022-05-27 23:22] LABS: ACETAMINOPHEN LEVEL < 2.0 UG/ML (10.0-20.0); ALBUMIN 3.9 G/DL (3.2-5.2); ALKALINE PHOSPHATASE 71 U/L (46-116); ALT/SGPT 26 U/L (7.0-40); AST/SGOT 21 U/L (<34); BILIRUBIN,DIRECT 0.4 MG/DL (<0.4); BLOOD UREA NITROGEN 15 MG/DL (9-23); CALCIUM LEVEL 9.1 MG/DL (8.5-10.1); CARBON DIOXIDE LEVEL 26 MMOL/L (20-31); CHLORIDE LEVEL 102 MMOL/L (98-107); CREATININE FOR GFR 0.76 MG/DL (0.70-1.30); GLOMERULAR FILTRATION RATE > 60.0 (>60); GLUCOSE, FASTING 108 MG/DL (60-100); POTASSIUM SERUM 3.9 MMOL/L (3.5-5.1); SALICYLATE LEVEL < 3.0 MG/DL (<30); SODIUM LEVEL 136 MMOL/L (136-145); TOTAL PROTEIN 7.1 G/DL (5.7-8.2)
[2022-05-27 23:25] LABS: THYROID STIMULATING HORMONE 19.107 uIU/ML (0.55-4.78)
[2022-05-27 23:28] LABS: RSV AMPLIFICATION NEGATIVE (NEGATIVE)
[2022-05-28] MEDS ORDERED: HOME MED LIST COMPLETE! XX SCH (10:00)
[2022-05-29] MEDS ORDERED: LORazepam 2 MG TAB PO STA (00:35)
[2022-05-29] MEDS: BENZTROPINE 1 MG TAB PO SCH (20:25)
[2022-05-29] MEDS ORDERED: QUEtiapine FUMARATE 50MG TAB PO SCH (21:00)
[2022-05-30] MEDS: BENZTROPINE 1 MG TAB PO SCH ×2 (10:13→21:10)
[2022-05-30 12:02] LABS: RSV AMPLIFICATION NEGATIVE (NEGATIVE)
[2022-05-30] MEDS ORDERED: LORazepam 1 MG TAB PO PRN (13:00)
[2022-05-30] MEDS ORDERED: MAALOX 30 ML SUSP *UDC PO PRN (13:00)
[2022-05-30] MEDS ORDERED: MOM 30ML SUSPENSION UDC PO PRN (13:00)
[2022-05-30] MEDS ORDERED: IBUPROFEN 400MG TAB PO PRN (13:00)
[2022-05-30] MEDS ORDERED: traZODone 50 MG TAB PO PRN (13:00)
[2022-05-30] MEDS: SERTRALINE HCL 25 MG TABLET PO SCH (14:53)
[2022-05-30] MEDS: NICOTINE 21MG/24HR 1 EA TRANSDERMAL TD SCH (14:53)
[2022-05-30 15:47] VITALS: BP 123/58
[2022-05-30] MEDS: QUEtiapine FUMARATE 50MG TAB PO SCH (21:10)
[2022-05-31] MEDS: LEVOTHYROXINE 88MCG TABLET (0.088 MG) PO SCH (05:51)
[2022-05-31] MEDS: NICOTINE 21MG/24HR 1 EA TRANSDERMAL TD SCH (09:31)
[2022-05-31] MEDS: SERTRALINE HCL 25 MG TABLET PO SCH (09:32)
[2022-05-31] MEDS: BENZTROPINE 1 MG TAB PO SCH ×2 (09:32→21:33)
[2022-05-31 16:56] VITALS: BP 124/74
[2022-05-31] MEDS: QUEtiapine FUMARATE 50MG TAB PO SCH (21:33)
[2022-06-01] MEDS: LEVOTHYROXINE 88MCG TABLET (0.088 MG) PO SCH (06:03)
[2022-06-01] MEDS: SERTRALINE HCL 25 MG TABLET PO SCH (09:30)
[2022-06-01] MEDS: BENZTROPINE 1 MG TAB PO SCH ×3 (09:30→22:36)
[2022-06-01] MEDS: NICOTINE 21MG/24HR 1 EA TRANSDERMAL TD SCH (09:31)
[2022-06-01] MEDS: QUEtiapine FUMARATE 50MG TAB PO SCH ×2 (21:00→22:36)
[2022-06-02] MEDS: LEVOTHYROXINE 88MCG TABLET (0.088 MG) PO SCH (06:02)
[2022-06-02 06:50] LABS: HDL CHOLESTEROL 44.2 MG/DL (>40); LDL CHOLESTEROL 80.4 MG/DL (<100)
[2022-06-02] MEDS: SERTRALINE HCL 25 MG TABLET PO SCH (10:27)
[2022-06-02] MEDS: BENZTROPINE 1 MG TAB PO SCH ×2 (10:27→21:01)
[2022-06-02] MEDS: NICOTINE 21MG/24HR 1 EA TRANSDERMAL TD SCH (10:58)
[2022-06-02 18:15] VITALS: BP 145/77
[2022-06-02] MEDS: QUEtiapine FUMARATE 50MG TAB PO SCH (21:01)
[2022-06-03] MEDS: LEVOTHYROXINE 88MCG TABLET (0.088 MG) PO SCH (05:48)
[2022-06-03 06:25] VITALS: BP 116/78
[2022-06-03] MEDS: BENZTROPINE 1 MG TAB PO SCH ×2 (09:10→21:00)
[2022-06-03] MEDS: NICOTINE 21MG/24HR 1 EA TRANSDERMAL TD SCH (09:10)
[2022-06-03] MEDS: SERTRALINE HCL 25 MG TABLET PO SCH (09:11)
[2022-06-03] MEDS: QUEtiapine FUMARATE 50MG TAB PO SCH (20:59)
[2022-06-04] MEDS: LEVOTHYROXINE 88MCG TABLET (0.088 MG) PO SCH (06:19)
[2022-06-04] MEDS: NICOTINE 21MG/24HR 1 EA TRANSDERMAL TD SCH (09:15)
[2022-06-04] MEDS: BENZTROPINE 1 MG TAB PO SCH ×2 (09:15→21:01)
[2022-06-04] MEDS: SERTRALINE HCL 25 MG TABLET PO SCH (09:15)
[2022-06-04] MEDS: QUEtiapine FUMARATE 50MG TAB PO SCH (21:01)
[2022-06-05] MEDS: LEVOTHYROXINE 88MCG TABLET (0.088 MG) PO SCH (06:00)
[2022-06-05] MEDS: NICOTINE 21MG/24HR 1 EA TRANSDERMAL TD SCH (09:00)
[2022-06-05] MEDS: SERTRALINE HCL 25 MG TABLET PO SCH (09:19)
[2022-06-05] MEDS: BENZTROPINE 1 MG TAB PO SCH ×2 (09:19→21:44)
[2022-06-05] MEDS: diphenhydrAMINE 25MG CAP PO PRN (15:39)
[2022-06-05 16:28] VITALS: BP 125/56
[2022-06-05] MEDS: QUEtiapine FUMARATE 50MG TAB PO SCH (21:44)
[2022-06-06] MEDS: LEVOTHYROXINE 88MCG TABLET (0.088 MG) PO SCH (06:03)
[2022-06-06] MEDS: NICOTINE 21MG/24HR 1 EA TRANSDERMAL TD SCH (09:00)
[2022-06-06] MEDS: BENZTROPINE 1 MG TAB PO SCH ×2 (09:58→20:57)
[2022-06-06] MEDS: SERTRALINE HCL 25 MG TABLET PO SCH (09:58)
[2022-06-06 19:25] VITALS: BP 131/67
[2022-06-06] MEDS: QUEtiapine FUMARATE 50MG TAB PO SCH (20:57)
[2022-06-07] MEDS: LEVOTHYROXINE 88MCG TABLET (0.088 MG) PO SCH (05:40)
[2022-06-07] MEDS: NICOTINE 21MG/24HR 1 EA TRANSDERMAL TD SCH (09:00)
[2022-06-07] MEDS: SERTRALINE HCL 25 MG TABLET PO SCH (09:20)
[2022-06-07] MEDS: BENZTROPINE 1 MG TAB PO SCH ×2 (09:21→21:17)
[2022-06-07] MEDS: QUEtiapine FUMARATE 50MG TAB PO SCH (21:17)
[2022-06-08] MEDS: LEVOTHYROXINE 88MCG TABLET (0.088 MG) PO SCH (05:37)
[2022-06-08] MEDS: NICOTINE 21MG/24HR 1 EA TRANSDERMAL TD SCH (09:00)
[2022-06-08] MEDS: BENZTROPINE 1 MG TAB PO SCH ×2 (09:52→19:55)
[2022-06-08] MEDS: SERTRALINE HCL 25 MG TABLET PO SCH (09:52)
[2022-06-08] MEDS: diphenhydrAMINE 25MG CAP PO PRN (16:26)
[2022-06-08 19:08] VITALS: BP 141/87
[2022-06-08] MEDS: QUEtiapine FUMARATE 50MG TAB PO SCH (19:55)
[2022-06-09] MEDS: LEVOTHYROXINE 88MCG TABLET (0.088 MG) PO SCH (06:20)
[2022-06-09] MEDS: NICOTINE 21MG/24HR 1 EA TRANSDERMAL TD SCH (09:00)
[2022-06-09] MEDS: SERTRALINE HCL 25 MG TABLET PO SCH (09:19)
[2022-06-09] MEDS: BENZTROPINE 1 MG TAB PO SCH ×2 (09:19→20:25)
[2022-06-09] MEDS: diphenhydrAMINE 25MG CAP PO PRN (11:49)
[2022-06-09 19:11] VITALS: BP 144/63
[2022-06-09] MEDS: QUEtiapine FUMARATE 50MG TAB PO SCH (20:25)
[2022-06-10] MEDS: LEVOTHYROXINE 88MCG TABLET (0.088 MG) PO SCH (06:11)
[2022-06-10] MEDS: BENZTROPINE 1 MG TAB PO SCH (08:59)
[2022-06-10] MEDS: SERTRALINE HCL 25 MG TABLET PO SCH (08:59)
[2022-06-10] MEDS: NICOTINE 21MG/24HR 1 EA TRANSDERMAL TD SCH (09:00)
[2022-06-10] MEDS ORDERED: BENZ-52 PO (09:36)
[2022-06-10] MEDS ORDERED: SERT25TA21 PO (09:36)
[2022-06-10] MEDS ORDERED: SYNT88TA2 PO (09:36)
[2022-06-10] MEDS ORDERED: HALO10TA20 PO ×2 (09:36)
[2022-06-10] MEDS ORDERED: QUET50TA4 PO (09:36)
[2022-06-29] MEDS ORDERED: HALOPERIDOL DECANOATE 100 MG/ML 1ML VIAL IM SCH (09:00)
== END 2022-06-10 12:26 | disposition home or self-care (01) | DRG 750 ==
LOC: M ED 21:15 → M ED INP 05-30 12:56 → M PSY 05-30 15:34
PROVIDERS: ADMIT Student in an Organized Health Care Education/Training Program; ATTEND Psychiatry & Neurology Psychiatry
DX: F20.9 Schizophrenia, unspecified (principal); R45.850 Homicidal ideations; R45.851 Suicidal ideations; F90.9 Attention-deficit hyperactivity disorder, unspecified type; E03.9 Hypothyroidism, unspecified; H02.402 Unspecified ptosis of left eyelid; F17.200 Nicotine dependence, unspecified, uncomplicated; F14.10 Cocaine abuse, uncomplicated; Z91.51 Personal history of suicidal behavior; Z62.811 Personal history of psychological abuse in childhood; Z91.14 Patient's other noncompliance with medication regimen; Z79.899 Other long term (current) drug therapy; Z79.890 Hormone replacement therapy

== ENCOUNTER 2022-06-17 23:26 | Inpatient (IN) | payer OTHER ==
[~2022-06-17] VITALS: Ht 175.3 cm; Wt 74.0 kg
[~2022-06-17 23:26] MED LIST changes: -BENZ-52 PO; +BENZ1TAB5 PO; +HALO10TA20 PO
[2022-06-17] MEDS ORDERED: NS 1,000 ML IV ONE (23:35)
[2022-06-17] MEDS ORDERED: LORazepam 2 MG/ML 1ML VIAL IV STA (23:38)
[2022-06-18 00:03] LABS: BASO # 0.1 10^3/uL (0.0-0.2); BASO % 0.5 % (0.0-1.0); EOS # 0.4 10^3/uL (0.0-0.5); EOS % 3.2 % (0.0-3.0); HEMATOCRIT 46.7 % (42.0-52.0); HEMOGLOBIN 15.6 g/dl (13.5-17.5); LYMPH # 2.9 10^3/uL (1.5-5.0); LYMPH % 25.9 % (24.0-44.0); MEAN CORPUSCULAR HEMOGLOBIN 30.8 pg (27.0-33.0); MEAN CORPUSCULAR HGB CONC 33.4 g/dl (32.0-36.5); MEAN CORPUSCULAR VOLUME 92.1 fl (80.0-96.0); MONO # 0.9 10^3/uL (0.0-0.8); MONO % 7.8 % (2.0-8.0); NEUTROPHILS # 6.9 10^3/uL (1.5-8.5); NEUTROPHILS % 62.3 % (36.0-66.0); PLATELET COUNT, AUTOMATED 293 10^3/uL (150-450); RED BLOOD COUNT 5.07 10^6/uL (4.30-6.10); WHITE BLOOD COUNT 11.1 10^3/uL (4.0-10.0)
[2022-06-18 00:28] LABS: THYROID STIMULATING HORMONE 45.886 uIU/ML (0.55-4.78)
[2022-06-18 00:36] LABS: RSV AMPLIFICATION NEGATIVE (NEGATIVE)
[2022-06-18 01:09] LABS: ACETAMINOPHEN LEVEL < 2.0 UG/ML (10.0-20.0); ALBUMIN 4.5 G/DL (3.2-5.2); ALKALINE PHOSPHATASE 79 U/L (46-116); ALT/SGPT 26 U/L (7.0-40); AST/SGOT 34 U/L (<34); BILIRUBIN,DIRECT 0.3 MG/DL (<0.4); BILIRUBIN,TOTAL 0.9 MG/DL (0.3-1.2); BLOOD UREA NITROGEN 17 MG/DL (9-23); CALCIUM LEVEL 9.4 MG/DL (8.5-10.1); CARBON DIOXIDE LEVEL 25 MMOL/L (20-31); CHLORIDE LEVEL 103 MMOL/L (98-107); CPK CREATINE PHOSPHOKINASE 189 U/L (46-171); CREATININE FOR GFR 0.82 MG/DL (0.70-1.30); ETHYL ALCOHOL (ETHANOL) 0.003 % (0.000-0.010); GLOMERULAR FILTRATION RATE > 60.0 (>60); GLUCOSE, FASTING 126 MG/DL (60-100); POTASSIUM SERUM 4.2 MMOL/L (3.5-5.1); SALICYLATE LEVEL < 3.0 MG/DL (<30); SODIUM LEVEL 138 MMOL/L (136-145); TOTAL PROTEIN 7.8 G/DL (5.7-8.2)
[2022-06-18 01:19] LABS: CK-MB VALUE MASS < 1.0 NG/ML (<3.6); MB/CK RELATIVE INDEX 0.52 (< OR =4)
[2022-06-18 01:47] LABS: AMPHETAMINES LEVEL URINE NEGATIVE (NEGATIVE); BARBITURATES URINE NEGATIVE (NEGATIVE); BENZODIAZEPINES URINE NEGATIVE (NEGATIVE); CANNABINOIDS URINE NEGATIVE (NEGATIVE); COCAINE METABOLITE URINE NEGATIVE (NEGATIVE); METHADONE URINE NEGATIVE (NEGATIVE); OPIATES URINE NEGATIVE (NEGATIVE)
[2022-06-18 02:09] LABS: PHENCYCLIDINE URINE NEGATIVE (NEGATIVE)
[2022-06-18 02:10] LABS: CK-MB VALUE MASS < 1.0 NG/ML (<3.6)
[2022-06-18 02:14] LABS: CPK CREATINE PHOSPHOKINASE 168 U/L (46-171); MB/CK RELATIVE INDEX 0.59 (< OR =4)
[2022-06-18] MEDS ORDERED: HALO10TA20 PO ×2 (04:05)
[2022-06-18] MEDS ORDERED: BENZ1TAB5 PO (04:05)
[2022-06-18] MEDS ORDERED: QUET50TA4 PO (04:06)
[2022-06-18] MEDS ORDERED: LEVO88TA3 PO (04:06)
[2022-06-18] MEDS ORDERED: SERT25TA21 PO (04:06)
[2022-06-18] MEDS ORDERED: HOME MED LIST COMPLETE! XX SCH (04:10)
[2022-06-18] MEDS ORDERED: med rec comment (04:10)
[2022-06-18] MEDS ORDERED: BENZTROPINE 1 MG TAB PO SCH ×2 (09:00→17:20)
[2022-06-18] MEDS: BENZTROPINE 1 MG TAB PO SCH (17:32)
[2022-06-19] MEDS: BENZTROPINE 1 MG TAB PO SCH ×2 (08:49→21:30)
[2022-06-20] MEDS: LEVOTHYROXINE 88MCG TABLET (0.088 MG) PO SCH (06:00)
[2022-06-20] MEDS: BENZTROPINE 1 MG TAB PO SCH ×2 (08:27→20:42)
[2022-06-20] MEDS ORDERED: LORazepam 2 MG TAB PO ONE (10:25)
[2022-06-20] MEDS: SERTRALINE HCL 25 MG TABLET PO SCH ×2 (15:38→15:39)
[2022-06-20] MEDS ORDERED: MOM 30ML SUSPENSION UDC PO PRN (16:55)
[2022-06-20] MEDS ORDERED: MAALOX 30 ML SUSP *UDC PO PRN (16:55)
[2022-06-20] MEDS ORDERED: LORazepam 1 MG TAB PO PRN (16:55)
[2022-06-20] MEDS ORDERED: ACETAMINOPHEN TAB 650MG DOSE (2X325MG) PO PRN (16:55)
[2022-06-20] MEDS ORDERED: traZODone 50 MG TAB PO PRN (16:55)
[2022-06-20 18:54] VITALS: BP 130/72
[2022-06-20] MEDS ORDERED: QUEtiapine FUMARATE 50MG TAB PO SCH (21:00)
[2022-06-21] MEDS: LEVOTHYROXINE 88MCG TABLET (0.088 MG) PO SCH ×2 (05:36→12:13)
[2022-06-21] MEDS: NICOTINE 21MG/24HR 1 EA TRANSDERMAL TD PRN (09:45)
[2022-06-21] MEDS: SERTRALINE HCL 25 MG TABLET PO SCH (12:17)
[2022-06-21] MEDS: BENZTROPINE 1 MG TAB PO SCH ×2 (12:18→20:04)
[2022-06-21 18:18] VITALS: BP 124/77
[2022-06-21] MEDS: QUEtiapine FUMARATE 50MG TAB PO SCH (20:04)
[2022-06-22] MEDS: LEVOTHYROXINE 88MCG TABLET (0.088 MG) PO SCH (06:02)
[2022-06-22] MEDS: BENZTROPINE 1 MG TAB PO SCH ×2 (08:07→20:35)
[2022-06-22] MEDS: SERTRALINE HCL 25 MG TABLET PO SCH (08:07)
[2022-06-22] MEDS: NICOTINE 21MG/24HR 1 EA TRANSDERMAL TD PRN (08:08)
[2022-06-22 19:20] VITALS: BP 138/58
[2022-06-22] MEDS: QUEtiapine FUMARATE 50MG TAB PO SCH (20:35)
[2022-06-23] MEDS: LEVOTHYROXINE 88MCG TABLET (0.088 MG) PO SCH (05:50)
[2022-06-23] MEDS: BENZTROPINE 1 MG TAB PO SCH ×2 (08:34→20:09)
[2022-06-23] MEDS: SERTRALINE HCL 25 MG TABLET PO SCH (08:34)
[2022-06-23] MEDS: NICOTINE POLACRILEX 2 MG GUM PO PRN (18:16)
[2022-06-23] MEDS: QUEtiapine FUMARATE 50MG TAB PO SCH (20:09)
[2022-06-24] MEDS: LEVOTHYROXINE 88MCG TABLET (0.088 MG) PO SCH (06:11)
[2022-06-24] MEDS: BENZTROPINE 1 MG TAB PO SCH ×2 (08:38→21:18)
[2022-06-24] MEDS: SERTRALINE HCL 25 MG TABLET PO SCH (08:38)
[2022-06-24] MEDS: NICOTINE POLACRILEX 2 MG GUM PO PRN (11:37)
[2022-06-24] MEDS ORDERED: HALOPERIDOL DECANOATE 100 MG/ML 1ML VIAL IM ONE (13:50)
[2022-06-24 18:35] VITALS: BP 129/72
[2022-06-24] MEDS: QUEtiapine FUMARATE 50MG TAB PO SCH (21:18)
[2022-06-25] MEDS: LEVOTHYROXINE 88MCG TABLET (0.088 MG) PO SCH (05:47)
[2022-06-25 06:57] VITALS: BP 113/59
[2022-06-25 07:19] LABS: CHOLESTEROL RISK RATIO 3.01 (<5); HDL CHOLESTEROL 48.8 MG/DL (>40); LDL CHOLESTEROL 87.2 MG/DL (<100)
[2022-06-25] MEDS: BENZTROPINE 1 MG TAB PO SCH ×2 (08:54→20:24)
[2022-06-25] MEDS: SERTRALINE HCL 25 MG TABLET PO SCH (08:54)
[2022-06-25] MEDS: NICOTINE POLACRILEX 2 MG GUM PO PRN ×2 (11:07→19:18)
[2022-06-25 18:22] VITALS: BP 130/60
[2022-06-25] MEDS: QUEtiapine FUMARATE 50MG TAB PO SCH (20:24)
[2022-06-26] MEDS: LEVOTHYROXINE 88MCG TABLET (0.088 MG) PO SCH (05:51)
[2022-06-26] MEDS: BENZTROPINE 1 MG TAB PO SCH ×2 (08:54→20:36)
[2022-06-26] MEDS: SERTRALINE HCL 25 MG TABLET PO SCH (08:55)
[2022-06-26 16:47] VITALS: BP 118/57
[2022-06-26] MEDS: NICOTINE POLACRILEX 2 MG GUM PO PRN (17:57)
[2022-06-26] MEDS: QUEtiapine FUMARATE 50MG TAB PO SCH (20:36)
[2022-06-27] MEDS: LEVOTHYROXINE 88MCG TABLET (0.088 MG) PO SCH (05:28)
[2022-06-27] MEDS: SERTRALINE HCL 25 MG TABLET PO SCH (08:05)
[2022-06-27] MEDS: BENZTROPINE 1 MG TAB PO SCH (08:06)
[2022-06-27] MEDS ORDERED: HALD100I2 IM (09:18)
[2022-06-27] MEDS: NICOTINE POLACRILEX 2 MG GUM PO PRN (10:46)
== END 2022-06-27 14:03 | disposition home or self-care (01) | DRG 750 ==
LOC: M ED 23:26 → M ED INP 06-20 16:53 → M PSY 06-20 18:42
PROVIDERS: ADMIT Psychiatry & Neurology Psychiatry; ATTEND Psychiatry & Neurology Psychiatry
DX: F20.9 Schizophrenia, unspecified (principal); R45.850 Homicidal ideations; E03.9 Hypothyroidism, unspecified; F90.9 Attention-deficit hyperactivity disorder, unspecified type; H02.409 Unspecified ptosis of unspecified eyelid; F17.210 Nicotine dependence, cigarettes, uncomplicated; Z79.890 Hormone replacement therapy; Z91.199 Patient's noncompliance with other medical treatment and regimen due to unspecified reason; Z79.899 Other long term (current) drug therapy; Z20.822 Contact with and (suspected) exposure to COVID-19

== ENCOUNTER 2022-07-11 17:14 | Emergency (ER) | payer OTHER ==
[~2022-07-11] VITALS: Ht 182.9 cm; Wt 74.2 kg
[2022-07-11 17:14] VITALS: BP 134/91
[~2022-07-11 17:14] MED LIST changes: +med rec comment
[2022-07-11] MEDS ORDERED: IBUPROFEN 800 MG TAB PO ONE (19:15)
== END 2022-07-11 20:56 | disposition home or self-care (01) ==
LOC: M ED 17:14
DX: S93.401A Sprain of unspecified ligament of right ankle, initial encounter (principal); X50.0XXA Overexertion from strenuous movement or load, initial encounter; Y92.009 Unspecified place in unspecified non-institutional (private) residence as the place of occurrence of the external cause; M76.61 Achilles tendinitis, right leg; E03.9 Hypothyroidism, unspecified; F25.9 Schizoaffective disorder, unspecified; F17.200 Nicotine dependence, unspecified, uncomplicated; Z79.890 Hormone replacement therapy; Z79.899 Other long term (current) drug therapy

== ENCOUNTER 2022-10-05 13:52 | Inpatient (IN) | payer OTHER ==
[~2022-10-05] VITALS: Ht 180.3 cm; Wt 77.3 kg
[~2022-10-05 13:52] MED LIST changes: +BENZ0.5T2 PO; -BENZ0.5T23 PO
[2022-10-05 15:29] LABS: HEMATOCRIT 39.4 % (42.0-52.0); HEMOGLOBIN 13.6 g/dl (13.5-17.5); MEAN CORPUSCULAR HEMOGLOBIN 30.6 pg (27.0-33.0); MEAN CORPUSCULAR HGB CONC 34.5 g/dl (32.0-36.5); MEAN CORPUSCULAR VOLUME 88.5 fl (80.0-96.0); PLATELET COUNT, AUTOMATED 277 10^3/uL (150-450); RED BLOOD COUNT 4.45 10^6/uL (4.30-6.10); WHITE BLOOD COUNT 11.8 10^3/uL (4.0-10.0)
[2022-10-05 15:44] LABS: ACETAMINOPHEN LEVEL < 2.0 UG/ML (10.0-20.0); ETHYL ALCOHOL (ETHANOL) < 0.003 % (0.000-0.010)
[2022-10-05 15:46] LABS: ALBUMIN 3.8 G/DL (3.2-5.2); ALKALINE PHOSPHATASE 69 U/L (46-116); ALT/SGPT 13 U/L (7.0-40); AST/SGOT 17 U/L (<34); BILIRUBIN,DIRECT 0.3 MG/DL (<0.4); BILIRUBIN,TOTAL 0.8 MG/DL (0.3-1.2); BLOOD UREA NITROGEN 11 MG/DL (9-23); CALCIUM LEVEL 8.3 MG/DL (8.5-10.1); CARBON DIOXIDE LEVEL 29 MMOL/L (20-31); CHLORIDE LEVEL 105 MMOL/L (98-107); CREATININE FOR GFR 0.66 MG/DL (0.70-1.30); GLOMERULAR FILTRATION RATE > 60.0 (>60); GLUCOSE, FASTING 65 MG/DL (60-100); POTASSIUM SERUM 3.5 MMOL/L (3.5-5.1); SALICYLATE LEVEL < 3.0 MG/DL (<30); SODIUM LEVEL 140 MMOL/L (136-145); TOTAL PROTEIN 6.9 G/DL (5.7-8.2)
[2022-10-05] MEDS ORDERED: LORazepam 1 MG TAB PO ONE (17:45)
[2022-10-05 18:45] LABS: BARBITURATES URINE NEGATIVE (NEGATIVE); BENZODIAZEPINES URINE NEGATIVE (NEGATIVE); COCAINE METABOLITE URINE NEGATIVE (NEGATIVE); METHADONE URINE NEGATIVE (NEGATIVE); PHENCYCLIDINE URINE NEGATIVE (NEGATIVE)
[2022-10-05 18:46] LABS: AMPHETAMINES LEVEL URINE POSITIVE (NEGATIVE); CANNABINOIDS URINE NEGATIVE (NEGATIVE); OPIATES URINE NEGATIVE (NEGATIVE)
[2022-10-05] MEDS ORDERED: NICOTINE 21MG/24HR 1 EA TRANSDERMAL TD PRN (20:40)
[2022-10-05] MEDS ORDERED: OLANZapine ORAL DISINTEGRATING TAB 5MG PO PRN (20:40)
[2022-10-05] MEDS ORDERED: MOM 30ML SUSPENSION UDC PO PRN (20:40)
[2022-10-05] MEDS ORDERED: MAALOX 30 ML SUSP *UDC PO PRN (20:40)
[2022-10-05] MEDS ORDERED: ACETAMINOPHEN TAB 650MG DOSE (2X325MG) PO PRN (20:40)
[2022-10-05] MEDS ORDERED: diphenhydrAMINE 25MG CAP PO PRN (20:40)
[2022-10-05] MEDS ORDERED: IBUPROFEN 400MG TAB PO PRN (20:40)
[2022-10-05] MEDS: BENZTROPINE 1 MG TAB PO SCH (21:00)
[2022-10-05] MEDS ORDERED: HALD100I2 IM (21:40)
[2022-10-05] MEDS ORDERED: HOME MED LIST COMPLETE! XX SCH (21:40)
[2022-10-06] MEDS: LEVOTHYROXINE 88MCG TABLET (0.088 MG) PO SCH (05:55)
[2022-10-06] MEDS: BENZTROPINE 1 MG TAB PO SCH ×3 (09:00→21:00)
[2022-10-06 12:47] LABS: FREE T4 0.77 NG/DL (0.89-1.76)
[2022-10-06 18:33] VITALS: BP 124/60
[2022-10-07] MEDS: LEVOTHYROXINE 88MCG TABLET (0.088 MG) PO SCH (05:32)
[2022-10-07] MEDS: BENZTROPINE 1 MG TAB PO SCH ×2 (09:00→21:00)
[2022-10-08] MEDS: LEVOTHYROXINE 88MCG TABLET (0.088 MG) PO SCH (05:58)
[2022-10-08] MEDS: BENZTROPINE 1 MG TAB PO SCH ×3 (09:00→20:32)
[2022-10-08] MEDS: traZODone 50 MG TAB PO PRN (20:32)
[2022-10-09] MEDS: LEVOTHYROXINE 88MCG TABLET (0.088 MG) PO SCH (06:00)
[2022-10-09] MEDS: BENZTROPINE 1 MG TAB PO SCH ×2 (09:06→22:01)
[2022-10-09 17:53] VITALS: BP 120/72
[2022-10-09] MEDS: LORazepam 1 MG TAB PO PRN (18:32)
[2022-10-09] MEDS: traZODone 50 MG TAB PO PRN (22:01)
[2022-10-10] MEDS: LEVOTHYROXINE 88MCG TABLET (0.088 MG) PO SCH (06:00)
[2022-10-10] MEDS: BENZTROPINE 1 MG TAB PO SCH ×2 (09:50→21:08)
[2022-10-10 18:00] VITALS: BP 128/71
[2022-10-10] MEDS: LORazepam 1 MG TAB PO PRN (19:05)
[2022-10-10] MEDS: traZODone 50 MG TAB PO PRN (21:08)
[2022-10-11] MEDS: LEVOTHYROXINE 88MCG TABLET (0.088 MG) PO SCH ×2 (05:35→09:47)
[2022-10-11] MEDS: BENZTROPINE 1 MG TAB PO SCH ×2 (09:44→20:04)
[2022-10-11] MEDS ORDERED: BENZ1TAB5 PO (10:35)
[2022-10-11] MEDS ORDERED: HALO10AM IM (10:35)
[2022-10-11] MEDS ORDERED: TRAZ-252 PO (10:35)
[2022-10-11] MEDS ORDERED: SYNT88TA2 PO (10:35)
[2022-10-11] MEDS ORDERED: HALO10TA20 PO (10:35)
[2022-10-11] MEDS ORDERED: HALOPERIDOL DECANOATE 100 MG/ML 1ML VIAL IM ONE (10:35)
[2022-10-11] MEDS ORDERED: HALOPERIDOL DECANOATE 100 MG/ML 1ML VIAL IM SCH (18:00)
[2022-10-11] MEDS: traZODone 50 MG TAB PO PRN (20:04)
[2022-10-12] MEDS: LEVOTHYROXINE 88MCG TABLET (0.088 MG) PO SCH (06:07)
[2022-10-12] MEDS: BENZTROPINE 1 MG TAB PO SCH (08:20)
== END 2022-10-12 11:45 | disposition home or self-care (01) | DRG 750 ==
LOC: M ED 13:52 → M ED INP 20:40 → M PSY 10-06 00:18
PROVIDERS: ADMIT Psychiatry & Neurology Psychiatry; ATTEND Student in an Organized Health Care Education/Training Program
DX: F20.9 Schizophrenia, unspecified (principal); F12.10 Cannabis abuse, uncomplicated; F90.9 Attention-deficit hyperactivity disorder, unspecified type; Z91.198 Patient's noncompliance with other medical treatment and regimen for other reason; Z56.0 Unemployment, unspecified; Z65.3 Problems related to other legal circumstances; F17.210 Nicotine dependence, cigarettes, uncomplicated; Z79.890 Hormone replacement therapy; Z79.899 Other long term (current) drug therapy; E03.9 Hypothyroidism, unspecified

== ENCOUNTER 2022-10-13 03:10 | Emergency (ER) | payer OTHER ==
[~2022-10-13 03:10] MED LIST changes: +HALO10AM IM; +TRAZ-252 PO
== END 2022-10-13 04:25 | disposition left against medical advice (07) ==
LOC: EDBD 03:10 → M ED 03:10
DX: Z53.21 Procedure and treatment not carried out due to patient leaving prior to being seen by health care provider (principal)

== ENCOUNTER 2022-10-20 18:15 | Inpatient (IN) | payer OTHER ==
[~2022-10-20] VITALS: Ht 182.9 cm; Wt 66.1 kg
[2022-10-20] MEDS ORDERED: HALOPERIDOL 5MG/ML 1ML VIAL IM ONE (18:30)
[2022-10-20] MEDS ORDERED: MIDAZOLAM INJ 2MG/2ML VIAL IM ONE (18:30)
[2022-10-20 19:03] LABS: HEMATOCRIT 43.7 % (42.0-52.0); HEMOGLOBIN 14.3 g/dl (13.5-17.5); MEAN CORPUSCULAR HEMOGLOBIN 30.4 pg (27.0-33.0); MEAN CORPUSCULAR HGB CONC 32.7 g/dl (32.0-36.5); MEAN CORPUSCULAR VOLUME 92.8 fl (80.0-96.0); PLATELET COUNT, AUTOMATED 330 10^3/uL (150-450); RED BLOOD COUNT 4.71 10^6/uL (4.30-6.10); WHITE BLOOD COUNT 8.9 10^3/uL (4.0-10.0)
[2022-10-20 19:27] LABS: ETHYL ALCOHOL (ETHANOL) < 0.003 % (0.000-0.010)
[2022-10-20 19:28] LABS: ACETAMINOPHEN LEVEL < 2.0 UG/ML (10.0-20.0); SALICYLATE LEVEL < 3.0 MG/DL (<30)
[2022-10-20 19:29] LABS: ALBUMIN 4.1 G/DL (3.2-5.2); ALKALINE PHOSPHATASE 71 U/L (46-116); ALT/SGPT 33 U/L (7.0-40); AST/SGOT 19 U/L (<34); BILIRUBIN,DIRECT 0.3 MG/DL (<0.4); BILIRUBIN,TOTAL 0.9 MG/DL (0.3-1.2); BLOOD UREA NITROGEN 11 MG/DL (9-23); CALCIUM LEVEL 9.2 MG/DL (8.5-10.1); CARBON DIOXIDE LEVEL 27 MMOL/L (20-31); CHLORIDE LEVEL 104 MMOL/L (98-107); CREATININE FOR GFR 0.76 MG/DL (0.70-1.30); GLOMERULAR FILTRATION RATE > 60.0 (>60); GLUCOSE, FASTING 54 MG/DL (60-100); POTASSIUM SERUM 3.5 MMOL/L (3.5-5.1); SODIUM LEVEL 140 MMOL/L (136-145); TOTAL PROTEIN 7.3 G/DL (5.7-8.2)
[2022-10-20 19:31] LABS: THYROID STIMULATING HORMONE 23.228 uIU/ML (0.55-4.78)
[2022-10-20 20:43] LABS: BARBITURATES URINE NEGATIVE (NEGATIVE); COCAINE METABOLITE URINE NEGATIVE (NEGATIVE); METHADONE URINE NEGATIVE (NEGATIVE); OPIATES URINE NEGATIVE (NEGATIVE); PHENCYCLIDINE URINE NEGATIVE (NEGATIVE)
[2022-10-20 20:44] LABS: AMPHETAMINES LEVEL URINE NEGATIVE (NEGATIVE)
[2022-10-20 20:48] LABS: BENZODIAZEPINES URINE POSITIVE (NEGATIVE); CANNABINOIDS URINE POSITIVE (NEGATIVE)
[2022-10-21] MEDS ORDERED: MOM 30ML SUSPENSION UDC PO PRN
[2022-10-21] MEDS ORDERED: IBUPROFEN 400MG TAB PO PRN
[2022-10-21] MEDS ORDERED: MAALOX 30 ML SUSP *UDC PO PRN
[2022-10-21] MEDS ORDERED: ACETAMINOPHEN TAB 650MG DOSE (2X325MG) PO PRN
[2022-10-21] MEDS ORDERED: BENZ1TAB5 PO (00:38)
[2022-10-21] MEDS ORDERED: HALO10AM IM (00:38)
[2022-10-21] MEDS ORDERED: TRAZ-252 PO (00:38)
[2022-10-21] MEDS ORDERED: SYNT88TA2 PO (00:38)
[2022-10-21] MEDS ORDERED: HALO10TA20 PO (00:38)
[2022-10-21] MEDS ORDERED: HOME MED LIST COMPLETE! XX SCH (00:40)
[2022-10-21] MEDS: LEVOTHYROXINE 88MCG TABLET (0.088 MG) PO SCH (05:14)
[2022-10-21] MEDS: diphenhydrAMINE 25MG CAP PO PRN ×2 (09:28→17:57)
[2022-10-21] MEDS: BENZTROPINE 1 MG TAB PO SCH ×2 (09:28→20:15)
[2022-10-21] MEDS ORDERED: diphenhydrAMINE 50MG/ML VIAL IM STA (09:44)
[2022-10-21] MEDS ORDERED: LORazepam 2 MG/ML 1ML VIAL IM STA (09:44)
[2022-10-21 16:30] VITALS: BP 123/71; TEMP 98.5; O2SAT 97
[2022-10-22] MEDS: LEVOTHYROXINE 88MCG TABLET (0.088 MG) PO SCH (06:01)
[2022-10-22] MEDS: BENZTROPINE 1 MG TAB PO SCH ×2 (08:48→19:56)
[2022-10-22] MEDS: OLANZapine ORAL DISINTEGRATING TAB 5MG PO PRN (10:27)
[2022-10-23] MEDS: LEVOTHYROXINE 88MCG TABLET (0.088 MG) PO SCH (06:09)
[2022-10-23] MEDS: BENZTROPINE 1 MG TAB PO SCH ×2 (09:33→21:00)
[2022-10-23 16:29] VITALS: BP 148/70; TEMP 97.9; O2SAT 98
[2022-10-23] MEDS: OLANZapine ORAL DISINTEGRATING TAB 5MG PO PRN (19:17)
[2022-10-23] MEDS ORDERED: chlorproMAZINE INJ 50MG/2ML AMP IM STA (19:31)
[2022-10-24] MEDS: LEVOTHYROXINE 88MCG TABLET (0.088 MG) PO SCH (05:58)
[2022-10-24] MEDS: BENZTROPINE 1 MG TAB PO SCH ×2 (09:38→20:39)
[2022-10-24 18:00] VITALS: BP 134/62; TEMP 97.3; O2SAT 98
[2022-10-24] MEDS: traZODone 50 MG TAB PO PRN (20:39)
[2022-10-25] MEDS: LEVOTHYROXINE 88MCG TABLET (0.088 MG) PO SCH (05:36)
[2022-10-25] MEDS: BENZTROPINE 1 MG TAB PO SCH ×2 (09:07→20:21)
[2022-10-25] MEDS: OLANZapine ORAL DISINTEGRATING TAB 5MG PO PRN (14:47)
[2022-10-25 17:51] VITALS: BP 144/65; TEMP 98
[2022-10-25] MEDS: traZODone 50 MG TAB PO PRN (20:21)
[2022-10-26] MEDS: LEVOTHYROXINE 88MCG TABLET (0.088 MG) PO SCH (05:44)
[2022-10-26] MEDS: BENZTROPINE 1 MG TAB PO SCH ×2 (08:28→20:03)
[2022-10-26 18:12] VITALS: BP 124/58; TEMP 97.8
[2022-10-26] MEDS: traZODone 50 MG TAB PO PRN (20:03)
[2022-10-27] MEDS: LEVOTHYROXINE 88MCG TABLET (0.088 MG) PO SCH (06:32)
[2022-10-27 07:06] VITALS: BP 146/65; TEMP 98.3; O2SAT 98
[2022-10-27] MEDS: BENZTROPINE 1 MG TAB PO SCH (09:16)
== END 2022-10-27 10:58 | disposition home or self-care (01) | DRG 750 ==
LOC: M ED 18:15 → M ED INP 23:57 → M PSY 10-21 00:28
PROVIDERS: ADMIT Psychiatry & Neurology Psychiatry; ATTEND Student in an Organized Health Care Education/Training Program
DX: F20.9 Schizophrenia, unspecified (principal); Z91.148 Patient's other noncompliance with medication regimen for other reason; F15.10 Other stimulant abuse, uncomplicated; F12.10 Cannabis abuse, uncomplicated; E03.9 Hypothyroidism, unspecified; H02.402 Unspecified ptosis of left eyelid; Z91.51 Personal history of suicidal behavior; Z56.0 Unemployment, unspecified; Z91.199 Patient's noncompliance with other medical treatment and regimen due to unspecified reason; Z79.890 Hormone replacement therapy; Z79.899 Other long term (current) drug therapy; F17.200 Nicotine dependence, unspecified, uncomplicated

== ENCOUNTER 2022-11-06 16:29 | Emergency (ER) | payer OTHER ==
[~2022-11-06] VITALS: Ht 177.8 cm; Wt 67.9 kg
[~2022-11-06 16:29] MED LIST changes: -MIRT-62 PO; +MIRT-88 PO
[2022-11-06 16:30] VITALS: BP 144/75; TEMP 97.6; O2SAT 98
== END 2022-11-06 16:43 | disposition left against medical advice (07) ==
LOC: M ED 16:29
DX: Z53.21 Procedure and treatment not carried out due to patient leaving prior to being seen by health care provider (principal)

== ENCOUNTER 2023-01-04 01:09 | Emergency (ER) | payer OTHER ==
[~2023-01-04] VITALS: Ht 177.8 cm; Wt 60.1 kg
[~2023-01-04 01:09] MED LIST changes: +MIRT-62 PO; -MIRT-88 PO
[2023-01-04 01:19] VITALS: BP 120/88; TEMP 98.1; O2SAT 100
== END 2023-01-04 04:41 | disposition left against medical advice (07) ==
LOC: EDBD 01:09 → M ED 01:09
DX: Z53.21 Procedure and treatment not carried out due to patient leaving prior to being seen by health care provider (principal)

== ENCOUNTER 2023-01-07 16:27 | Emergency (ER) | payer OTHER ==
[~2023-01-07] VITALS: Ht 175.3 cm; Wt 62.4 kg
[2023-01-07 16:27] VITALS: BP 152/75; TEMP 98.1; O2SAT 100
[2023-01-07] MEDS ORDERED: LORazepam 2 MG TAB PO STA (18:19)
[2023-01-07] MEDS ORDERED: OLANZapine ORAL DISINTEGRATING TAB 5MG PO ONE (18:20)
== END 2023-01-07 19:22 | disposition home or self-care (01) ==
LOC: M ED 16:27
DX: F23 Brief psychotic disorder (principal); E03.9 Hypothyroidism, unspecified; F90.9 Attention-deficit hyperactivity disorder, unspecified type; F25.9 Schizoaffective disorder, unspecified

== ENCOUNTER 2023-02-15 12:58 | Emergency (ER) | payer OTHER ==
[~2023-02-15 12:58] MED LIST changes: -MIRT-62 PO; +MIRT-88 PO
[2023-02-15] MEDS ORDERED: OLANZapine ORAL DISINTEGRATING TAB 5MG PO ONE (14:55)
[2023-02-15] MEDS ORDERED: MED REC IN PROGRESS XX SCH (15:45)
[2023-02-15] MEDS ORDERED: HOME MED LIST COMPLETE! XX SCH (15:50)
[2023-02-15 16:39] LABS: BARBITURATES URINE NEGATIVE (NEGATIVE); BENZODIAZEPINES URINE NEGATIVE (NEGATIVE); CANNABINOIDS URINE NEGATIVE (NEGATIVE); METHADONE URINE NEGATIVE (NEGATIVE); OPIATES URINE NEGATIVE (NEGATIVE); PHENCYCLIDINE URINE NEGATIVE (NEGATIVE)
[2023-02-15 16:45] LABS: AMPHETAMINES LEVEL URINE POSITIVE (NEGATIVE); COCAINE METABOLITE URINE POSITIVE (NEGATIVE)
[2023-02-15] MEDS ORDERED: LORazepam 2 MG TAB PO STA (17:37)
[2023-02-15 18:01] LABS: HEMATOCRIT 41.8 % (42.0-52.0); HEMOGLOBIN 14.3 g/dl (13.5-17.5); MEAN CORPUSCULAR HEMOGLOBIN 31.6 pg (27.0-33.0); MEAN CORPUSCULAR HGB CONC 34.2 g/dl (32.0-36.5); MEAN CORPUSCULAR VOLUME 92.5 fl (80.0-96.0); PLATELET COUNT, AUTOMATED 298 10^3/uL (150-450); RED BLOOD COUNT 4.52 10^6/uL (4.30-6.10); WHITE BLOOD COUNT 8.5 10^3/uL (4.0-10.0)
[2023-02-15 18:25] LABS: ETHYL ALCOHOL (ETHANOL) 0.007 % (0.000-0.010)
[2023-02-15 18:26] LABS: ACETAMINOPHEN LEVEL < 2.0 UG/ML (10.0-20.0)
[2023-02-15 18:27] LABS: ALBUMIN 4.1 G/DL (3.2-5.2); ALKALINE PHOSPHATASE 73 U/L (46-116); ALT/SGPT 12 U/L (7.0-40); AST/SGOT 16 U/L (<34); BILIRUBIN,DIRECT 0.4 MG/DL (<0.4); BILIRUBIN,TOTAL 1.3 MG/DL (0.3-1.2); BLOOD UREA NITROGEN 15 MG/DL (9-23); CALCIUM LEVEL 8.7 MG/DL (8.5-10.1); CARBON DIOXIDE LEVEL 29 MMOL/L (20-31); CHLORIDE LEVEL 105 MMOL/L (98-107); CREATININE FOR GFR 0.89 MG/DL (0.70-1.30); GLOMERULAR FILTRATION RATE > 60.0 (>60); GLUCOSE, FASTING 61 MG/DL (60-100); POTASSIUM SERUM 4.4 MMOL/L (3.5-5.1); SALICYLATE LEVEL < 3.0 MG/DL (<30); SODIUM LEVEL 139 MMOL/L (136-145); TOTAL PROTEIN 7.1 G/DL (5.7-8.2)
[2023-02-15 18:29] LABS: THYROID STIMULATING HORMONE 19.206 uIU/ML (0.55-4.78)
[2023-02-16 11:07] VITALS: BP 148/59; TEMP 97.1; O2SAT 100
== END 2023-02-16 12:06 | disposition home or self-care (01) ==
LOC: M ED 12:58
DX: F19.10 Other psychoactive substance abuse, uncomplicated (principal); F20.9 Schizophrenia, unspecified; F17.200 Nicotine dependence, unspecified, uncomplicated; F12.90 Cannabis use, unspecified, uncomplicated

== ENCOUNTER 2023-03-06 15:51 | Emergency (ER) | payer OTHER ==
[~2023-03-06] VITALS: Ht 182.9 cm; Wt 77.3 kg
[2023-03-06] MEDS ORDERED: OLANZapine INTRAMUSCULAR 10MG VIAL IM ONE (16:05)
[2023-03-06] MEDS ORDERED: MED REC IN PROGRESS XX SCH (16:25)
[2023-03-06 16:37] LABS: HEMATOCRIT 40.3 % (42.0-52.0); HEMOGLOBIN 13.7 g/dl (13.5-17.5); MEAN CORPUSCULAR HEMOGLOBIN 31.4 pg (27.0-33.0); MEAN CORPUSCULAR VOLUME 92.4 fl (80.0-96.0); PLATELET COUNT, AUTOMATED 284 10^3/uL (150-450); RED BLOOD COUNT 4.36 10^6/uL (4.30-6.10); WHITE BLOOD COUNT 11.3 10^3/uL (4.0-10.0)
[2023-03-06 22:02] LABS: PHENCYCLIDINE URINE NEGATIVE (NEGATIVE)
[2023-03-06 22:02] LABS: ETHYL ALCOHOL (ETHANOL) < 0.003 % (0.000-0.010)
[2023-03-06 22:03] LABS: AMPHETAMINES LEVEL URINE NEGATIVE (NEGATIVE); BARBITURATES URINE NEGATIVE (NEGATIVE); BENZODIAZEPINES URINE NEGATIVE (NEGATIVE); CANNABINOIDS URINE NEGATIVE (NEGATIVE); METHADONE URINE NEGATIVE (NEGATIVE); OPIATES URINE NEGATIVE (NEGATIVE)
[2023-03-06 22:04] LABS: SALICYLATE LEVEL < 3.0 MG/DL (<30)
[2023-03-06 22:23] LABS: ALKALINE PHOSPHATASE 82 U/L (46-116); ALT/SGPT 18 U/L (7.0-40); AST/SGOT 18 U/L (<34); BILIRUBIN,DIRECT 0.3 MG/DL (<0.4); BILIRUBIN,TOTAL 0.7 MG/DL (0.3-1.2); BLOOD UREA NITROGEN 21 MG/DL (9-23); CALCIUM LEVEL 8.8 MG/DL (8.5-10.1); CARBON DIOXIDE LEVEL 27 MMOL/L (20-31); CHLORIDE LEVEL 107 MMOL/L (98-107); CREATININE FOR GFR 1.04 MG/DL (0.70-1.30); GLOMERULAR FILTRATION RATE > 60.0 (>60); GLUCOSE, FASTING 87 MG/DL (60-100); POTASSIUM SERUM 4.3 MMOL/L (3.5-5.1); SODIUM LEVEL 143 MMOL/L (136-145); TOTAL PROTEIN 6.9 G/DL (5.7-8.2)
[2023-03-06 22:28] LABS: COCAINE METABOLITE URINE POSITIVE (NEGATIVE)
[2023-03-06] MEDS ORDERED: MED REC CURRENTLY UNOBTAINABLE XX SCH (23:15)
[2023-03-07 14:36] VITALS: BP 109/63; TEMP 96.3; O2SAT 100
== END 2023-03-07 14:37 | disposition home or self-care (01) ==
LOC: M ED 15:51
DX: R41.82 Altered mental status, unspecified (principal); F06.8 Other specified mental disorders due to known physiological condition
CPT/HCPCS: 51701; 80048; 80076; 80143; 80307; 82077; 84443; 85027; 87635; 96372; 99284; S0166

== ENCOUNTER 2023-10-02 17:51 | Emergency (ER) | payer OTHER ==
[~2023-10-02] VITALS: Ht 185.4 cm; Wt 180.0 kg
[~2023-10-02 17:51] MED LIST changes: +FLUO-290 PO; -FLUO10CA18 PO; -RISP-10 PO; +RISP-105 PO; +RISP-106 PO; -RISP-8 PO; -RISP-9 PO; +RISP3TAB77 PO
[2023-10-02] MEDS ORDERED: CLON0.2T PO (18:13)
[2023-10-02] MEDS ORDERED: OLAN1TAB16 PO (18:13)
[2023-10-02] MEDS ORDERED: TRAZ1TAB14 PO (18:13)
[2023-10-02 18:43] LABS: HEMATOCRIT 43.1 % (42.0-52.0); MEAN CORPUSCULAR HEMOGLOBIN 31.9 pg (27.0-33.0); MEAN CORPUSCULAR HGB CONC 34.8 g/dl (32.0-36.5); MEAN CORPUSCULAR VOLUME 91.7 fl (80.0-96.0); PLATELET COUNT, AUTOMATED 269 10^3/uL (150-450); WHITE BLOOD COUNT 8.9 10^3/uL (4.0-10.0)
[2023-10-02] MEDS: LORazepam 2 MG TAB PO STA (18:52)
[2023-10-02] MEDS: diphenhydrAMINE 50MG CAP PO ONE (18:52)
[2023-10-02 19:08] LABS: AMPHETAMINES LEVEL URINE NEGATIVE (NEGATIVE); BARBITURATES URINE NEGATIVE (NEGATIVE); BENZODIAZEPINES URINE NEGATIVE (NEGATIVE); CANNABINOIDS URINE NEGATIVE (NEGATIVE); COCAINE METABOLITE URINE NEGATIVE (NEGATIVE); METHADONE URINE NEGATIVE (NEGATIVE); OPIATES URINE NEGATIVE (NEGATIVE); PHENCYCLIDINE URINE NEGATIVE (NEGATIVE)
[2023-10-02 19:11] LABS: ETHYL ALCOHOL (ETHANOL) < 0.003 % (0.000-0.010)
[2023-10-02 19:13] LABS: ALBUMIN 4.4 G/DL (3.2-5.2); ALKALINE PHOSPHATASE 94 U/L (46-116); ALT/SGPT 21 U/L (7.0-40); AST/SGOT 23 U/L (<34); BILIRUBIN,DIRECT 0.4 MG/DL (<0.4); BILIRUBIN,TOTAL 1.4 MG/DL (0.3-1.2); BLOOD UREA NITROGEN 16 MG/DL (9-23); CALCIUM LEVEL 9.4 MG/DL (8.5-10.1); CARBON DIOXIDE LEVEL 24 MMOL/L (20-31); CHLORIDE LEVEL 104 MMOL/L (98-107); CREATININE FOR GFR 0.86 MG/DL (0.70-1.30); GLOMERULAR FILTRATION RATE > 60.0 (>60); GLUCOSE, FASTING 129 MG/DL (60-100); POTASSIUM SERUM 3.9 MMOL/L (3.5-5.1); SALICYLATE LEVEL < 3.0 MG/DL (<30); SODIUM LEVEL 136 MMOL/L (136-145); TOTAL PROTEIN 7.8 G/DL (5.7-8.2)
[2023-10-02 19:15] LABS: THYROID STIMULATING HORMONE 75.571 uIU/ML (0.55-4.78)
[2023-10-02] MEDS ORDERED: HOME MED LIST COMPLETE! XX SCH (19:50)
[2023-10-03 13:55] VITALS: BP 124/78; TEMP 97.8; O2SAT 98
== END 2023-10-03 13:56 | disposition home or self-care (01) ==
LOC: M ED 17:51
DX: F20.9 Schizophrenia, unspecified (principal); F90.9 Attention-deficit hyperactivity disorder, unspecified type; F17.210 Nicotine dependence, cigarettes, uncomplicated; F15.10 Other stimulant abuse, uncomplicated; Z79.899 Other long term (current) drug therapy

== ENCOUNTER → 2023-11-01 | Outpatient (CLI) | payer OTHER ==
[~2023-11-01] MED LIST changes: +CLON0.2T PO; +TRAZ1TAB14 PO
[2023-11-01 11:00] LABS: BASO % 0.5 % (0.0-1.0); EOS # 0.3 10^3/uL (0.0-0.5); EOS % 3.5 % (0.0-3.0); HEMATOCRIT 44.1 % (42.0-52.0); HEMOGLOBIN 14.9 g/dl (13.5-17.5); LYMPH # 1.6 10^3/uL (1.5-5.0); LYMPH % 22.1 % (24.0-44.0); MEAN CORPUSCULAR HEMOGLOBIN 31.6 pg (27.0-33.0); MEAN CORPUSCULAR HGB CONC 33.8 g/dl (32.0-36.5); MEAN CORPUSCULAR VOLUME 93.6 fl (80.0-96.0); MONO # 0.8 10^3/uL (0.0-0.8); MONO % 10.2 % (2.0-8.0); NEUTROPHILS # 4.7 10^3/uL (1.5-8.5); NEUTROPHILS % 63.3 % (36.0-66.0); PLATELET COUNT, AUTOMATED 248 10^3/uL (150-450); RED BLOOD COUNT 4.71 10^6/uL (4.30-6.10); WHITE BLOOD COUNT 7.4 10^3/uL (4.0-10.0)
[2023-11-01 11:17] LABS: HEMOGLOBIN A1c 4.8 % (4.0-6.0)
[2023-11-01 11:35] LABS: ALBUMIN 4.1 G/DL (3.2-5.2); ALKALINE PHOSPHATASE 74 U/L (46-116); ALT/SGPT 21 U/L (7.0-40); AST/SGOT 12 U/L (<34); BILIRUBIN,TOTAL 0.8 MG/DL (0.3-1.2); BLOOD UREA NITROGEN 21 MG/DL (9-23); CALCIUM LEVEL 9.6 MG/DL (8.5-10.1); CARBON DIOXIDE LEVEL 26 MMOL/L (20-31); CHLORIDE LEVEL 106 MMOL/L (98-107); CHOLESTEROL LEVEL 145 MG/DL (<200); CHOLESTEROL RISK RATIO 4.08 (<5); CREATININE FOR GFR 0.94 MG/DL (0.70-1.30); GLOMERULAR FILTRATION RATE > 60.0 (>60); GLUCOSE, FASTING 64 MG/DL (60-100); HDL CHOLESTEROL 35.5 MG/DL (>40); LDL CHOLESTEROL 94.5 MG/DL (<100); NON-HDL-C 109.5 MG/DL; POTASSIUM SERUM 4.2 MMOL/L (3.5-5.1); SODIUM LEVEL 139 MMOL/L (136-145); TOTAL PROTEIN 7.3 G/DL (5.7-8.2); TRIGLYCERIDES LEVEL 75 MG/DL (<150)
[2023-11-01 11:37] LABS: FREE T4 0.86 NG/DL (0.89-1.76); THYROID STIMULATING HORMONE 59.872 uIU/ML (0.55-4.78)
== END ==
LOC: M WUC 08:56
PROVIDERS: ATTEND Nurse Practitioner Adult Health
DX: E03.9 Hypothyroidism, unspecified (principal); F41.9 Anxiety disorder, unspecified; E55.9 Vitamin D deficiency, unspecified; F25.9 Schizoaffective disorder, unspecified

== ENCOUNTER → 2023-11-14 | Outpatient (CLI) | payer OTHER | LOC: M OUTALCOH 14:24 | PROVIDERS: ATTEND Psychiatry & Neurology Psychiatry | DX: F15.20 Other stimulant dependence, uncomplicated (principal); F17.200 Nicotine dependence, unspecified, uncomplicated ==

== ENCOUNTER → 2023-12-13 | Outpatient (RCR) | payer OTHER | LOC: M OUTALCOH 11-23 09:46 | PROVIDERS: ATTEND Psychiatry & Neurology Psychiatry | DX: F15.20 Other stimulant dependence, uncomplicated (principal); F17.200 Nicotine dependence, unspecified, uncomplicated ==

== ENCOUNTER 2024-01-11 08:12 | Inpatient (IN) | payer OTHER, MEDICAID ==
[~2024-01-11] VITALS: Ht 182.9 cm; Wt 89.6 kg
[2024-01-11 09:06] LABS: HEMOGLOBIN 14.9 g/dl (13.5-17.5); MEAN CORPUSCULAR HEMOGLOBIN 31.1 pg (27.0-33.0); MEAN CORPUSCULAR HGB CONC 34.7 g/dl (32.0-36.5); MEAN CORPUSCULAR VOLUME 89.8 fl (80.0-96.0); PLATELET COUNT, AUTOMATED 297 10^3/uL (150-450); RED BLOOD COUNT 4.79 10^6/uL (4.30-6.10); WHITE BLOOD COUNT 12.1 10^3/uL (4.0-10.0)
[2024-01-11 09:32] LABS: ETHYL ALCOHOL (ETHANOL) < 0.003 % (0.000-0.010)
[2024-01-11 09:34] LABS: ALBUMIN 4.2 G/DL (3.2-5.2); ALKALINE PHOSPHATASE 78 U/L (46-116); ALT/SGPT 27 U/L (7.0-40); AST/SGOT 23 U/L (<34); BILIRUBIN,DIRECT 0.3 MG/DL (<0.4); BILIRUBIN,TOTAL 0.8 MG/DL (0.3-1.2); BLOOD UREA NITROGEN 13 MG/DL (9-23); CALCIUM LEVEL 9.3 MG/DL (8.5-10.1); CARBON DIOXIDE LEVEL 27 MMOL/L (20-31); CHLORIDE LEVEL 105 MMOL/L (98-107); CREATININE FOR GFR 0.73 MG/DL (0.70-1.30); GLOMERULAR FILTRATION RATE > 60.0 (>60); GLUCOSE, FASTING 101 MG/DL (60-100); POTASSIUM SERUM 4.2 MMOL/L (3.5-5.1); SALICYLATE LEVEL < 3.0 MG/DL (<30); SODIUM LEVEL 139 MMOL/L (136-145); TOTAL PROTEIN 7.3 G/DL (5.7-8.2)
[2024-01-11 09:36] LABS: AMPHETAMINES LEVEL URINE NEGATIVE (NEGATIVE); BARBITURATES URINE NEGATIVE (NEGATIVE); BENZODIAZEPINES URINE NEGATIVE (NEGATIVE); COCAINE METABOLITE URINE NEGATIVE (NEGATIVE); METHADONE URINE NEGATIVE (NEGATIVE); THYROID STIMULATING HORMONE 9.044 uIU/ML (0.55-4.78)
[2024-01-11 09:37] LABS: CANNABINOIDS URINE NEGATIVE (NEGATIVE); OPIATES URINE NEGATIVE (NEGATIVE); PHENCYCLIDINE URINE NEGATIVE (NEGATIVE)
[2024-01-11] MEDS: OLANZapine ORAL DISINTEGRATING TAB 5MG PO ONE (10:31)
[2024-01-11] MEDS ORDERED: OLAN1TAB20 PO (10:35)
[2024-01-11] MEDS ORDERED: SERT50TA29 PO (10:35)
[2024-01-11] MEDS ORDERED: LEVO150T7 PO (10:35)
[2024-01-11] MEDS ORDERED: HOME MED LIST COMPLETE! XX SCH ×2 (10:35→13:15)
[2024-01-11] MEDS ORDERED: traZODone 50 MG TAB PO PRN (13:05)
[2024-01-11] MEDS ORDERED: IBUPROFEN 400MG TAB PO PRN (13:05)
[2024-01-11] MEDS ORDERED: MAALOX 30 ML SUSP *UDC PO PRN (13:05)
[2024-01-11] MEDS ORDERED: ACETAMINOPHEN TAB 650MG DOSE (2X325MG) PO PRN (13:05)
[2024-01-11] MEDS ORDERED: MOM 30ML SUSPENSION UDC PO PRN (13:05)
[2024-01-11] MEDS: diphenhydrAMINE 25MG CAP PO PRN (13:30)
[2024-01-11] MEDS: LORazepam 1 MG TAB PO ONE (14:54)
[2024-01-12 06:55] VITALS: BP 141/73; TEMP 96.9; O2SAT 96
[2024-01-12] MEDS: NICOTINE 21MG/24HR 1 EA TRANSDERMAL TD SCH (13:27)
[2024-01-12] MEDS: LEVOTHYROXINE 150MCG TABLET (0.15MG) PO SCH (13:28)
[2024-01-12 16:10] VITALS: BP 140/80; TEMP 98.1; O2SAT 99
[2024-01-12] MEDS: traZODone 50 MG TAB PO SCH (20:13)
[2024-01-12] MEDS: OLANZapine 10 MG TAB PO SCH (20:13)
[2024-01-12] MEDS: BENZTROPINE 1 MG TAB PO SCH (20:13)
[2024-01-12] MEDS: cloNIDine 0.2 MG TAB PO SCH (20:14)
[2024-01-13 06:00] VITALS: BP 143/92; TEMP 97.3; O2SAT 97
[2024-01-13 08:10] VITALS: BP 126/70
[2024-01-13] MEDS: SERTRALINE HCL 50 MG TAB PO SCH (08:13)
[2024-01-13 15:25] VITALS: BP 144/81; TEMP 97.1; O2SAT 96
[2024-01-14 06:24] VITALS: BP 128/66; TEMP 97.8; O2SAT 95
[2024-01-14 08:33] VITALS: BP 124/76
[2024-01-14 15:25] VITALS: BP 138/70; TEMP 98.6; O2SAT 98
[2024-01-14] MEDS: NICOTINE POLACRILEX 2 MG GUM PO PRN (15:36)
[2024-01-15 06:10] VITALS: BP 122/76; TEMP 96.9; O2SAT 97
[2024-01-15 15:35] VITALS: BP 146/75; TEMP 97.6; O2SAT 100
[2024-01-16 06:14] VITALS: BP 121/61; TEMP 96.4; O2SAT 100
[2024-01-16 08:20] VITALS: BP 139/75
[2024-01-16] MEDS: OLANZapine 10 MG TAB PO SCH (09:33)
[2024-01-16] MEDS ORDERED: ZYPR10TA PO (10:46)
[2024-01-24] MEDS ORDERED: HALOPERIDOL DECANOATE 100 MG/ML 1ML VIAL IM SCH (09:00)
== END 2024-01-16 11:38 | disposition home or self-care (01) | DRG 750 ==
LOC: M ED 08:12 → M ED INP 13:04 → M PSY 14:48
PROVIDERS: ADMIT Psychiatry & Neurology Child & Adolescent Psychiatry; ATTEND Psychiatry & Neurology Psychiatry
DX: F20.9 Schizophrenia, unspecified (principal); F12.10 Cannabis abuse, uncomplicated; F17.200 Nicotine dependence, unspecified, uncomplicated; E03.9 Hypothyroidism, unspecified; Z91.198 Patient's noncompliance with other medical treatment and regimen for other reason; Z79.890 Hormone replacement therapy; Z79.899 Other long term (current) drug therapy; Z91.52 Personal history of nonsuicidal self-harm; Z91.51 Personal history of suicidal behavior

== ENCOUNTER 2024-01-12 15:00 | Outpatient (RCR) | payer OTHER ==
[~2024-01-12 15:00] MED LIST changes: +LEVO150T7 PO; +OLAN1TAB20 PO; +SERT50TA29 PO
== END 2024-01-13 ==
LOC: M OUTALCOH 15:00
PROVIDERS: ATTEND Psychiatry & Neurology Psychiatry
DX: F15.20 Other stimulant dependence, uncomplicated (principal); F17.200 Nicotine dependence, unspecified, uncomplicated

== ENCOUNTER 2024-02-09 15:00 | Outpatient (RCR) | payer OTHER ==
[~2024-02-09 15:00] MED LIST changes: +ZYPR10TA PO
== END 2024-02-12 ==
LOC: M OUTALCOH 15:00
PROVIDERS: ATTEND Psychiatry & Neurology Psychiatry
DX: F15.20 Other stimulant dependence, uncomplicated (principal); F17.200 Nicotine dependence, unspecified, uncomplicated

== ENCOUNTER 2024-03-13 08:59 | Outpatient (RCR) | payer OTHER | END 2024-03-14 | LOC: M OUTALCOH 08:59 | PROVIDERS: ATTEND Psychiatry & Neurology Psychiatry | DX: F15.20 Other stimulant dependence, uncomplicated (principal); F17.200 Nicotine dependence, unspecified, uncomplicated ==

== ENCOUNTER 2024-04-04 08:58 | Outpatient (RCR) | payer OTHER | END 2024-04-13 | LOC: M OUTALCOH 08:58 | PROVIDERS: ATTEND Psychiatry & Neurology Psychiatry | DX: F15.20 Other stimulant dependence, uncomplicated (principal); F17.200 Nicotine dependence, unspecified, uncomplicated ==

== ENCOUNTER 2024-05-01 08:54 | Outpatient (RCR) | payer OTHER | END 2024-05-14 | LOC: M OUTALCOH 08:54 | PROVIDERS: ATTEND Psychiatry & Neurology Psychiatry | DX: F15.20 Other stimulant dependence, uncomplicated (principal); F12.20 Cannabis dependence, uncomplicated; F17.200 Nicotine dependence, unspecified, uncomplicated ==

== ENCOUNTER → 2024-06-14 | Outpatient (RCR) | payer OTHER | LOC: M OUTALCOH 05-22 09:01 | PROVIDERS: ATTEND Psychiatry & Neurology Psychiatry | DX: F15.20 Other stimulant dependence, uncomplicated (principal); F12.20 Cannabis dependence, uncomplicated; F17.200 Nicotine dependence, unspecified, uncomplicated ==

== ENCOUNTER 2024-07-02 09:00 | Outpatient (RCR) | payer OTHER | END 2024-07-12 | LOC: M OUTALCOH 09:00 | PROVIDERS: ATTEND Psychiatry & Neurology Psychiatry | DX: F15.20 Other stimulant dependence, uncomplicated (principal); F12.20 Cannabis dependence, uncomplicated; F17.200 Nicotine dependence, unspecified, uncomplicated ==

== ENCOUNTER 2024-08-08 09:00 | Outpatient (RCR) | payer OTHER | END 2024-08-12 | LOC: M OUTALCOH 09:00 | PROVIDERS: ATTEND Psychiatry & Neurology Psychiatry | DX: F15.20 Other stimulant dependence, uncomplicated (principal); F17.200 Nicotine dependence, unspecified, uncomplicated; F12.20 Cannabis dependence, uncomplicated ==

== ENCOUNTER → 2024-09-11 | Outpatient (RCR) | payer OTHER | LOC: M OUTALCOH 08-15 15:51 | PROVIDERS: ATTEND Psychiatry & Neurology Psychiatry | DX: F15.20 Other stimulant dependence, uncomplicated (principal); F12.20 Cannabis dependence, uncomplicated; F17.200 Nicotine dependence, unspecified, uncomplicated ==

== ENCOUNTER 2024-11-22 08:48 | Outpatient (RCR) | payer OTHER ==
[~2024-11-22 08:48] MED LIST changes: -DEPA250T32 PO; +DIVA-65 PO
== END 2024-12-12 ==
LOC: M OUTALCOH 08:48
PROVIDERS: ATTEND Psychiatry & Neurology Psychiatry
DX: F15.20 Other stimulant dependence, uncomplicated (principal); F17.200 Nicotine dependence, unspecified, uncomplicated; F12.20 Cannabis dependence, uncomplicated; F10.10 Alcohol abuse, uncomplicated

== ENCOUNTER → 2024-12-27 | Outpatient (CLI) | payer OTHER ==
[~2024-12-27] MED LIST changes: +E-Z-GAS II EFFERVESCENT PACKET (SODIUM BICARB./CITRIC ACID/SIMETHICONE) As Ordered ONE; +E-Z-HD 98% w/w 340 GM SUSP BTL As Ordered ONE; +E-Z-PAQUE 96% w/w SUSP 176 GM BTL As Ordered ONE
== END ==
LOC: M RAD 10:03
DX: R11.2 Nausea with vomiting, unspecified (principal); K21.9 Gastro-esophageal reflux disease without esophagitis

== ENCOUNTER 2025-01-02 10:46 | Outpatient (RCR) | payer OTHER ==
[~2025-01-02 10:46] MED LIST changes: -E-Z-GAS II EFFERVESCENT PACKET (SODIUM BICARB./CITRIC ACID/SIMETHICONE) As Ordered ONE; -E-Z-HD 98% w/w 340 GM SUSP BTL As Ordered ONE; -E-Z-PAQUE 96% w/w SUSP 176 GM BTL As Ordered ONE
== END 2025-01-12 ==
LOC: M OUTALCOH 10:46
PROVIDERS: ATTEND Psychiatry & Neurology Psychiatry
DX: F15.20 Other stimulant dependence, uncomplicated (principal); F12.20 Cannabis dependence, uncomplicated; F10.10 Alcohol abuse, uncomplicated; F17.200 Nicotine dependence, unspecified, uncomplicated

== ENCOUNTER 2025-01-30 19:09 | Emergency (ER) | payer OTHER ==
[~2025-01-30] VITALS: Ht 185.4 cm; Wt 90.0 kg
[2025-01-30 19:35] VITALS: BP 143/74; TEMP 98; O2SAT 99
[2025-01-30 20:32] LABS: PLATELET COUNT, AUTOMATED 266 10^3/uL (150-450)
[2025-01-30 20:57] LABS: ETHYL ALCOHOL (ETHANOL) < 0.003 % (0.000-0.010)
[2025-01-30 20:59] LABS: ALT/SGPT 27 U/L (7.0-40); AST/SGOT 25 U/L (<34); CALCIUM LEVEL 9.1 MG/DL (8.5-10.1); CARBON DIOXIDE LEVEL 24 MMOL/L (20-31); CHLORIDE LEVEL 106 MMOL/L (98-107); CREATININE FOR GFR 1.06 MG/DL (0.70-1.30); GLOMERULAR FILTRATION RATE > 90.0 (>60); POTASSIUM SERUM 3.6 MMOL/L (3.5-5.1); SALICYLATE LEVEL < 3.0 MG/DL (<30); SODIUM LEVEL 135 MMOL/L (136-145)
[2025-01-30 22:45] LABS: AMPHETAMINES LEVEL URINE NEGATIVE (NEGATIVE); BARBITURATES URINE NEGATIVE (NEGATIVE); BENZODIAZEPINES URINE NEGATIVE (NEGATIVE); CANNABINOIDS URINE NEGATIVE (NEGATIVE); COCAINE METABOLITE URINE NEGATIVE (NEGATIVE); METHADONE URINE NEGATIVE (NEGATIVE); OPIATES URINE NEGATIVE (NEGATIVE); PHENCYCLIDINE URINE NEGATIVE (NEGATIVE)
== END 2025-01-30 23:22 | disposition home or self-care (01) ==
LOC: M ED 19:09
DX: F20.9 Schizophrenia, unspecified (principal); F17.210 Nicotine dependence, cigarettes, uncomplicated; Z79.899 Other long term (current) drug therapy

== ENCOUNTER 2025-02-12 09:48 | Outpatient (RCR) | payer OTHER | END 2025-03-14 | LOC: M OUTALCOH 09:48 | PROVIDERS: ATTEND Psychiatry & Neurology Psychiatry | DX: F15.20 Other stimulant dependence, uncomplicated (principal); F12.20 Cannabis dependence, uncomplicated; F10.10 Alcohol abuse, uncomplicated; F17.200 Nicotine dependence, unspecified, uncomplicated ==

== ENCOUNTER 2025-02-28 19:47 | Emergency (ER) | payer OTHER ==
[~2025-02-28] VITALS: Ht 182.9 cm; Wt 96.4 kg
[2025-02-28] MEDS ORDERED: MIDAZOLAM INJ 2 MG/2 ML VIAL As Ordered ONE (20:15)
[2025-02-28] MEDS ORDERED: diphenhydrAMINE 50 MG/ML VIAL As Ordered ONE (20:15)
[2025-02-28] MEDS ORDERED: HALOPERIDOL LACTATE 5 MG/ML VIAL As Ordered ONE (20:15)
[2025-02-28] MEDS: diphenhydrAMINE 50 MG/ML VIAL IM STA (20:20)
[2025-02-28] MEDS: MIDAZOLAM 5 MG/ML 1 ML VIAL IM ONE (20:20)
[2025-02-28] MEDS: HALOPERIDOL LACTATE 5 MG/ML VIAL IM STA (20:21)
[2025-02-28 20:58] LABS: PLATELET COUNT, AUTOMATED 258 10^3/uL (150-450)
[2025-02-28 21:20] LABS: AMPHETAMINES LEVEL URINE NEGATIVE (NEGATIVE); BARBITURATES URINE NEGATIVE (NEGATIVE); BENZODIAZEPINES URINE NEGATIVE (NEGATIVE); COCAINE METABOLITE URINE NEGATIVE (NEGATIVE); METHADONE URINE NEGATIVE (NEGATIVE)
[2025-02-28 21:21] LABS: CANNABINOIDS URINE NEGATIVE (NEGATIVE); OPIATES URINE NEGATIVE (NEGATIVE); PHENCYCLIDINE URINE NEGATIVE (NEGATIVE)
[2025-02-28 21:23] LABS: ETHYL ALCOHOL (ETHANOL) < 0.003 % (0.000-0.010)
[2025-02-28 21:24] LABS: ALT/SGPT 27 U/L (7.0-40); AST/SGOT 30 U/L (<34); CALCIUM LEVEL 9.2 MG/DL (8.5-10.1); CARBON DIOXIDE LEVEL 24 MMOL/L (20-31); CHLORIDE LEVEL 107 MMOL/L (98-107); CREATININE FOR GFR 1.18 MG/DL (0.70-1.30); GLOMERULAR FILTRATION RATE 87.3 (>60); POTASSIUM SERUM 3.9 MMOL/L (3.5-5.1); SALICYLATE LEVEL < 3.0 MG/DL (<30); SODIUM LEVEL 143 MMOL/L (136-145)
[2025-02-28 21:26] LABS: CPK CREATINE PHOSPHOKINASE 159 U/L (46-171)
[2025-03-01 00:02] VITALS: BP 114/67; TEMP 97.8; O2SAT 97
== END 2025-03-01 00:07 | disposition home or self-care (01) ==
LOC: M ED 19:47
DX: F20.9 Schizophrenia, unspecified (principal); E03.9 Hypothyroidism, unspecified; F32.A Depression, unspecified; F17.210 Nicotine dependence, cigarettes, uncomplicated; Z79.899 Other long term (current) drug therapy
CPT/HCPCS: 80048; 80076; 80143; 80307; 82077; 82550; 84443; 85027; 96372; 99285; J1200; J1630; J2250

== ENCOUNTER 2025-03-26 09:58 | Outpatient (RCR) | payer OTHER | END 2025-04-13 | LOC: M OUTALCOH 09:58 | PROVIDERS: ATTEND Psychiatry & Neurology Psychiatry | DX: F15.20 Other stimulant dependence, uncomplicated (principal); F12.20 Cannabis dependence, uncomplicated; F10.10 Alcohol abuse, uncomplicated; F17.200 Nicotine dependence, unspecified, uncomplicated ==

== ENCOUNTER 2025-05-01 09:48 | Outpatient (RCR) | payer OTHER | END 2025-05-14 | LOC: M OUTALCOH 09:48 | PROVIDERS: ATTEND Psychiatry & Neurology Psychiatry | DX: F15.20 Other stimulant dependence, uncomplicated (principal); F12.20 Cannabis dependence, uncomplicated; F10.10 Alcohol abuse, uncomplicated; F17.200 Nicotine dependence, unspecified, uncomplicated ==